=== PATIENT | female | born 1990 | race Two or more races ===

== ENCOUNTER 2016-09-21 10:28 | Inpatient (IN) | payer OTHER ==
[2016-09-21 13:08] VITALS: BMI 23.8
--- NOTE | 2016-09-21 13:22 | HP ---
CIWA Score - CIWA Score Nausea/Vomitin-Mild Nausea/No Vomiting Muscle Tremors: 4-Moderate,w/Arms Extend Anxiety: 4-Mod. Anxious/Guarded Agitation: 4-Moderately Restless Paroxysmal Sweats: 3 Orientation: 0-Oriented Tacttile Disturbances: 0-None Auditory Disturbances: 0-None Visual Disturbances: 0-None Headache: 0-None Present CIWA-Ar Total Score: 16 Admission ROS S - HPI Chief Complaint: I am here to detox and get better. Allergies/Adverse Reactions: Allergies Allergy/AdvReac Type Severity Reaction Status Date / Time peach Allergy Severe Verified 09/21/16 13:13 vancomycin Allergy Severe Verified 09/21/16 13:13 History of Present Illness: pt is a 25yr old female with a history of alcohol, cocaine and cannabis dependence seeking detox for treatment. pt also has a h/o of left foot big and second toe amputee and right foot big toe amputee. also right index finger amputee 2013 and 2011 pt also has been a diabetic since age 12 and states has been uncontrolled. Exam Limitations: No Limitations - Ebola screening Have you traveled outside of the country in the last 21 days: No Have you had contact with anyone from an Ebola affected area: No Have you been sick,other than usual withdrawal symptoms: No Do you have a fever: No - Review of Systems Constitutional: Chills, Diaphoresis, Night Sweats, Changes in sleep, Unexplained wgt Loss EENT: reports: Nose Congestion Respiratory: reports: No Symptoms reported GI: reports: Diarrhea (chronic diarrhea), Nausea, Poor Fluid Intake, Vomiting, Indigestion : reports: No Symptoms Reported Musculoskeletal: reports: Muscle Pain Integumentary: reports: Flushing, Rash (to elbow possible psoriasis) Neuro: reports: Tingling, Tremors Endocrine: reports: Excessive Sweating, Flushing, Intolerance to Cold, Intolerance to Heat Hematology: reports: No Symptoms Reported Psychiatric: reports: Judgement Intact, Mood/Affect Appropiate, Orientated x3, Agitated, Anxious Other Systems: Reviewed and Negative Patient History - Patient Medical History Hx Anemia: No Hx Asthma: No Hx Chronic Obstructive Pulmonary Disease (COPD): No Hx Cancer: No Hx Cardiac Disorders: No Hx Congestive Heart Failure: No Hx Hypertension: No Hx Hypercholesterolemia: No Hx Pacemaker: No HX Cerebrovascular Accident: No Hx Seizures: No Hx Dementia: No Hx Diabetes: Yes (insulin dependent) Hx Gastrointestinal Disorders: No Hx Liver Disease: No Hx Genitourinary Disorders: No Hx Sexually Transmitted Disorders: No Hx Renal Disease (ESRD): No Hx Thyroid Disease: No Hx Human Immunodeficiency Virus (HIV): No (negative) Hx Hepatitis C: No (negatiave) Hx Depression: Yes Hx Suicide Attempt: No (at a younger age; denies any S/H ideation today) Hx Bipolar Disorder: Yes Hx Schizophrenia: No - Patient Surgical History Hx Orthopedic Surgery: Yes (osteomylatis; four amputee(finger and toes)) - PPD History Previous Implant?: Yes Documented Results: Negative w/o proof PPD to be Administered?: Yes - Reproductive History Patient is a Female of Child Bearing Age (11 -55 yrs old): Yes Last Menstrual Period: 08/28/16 Patient : No - Smoking Cessation Smoking history: Current every day smoker Have you smoked in the past 12 months: Yes Aproximately how many cigarettes per day: 10 Hx Chewing Tobacco Use: No Initiated information on smoking cessation: Yes 'Breaking Loose' booklet given: 09/21/16 - Substance & Tx. History Hx Alcohol Use: Yes Hx Substance Use: Yes Substance Use Type: Alcohol, Cocaine, Marijuana Hx Substance Use Treatment: Yes ([facility] - Substances Abused Alcohol Route: Oral Frequency: Daily Amount used: 6PK BEER Age of first use: 14 Date of Last Use: 09/20/16 Cocaine Route: Inhalation Frequency: Daily Amount used: $300 AND UP Age of first use: 17 Date of Last Use: 09/21/16 Marijuana/Hashish Route: Smoking Frequency: Daily Amount used: $50 Age of first use: 13 Date of Last Use: 09/21/16 Family Disease History - Family Disease History Family Disease History: Diabetes: Mother () Admission Physical Exam [facility] - Vital Signs Vital Signs: Vital Signs - 24 hr 09/21/16 13:05 Temperature 97.1 F L Pulse Rate 64 Respiratory 20 Rate Blood Pressure 109/70 - Physical General Appearance: Yes: Appropriately Dressed, Moderate Distress, Tremorous, Irritable, Sweating, Anxious HEENTM: Yes: Hearing grossly Normal, Normal Voice, Nasal Congestion Respiratory: Yes: Lungs Clear, Normal Breath Sounds, No Respiratory Distress Neck: Yes: No masses,lesions,Nodules Breast: Yes: Within Normal Limits Cardiology: Yes: Regular Rhythm, Regular Rate, S1, S2 Abdominal: Yes: Normal Bowel Sounds, Non Tender, Soft Genitourinary: Yes: Within Normal Limits Back: Yes: Normal Inspection Musculoskeletal: Yes: full range of Motion Extremities: Yes: Normal Inspection, Non-Tender, Tremors, Swelling (lower ankles ) Neurological: Yes: Fully Oriented, Alert, Normal Response Integumentary: Yes: Normal Color, Diaphoresis Lymphatic: Yes: Within Normal Limits - Diagnostic (1) Alcohol dependence with uncomplicated withdrawal Current Visit: Yes Status: Chronic (2) Cocaine dependence Current Visit: Yes Status: Chronic Qualifiers: Substance use status: uncomplicated Qualified Code(s): F14.20 - Cocaine dependence, uncomplicated (3) Cannabis dependence Current Visit: Yes Status: Chronic (4) Diabetes type 2, uncontrolled Current Visit: Yes Status: Chronic Qualifiers: Diabetes mellitus complication status: without complication Diabetes mellitus termite technician insulin use: with termite technician use Qualified Code(s): E11.65 - Type 2 diabetes mellitus with hyperglycemia; Z79.4 - termite exterminator (current ) use of insulin (5) H/O amputation Current Visit: No Status: Chronic (6) H/O osteomyelitis Current Visit: No Status: Chronic (7) Nicotine dependence Current Visit: Yes Status: Chronic Qualifiers: Nicotine product type: cigarettes Substance use status: uncomplicated Qualified Code(s): F17.210 - Nicotine dependence, cigarettes, uncomplicated (8) Psoriasis Current Visit: Yes Status: Chronic (9) Swelling of lower extremity Current Visit: Yes Status: Chronic Cleared for Admission [facility] - Detox or Rehab [facility] Level of Care: Medically Managed Detox Regimen/Protocol: Librium [facility] Breath Alcohol Content Breath Alcohol Content: 0 Urine Pregancy Test - Result Urine Test Results: Negative- NO Line Present Urine Drug Screen - Results Drug Screen Negative: No Urine Drug Screen Results: THC-Marijuana, KEIRA-Cocaine
[2016-09-21] MEDS ORDERED: MAGNESIUM CITRATE 300 ML BOTTLE PO PRN (13:45)
[2016-09-21] MEDS ORDERED: guaiFENesin/D-METHORPHAN HB 10 ML UNIT-DOSE CUPS PO PRN (13:45)
[2016-09-21] MEDS ORDERED: IBUPROFEN 400 MG TABLET (FP) PO PRN (13:45)
[2016-09-21] MEDS ORDERED: chlordiazePOXIDE HCL 25 MG CAPSULE PO PRN (13:45)
[2016-09-21] MEDS ORDERED: MAGNESIUM HYDROX 2400MG/30ML ORAL SUSPENSION 30 ML CUP PO PRN (13:45)
[2016-09-21] MEDS ORDERED: MAG HYDROX/AL HYDROX/SIMETH 30 ML UNIT-DOSE CUP PO PRN (13:45)
[2016-09-21] MEDS ORDERED: ACETAMINOPHEN 325 MG TABLET (FP) PO PRN (13:45)
[2016-09-21] MEDS ORDERED: NICOTINE POLACRILEX 4 MG GUM BC PRN (13:45)
[2016-09-21] MEDS ORDERED: MENTHOL/PHENOL 1 EACH UD MM PRN (13:45)
[2016-09-21] MEDS ORDERED: hydrOXYzine PAMOATE 50 MG CAPSULE (FP) PO PRN (13:45)
[2016-09-21] MEDS ORDERED: P-EPHED 60MG/TRIPROLIDI 2.5MG TABLET PO PRN (13:45)
[2016-09-21] MEDS ORDERED: FUROSEMIDE 20 MG TABLET (FP) PO ONE (14:30)
[2016-09-21] MEDS ORDERED: chlordiazePOXIDE HCL 25 MG CAPSULE PO ONE (14:30)
[2016-09-21] MEDS: FLUOCINONIDE 0.05% TOP OINT (60 GM TUBE) TP SCH ×2 (14:59→22:08)
[2016-09-21] MEDS ORDERED: INSULIN (NOVOLOG) ASPART 100 UNITS/ML 10ML VIAL ONE ×2 (16:44→22:02)
[2016-09-21 17:30] LABS: URINE APPEARANCE CLEAR; URINE BILIRUBIN NEGATIVE (NEGATIVE); URINE COLOR STRAW; URINE GLUCOSE (UA) 3+ (NEGATIVE); URINE KETONE NEGATIVE (NEGATIVE); URINE LEUK ESTERASE NEGATIVE (NEGATIVE); URINE NITRITE NEGATIVE (NEGATIVE); URINE UROBILINOGEN NEGATIVE E.U./dl (0.2-1.0)
[2016-09-21 17:32] LABS: URINE BLOOD 1+ (NEGATIVE); URINE PROTEIN 2+ (NEGATIVE)
[2016-09-21 17:35] LABS: URINE BACTERIA RARE /hpf (NONE SEEN); URINE RBC 30 /hpf (0-3); URINE WBC 3 /hpf (3-5); YEAST MODERATE
[2016-09-21] MEDS: chlordiazePOXIDE HCL 25 MG CAPSULE PO SCH ×2 (17:37→22:04)
[2016-09-21] MEDS: INSULIN (NOVOLOG) ASPART 100 UNITS/ML 10ML VIAL SQ SCH (17:38)
[2016-09-21] MEDS: RANITIDINE HCL 150 MG TABLET (FP) PO SCH (22:04)
[2016-09-21] MEDS: LOPERAMIDE HCL 2 MG CAPSULE PO PRN (22:06)
[2016-09-21] MEDS: diphenhydrAMINE HCL 50 MG CAPSULE PO PRN (22:07)
[2016-09-21] MEDS: INSULIN DETEMIR 100 UNITS/ML MDV SQ SCH (22:07)
[2016-09-21] MEDS: THIAMINE HCL 100 MG TABLET (FP) PO SCH (22:08)
[2016-09-21] MEDS ORDERED: Insulin (LOG) Aspart 100 UNITS/ML VIAL SQ SCH (22:15)
[2016-09-22] MEDS: chlordiazePOXIDE HCL 25 MG CAPSULE PO SCH ×4 (05:54→22:27)
[2016-09-22] MEDS: FLUOCINONIDE 0.05% TOP OINT (60 GM TUBE) TP SCH ×3 (05:57→22:27)
[2016-09-22] MEDS ORDERED: INSULIN (NOVOLOG) ASPART 100 UNITS/ML 10ML VIAL ONE ×4 (06:36→22:10)
[2016-09-22] MEDS: INSULIN (NOVOLOG) ASPART 100 UNITS/ML 10ML VIAL SQ SCH ×3 (06:38→17:26)
[2016-09-22] MEDS ORDERED: Insulin (LOG) Aspart 100 UNITS/ML VIAL SQ SCH (07:00)
[2016-09-22 10:04] LABS: MCH 28.4 pg (25.7-33.7); MCHC 32.5 g/dl (32.0-36.0); MEAN CELL VOLUME 87.5 fl (80-96); MEAN PLT VOLUME 9.8 fl (7.5-11.1); PLATELET COUNT 369 K/MM3 (134-434); RDW 15.2 % (11.6-15.6)
[2016-09-22] MEDS: RANITIDINE HCL 150 MG TABLET (FP) PO SCH ×2 (10:18→22:26)
[2016-09-22] MEDS: PRENATAL VITAMINS W/ FOLIC ACID TABLET (FP) PO SCH (10:18)
[2016-09-22] MEDS: LOPERAMIDE HCL 2 MG CAPSULE PO PRN (10:19)
[2016-09-22] MEDS: NICOTINE 21 MG/24 HOURS TOPICAL PATCH TD SCH (10:19)
[2016-09-22 10:27] LABS: ALBUMIN 2.9 g/dl (3.4-5.0); BILIRUBIN,TOTAL 0.2 mg/dL (0.2-1.0); CALCIUM 8.7 mg/dL (8.5-10.1); COCKROFT - GAULT 50.031; CREATININE 1.6 mg/dL (0.55-1.02); TOT PROT 6.8 g/dl (6.4-8.2)
--- NOTE | 2016-09-22 13:34 | PN ---
S CIWA - CIWA Score Nausea/Vomitin Muscle Tremors: 3 Anxiety: 2 Agitation: 2 Paroxysmal Sweats: 1-Minimal Palms Moist Orientation: 0-Oriented Tacttile Disturbances: 1-Very Mild Itch/Numbness Auditory Disturbances: 1-Very Mild Visual Disturbances: 1-Very Mild Sensitivity Headache: 2-Mild CIWA-Ar Total Score: 16 S Progress Note (SOAP) Subjective: ALERT,IRRITABLE,ANXIOUS,INTERRUPTED SLEEP,TREMOR Objective: 09/22/16 13:32 Vital Signs Temperature 97.7 F 09/22/16 13:14 Pulse Rate 102 H 09/22/16 13:14 Respiratory Rate 16 09/22/16 13:14 Blood Pressure 135/84 09/22/16 13:14 O2 Sat by Pulse Oximetry (%) EKG SINUS TACHYCARDIA 103/MIN N CHEST PAIN,NO SOB,NO DIZZINESS 09/22/16 13:33 Laboratory Last Values WBC 8.0 K/mm3 (4.0-10.0) 09/22/16 06:00 RBC 3.47 M/mm3 (3.60-5.2) L 09/22/16 06:00 Hgb 9.9 GM/dL (10.7-15.3) L 09/22/16 06:00 Hct 30.4 % (32.4-45.2) L 09/22/16 06:00 MCV 87.5 fl (80-96) 09/22/16 06:00 MCHC 32.5 g/dl (32.0-36.0) 09/22/16 06:00 RDW 15.2 % (11.6-15.6) 09/22/16 06:00 Plt Count 369 K/MM3 (134-434) 09/22/16 06:00 MPV 9.8 fl (7.5-11.1) 09/22/16 06:00 Sodium 132 mmol/L (136-145) L 09/22/16 06:00 Potassium 4.9 mmol/L (3.5-5.1) 09/22/16 06:00 Chloride 101 mmol/L (98-107) 09/22/16 06:00 Carbon Dioxide 19 mmol/L (21-32) L 09/22/16 06:00 Anion Gap 12 (8-16) 09/22/16 06:00 BUN 32 mg/dL (7-18) H 09/22/16 06:00 Creatinine 1.6 mg/dL (0.55-1.02) H 09/22/16 06:00 Creat Clearance w eGFR 39.27 (>60) 09/22/16 06:00 POC Glucometer 357 UNITS (()) 09/22/16 11:15 Random Glucose 577 mg/dL (74-106) H* 09/22/16 06:00 Calcium 8.7 mg/dL (8.5-10.1) 09/22/16 06:00 Total Bilirubin 0.2 mg/dL (0.2-1.0) 09/22/16 06:00 AST 29 U/L (15-37) 09/22/16 06:00 ALT 75 U/L (12-78) 09/22/16 06:00 Alkaline Phosphatase 202 U/L (45-117) H 09/22/16 06:00 Total Protein 6.8 g/dl (6.4-8.2) 09/22/16 06:00 Albumin 2.9 g/dl (3.4-5.0) L 09/22/16 06:00 Urine Color Straw 09/21/16 15:00 Urine Appearance Clear 09/21/16 15:00 Urine pH 5.0 (5.0-8.0) 09/21/16 15:00 Ur Specific [place] 1.015 (1.005-1.025) 09/21/16 15:00 Urine Protein 2+ (NEGATIVE) H 09/21/16 15:00 Urine Glucose (UA) 3+ (NEGATIVE) H 09/21/16 15:00 Urine Ketones Negative (NEGATIVE) 09/21/16 15:00 Urine Blood 1+ (NEGATIVE) H 09/21/16 15:00 Urine Nitrite Negative (NEGATIVE) 09/21/16 15:00 Urine Bilirubin Negative (NEGATIVE) 09/21/16 15:00 Urine Urobilinogen Negative E.U./dl (0.2-1.0) 09/21/16 15:00 Ur Leukocyte Esterase Negative (NEGATIVE) 09/21/16 15:00 Urine RBC 30 /hpf (0-3) 09/21/16 15:00 Urine WBC 3 /hpf (3-5) 09/21/16 15:00 Ur Epithelial Cells Rare /hpf (FEW) 09/21/16 15:00 Urine Bacteria Rare /hpf (NONE SEEN) 09/21/16 15:00 Urine Yeast Moderate 09/21/16 15:00 Assessment: 09/22/16 13:34 ENCOURAGE ORAL FLUID Plan: CONTINUE DETOX,REPEAT UA,BGM MONITORING WITH INSULIN COVERAGE,REPEAT CMP IN AM
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
--- NOTE | 2016-09-22 15:47 | EKG ---
Test Reason : Blood Pressure : / mmHG Vent. Rate : 103 BPM Atrial Rate : 103 BPM P-R Int : 150 ms QRS Dur : 092 ms QT Int : 328 ms P-R-T Axes : 052 071 051 degrees QTc Int : 429 ms SINUS TACHYCARDIA OTHERWISE NORMAL ECG NO PREVIOUS ECGS AVAILABLE Confirmed by MARLENE HAYS, AUGUSTIN ([id number]) on 09/22/2016 3:47:41 PM Referred By: Confirmed By:AUGUSTIN ROSARIO MD
[2016-09-22] MEDS: SERTRALINE HCL 50 MG TABLET (FP) PO SCH (15:54)
[2016-09-22] MEDS ORDERED: ZOLPIDEM TARTRATE 5 MG TABLET PO PRN (18:24)
[2016-09-22] MEDS: THIAMINE HCL 100 MG TABLET (FP) PO SCH (22:26)
[2016-09-22] MEDS: INSULIN DETEMIR 100 UNITS/ML MDV SQ SCH (22:27)
[2016-09-23] MEDS ORDERED: Insulin (LOG) Aspart 100 UNITS/ML VIAL SQ ONE ×2 (00:30→23:49)
[2016-09-23] MEDS: chlordiazePOXIDE HCL 25 MG CAPSULE PO SCH ×2 (06:30→10:16)
[2016-09-23] MEDS: FLUOCINONIDE 0.05% TOP OINT (60 GM TUBE) TP SCH ×3 (06:30→22:42)
[2016-09-23] MEDS: INSULIN (NOVOLOG) ASPART 100 UNITS/ML 10ML VIAL SQ SCH ×3 (06:31→17:42)
[2016-09-23] MEDS: RANITIDINE HCL 150 MG TABLET (FP) PO SCH ×2 (10:16→22:13)
[2016-09-23] MEDS: SERTRALINE HCL 50 MG TABLET (FP) PO SCH (10:16)
[2016-09-23] MEDS: PRENATAL VITAMINS W/ FOLIC ACID TABLET (FP) PO SCH (10:16)
[2016-09-23] MEDS: NICOTINE 21 MG/24 HOURS TOPICAL PATCH TD SCH (10:16)
--- NOTE | 2016-09-23 11:30 | PN ---
S CIWA - CIWA Score Nausea/Vomitin Muscle Tremors: 3 Anxiety: 2 Agitation: 2 Paroxysmal Sweats: 1-Minimal Palms Moist Orientation: 0-Oriented Tacttile Disturbances: 1-Very Mild Itch/Numbness Auditory Disturbances: 1-Very Mild Visual Disturbances: 1-Very Mild Sensitivity Headache: 2-Mild CIWA-Ar Total Score: 16 S Progress Note (SOAP) Subjective: ALERT,IRRITABLE,ANXIOUS,INTERRUPTED SLEEP,TREMOR Objective: 09/23/16 11:28 Vital Signs Temperature 97.7 F 09/23/16 10:50 Pulse Rate 94 H 09/23/16 10:50 Respiratory Rate 16 09/23/16 10:50 Blood Pressure 123/82 09/23/16 10:50 O2 Sat by Pulse Oximetry (%) Laboratory Last Values WBC 8.0 K/mm3 (4.0-10.0) 09/22/16 06:00 RBC 3.47 M/mm3 (3.60-5.2) L 09/22/16 06:00 Hgb 9.9 GM/dL (10.7-15.3) L 09/22/16 06:00 Hct 30.4 % (32.4-45.2) L 09/22/16 06:00 MCV 87.5 fl (80-96) 09/22/16 06:00 MCHC 32.5 g/dl (32.0-36.0) 09/22/16 06:00 RDW 15.2 % (11.6-15.6) 09/22/16 06:00 Plt Count 369 K/MM3 (134-434) 09/22/16 06:00 MPV 9.8 fl (7.5-11.1) 09/22/16 06:00 Sodium 132 mmol/L (136-145) L 09/22/16 06:00 Potassium 4.9 mmol/L (3.5-5.1) 09/22/16 06:00 Chloride 101 mmol/L (98-107) 09/22/16 06:00 Carbon Dioxide 19 mmol/L (21-32) L 09/22/16 06:00 Anion Gap 12 (8-16) 09/22/16 06:00 BUN 32 mg/dL (7-18) H 09/22/16 06:00 Creatinine 1.6 mg/dL (0.55-1.02) H 09/22/16 06:00 Creat Clearance w eGFR 39.27 (>60) 09/22/16 06:00 POC Glucometer 80 UNITS (()) 09/23/16 06:58 Random Glucose 577 mg/dL (74-106) H* 09/22/16 06:00 Calcium 8.7 mg/dL (8.5-10.1) 09/22/16 06:00 Total Bilirubin 0.2 mg/dL (0.2-1.0) 09/22/16 06:00 AST 29 U/L (15-37) 09/22/16 06:00 ALT 75 U/L (12-78) 09/22/16 06:00 Alkaline Phosphatase 202 U/L (45-117) H 09/22/16 06:00 Total Protein 6.8 g/dl (6.4-8.2) 09/22/16 06:00 Albumin 2.9 g/dl (3.4-5.0) L 09/22/16 06:00 Urine Color Straw 09/21/16 15:00 Urine Appearance Clear 09/21/16 15:00 Urine pH 5.0 (5.0-8.0) 09/21/16 15:00 Ur Specific [place] 1.015 (1.005-1.025) 09/21/16 15:00 Urine Protein 2+ (NEGATIVE) H 09/21/16 15:00 Urine Glucose (UA) 3+ (NEGATIVE) H 09/21/16 15:00 Urine Ketones Negative (NEGATIVE) 09/21/16 15:00 Urine Blood 1+ (NEGATIVE) H 09/21/16 15:00 Urine Nitrite Negative (NEGATIVE) 09/21/16 15:00 Urine Bilirubin Negative (NEGATIVE) 09/21/16 15:00 Urine Urobilinogen Negative E.U./dl (0.2-1.0) 09/21/16 15:00 Ur Leukocyte Esterase Negative (NEGATIVE) 09/21/16 15:00 Urine RBC 30 /hpf (0-3) 09/21/16 15:00 Urine WBC 3 /hpf (3-5) 09/21/16 15:00 Ur Epithelial Cells Rare /hpf (FEW) 09/21/16 15:00 Urine Bacteria Rare /hpf (NONE SEEN) 09/21/16 15:00 Urine Yeast Moderate 09/21/16 15:00 RPR Titer Nonreactive (NONREACTIVE) 09/22/16 06:00 Assessment: 09/23/16 11:29 WITHDRAWAL SYMPTOM Plan: CONTINUE DETOX,REPEAT UA,BGM MONITORING
[2016-09-23] MEDS ORDERED: INSULIN (NOVOLOG) ASPART 100 UNITS/ML 10ML VIAL ONE ×2 (11:37→16:49)
[2016-09-23] MEDS: chlordiazePOXIDE 5 MG CAPSULE PO SCH ×2 (17:41→22:13)
[2016-09-23 17:49] LABS: URINE APPEARANCE SLCLOUDY; URINE BILIRUBIN NEGATIVE (NEGATIVE); URINE COLOR LTYELLOW; URINE GLUCOSE (UA) 3+ (NEGATIVE); URINE KETONE NEGATIVE (NEGATIVE); URINE LEUK ESTERASE NEGATIVE (NEGATIVE); URINE NITRITE NEGATIVE (NEGATIVE); URINE UROBILINOGEN NEGATIVE E.U./dl (0.2-1.0)
[2016-09-23 17:57] LABS: URINE BLOOD 1+ (NEGATIVE); URINE PROTEIN 2+ (NEGATIVE)
[2016-09-23 17:58] LABS: URINE HYALINE CAST 2 /lpf; URINE MUCUS RARE; URINE RBC 7 /hpf (0-3); URINE WBC 2 /hpf (3-5)
[2016-09-23] MEDS: LOPERAMIDE HCL 2 MG CAPSULE PO PRN (20:24)
[2016-09-23] MEDS: THIAMINE HCL 100 MG TABLET (FP) PO SCH (22:13)
[2016-09-23] MEDS: INSULIN DETEMIR 100 UNITS/ML MDV SQ SCH (22:14)
[2016-09-23] MEDS: diphenhydrAMINE HCL 50 MG CAPSULE PO PRN (22:14)
[2016-09-24] MEDS: diphenhydrAMINE HCL 50 MG CAPSULE PO PRN ×2 (00:35→22:23)
[2016-09-24] MEDS: LOPERAMIDE HCL 2 MG CAPSULE PO PRN ×2 (03:53→10:26)
[2016-09-24] MEDS ORDERED: DIPHENOXYLATE 2.5/ATROPINE.025 1 COMBO TABLET PO PRN (06:04)
[2016-09-24] MEDS: chlordiazePOXIDE 5 MG CAPSULE PO SCH ×2 (06:08→10:22)
[2016-09-24] MEDS: FLUOCINONIDE 0.05% TOP OINT (60 GM TUBE) TP SCH ×3 (06:13→22:22)
[2016-09-24] MEDS: INSULIN (NOVOLOG) ASPART 100 UNITS/ML 10ML VIAL SQ SCH ×3 (07:56→17:11)
[2016-09-24] MEDS: RANITIDINE HCL 150 MG TABLET (FP) PO SCH ×2 (10:24→22:23)
[2016-09-24] MEDS: PRENATAL VITAMINS W/ FOLIC ACID TABLET (FP) PO SCH (10:24)
[2016-09-24] MEDS: SERTRALINE HCL 50 MG TABLET (FP) PO SCH (10:24)
--- NOTE | 2016-09-24 10:24 | PN ---
[facility] Progress Note (SOAP) Subjective: diarrhea has lessen feeling much better Objective: 09/24/16 10:23 Last Vital Signs Temp Pulse Resp BP Pulse Ox 97.1 F L 101 H 20 141/89 09/24/16 10:00 09/24/16 10:00 09/24/16 10:00 09/24/16 10:00 awake/alert ambulating no acute distress Assessment: 09/24/16 10:24 withdrawal sx Plan: continue detox increase fluids d/c in am
[2016-09-24] MEDS: NICOTINE 21 MG/24 HOURS TOPICAL PATCH TD SCH (10:31)
[2016-09-24] MEDS ORDERED: INSULIN (NOVOLOG) ASPART 100 UNITS/ML 10ML VIAL ONE ×2 (10:56→16:34)
[2016-09-24] MEDS: chlordiazePOXIDE HCL 10 MG CAPSULE PO SCH ×2 (17:10→22:23)
[2016-09-24] MEDS: INSULIN DETEMIR 100 UNITS/ML MDV SQ SCH (22:23)
[2016-09-24] MEDS: THIAMINE HCL 100 MG TABLET (FP) PO SCH (22:23)
[2016-09-25] MEDS: diphenhydrAMINE HCL 50 MG CAPSULE PO PRN (00:33)
[2016-09-25] MEDS: chlordiazePOXIDE HCL 10 MG CAPSULE PO SCH ×2 (06:29→10:30)
[2016-09-25] MEDS: INSULIN (NOVOLOG) ASPART 100 UNITS/ML 10ML VIAL SQ SCH ×2 (07:23→11:44)
[2016-09-25] MEDS: FLUOCINONIDE 0.05% TOP OINT (60 GM TUBE) TP SCH ×2 (07:23→15:47)
--- NOTE | 2016-09-25 09:05 | DS ---
[facility] Detox Discharge Summary Admission Date: 09/21/16 Discharge Date: 09/25/16 - History Present History: Alcohol Dependence, Cannabis Dependence, Cocaine Dependence - Physical Exam Results Vital Signs: Vital Signs Temperature 97.7 F 09/25/16 06:00 Pulse Rate 94 H 09/25/16 06:00 Respiratory Rate 18 09/25/16 06:00 Blood Pressure 109/66 09/25/16 06:00 O2 Sat by Pulse Oximetry (%) - Treatment Hospital Course: Detox Protocol Followed, Detoxed Safely, Responded well, Discharged Condition Good, Rehab Referral Accepted - Medication Discharge Medications: Ambulatory Orders Diphenhydramine [Benadryl -] 50 mg PO HS 09/21/16 Insulin (Levemir) [Levemir Flexpen -] 0 units SQ TIDCM 09/21/16 Insulin Glargine,Hum.rec.anlog [Lantus Solostar PEN (NF)] 36 units SQ HS Sertraline HCl [Zoloft -] 25 mg PO DAILY 09/21/16 Sertraline HCl [Zoloft -] 50 mg PO DAILY #30 tablet 09/22/16 - Diagnosis (1) Alcohol dependence with uncomplicated withdrawal Current Visit: Yes Status: Chronic (2) Cocaine dependence Current Visit: Yes Status: Chronic Qualifiers: Substance use status: uncomplicated Qualified Code(s): F14.20 - Cocaine dependence, uncomplicated (3) Cannabis dependence Current Visit: Yes Status: Chronic (4) Diabetes type 2, uncontrolled Current Visit: Yes Status: Chronic Qualifiers: Diabetes mellitus complication status: without complication Diabetes mellitus intermediate frame tender insulin use: with intermediate frame tender use Qualified Code(s): E11.65 - Type 2 diabetes mellitus with hyperglycemia (5) H/O amputation Current Visit: No Status: Chronic (6) H/O osteomyelitis Current Visit: No Status: Chronic (7) Nicotine dependence Current Visit: Yes Status: Chronic Qualifiers: Nicotine product type: cigarettes Substance use status: uncomplicated Qualified Code(s): F17.210 - Nicotine dependence, cigarettes, uncomplicated (8) Psoriasis Current Visit: Yes Status: Chronic (9) Swelling of lower extremity Current Visit: Yes Status: Chronic - AMA Did Patient Leave Against Medical Advice: No
--- NOTE | 2016-09-25 09:21 | PN ---
[facility] Progress Note Note: pt c/o left ankle swelling and muscle cramp; lasix 40mg x one and flexiril 10mg x one ordered. encouraged to maintain legs elevated, pt in agreement.
[2016-09-25] MEDS ORDERED: CYCLOBENZAPRINE HCL 10 MG TABLET (FP) PO ONE (09:30)
[2016-09-25] MEDS ORDERED: FUROSEMIDE 40 MG TABLET (FP) PO ONE (09:31)
[2016-09-25] MEDS: PRENATAL VITAMINS W/ FOLIC ACID TABLET (FP) PO SCH (10:28)
[2016-09-25] MEDS: RANITIDINE HCL 150 MG TABLET (FP) PO SCH (10:28)
[2016-09-25] MEDS: SERTRALINE HCL 50 MG TABLET (FP) PO SCH (10:29)
[2016-09-25] MEDS: NICOTINE 21 MG/24 HOURS TOPICAL PATCH TD SCH (10:31)
[2016-09-25] MEDS ORDERED: INSULIN (NOVOLOG) ASPART 100 UNITS/ML 10ML VIAL ONE (11:42)
[2016-09-25 14:47] VITALS: BP 145/65; PULSE 108; TEMP 98.4
== END 2016-09-25 15:47 | disposition other institution (70) | DRG 774 ==
LOC: YASAS 10:28 → Y6N 13:58
PROVIDERS: ADMIT Internal Medicine; ATTEND Internal Medicine
PROC: HZ2ZZZZ Detoxification Services for Substance Abuse Treatment (ICD-10-PCS; principal; 2016-09-21)
DX: F10.230 Alcohol dependence with withdrawal, uncomplicated (principal); F14.20 Cocaine dependence, uncomplicated; F12.20 Cannabis dependence, uncomplicated; F17.210 Nicotine dependence, cigarettes, uncomplicated; F32.9 Major depressive disorder, single episode, unspecified; E11.65 Type 2 diabetes mellitus with hyperglycemia; G47.00 Insomnia, unspecified; M25.472 Effusion, left ankle; L40.9 Psoriasis, unspecified; R00.0 Tachycardia, unspecified; Z79.4 Long term (current) use of insulin; Z87.39 Personal history of other diseases of the musculoskeletal system and connective tissue; Z91.5 Personal history of self-harm; Z89.412 Acquired absence of left great toe; Z89.411 Acquired absence of right great toe; Z89.422 Acquired absence of other left toe(s); Z89.021 Acquired absence of right finger(s)
CPT/HCPCS: 36415; 80053; 81003; 81015; 85027; 86593; 93005; 93010

== ENCOUNTER 2016-09-25 15:51 | Inpatient (IN) | payer OTHER ==
[2016-09-25] MEDS ORDERED: MAGNESIUM HYDROX 2400MG/30ML ORAL SUSPENSION 30 ML CUP PO PRN (16:27)
[2016-09-25] MEDS ORDERED: MAG HYDROX/AL HYDROX/SIMETH 30 ML UNIT-DOSE CUP PO PRN (16:27)
[2016-09-25] MEDS ORDERED: MAGNESIUM CITRATE 300 ML BOTTLE PO PRN (16:27)
[2016-09-25] MEDS ORDERED: IBUPROFEN 400 MG TABLET (FP) PO PRN (16:27)
[2016-09-25] MEDS ORDERED: MENTHOL/PHENOL 1 EACH UD MM PRN (16:27)
[2016-09-25] MEDS ORDERED: P-EPHED 60MG/TRIPROLIDI 2.5MG TABLET PO PRN (16:27)
[2016-09-25] MEDS ORDERED: diphenhydrAMINE HCL 50 MG CAPSULE PO PRN (16:27)
[2016-09-25] MEDS ORDERED: NICOTINE POLACRILEX 2 MG GUM BUC PRN (16:27)
[2016-09-25] MEDS ORDERED: NICOTINE 14 MG/24 HOURS TOPICAL PATCH TD PRN (16:27)
[2016-09-25] MEDS ORDERED: guaiFENesin/D-METHORPHAN HB 10 ML UNIT-DOSE CUPS PO PRN (16:27)
--- NOTE | 2016-09-25 16:27 | HP ---
KATHIE HAYS Rehab Assess/Revision - Admission History Admitted to Rehab from: [facility] [address] [place] Date of Admission to Rehab: 09/25/16 - Findings Detox History & Physical reviewed: Yes Concur with findings: Yes Comments/Additional Findings: transferred from detox to rehab admission as per protocol
[2016-09-25] MEDS ORDERED: INSULIN (NOVOLOG) ASPART 100 UNITS/ML 10ML VIAL ONE ×2 (17:33→22:32)
[2016-09-25] MEDS: INSULIN SLIDING SCALE (NOVOLOG) 1 VIAL SQ SCH ×2 (17:58→22:34)
[2016-09-25] MEDS: FLUOCINONIDE 0.05% TOP OINT (60 GM TUBE) TP SCH (22:26)
[2016-09-25] MEDS: THIAMINE HCL 100 MG TABLET (FP) PO SCH (22:28)
[2016-09-25] MEDS: LOPERAMIDE HCL 2 MG CAPSULE PO PRN (22:29)
[2016-09-25] MEDS: ACETAMINOPHEN 325 MG TABLET (FP) PO PRN (22:30)
[2016-09-25] MEDS: INSULIN DETEMIR 100 UNITS/ML MDV SQ SCH (22:34)
[2016-09-26 00:57] VITALS: BMI 23.8
[2016-09-26] MEDS: FLUOCINONIDE 0.05% TOP OINT (60 GM TUBE) TP SCH ×3 (06:38→21:13)
[2016-09-26] MEDS: INSULIN SLIDING SCALE (NOVOLOG) 1 VIAL SQ SCH ×4 (06:38→21:13)
[2016-09-26] MEDS ORDERED: Insulin (LOG) Aspart 100 UNITS/ML VIAL SQ SCH (07:00)
[2016-09-26] MEDS: PRENATAL VITAMINS W/ FOLIC ACID TABLET (FP) PO SCH (10:47)
[2016-09-26] MEDS ORDERED: INSULIN (NOVOLOG) ASPART 100 UNITS/ML 10ML VIAL ONE ×3 (12:02→22:16)
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
[2016-09-26] MEDS: SERTRALINE HCL 50 MG TABLET (FP) PO SCH (15:24)
[2016-09-26] MEDS: QUEtiapine FUMARATE 25 MG TABLET (FP) PO SCH ×2 (15:24→21:11)
[2016-09-26] MEDS: THIAMINE HCL 100 MG TABLET (FP) PO SCH (21:11)
[2016-09-26] MEDS: INSULIN DETEMIR 100 UNITS/ML MDV SQ SCH (21:13)
[2016-09-26] MEDS: traZODone HCL 100 MG TABLET (FP) PO SCH (21:15)
[2016-09-26] MEDS: hydrOXYzine PAMOATE 50 MG CAPSULE (FP) PO PRN (21:15)
[2016-09-27] MEDS: LOPERAMIDE HCL 2 MG CAPSULE PO PRN ×2 (02:39→21:49)
[2016-09-27] MEDS ORDERED: PT OWN MED DRAWER 7, Y5N ONE ×3 (03:07→22:16)
[2016-09-27] MEDS: ACETAMINOPHEN 325 MG TABLET (FP) PO PRN (06:36)
[2016-09-27] MEDS: QUEtiapine FUMARATE 25 MG TABLET (FP) PO SCH ×3 (06:37→21:47)
[2016-09-27] MEDS: FLUOCINONIDE 0.05% TOP OINT (60 GM TUBE) TP SCH ×3 (06:37→21:48)
[2016-09-27] MEDS: hydrOXYzine PAMOATE 50 MG CAPSULE (FP) PO PRN ×2 (06:38→12:00)
[2016-09-27] MEDS: INSULIN SLIDING SCALE (NOVOLOG) 1 VIAL SQ SCH ×4 (06:44→21:48)
[2016-09-27] MEDS: SERTRALINE HCL 50 MG TABLET (FP) PO SCH (09:57)
[2016-09-27] MEDS: PRENATAL VITAMINS W/ FOLIC ACID TABLET (FP) PO SCH (09:57)
[2016-09-27] MEDS ORDERED: INSULIN (NOVOLOG) ASPART 100 UNITS/ML 10ML VIAL ONE ×3 (11:58→22:12)
--- NOTE | 2016-09-27 15:11 | PN ---
[facility] Progress Note Note: Pt. has swelling both legs & ankles P : lasix & aldactone
[2016-09-27] MEDS: SPIRONOLACTONE 25 MG TABLET (FP) PO SCH (17:15)
[2016-09-27] MEDS: FUROSEMIDE 20 MG TABLET (FP) PO SCH (17:15)
[2016-09-27] MEDS: THIAMINE HCL 100 MG TABLET (FP) PO SCH (21:47)
[2016-09-27] MEDS: traZODone HCL 100 MG TABLET (FP) PO SCH (21:47)
[2016-09-27] MEDS: INSULIN DETEMIR 100 UNITS/ML MDV SQ SCH (21:47)
[2016-09-28] MEDS ORDERED: PT OWN MED DRAWER 7, Y5N ONE ×2 (05:39→07:01)
[2016-09-28] MEDS ORDERED: INSULIN (NOVOLOG) ASPART 100 UNITS/ML 10ML VIAL ONE ×4 (06:50→22:13)
[2016-09-28] MEDS: FLUOCINONIDE 0.05% TOP OINT (60 GM TUBE) TP SCH ×3 (06:51→22:08)
[2016-09-28] MEDS: QUEtiapine FUMARATE 25 MG TABLET (FP) PO SCH ×3 (06:51→21:07)
[2016-09-28] MEDS: INSULIN SLIDING SCALE (NOVOLOG) 1 VIAL SQ SCH ×4 (06:51→22:12)
[2016-09-28] MEDS: hydrOXYzine PAMOATE 50 MG CAPSULE (FP) PO PRN ×3 (06:52→18:15)
[2016-09-28] MEDS: PRENATAL VITAMINS W/ FOLIC ACID TABLET (FP) PO SCH (10:07)
[2016-09-28] MEDS: SPIRONOLACTONE 25 MG TABLET (FP) PO SCH ×2 (10:07→18:11)
[2016-09-28] MEDS: SERTRALINE HCL 50 MG TABLET (FP) PO SCH (10:07)
[2016-09-28] MEDS: FUROSEMIDE 20 MG TABLET (FP) PO SCH (10:07)
[2016-09-28] MEDS: diphenhydrAMINE HCL 50 MG CAPSULE PO SCH (21:07)
[2016-09-28] MEDS: traZODone HCL 100 MG TABLET (FP) PO SCH (21:07)
[2016-09-28] MEDS: THIAMINE HCL 100 MG TABLET (FP) PO SCH (21:08)
[2016-09-28] MEDS: INSULIN DETEMIR 100 UNITS/ML MDV SQ SCH (22:11)
[2016-09-29] MEDS ORDERED: PT OWN MED DRAWER 7, Y5N ONE ×2 (06:34→12:20)
[2016-09-29] MEDS: FLUOCINONIDE 0.05% TOP OINT (60 GM TUBE) TP SCH ×3 (06:38→21:44)
[2016-09-29] MEDS: QUEtiapine FUMARATE 25 MG TABLET (FP) PO SCH ×3 (06:38→21:43)
[2016-09-29] MEDS: INSULIN SLIDING SCALE (NOVOLOG) 1 VIAL SQ SCH ×4 (06:39→21:44)
[2016-09-29] MEDS: FUROSEMIDE 20 MG TABLET (FP) PO SCH (10:02)
[2016-09-29] MEDS: SPIRONOLACTONE 25 MG TABLET (FP) PO SCH ×2 (10:02→17:18)
[2016-09-29] MEDS: PRENATAL VITAMINS W/ FOLIC ACID TABLET (FP) PO SCH (10:03)
[2016-09-29] MEDS: SERTRALINE HCL 50 MG TABLET (FP) PO SCH (10:03)
[2016-09-29] MEDS: hydrOXYzine PAMOATE 50 MG CAPSULE (FP) PO PRN (17:15)
[2016-09-29] MEDS: ACETAMINOPHEN 325 MG TABLET (FP) PO PRN (17:19)
[2016-09-29] MEDS: traZODone HCL 100 MG TABLET (FP) PO SCH (21:43)
[2016-09-29] MEDS: diphenhydrAMINE HCL 50 MG CAPSULE PO SCH (21:43)
[2016-09-29] MEDS: THIAMINE HCL 100 MG TABLET (FP) PO SCH (21:43)
[2016-09-29] MEDS ORDERED: INSULIN DETEMIR 100 UNITS/ML MDV SQ ONE (22:13)
[2016-09-29] MEDS: INSULIN DETEMIR 100 UNITS/ML MDV SQ SCH (22:17)
[2016-09-30] MEDS: ACETAMINOPHEN 325 MG TABLET (FP) PO PRN ×2 (07:09→19:52)
[2016-09-30] MEDS: QUEtiapine FUMARATE 25 MG TABLET (FP) PO SCH ×3 (07:10→21:01)
[2016-09-30] MEDS: INSULIN SLIDING SCALE (NOVOLOG) 1 VIAL SQ SCH ×4 (07:11→21:01)
[2016-09-30] MEDS: FLUOCINONIDE 0.05% TOP OINT (60 GM TUBE) TP SCH ×3 (07:11→21:01)
[2016-09-30] MEDS: PRENATAL VITAMINS W/ FOLIC ACID TABLET (FP) PO SCH (09:47)
[2016-09-30] MEDS: SPIRONOLACTONE 25 MG TABLET (FP) PO SCH ×2 (09:47→17:53)
[2016-09-30] MEDS: FUROSEMIDE 20 MG TABLET (FP) PO SCH (09:47)
[2016-09-30] MEDS: SERTRALINE HCL 50 MG TABLET (FP) PO SCH (09:47)
[2016-09-30] MEDS: LOPERAMIDE HCL 2 MG CAPSULE PO PRN (10:13)
[2016-09-30 10:29] LABS: BASOPHIL 0.7 % (0-2.0); EOSINOPHIL 0.5 % (0-4.5); MCH 28.4 pg (25.7-33.7); MCHC 32.6 g/dl (32.0-36.0); MEAN CELL VOLUME 87.3 fl (80-96); MEAN PLT VOLUME 8.6 fl (7.5-11.1); NEUTROPHILS 79.6 % (42.8-82.8); PLATELET COUNT 347 K/MM3 (134-434)
--- NOTE | 2016-09-30 11:31 | PN ---
[facility] Progress Note Note: Pt. has elevated WBC, low H/H and U/A from detox had high WBC & + leuk esterase. Vital Signs - 8 hr 09/30/16 09/30/16 07:30 08:45 Temperature 98.1 F 98.0 F Pulse Rate 103 H 81 Respiratory 16 18 Rate Blood Pressure 115/71 144/91 Laboratory Last Values WBC 12.0 K/mm3 (4.0-10.0) H D 09/30/16 09:00 RBC 3.24 M/mm3 (3.60-5.2) L 09/30/16 09:00 Hgb 9.2 GM/dL (10.7-15.3) L 09/30/16 09:00 Hct 28.3 % (32.4-45.2) L 09/30/16 09:00 MCV 87.3 fl (80-96) 09/30/16 09:00 MCHC 32.6 g/dl (32.0-36.0) 09/30/16 09:00 RDW 16.0 % (11.6-15.6) H 09/30/16 09:00 Plt Count 347 K/MM3 (134-434) 09/30/16 09:00 MPV 8.6 fl (7.5-11.1) D 09/30/16 09:00 Neutrophils % 79.6 % (42.8-82.8) 09/30/16 09:00 Lymphocytes % 11.9 % (8-40) 09/30/16 09:00 Monocytes % 7.3 % (3.8-10.2) 09/30/16 09:00 Eosinophils % 0.5 % (0-4.5) 09/30/16 09:00 Basophils % 0.7 % (0-2.0) 09/30/16 09:00 POC Glucometer 92 UNITS (()) 09/30/16 07:09 Dx. : R/O UTI P : Bactrim ds bid u/c&s & u/a
[2016-09-30] MEDS ORDERED: INSULIN (NOVOLOG) ASPART 100 UNITS/ML 10ML VIAL ONE (11:57)
[2016-09-30] MEDS: SULFAMETHOXAZOLE/TRIMETHOPRIM 800MG/160MG D.S. TABLET PO SCH ×2 (11:59→21:05)
[2016-09-30] MEDS ORDERED: FERROUS SO4 325 MG TABLET (FP) PO SCH (17:30)
[2016-09-30 20:11] LABS: URINE APPEARANCE CLEAR; URINE BILIRUBIN NEGATIVE (NEGATIVE); URINE COLOR LTYELLOW; URINE GLUCOSE (UA) 3+ (NEGATIVE); URINE KETONE NEGATIVE (NEGATIVE); URINE LEUK ESTERASE NEGATIVE (NEGATIVE); URINE NITRITE NEGATIVE (NEGATIVE); URINE UROBILINOGEN NEGATIVE E.U./dl (0.2-1.0)
[2016-09-30] MEDS ORDERED: TRIMETHOBENZAMIDE HCL 200MG/2ML INJ IM PRN (20:11)
[2016-09-30 20:13] LABS: URINE BLOOD 1+ (NEGATIVE); URINE PROTEIN 3+ (NEGATIVE)
[2016-09-30 20:16] LABS: URINE BACTERIA RARE /hpf (NONE SEEN); URINE HYALINE CAST 1 /lpf; URINE MUCUS RARE; URINE RBC 40 /hpf (0-3); URINE WBC 1 /hpf (3-5)
[2016-09-30 20:24] VITALS: BP 143/92; PULSE 125; TEMP 101.5
--- NOTE | 2016-09-30 20:36 | PN ---
[facility] Progress Note Note: ASKED TO SEE CLIENT FOR FEVER/N/V/CHILLS ELEVATED WBC 12 H/H 9.2/28.3.CLIENT REPORTS FEELING VERY ILL, VOMITING, CHILLS, COUGH SOB W/C.P. AND DECREASED APPETITE. CLIENT OBSERVED LYING SIDE WAYS IN BED VOMITING IN GARBAGE CAN, CRYING W/ WHAT APPEARS TO BE RIGORS. A/0/X3 MILD DISTRESS CV TACHY LUNGS: MILD WHEEZING O2 SAT 92% RA Vital Signs - 24 hr 09/29/16 09/30/16 09/30/16 22:25 03:30 07:30 Temperature 98.7 F 98.1 F Pulse Rate 111 H 103 H Respiratory 18 16 16 Rate Blood Pressure 137/87 115/71 09/30/16 09/30/16 09:00 20:23 Temperature 98.0 F 101.5 F H Pulse Rate 81 125 H Respiratory 18 20 Rate Blood Pressure 144/91 143/92 Laboratory Results - last 24 hr 09/29/16 09/30/16 09/30/16 21:40 07:09 09:00 WBC 12.0 H D RBC 3.24 L Hgb 9.2 L Hct 28.3 L MCV 87.3 MCHC 32.6 RDW 16.0 H Plt Count 347 MPV 8.6 D Neutrophils % 79.6 Lymphocytes % 11.9 Monocytes % 7.3 Eosinophils % 0.5 Basophils % 0.7 POC Glucometer 184 92 Urine Color Urine Appearance Urine pH Urine Protein Urine Glucose (UA) Urine Ketones Urine Blood Urine Nitrite Urine Bilirubin Urine Urobilinogen Ur Leukocyte Esterase Urine RBC Urine WBC Ur Epithelial Cells Urine Bacteria Hyaline Casts Urine Mucus 09/30/16 09/30/16 09/30/16 11:55 16:00 19:48 WBC RBC Hgb Hct MCV MCHC RDW Plt Count MPV Neutrophils % Lymphocytes % Monocytes % Eosinophils % Basophils % POC Glucometer 327 341 Urine Color Ltyellow Urine Appearance Clear Urine pH 5.0 Urine Protein 3+ H Urine Glucose (UA) 3+ H Urine Ketones Negative Urine Blood 1+ H Urine Nitrite Negative Urine Bilirubin Negative Urine Urobilinogen Negative Ur Leukocyte Esterase Negative Urine RBC 40 Urine WBC 1 Ur Epithelial Cells Rare Urine Bacteria Rare Hyaline Casts 1 Urine Mucus Rare A- FEVER R/O UTI/ SEPSIS P- BACTRIM DS STARTED EARLIER CLIENT RECIEVED DOSE #1 TYLENOL ORDERED O2 2L NC TIGAN ORDERED TRANSFER CLIENT TO [facility] FOR EVAL CLIENT ENDORSED TO DR. BRONSON
[2016-09-30] MEDS: diphenhydrAMINE HCL 50 MG CAPSULE PO SCH (21:00)
[2016-09-30] MEDS: traZODone HCL 100 MG TABLET (FP) PO SCH (21:01)
[2016-09-30] MEDS: INSULIN DETEMIR 100 UNITS/ML MDV SQ SCH (21:04)
[2016-09-30] MEDS: THIAMINE HCL 100 MG TABLET (FP) PO SCH (21:05)
[2016-10-01] MEDS ORDERED: VANCOMYCIN 1,000 MG in DEXTROSE 5%-WATER - 250 ML IVPB ONE (01:14)
[2016-10-01] MEDS ORDERED: ACETYLCYSTEINE 20% 200MG/ML 30 ML VIAL *FOR ORAL / INH USE ONLY NEB PRN ×2 (01:30→03:43)
[2016-10-01] MEDS ORDERED: ALBUTEROL SO4 0.083% IH SOL 2.5 MG/3 ML VIAL.NEB. NEB PRN (01:33)
[2016-10-01] MEDS ORDERED: ACETAMINOPHEN 325 MG TABLET (FP) PO PRN (01:36)
[2016-10-01] MEDS ORDERED: SODIUM CHLORIDE 1,000 ML IV SCH (02:00)
[2016-10-01 02:49] LABS: HIV 1 & 2 AB NEGATIVE; HIV 1 AGp24 NEGATIVE
[2016-10-01] MEDS ORDERED: PIPERACILLIN/TAZOB 3.375 GM/50 ML PRE-DOCKED IVPB ONE (06:00)
[2016-10-01] MEDS ORDERED: AZITHROMYCIN IVPB 500 MG in DEXTROSE 5%-WATER - 250 ML IVPB SCH (10:00)
== END 2016-09-30 20:58 | disposition short-term general hospital (02) | DRG 772 ==
LOC: YASAS 15:51 → Y3E 15:53
PROVIDERS: ADMIT Psychiatry & Neurology Psychiatry; ATTEND Psychiatry & Neurology Psychiatry
PROC: HZ42ZZZ Group Counseling for Substance Abuse Treatment, Cognitive-Behavioral (ICD-10-PCS; principal; 2016-09-25)
DX: F10.20 Alcohol dependence, uncomplicated (principal); F14.20 Cocaine dependence, uncomplicated; F12.20 Cannabis dependence, uncomplicated; F17.210 Nicotine dependence, cigarettes, uncomplicated; F31.9 Bipolar disorder, unspecified; E11.65 Type 2 diabetes mellitus with hyperglycemia; Z89.9 Acquired absence of limb, unspecified; R50.9 Fever, unspecified
CPT/HCPCS: 36415; 81003; 81015; 85025; 87086; 87389

== ENCOUNTER 2016-09-30 21:12 | Inpatient (IN) | payer OTHER ==
[2016-09-30] MEDS ORDERED: SODIUM CHLORIDE 0.9% 500 ML INFUS.BAG IV ONE (21:53)
[2016-09-30] MEDS ORDERED: PIPERACILLIN/TAZOB 4.5 GM 4.5 GM in DEXTROSE 5%-WATER - 100 ML IVPB ONE (21:53)
--- NOTE | 2016-09-30 21:54 | PDOC ---
History of Present Illness - History of Present Illness Initial Comments: 09/30/16 23:06 The patient is a 25 year old female, with a significant past medical history of psoriasis, DM type II, osteomyelitis s/p multiple toe amputations, who presents to the emergency department ARELY from [facility] with 2 days of generalized weakness, shortness of breath, nausea, vomiting, fever, and generalized body aches. She reports a tightness in her chest. She reports pain and tightness to her chest is exacerbated with inspiration and reproduces a dry cough. She states that when she coughs, she feels she is choking and reports vomiting from the sensation. She reports a subjective fever with chills. She also reports decreased appetite. The patient states she has not used cocaine or marijuana since her admission to [facility] rehab 2 weeks ago. She denies chest pain, headache and dizziness. She denies diarrhea and constipation. She denies dysuria, frequency, urgency and hematuria. Allergies: vancomycin Past surgical history: 1st & 2nd toe amputation on left, 1st toe amputation on right Social history: occasional alcohol consumption. Cocaine and marijuana use, in rehab. <Estefany White - Last Filed: 10/01/16 00:57> <Genie Gee - Last Filed: 10/01/16 05:48> - General Stated Complaint: VOMITING,WEAKNESS Time Seen by Provider: 09/30/16 21:51 Past History <Estefany White - Last Filed: 10/01/16 00:57> - Past Medical History Anemia: No Asthma: No Cancer: No Cardiac Disorders: No CVA: No COPD: No CHF: No Dementia: No Diabetes: Yes (insulin dependent) GI Disorders: No Disorders: No HTN: No Hypercholesterolemia: No Kidney Stones: No Liver Disease: No Suicide Attempt (Hx): Yes (4yrs ago- hang self) Seizures: No Thyroid Disease: No - Surgical History Abdominal Surgery: No Appendectomy: No Cardiac Surgery: No Cholecystectomy: No Lung Surgery: No Neurologic Surgery: No Orthopedic Surgery: Yes (osteomylatis) - Reproductive History PID: No - Psycho/Social/Smoking Cessation Hx Anxiety: No Suicidal Ideation: No Smoking History: Current every day smoker Have you smoked in the past 12 months: Yes Number of Cigarettes Smoked Daily: 10 'Breaking Loose' booklet given: 09/21/16 Hx Alcohol Use: Yes (reports drinking since 14 yo,dario,6 packs daily) Drug/Substance Use Hx: Yes (cocaine since 17,$300 daily,marijuana since 13 yo) Substance Use Type: Alcohol, Cocaine, Marijuana Hx Substance Use Treatment: Yes (completed 30 days inpatient rehab at [facility] 3 yo) <Genie Gee - Last Filed: 10/01/16 05:48> - Past Medical History Allergies/Adverse Reactions: Allergies Allergy/AdvReac Type Severity Reaction Status Date / Time peach Allergy Severe Verified 09/30/16 23:12 vancomycin Allergy Severe Verified 09/30/16 23:12 Home Medications: Ambulatory Orders Diphenhydramine [Benadryl -] 50 mg PO HS 09/21/16 Insulin (Levemir) [Levemir Flexpen -] 36 units SQ TIDCM 09/21/16 Sertraline HCl [Zoloft -] 25 mg PO DAILY 09/21/16 Fluocinonide 0.05% Oin [Lidex 0.05% Ointment -] 1 applic TP TID 09/25/16 Ranitidine [Zantac -] 150 mg PO DAILY 09/25/16 Insulin (Levemir) [Levemir Vial] 36 units SQ HS #1 ml 09/26/16 Insulin (Novolog) [Novolog -] 16 units SQ BID #1 ml 09/26/16 Review of Systems - Review of Systems Able to Perform ROS?: Yes Comments:: 09/30/16 23:06 GENERAL/CONSTITUTIONAL:(+)fever, chills, and weakness. HEAD, EYES, EARS, NOSE AND THROAT: No change in vision. No ear pain or discharge. No sore throat. CARDIOVASCULAR: No chest pain or shortness of breath. RESPIRATORY: (+) cough, wheezing, No hemoptysis. GASTROINTESTINAL: No nausea, vomiting, diarrhea or constipation. GENITOURINARY: No dysuria, frequency, or change in urination. MUSCULOSKELETAL: (+) generalized body aches. No joint or muscle swelling or pain. No neck pain. SKIN: No rash NEUROLOGIC: No headache, vertigo, loss of consciousness, or change in strength/ sensation. ENDOCRINE: No increased thirst. No abnormal weight change. HEMATOLOGIC/LYMPHATIC: No anemia, easy bleeding, or history of blood clots. ALLERGIC/IMMUNOLOGIC: No hives or skin allergy. <Estefany White - Last Filed: 10/01/16 00:57> *Physical Exam - Physical Exam Comments: 09/30/16 23:07 GENERAL: Awake, alert, and fully oriented, in no acute distress HEAD: No signs of trauma EYES: PERRLA, EOMI, sclera anicteric, conjunctiva clear ENT: Auricles normal inspection, hearing grossly normal, nares patent, oropharynx clear without exudates. Moist mucosa NECK: Normal ROM, supple, no lymphadenopathy, JVD, or masses LUNGS: (+) wheezing and crackles bilaterally. Breath sounds equal, HEART: (+) tachycardic with normal rhythm, normal S1 and S2, no murmurs, rubs or gallops ABDOMEN: Soft, nontender, normoactive bowel sounds. No guarding, no rebound. No masses EXTREMITIES: Normal range of motion, no edema. No clubbing or cyanosis. No cords, erythema, or tenderness NEUROLOGICAL: Cranial nerves II through XII grossly intact. Normal speech, normal gait SKIN: Warm, Dry, normal turgor, no rashes or lesions noted. <Estefany White - Last Filed: 10/01/16 00:57> ED Treatment Course - LABORATORY CBC & Chemistry Diagram: 09/30/16 22:40 09/30/16 22:40 - ADDITIONAL ORDERS Additional order review: 09/30/16 22:40 RBC 3.29 L MCV 85.8 MCHC 32.1 RDW 15.9 H MPV 8.5 Neutrophils % 83.3 H Lymphocytes % 9.4 D Monocytes % 6.1 Eosinophils % 0.7 Basophils % 0.5 - RADIOLOGY Radiograph Interpretation: 10/01/16 00:13 CXR was reviewed and read by Dr. Gee at 00:10 Impression: Bilateral pneumonia. - Medications Given in the ED: ED Medications Discontinued Medications Generic Name Dose Route Start Last Admin Trade Name Freq PRN Reason Stop Dose Admin Piperacillin Sod/Tazobactam 100 mls @ 200 mls/hr 09/30/16 21:53 09/30/16 22:48 Sod 4.5 gm/ Dextrose IVPB 09/30/16 22:22 200 mls/hr ONCE ONE Administration Protocol Sodium Chloride 1,000 ml 09/30/16 21:53 09/30/16 22:48 Normal Saline - IV 09/30/16 21:54 1,000 ml ONCE ONE Administration <Estefany White - Last Filed: 10/01/16 00:57> - LABORATORY CBC & Chemistry Diagram: 09/30/16 22:40 09/30/16 22:40 <Genie Gee - Last Filed: 10/01/16 05:48> Medical Decision Making - Medical Decision Making 10/01/16 00:14 Admitting [facility] Hospitalist was paged via [employer] requesting admission of this patient. <Estefany White - Last Filed: 10/01/16 00:57> - Medical Decision Making 10/01/16 05:46 Pt comes with SOB and awful sounding breath sounds bilaterally. Pt has a bilaterall pneumonia. SHe comes from the drug detox/rehab program. She will require admission to the hospital for abx, as she has hypoxia and can barely breathe if she moves about in her bed. No peripheral edema. Pt is a diabetic and she has multiple comorbidities. SHe was admitted to the hospitalist. <Genie Gee - Last Filed: 10/01/16 05:48> *DC/Admit/Observation/Transfer - Attestations Scribe Attestion: 09/30/16 23:07 Documentation prepared by Estefany White, acting as medical librarian for Genie Gee MD <Estefany White - Last Filed: 10/01/16 00:57> - Discharge Dispostion Admit: Yes <Genie Gee - Last Filed: 10/01/16 05:48> Diagnosis at time of Disposition: Diabetes type 2, uncontrolled, Cocaine dependence, Cannabis dependence, Bilateral pneumonia, Hypoxemia - Discharge Dispostion Condition at time of disposition: Guarded
[2016-09-30] MEDS ORDERED: PIPERACILLIN/TAZOB 4.5 GM 100 ML IVPB ONE (22:47)
[2016-09-30 22:49] LABS: BASOPHIL 0.5 % (0-2.0); EOSINOPHIL 0.7 % (0-4.5); MCH 27.5 pg (25.7-33.7); MCHC 32.1 g/dl (32.0-36.0); MEAN CELL VOLUME 85.8 fl (80-96); MEAN PLT VOLUME 8.5 fl (7.5-11.1); NEUTROPHILS 83.3 % (42.8-82.8); PLATELET COUNT 323 K/MM3 (134-434); RDW 15.9 % (11.6-15.6); WHITE BLOOD COUNT 12.9 K/mm3 (4.0-10.0)
[2016-09-30] MEDS ORDERED: ACETAMINOPHEN 1000 MG/100 ML VIAL (NON FORMULARY) IVPB ONE (23:05)
[2016-09-30 23:11] LABS: INR 1.15 (0.82-1.09); PROTHROMBIN TIME (PATIENT) 12.7 SEC (9.98-11.88)
[2016-09-30] MEDS ORDERED: ACETAMINOPHEN INJECTION 100 ML IVPB ONE (23:19)
[2016-09-30 23:24] LABS: ALBUMIN 2.5 g/dl (3.4-5.0); ANION GAP 11 (8-16); BILIRUBIN,TOTAL 0.2 mg/dL (0.2-1.0); CALCIUM 8.4 mg/dL (8.5-10.1); CO2 23 mmol/L (21-32); CREATININE 1.5 mg/dL (0.55-1.02); SGOT/AST 58 U/L (15-37); SGPT/ALT 75 U/L (12-78); TOT PROT 6.9 g/dl (6.4-8.2)
[2016-09-30 23:25] LABS: ALK PHOS 193 U/L (45-117)
[2016-09-30 23:26] LABS: GLUCOSE,RANDOM 326 mg/dL (74-106)
[2016-10-01] MEDS ORDERED: INSULIN REGULAR HUMAN 100 UNITS/ML *VIAL SQ ONE (00:10)
--- NOTE | 2016-10-01 00:22 | PN ---
<Chioma Forrester - Last Filed: 10/01/16 00:22> Teaching Attending Note Name of Resident: Fernando Valdivia ATTENDING PHYSICIAN STATEMENT I saw and evaluated the patient. I reviewed the resident's note and discussed the case with the resident. I agree with the resident's findings and plan as documented. SUBJECTIVE: OBJECTIVE: ASSESSMENT AND PLAN: <RebeccaSon - Last Filed: 10/01/16 00:42> Teaching Attending Note ATTENDING PHYSICIAN STATEMENT I saw and evaluated the patient. I reviewed the resident's note and discussed the case with the resident. I agree with the resident's findings and plan as documented. SUBJECTIVE: The patient is a 25 year old female, with a significant past medical history of type I diabetes, EtOH, cocaine, and marijuana abuse, digit amputee, who presented with weakness, SOB, fever, body aches, dry cough, and chest tightness on inspiration PAST MEDICAL HISTORY: DM type I, osteomyelitis, polysubstance abuse PAST SURGICAL HISTORY: 1st & 2nd toe amputation on left, 1st toe amputation on right FAMILY HISTORY: No pertinent history reported SOCIAL HISTORY: Occasional alcohol consumption. Cocaine and marijuana use, in rehab. ALLERGIES: Evangeline, vancomycin MEDICATIONS: As per ED note. OBJECTIVE: Last Vital Signs 3 Temp Pulse Resp BP Pulse Ox 99.3 F 112 H 16 138/100 92 L 09/30/16 23:13 09/30/16 23:13 09/30/16 23:13 09/30/16 23:13 09/30/16 23:13 Physical Exam: GEN: NAD HEENT: NCAT, PERRL CARD: RRR, S1 S2 RESP: CTAB ABD: NT, BWS x4 EXT: - CCE Labs: CBCD 3 WBC 12.9 K/mm3 (4.0-10.0) H 09/30/16 22:40 RBC 3.29 M/mm3 (3.60-5.2) L 09/30/16 22:40 Hgb 9.1 GM/dL (10.7-15.3) L 09/30/16 22:40 Hct 28.2 % (32.4-45.2) L 09/30/16 22:40 MCV 85.8 fl (80-96) 09/30/16 22:40 MCHC 32.1 g/dl (32.0-36.0) 09/30/16 22:40 RDW 15.9 % (11.6-15.6) H 09/30/16 22:40 Plt Count 323 K/MM3 (134-434) 09/30/16 22:40 MPV 8.5 fl (7.5-11.1) 09/30/16 22:40 CMP 3 Sodium 135 mmol/L (136-145) L 09/30/16 22:40 Potassium 4.8 mmol/L (3.5-5.1) 09/30/16 22:40 Chloride 101 mmol/L (98-107) 09/30/16 22:40 Carbon Dioxide 23 mmol/L (21-32) D 09/30/16 22:40 Anion Gap 11 (8-16) 09/30/16 22:40 BUN 31 mg/dL (7-18) H 09/30/16 22:40 Creatinine 1.5 mg/dL (0.55-1.02) H 09/30/16 22:40 Creat Clearance w eGFR 42.31 (>60) 09/30/16 22:40 Calcium 8.4 mg/dL (8.5-10.1) L 09/30/16 22:40 Total Bilirubin 0.2 mg/dL (0.2-1.0) 09/30/16 22:40 AST 58 U/L (15-37) H D 09/30/16 22:40 ALT 75 U/L (12-78) 09/30/16 22:40 Alkaline Phosphatase 193 U/L (45-117) H 09/30/16 22:40 Total Protein 6.9 g/dl (6.4-8.2) 09/30/16 22:40 Albumin 2.5 g/dl (3.4-5.0) L 09/30/16 22:40 Imaging: EXAM: CHEST X-RAY. IMPRESSION: Bilateral pneumonia. Awaiting official reading. ASSESSMENT AND PLAN: The patient is a 25 year old female, with a significant past medical history of type I diabetes, alcohol, cocaine, and marijuana abuse, digit amputee, who presented with SOB and fever. Found to have bilateral pneumonia. 1. Sepsis - due to pneumonia - Lactic acid - REED culture - Urine antigens - Azithro - Linezolid - Zosyn - ID consult - HIV testing due to history of polysubstance abuse 2. Diabetes - type I uncontrolled - Continue with insulin - Sliding scale with levemir at night - Diabetic diet 3. Normocytic anemia - most lik immuno chronic disease - Trend H&H 4. GASPER - ? most likely prerenal Trend creati U lytes in AM 5. Transaminitis - history of alcohol use. AST increase. - Monitor 6. History of polysubstance abuse - Detox consult 7. DVT PPX - low risk - Ambulate Place in med surg. Documentation prepared by Son Fernandez, acting as medical review specialist for Dr. Chioma Forrester MD.
[2016-10-01] MEDS ORDERED: VANCOMYCIN 1,250 MG in DEXTROSE 5%-WATER - 250 ML IVPB ONE ×2 (02:34→03:45)
--- NOTE | 2016-10-01 02:38 | HP ---
CHIEF COMPLAINT: fever, generalized weakness HISTORY OF PRESENT ILLNESS: 25 y/o F w/PMH of IDDM, osteomyelitis (s/p multiple digit amputations), hx of alcohol, cocaine, and marijuana abuse presents to the ER via ambulance from [facility] (for rehab) with fevers and generalized weakness. Pt states she has had worsening generalized weakness, body aches, dry cough, nausea, vomiting (6 episodes, nonbloody), fevers, chills, chest tightness, decreased appetite over the last two days. She had a fever of 102 at [facility] today and was sent to [facility]. She denies using alcohol or cocaine for the last 2 weeks. She may have had sick contact at [facility] but is unsure. She denies recent travel history, CP, CHAVEZ, visual changes, ringing in ears, abd pain, constipation, blood in stool , blood in urine, dysuria, frequency. She has had diarrhea for the last 2 weeks since stopping alcohol and cocaine which has been alleviated with imodium. She states this is the first time she has felt these symptoms. In the past she has had MRSA when she had to have digit amputation. She states she gets red when she is given vanco but has no issues with vanco if given benadryl before vanco. ##Microblogged regarding pt's respiratory status from ER at approximately 5 am. Pt required bipap, steroids, and nebs. Pt states she feels better s/p nebs, steroids and is feeling better on bipap. ER course was notable for: (1) CXR, BCx, Zosyn (2) (3) Recent Travel: denies PAST MEDICAL HISTORY:IDDM, osteomyelitis (s/p multiple digit amputations), hx of alcohol, cocaine, and marijuana abuse PAST SURGICAL HISTORY: L foot 1st and 2nd digit amputation. R 1st digit amputation. R hand 2nd digit amputation. Social History: Smokin/2 ppd Alcohol: hx of abuse, has not used in 2 weeks Drugs: marijuana, cocaine (snorts) - has not used in 2 weeks. Family History: Allergies peach Allergy (Severe, Verified 09/30/16 23:12) vancomycin Allergy (Severe, Verified 09/30/16 23:12) HOME MEDICATIONS: Home Medications Medication Instructions Recorded Diphenhydramine [Benadryl -] 50 mg PO HS 09/21/16 Insulin (Levemir) [Levemir Flexpen 36 units SQ TIDCM 09/21/16 -] Sertraline HCl [Zoloft -] 25 mg PO DAILY 09/21/16 Fluocinonide 0.05% Oin [Lidex 1 applic TP TID 09/25/16 0.05% Ointment -] Ranitidine [Zantac -] 150 mg PO DAILY 09/25/16 Insulin (Levemir) [Levemir Vial] 36 units SQ HS #1 ml 09/26/16 Insulin (Novolog) [Novolog -] 16 units SQ BID #1 ml 09/26/16 REVIEW OF SYSTEMS CONSTITUTIONAL: +fever, chills, diaphroesis, generalized weakness, malaise, loss of appetite. HEENT: Absent: throat pain, throat swelling, difficulty swallowing, mouth swelling, hearing changes, eye pain, visual changes CARDIOVASCULAR: +chest tightness Absent: chest pain, syncope, palpitations, irregular heart rate RESPIRATORY: +cough Absent: orthopnea, wheezing, stridor GASTROINTESTINAL: +nausea, vomiting, diarrhea Absent: abdominal pain, constipation, melena, hematochezia GENITOURINARY: Absent: dysuria, frequency, hematuria NEUROLOGIC: Absent: headache, focal weakness or paresthesias,unsteady gait, seizure PHYSICAL EXAMINATION Vital Signs - 24 hr 09/30/16 09/30/16 09/30/16 23:00 23:02 23:13 Temperature 99.3 F Pulse Rate 112 H Pulse Rate [ 114 H Right] Respiratory 16 16 Rate Blood Pressure 138/100 Blood Pressure 140/98 [Right] O2 Sat by Pulse 97 97 92 L Oximetry (%) GENERAL: Awake, alert, and fully oriented, in no acute distress. HEAD: Normal with no signs of trauma. EYES:extraocular movements intact, sclera anicteric, conjunctiva clear. No lid lag. EARS, NOSE, THROAT: Ears normal, nares patent. Dry mucous membranes. NECK: Normal range of motion, supple LUNGS: +b/l coarse breath sounds at bases HEART: Tachycardic, normal S1 and S2 without murmur, rub or gallop. ABDOMEN: Soft, nontender, not distended, normoactive bowel sounds, no guarding, no rebound, no masses. No hepatomegaly or splenomegaly. MUSCULOSKELETAL: No CVA tenderness. LOWER EXTREMITIES: 2+ pulses, warm, well-perfused. No calf tenderness. 2+ pitting edema. NEUROLOGICAL: Normal speech. Gait not observed. PSYCHIATRIC: Cooperative. Good eye contact. Appropriate mood and affect. SKIN: Warm, clammy. Laboratory Results - last 24 hr 09/30/16 09/30/16 09/30/16 22:40 22:40 22:40 WBC 12.9 H RBC 3.29 L Hgb 9.1 L Hct 28.2 L MCV 85.8 MCHC 32.1 RDW 15.9 H Plt Count 323 MPV 8.5 Neutrophils % 83.3 H Lymphocytes % 9.4 D Monocytes % 6.1 Eosinophils % 0.7 Basophils % 0.5 INR 1.15 H Sodium 135 L Potassium 4.8 Chloride 101 Carbon Dioxide 23 D Anion Gap 11 BUN 31 H Creatinine 1.5 H Creat Clearance w eGFR 42.31 Random Glucose 326 H* D Lactic Acid Calcium 8.4 L Total Bilirubin 0.2 AST 58 H D ALT 75 Alkaline Phosphatase 193 H Total Protein 6.9 Albumin 2.5 L Serum , Qual 09/30/16 10/01/16 22:40 01:04 WBC RBC Hgb Hct MCV MCHC RDW Plt Count MPV Neutrophils % Lymphocytes % Monocytes % Eosinophils % Basophils % INR Sodium Potassium Chloride Carbon Dioxide Anion Gap BUN Creatinine Creat Clearance w eGFR Random Glucose Lactic Acid 1.4 Calcium Total Bilirubin AST ALT Alkaline Phosphatase Total Protein Albumin Serum , Qual Negative Imaging: CXR: as per my read: b/l infiltrates representing likely pna. Pending official read. Active Medications Diphenhydramine HCl (Benadryl Injection -) 50 mg IVPUSH ONCE ONE Stop: 10/01/16 02:35 Fluocinonide (Lidex 0.05% Ointment -) 1 applic TP TID JULIANNA Vancomycin HCl 1,250 mg/ (Dextrose) 250 mls @ 250 mls/hr IVPB ONCE ONE PRN Reason: Protocol Stop: 10/01/16 03:33 Azithromycin 500 mg/ Dextrose 250 mls @ 250 mls/hr IVPB DAILY JULIANNA Sodium Chloride (Normal Saline -) 1,000 mls @ 100 mls/hr IV ASDIR JULIANNA Insulin Aspart (Novolog Vial Sliding Scale -) 1 vial SQ ACHS JULIANNA PRN Reason: Protocol Insulin Detemir (Levemir Vial) 36 units SQ HS JULIANNA Nicotine (Nicoderm Patch -) 14 mg TD DAILY JULIANNA Piperacillin Sod/Tazobactam Sod (Zosyn 3.375gm Ivpb (Pre-Docked)) 3.375 gm IVPB ONCE ONE PRN Reason: Protocol Stop: 10/01/16 06:01 Sertraline HCl (Zoloft -) 25 mg PO DAILY JULIANNA ASSESSMENT/PLAN: 25 y/o F w/PMH of IDDM, osteomyelitis (s/p multiple digit amputations), hx of alcohol, cocaine, and marijuana abuse presents to the ER via ambulance from [facility] (for rehab) with fevers and generalized weakness. Admitted for sepsis secondary to pna. -Sepsis secondary to PNA -f/u official CXR read, lactic acid, BCx, UAg for PNA, SpCx -pt has urine culture from [facility] (select other visit from [facility] to follow) -Vanco 1g Once (preceded by benadryl as pt gets chino syndrome and slow run of vanco), Azithro 500 mg iv qd, Zosyn Once -ID consulted, pt has hx of MRSA -GIVE BENADRYL BEFORE EACH VANCO DOSE & RUN VANCO SLOWLY. Pt has received vanco on multiple occasions in the past including through PICC line as per pt. -f/u HIV testing, pt agreed to testing -NS @ 100 ml/hr -Acute respiratory failure -on bipap -Microblogged regarding pt's respiratory status from ER at approximately 5 am. Pt required bipap, steroids, and nebs. Pt states she feels better s/p nebs, steroids and is feeling better on bipap. -ABG ordered, f/u ABG -GASPER -secondary to sepsis -Cr 1.5, monitor -NS @ 100ml/hr -f/u urine lytes -IDDM -Levemir 36 units qhs -BGMs, ISS ACHS -Anemia -at baseline, monitor -Transaminitis -likely secondary to alcohol abuse, monitor -History of cocaine and alcohol abuse -will need placement back into rehab after discharge -History of nicotine use -Nictone patch 14 mg TD qd -Depression -c/w zoloft 25 mg po qd -DVT ppx -SCDs, ambulate -FEN -NS @ 100ml/hr -hyponatremia, on NS, monitor -Diabetic diet -Dispo -Admit to M/S Visit type - Emergency Visit Emergency Visit: Yes ED Registration Date: 10/01/16 Care time: The patient presented to the Emergency Department on the above date and was hospitalized for further evaluation of their emergent condition. - New Patient This patient is new to me today: Yes Date on this admission: 10/01/16 - Critical Care Critical Care patient: No
[2016-10-01] MEDS ORDERED: AZITHROMYCIN IVPB 500 MG in DEXTROSE 5%-WATER - 250 ML IVPB SCH (02:45)
[2016-10-01] MEDS ORDERED: AZITHROMYCIN IVPB 250 ML IVPB ONE (03:29)
[2016-10-01] MEDS ORDERED: AZITHROMYCIN IVPB 500 MG/250 ML D5W PRE-DOCKED IVPB ONE (03:45)
[2016-10-01] MEDS: SODIUM CHLORIDE 1,000 ML IV SCH ×2 (03:46→20:51)
[2016-10-01] MEDS ORDERED: ALBUTEROL SO4 2.5/IPRATROPIUM 0.5 INH SOL 3 ML VIAL.NEB. NEB ONE ×2 (04:52→05:32)
[2016-10-01] MEDS ORDERED: methylPREDNISolone NA SUCC 125 MG/2 ML VIAL IVPB ONE (04:55)
[2016-10-01] MEDS ORDERED: methylPREDNISolone NA SUCC 125 MG/2 ML VIAL ONE (04:57)
[2016-10-01] MEDS ORDERED: PIPERACILLIN/TAZOB 3.375 GM/50 ML PRE-DOCKED IVPB ONE ×2 (06:00)
[2016-10-01 07:21] LABS: BASOPHIL 0.3 % (0-2.0); EOSINOPHIL 0.8 % (0-4.5); MCH 28.6 pg (25.7-33.7); MCHC 33.4 g/dl (32.0-36.0); MEAN CELL VOLUME 85.8 fl (80-96); MEAN PLT VOLUME 8.1 fl (7.5-11.1); NEUTROPHILS 83.9 % (42.8-82.8); PLATELET COUNT 306 K/MM3 (134-434); RDW 15.6 % (11.6-15.6); WHITE BLOOD COUNT 10.9 K/mm3 (4.0-10.0)
[2016-10-01 07:26] LABS: INR 1.25 (0.82-1.09); PROTHROMBIN TIME (PATIENT) 13.8 SEC (9.98-11.88)
[2016-10-01 07:37] LABS: ALBUMIN 2.1 g/dl (3.4-5.0); ANION GAP 10 (8-16); CALCIUM 7.8 mg/dL (8.5-10.1); CO2 23 mmol/L (21-32); CREATININE 1.4 mg/dL (0.55-1.02); SGOT/AST 48 U/L (15-37); SGPT/ALT 67 U/L (12-78)
[2016-10-01 07:39] LABS: ALK PHOS 193 U/L (45-117); BILIRUBIN,TOTAL 0.4 mg/dL (0.2-1.0); GLUCOSE,RANDOM 293 mg/dL (74-106); TOT PROT 6.2 g/dl (6.4-8.2)
[2016-10-01] MEDS ORDERED: PIPERACILLIN/TAZOB 3.375 GM 50 ML IVPB ONE (08:00)
[2016-10-01] MEDS: INSULIN SLIDING SCALE (NOVOLOG) 1 VIAL SQ SCH ×4 (08:21→22:12)
[2016-10-01] MEDS: AZITHROMYCIN IVPB 500 MG/250 ML D5W PRE-DOCKED IVPB SCH (09:11)
[2016-10-01] MEDS: FLUOCINONIDE 0.05% TOP OINT (60 GM TUBE) TP SCH ×2 (09:11→22:50)
[2016-10-01] MEDS: NICOTINE 14 MG/24 HOURS TOPICAL PATCH TD SCH (09:11)
[2016-10-01] MEDS: SERTRALINE HCL 25 MG TABLET (FP) PO SCH (09:11)
--- NOTE | 2016-10-01 14:03 | PN ---
Progress Note (short form) - Note Progress Note: ID Consult dictated Bilateral pneumonia in 25 y/o female admitted from detox (cocaine, marijuana, ETOH; denies IDU) Possible opportunistic process ( PCP, fungal, AFB disease ) Possible community acquired v. atypical pneumonia Advise: Rapid HIV test Rapid flu swab CT chest Sputum c/s, legionella/ pneumococal ag LDH Quantiferon ABG Pulmonary evaluation Empiric zithromax/ ceftriaxone. Pt given stat dose vancomycin
--- NOTE | 2016-10-01 14:19 | EKG ---
Test Reason : Blood Pressure : / mmHG Vent. Rate : 113 BPM Atrial Rate : 113 BPM P-R Int : 154 ms QRS Dur : 078 ms QT Int : 314 ms P-R-T Axes : 045 064 049 degrees QTc Int : 430 ms SINUS TACHYCARDIA POSSIBLE LEFT ATRIAL ENLARGEMENT BORDERLINE ECG WHEN COMPARED WITH ECG OF 21-SEP-2016 14:07, NO SIGNIFICANT CHANGE WAS FOUND Confirmed by JOHSUA LAY MD ([id number]) on 10/01/2016 2:18:53 PM Referred By: Confirmed By:JOSHUA LAY MD
--- NOTE | 2016-10-01 14:26 | PN ---
Teaching Attending Note Name of Resident: Tam Funes ATTENDING PHYSICIAN STATEMENT I saw and evaluated the patient. I reviewed the resident's note and discussed the case with the resident. I agree with the resident's findings and plan as documented. SUBJECTIVE: reports significant improvement and denies SOB. Ambulating and does not require oxygen. Bipap is discontinued . Cough is dry. OBJECTIVE: Vital Signs Temperature 98.1 F 10/01/16 08:37 Pulse Rate 99 H 10/01/16 09:13 Respiratory Rate 18 10/01/16 08:37 Blood Pressure 160/90 10/01/16 08:37 O2 Sat by Pulse Oximetry (%) 98 10/01/16 09:13 CVS S1 S2 wnl Lungs CTA b/l EXT no edema Abnormal Lab Results 09/30/16 09/30/16 09/30/16 22:40 22:40 22:40 WBC 12.9 H RBC 3.29 L Hgb 9.1 L Hct 28.2 L RDW 15.9 H Neutrophils % 83.3 H INR 1.15 H Sodium 135 L BUN 31 H Creatinine 1.5 H Random Glucose 326 H* D Lactic Acid Calcium 8.4 L AST 58 H D Alkaline Phosphatase 193 H Total Protein Albumin 2.5 L 10/01/16 10/01/16 10/01/16 06:29 06:29 06:29 WBC 10.9 H RBC 2.99 L Hgb 8.6 L Hct 25.7 L RDW Neutrophils % 83.9 H INR 1.25 H Sodium BUN 25 H Creatinine 1.4 H Random Glucose 293 H Lactic Acid Calcium 7.8 L AST 48 H Alkaline Phosphatase 193 H Total Protein 6.2 L Albumin 2.1 L 10/01/16 11:30 WBC RBC Hgb Hct RDW Neutrophils % INR Sodium BUN Creatinine Random Glucose Lactic Acid 2.1 H* Calcium AST Alkaline Phosphatase Total Protein Albumin ASSESSMENT AND PLAN: 1. Community aquired pneumonia - hypoxic upon presentation requiring BIPAP, now improved . Atypical PNA suspected. Considering history of substance abuse will have to rule out immunocompromised state/ HIV * IV antibiotics for CAP * follow blood cultures/sputum cultures * HIV ab rapid * nebulizers * O2 to keep O2 sat above 96% * CT chest to evaluate infiltrates * 2. Sepsis secondary to PNA- elevated lactate level , hemodynamically stable now . * IVF * treat underlying cause 3. Normocytic anemia with drop from 9.1 to 8.6 - no active bleeding noted , possibly AOCD * monitor HB 4 DM - uncontrolled - needs optimisation in the setting of active infection * c/w basal insulin and SS * diabetic diet * monitor BG and adjust regimen accordingly
[2016-10-01] MEDS ORDERED: CEFTRIAXONE 100 ML IVPB ONE (14:44)
[2016-10-01] MEDS: CEFTRIAXONE 2G/100 ML IVPB SCH (14:55)
--- NOTE | 2016-10-01 15:15 | PN ---
Physical Exam: SUBJECTIVE: Patient stated she was short of breath last night in ED and required BiPAP. Her breathing improved dramatically on BiPAP and n/v has resolved after came in to the ED. Denies chest pain, abd pain, fever, chills, n/v. OBJECTIVE: Vital Signs Period Temp Pulse Resp BP Sys/Garcia Pulse Ox Last 24 Hr 98.1 F 98-105 18-20 133-160/90-98 98-100 GENERAL: AAO x 3, speak in full sentences, ambulating and in no acute distress. EYES: PERRL, extraocular movements intact, sclera anicteric, conjunctiva clear ENT: oropharynx clear without exudates, moist mucous membranes. LUNGS: CTAB HEART: tachycardic, S1, S2 without murmur, rub or gallop. ABDOMEN: Soft, nontender, nondistended, normoactive bowel sounds, no guarding, no rebound, no hepatosplenomegaly, no masses. EXTREMITIES: L foot 1st and 2nd digit amputation. R 1st digit amputation. R hand 2nd digit amputation. PSYCH: Depressed CBCD WBC 10.9 K/mm3 (4.0-10.0) H 10/01/16 06:29 RBC 2.99 M/mm3 (3.60-5.2) L 10/01/16 06:29 Hgb 8.6 GM/dL (10.7-15.3) L 10/01/16 06:29 Hct 25.7 % (32.4-45.2) L 10/01/16 06:29 MCV 85.8 fl (80-96) 10/01/16 06:29 MCHC 33.4 g/dl (32.0-36.0) 10/01/16 06:29 RDW 15.6 % (11.6-15.6) 10/01/16 06:29 Plt Count 306 K/MM3 (134-434) 10/01/16 06:29 MPV 8.1 fl (7.5-11.1) 10/01/16 06:29 CMP Sodium 136 mmol/L (136-145) 10/01/16 06:29 Potassium 4.5 mmol/L (3.5-5.1) 10/01/16 06:29 Chloride 103 mmol/L (98-107) 10/01/16 06:29 Carbon Dioxide 23 mmol/L (21-32) 10/01/16 06:29 Anion Gap 10 (8-16) 10/01/16 06:29 BUN 25 mg/dL (7-18) H 10/01/16 06:29 Creatinine 1.4 mg/dL (0.55-1.02) H 10/01/16 06:29 Creat Clearance w eGFR 45.82 (>60) 10/01/16 06:29 Calcium 7.8 mg/dL (8.5-10.1) L 10/01/16 06:29 Total Bilirubin 0.4 mg/dL (0.2-1.0) D 10/01/16 06:29 AST 48 U/L (15-37) H 10/01/16 06:29 ALT 67 U/L (12-78) 10/01/16 06:29 Alkaline Phosphatase 193 U/L (45-117) H 10/01/16 06:29 Total Protein 6.2 g/dl (6.4-8.2) L 10/01/16 06:29 Albumin 2.1 g/dl (3.4-5.0) L 10/01/16 06:29 Active Medications Generic Name Dose Route Start Last Admin Trade Name Freq PRN Reason Stop Dose Admin Azithromycin 500 mg 10/01/16 03:45 10/01/16 09:11 Zithromax 500mg Ivpb (Pre-Docked) IVPB 500 mg DAILY JULIANNA Administration Fluocinonide 1 applic 10/01/16 06:00 10/01/16 09:11 Lidex 0.05% Ointment - TP 1 applic TID JULIANNA Administration Sodium Chloride 1,000 mls @ 100 mls/hr 10/01/16 02:45 10/01/16 03:46 Normal Saline - IV 100 mls/hr ASDIR JULIANNA Administration Ceftriaxone Sodium 100 mls @ 200 mls/hr 10/01/16 14:00 10/01/16 14:55 Rocephin 2gm Ivpb (Pre-Docked) IVPB 200 mls/hr DAILY JULIANNA Administration Insulin Aspart 1 vial 10/01/16 07:00 10/01/16 11:36 Novolog Vial Sliding Scale - SQ 6 units ACHS JULIANNA Administration Protocol Insulin Detemir 36 units 10/01/16 22:00 Levemir Vial SQ HS JULIANNA Nicotine 14 mg 10/01/16 10:00 10/01/16 09:11 Nicoderm Patch - TD Not Given DAILY JULIANNA Sertraline HCl 25 mg 10/01/16 10:00 10/01/16 09:11 Zoloft - PO 25 mg DAILY JULIANNA Administration IMAGING CXR on 09/30: bilateral infiltrates ASSESSMENT/PLAN: 25 yo F h/o IDDM, MRSA and osteomyelitis, polysubstance abuse sent from [facility] with fevers, n/v and shortness of breath. Sepsis - Improving - Likely 2/2 community acquired pneumonia * f/u CT chest to confirm * f/u cultures - Assess immuno status * Previously institutionalized * f/u results on TB, HIV, rapid flu swab - Received vanco and zosyn x 1 dose in ED - On zithromax day 2 and ceftriaxone day 1 - Cont. IVF Acute kidney injury - Likely pre-renal - Cont. to monitor and hydrate Transaminitis - Likely 2/2 underlying alcoholic hepatitis * non-specific elevation of alko phos and AST * low albumin and high INR Normocytic anemia - Possible baseline HGB of 9~10 - Cont. to monitor Elevated lactic acid - Patient appears non-toxic clinically - Cont. to trend lactate IDDM - Cont. levemir 36 units HS + novolog sliding scale - BGM Depression - Cont. zolof FEN - IVF 100ml/hr - Normal lytes - DM diet Prophylaxis - DVT: SCDs - GI: not indicated Dispo - Monitor for another 24 hours Visit type - Emergency Visit Emergency Visit: Yes ED Registration Date: 10/01/16 Care time: The patient presented to the Emergency Department on the above date and was hospitalized for further evaluation of their emergent condition. - New Patient This patient is new to me today: Yes Date on this admission: 10/01/16 - Critical Care Critical Care patient: No
[2016-10-01] MEDS ORDERED: diphenhydrAMINE HCL 25 MG CAPSULE (FP) PO PRN (16:47)
[2016-10-01 20:09] LABS: HIV 1 & 2 AB NEGATIVE; HIV 1 AGp24 NEGATIVE
[2016-10-01 21:29] VITALS: BMI 26.3
[2016-10-01] MEDS ORDERED: INSULIN DETEMIR 100 UNITS/ML MDV SQ SCH (22:00)
[2016-10-01] MEDS: methylPREDNISolone NA SUCC 40 MG/1 ML VIAL IVPB SCH (22:10)
[2016-10-02] MEDS ORDERED: diphenhydrAMINE HCL 25 MG CAPSULE (FP) PO ONE (00:12)
--- NOTE | 2016-10-02 01:41 | CONS ---
DATE OF CONSULTATION: DATE OF DICTATION: 10/01/2016 INFECTIOUS DISEASE CONSULTATION HISTORY OF PRESENT ILLNESS: The patient is a 25-year-old female who is evaluated for bilateral pneumonia. The patient has a history of polysubstance abuse. She was admitted to [facility] for rehabilitation from cocaine, marijuana, and alcohol use. At [facility] she developed worsening generalized weakness, chest tightness, shortness of breath, nausea, vomiting, body ache. She developed fever to 102. Patient began coughing persistently to the point that she had vomiting. She was transferred to the emergency room where she required BiPAP mask, inhaled bronchodilators, and steroids. A chest x-ray shows bilateral infiltrates. She reports cough with whitish sputum. She denies any hemoptysis. The patient reports testing negative to HIV in the recent past. She is sexually active; however, she reports using condoms. She denies history of injection drug use or blood transfusions. She has a history of diabetes mellitus and has had diabetic foot infections complicated by osteomyelitis. She has required toe amputations in the past. Blood cultures were obtained, and she was empirically treated in the emergency room with vancomycin, Zithromax, and Zosyn. PAST MEDICAL HISTORY: Positive for diabetes mellitus, history of chronic osteomyelitis of the toes, psoriasis. She has had a history of MRSA infection in the past. ALLERGIES: VANCOMYCIN. This apparently is a red man syndrome. She has tolerated vancomycin in the past with Benadryl. MEDICATION: Include Benadryl, Levemir, Zoloft, Zantac, Novolog. SOCIAL HISTORY: Positive for cocaine, marijuana, alcohol, and tobacco use. She denies injection drug use. The patient lives at home in the community. She denies any significant travel history, no known TB exposure. SYSTEMS REVIEW: Neurologic: No loss of consciousness, seizure activity, or focal weakness. Cardiac: Negative chest pain or palpitations. Respiratory: As per HPI. Gastrointestinal: Negative diarrhea. Genitourinary: Negative for urinary tract infection. LABORATORY DATA: White count on admission 12.9, presently 10.9, 83 neutrophils, 10 lymphocytes, 4 monocytes. Hematocrit 25.7, platelet count 306. BUN 25, creatinine 1.4, lactic acid 2.1, total bilirubin 0.4, alkaline phosphatase 193, AST 48, blood cultures pending. PHYSICAL EXAMINATION: General: She is not acutely toxic appearing, in no acute respiratory distress. She is breathing comfortably on room air. Vital signs: Temperature 98.1, blood pressure 160/90, pulse 99 regular, respirations 18 per minute. HEENT: Sclerae anicteric. Oropharynx shows no injection or exudate on the tonsils. The tongue has a white coating. Neck: Supple. No palpable nodes. Cardiovascular: Heart sounds S1, S2. Respiratory: Lungs diminished breath sounds bilaterally. Occasional rhonchi. No appreciable wheezing or rales. Abdomen: Soft. No tenderness elicited. No mass, rebound, or rigidity. Extremities: Status post amputation of the right index finger, status post left first and second toes and right first toe. IMPRESSION: Bilateral pneumonia in this 25-year-old female admitted from detox. Differential diagnosis includes opportunistic pneumonia including PCP, fungal disease, and AFB disease, possible community acquired versus atypical pneumonia. Advise rapid HIV test, rapid influenza swab, CAT scan of the chest to further assess pulmonary infiltrates. Obtain sputum culture, urine legionella and pneumococcal antigens, LDH, Quantiferon, ABG. Would obtain pulmonary evaluation as patient may require bronchoscopy. Empiric antibiotic coverage with Zithromax and ceftriaxone. Patient has been given a stat dose of vancomycin. Further recommendations pending . Workup will follow. Thank you for the kind referral. WILSON BLACK M.D. ADINA/[id number]
[2016-10-02] MEDS: methylPREDNISolone NA SUCC 40 MG/1 ML VIAL IVPB SCH ×3 (02:41→15:19)
[2016-10-02] MEDS: SODIUM CHLORIDE 1,000 ML IV SCH (06:50)
[2016-10-02] MEDS: INSULIN SLIDING SCALE (NOVOLOG) 1 VIAL SQ SCH ×2 (06:51→12:20)
[2016-10-02] MEDS: FLUOCINONIDE 0.05% TOP OINT (60 GM TUBE) TP SCH ×2 (06:51→14:28)
[2016-10-02] MEDS ORDERED: INSULIN (NOVOLOG) ASPART 100 UNITS/ML 10ML VIAL ONE (07:01)
[2016-10-02] MEDS: NICOTINE 14 MG/24 HOURS TOPICAL PATCH TD SCH (10:48)
[2016-10-02] MEDS: SERTRALINE HCL 25 MG TABLET (FP) PO SCH (10:50)
[2016-10-02 11:09] LABS: MCH 28.3 pg (25.7-33.7); MCHC 33.2 g/dl (32.0-36.0); MEAN CELL VOLUME 85.3 fl (80-96); MEAN PLT VOLUME 8.1 fl (7.5-11.1); PLATELET COUNT 365 K/MM3 (134-434); RDW 15.2 % (11.6-15.6); WHITE BLOOD COUNT 9.9 K/mm3 (4.0-10.0)
--- NOTE | 2016-10-02 11:16 | CON.PULM ---
Consult Consult Specialty:: PULMONARY Referred by:: Hospitalist Reason for Consultation:: pneumonia - History of Present Illness Chief Complaint: shortness of breath History of Present Illness: 25yo female with h/o DM, osteomyelitis s/p toe amputations, polysubstance abuse who was sent from [facility] rehab for worsening shortness of breath. States subjective fevers, chills and sweats. +cough mostly nonproductive but no wheezing. Reported dyspnea with minimal exertion. Denies sick contacts or recent travel. Last inhalation of cocaine 2 weeks prior. +cigarettes. Denies any prior pneumonia. - History Source History Provided By: Patient, Medical Record Limitations to Obtaining History: No Limitations - Past Medical History ...LMP: 08/28/16 ...: No Endocrine: Yes: Diabetes Mellitus - Alcohol/Substance Use Hx Alcohol Use: No - Smoking History Smoking history: Former smoker Have you smoked in the past 12 months: Yes Aproximately how many cigarettes per day: 10 If you are a former smoker, when did you quit?: 14 DAYS AGO Home Medications - Allergies Allergies/Adverse Reactions: Allergies Allergy/AdvReac Type Severity Reaction Status Date / Time peach Allergy Severe Verified 09/30/16 23:12 vancomycin Allergy Severe Verified 09/30/16 23:12 - Home Medications Home Medications: Ambulatory Orders Diphenhydramine [Benadryl Capsule -] 50 mg PO HS 09/21/16 Sertraline HCl [Zoloft -] 25 mg PO DAILY 09/21/16 Fluocinonide 0.05% Oin [Lidex 0.05% Ointment -] 1 applic TP TID 09/25/16 Ranitidine [Zantac -] 150 mg PO DAILY 09/25/16 Insulin (Levemir) [Levemir Vial] 36 units SQ HS #1 ml 09/26/16 Insulin (Novolog) [Novolog -] 16 units SQ BID #1 ml 09/26/16 Azithromycin 500 mg PO BID #10 tablet 10/02/16 Levofloxacin [Levaquin] 750 mg PO DAILY #5 tab 10/02/16 Family Disease History - Family Disease History Family Disease History: Diabetes: Mother () Review of Systems - Review of Systems Constitutional: reports: Chills, Fever, Malaise, Weakness Eyes: denies: Recent Change in Vision HENT: denies: Throat Pain Neck: denies: Stiffness, Tenderness Cardiovascular: reports: Shortness of Breath. denies: Chest Pain, Edema Respiratory: reports: Cough Gastrointestinal: reports: Nausea, Vomiting. denies: Abdominal Pain Genitourinary: denies: Dysuria, Hematuria Neurological: denies: Dizziness, Headache Physical Exam Vital Sings: Vital Signs Temperature 98.6 F 10/02/16 10:51 Pulse Rate 94 H 10/02/16 10:51 Respiratory Rate 20 10/02/16 10:51 Blood Pressure 144/99 10/02/16 10:51 O2 Sat by Pulse Oximetry (%) 96 10/01/16 16:00 Constitutional: Yes: Calm Eyes: Yes: Conjunctiva Clear, EOM Intact HENT: Yes: Atraumatic, Normocephalic Neck: Yes: Supple, Trachea Midline Cardiovascular: Yes: Regular Rate and Rhythm Respiratory: Yes: Regular, CTA Bilaterally ...Clubbing: No Gastrointestinal: Yes: Normal Bowel Sounds, Soft. No: Tenderness Extremities: Yes: Amputation Edema: No Imaging - Results Chest X-ray: Report Reviewed, Image Reviewed Cat Scan: Report Reviewed, Image Reviewed (extensive infiltrates bilaterally) Problem List - Problems (1) Bilateral pneumonia Code(s): J18.9 - PNEUMONIA, UNSPECIFIED ORGANISM (2) Cocaine dependence Code(s): F14.20 - COCAINE DEPENDENCE, UNCOMPLICATED (3) Diabetes type 2, uncontrolled Code(s): E11.65 - TYPE 2 DIABETES MELLITUS WITH HYPERGLYCEMIA (4) Nicotine dependence Code(s): F17.200 - NICOTINE DEPENDENCE, UNSPECIFIED, UNCOMPLICATED Qualifiers : Nicotine product type: cigarettes Substance use status: uncomplicated Qualified Code(s): F17.210 - Nicotine dependence, cigarettes, uncomplicated Assessment/Plan Pneumonia - ?Atypical Likely element of Acute Pneumonitis - ?Aspiration DM h/o Cocaine use - continue antibiotics per ID - pt reports significant improvement since admission so would continue current treatment with antibiotics, empiric steroids - inhaled bronchodilators - will need outpt follow up of her CXR to ensure resolution in 6-8 weeks - smoking cessation - glucose control while on systemic steroids - DVT prophylaxis Thank you for this consult Kaiser Hays MD
[2016-10-02 11:30] LABS: ALBUMIN 2.1 g/dl (3.4-5.0); ANION GAP 9 (8-16); BILIRUBIN,TOTAL 0.4 mg/dL (0.2-1.0); CALCIUM 8.4 mg/dL (8.5-10.1); CO2 23 mmol/L (21-32); CREATININE 1.2 mg/dL (0.55-1.02); GLUCOSE,RANDOM 228 mg/dL (74-106); SGOT/AST 26 U/L (15-37); SGPT/ALT 52 U/L (12-78); TOT PROT 6.3 g/dl (6.4-8.2)
[2016-10-02 11:32] LABS: ALK PHOS 200 U/L (45-117)
[2016-10-02] MEDS: AZITHROMYCIN IVPB 500 MG/250 ML D5W PRE-DOCKED IVPB SCH (12:23)
[2016-10-02] MEDS: CEFTRIAXONE 2G/100 ML IVPB SCH (12:23)
--- NOTE | 2016-10-02 12:58 | PN ---
Teaching Attending Note Name of Resident: Tam Funes ATTENDING PHYSICIAN STATEMENT I saw and evaluated the patient. I reviewed the resident's note and discussed the case with the resident. I agree with the resident's findings and plan as documented. SUBJECTIVE: Patient has no complaints. She wants to go back to [facility] to complete rehab. OBJECTIVE: Vital Signs Period Temp Pulse Resp BP Sys/Garcia Pulse Ox Last 24 Hr 98 F-98.7 F 94-104 18-20 144-155/96-100 96-100 HEART: S1S2, RRR LUNGS: Clear ABDOMEN: Soft, non-tender, non-distended, normal BS EXTREMITIES: No edema ASSESSMENT AND PLAN: This is a 25 year old woman with a history of type 1 DM, osteomyelitis, polysubstance abuse who was sent from [facility] with fever, nausea, vomiting and shortness of breath. 1. Sepsis secondary to bilateral pneumonia - Afebrile, WBC improved - Continue Rocephin, Zithromax 2. Anemia, normocytic, possibly secondary to chronic illness 3. Type 1 diabetes mellitus, uncontrolled - Continue Levemir, Novolog sliding scale 4. Nicotine dependence - Continue nicotine patch 5. Alcohol and cocaine abuse - Return to [facility] for rehab when stable
[2016-10-02 13:10] LABS: URINE CREATININE 87.5 mg/dL (20-320)
--- NOTE | 2016-10-02 13:10 | PN ---
Progress Note, Physician History of Present Illness: Clinically improved on antibiotics, steroids Ambulatory; not dyspneic on RA Occasional cough- white sputum No c/o chest pain/ dyspnea Afebrile on steroids - Current Medication List Current Medications: Active Medications Azithromycin (Zithromax 500mg Ivpb (Pre-Docked)) 500 mg IVPB DAILY [facility] Last Admin: 10/02/16 12:23 Dose: Not Given Diphenhydramine HCl (Benadryl -) 50 mg PO DAILY PRN PRN Reason: FOR ITCHING Last Admin: 10/01/16 20:50 Dose: 50 mg Fluocinonide (Lidex 0.05% Ointment -) 1 applic TP TID [facility] Last Admin: 10/02/16 06:51 Dose: 1 applic Sodium Chloride (Normal Saline -) 1,000 mls @ 100 mls/hr IV ASDIR [facility] Last Admin: 10/02/16 06:50 Dose: Not Given Ceftriaxone Sodium (Rocephin 2gm Ivpb (Pre-Docked)) 100 mls @ 200 mls/hr IVPB DAILY [facility] Last Admin: 10/02/16 12:23 Dose: Not Given Insulin Aspart (Novolog Vial Sliding Scale -) 1 vial SQ ACHS JULIANNA PRN Reason: Protocol Last Admin: 10/02/16 12:20 Dose: 4 units Insulin Detemir (Levemir Vial) 36 units SQ HS [facility] Last Admin: 10/01/16 22:10 Dose: 36 units Methylprednisolone Sodium Succinate (Solu-Medrol -) 40 mg IVPB Q6H-IV JULIANNA Last Admin: 10/02/16 09:00 Dose: Not Given Nicotine (Nicoderm Patch -) 14 mg TD DAILY [facility] Last Admin: 10/02/16 10:48 Dose: Not Given Sertraline HCl (Zoloft -) 25 mg PO DAILY [facility] Last Admin: 10/02/16 10:50 Dose: 25 mg - Objective Vital Signs: Vital Signs Temperature 98.6 F 10/02/16 10:51 Pulse Rate 94 H 10/02/16 10:51 Respiratory Rate 20 10/02/16 10:51 Blood Pressure 144/99 10/02/16 10:51 O2 Sat by Pulse Oximetry (%) 100 10/02/16 12:08 Constitutional: Yes: No Distress Eyes: Yes: Conjunctiva Clear Cardiovascular: Yes: Regular Rate and Rhythm, S1, S2 Respiratory: Yes: Diminished, Rhonchi Gastrointestinal: Yes: Normal Bowel Sounds, Soft. No: Tenderness Edema: No Labs: CBC, BMP 10/02/16 10:35 10/02/16 10:35 INR, PTT INR 1.25 (0.82-1.09) H 10/01/16 06:29 Assessment/Plan Bilateral pneumonitis , etiology unclear Possible atypical pneumonia Possible chemical lung injury ( crack cocaine use) Polysubstance abuse HIV (-) Influenza (-) BC (-) Legionella/ pneumococcal ag pending Check cold agglutinins, mycoplasma titer If stable, substitute levaquin 750mg po qd x 10d Needs outpatient follow up, CXR 2 weeks
--- NOTE | 2016-10-02 14:59 | DS ---
Physical Exam: SUBJECTIVE: Patient seen and examined at bedside. Stated she's feeling much better. Denies fever, chills, n/v, trouble breathing, cough, nasal congestion, chest pain or palpitation OBJECTIVE: Vital Signs Period Temp Pulse Resp BP Sys/Garcia Pulse Ox Last 24 Hr 98 F-98.7 F 94-104 18-20 144-155/96-100 95-100 PHYSICAL EXAM GENERAL: AAO x 3, speak in full sentences, ambulating and in no acute distress. EYES: PERRL, extraocular movements intact, sclera anicteric, conjunctiva clear ENT: oropharynx clear without exudates, moist mucous membranes. LUNGS: CTAB HEART: tachycardic, S1, S2 without murmur, rub or gallop. ABDOMEN: Soft, nontender, nondistended, normoactive bowel sounds, no guarding, no rebound, no hepatosplenomegaly, no masses. EXTREMITIES: L foot 1st and 2nd digit amputation. R 1st digit amputation. R hand 2nd digit amputation. PSYCH: Depressed LABS CBCD WBC 9.9 K/mm3 (4.0-10.0) 10/02/16 10:35 RBC 2.96 M/mm3 (3.60-5.2) L 10/02/16 10:35 Hgb 8.4 GM/dL (10.7-15.3) L 10/02/16 10:35 Hct 25.3 % (32.4-45.2) L 10/02/16 10:35 MCV 85.3 fl (80-96) 10/02/16 10:35 MCHC 33.2 g/dl (32.0-36.0) 10/02/16 10:35 RDW 15.2 % (11.6-15.6) 10/02/16 10:35 Plt Count 365 K/MM3 (134-434) 10/02/16 10:35 MPV 8.1 fl (7.5-11.1) 10/02/16 10:35 CMP Sodium 135 mmol/L (136-145) L 10/02/16 10:35 Potassium 5.1 mmol/L (3.5-5.1) 10/02/16 10:35 Chloride 103 mmol/L (98-107) 10/02/16 10:35 Carbon Dioxide 23 mmol/L (21-32) 10/02/16 10:35 Anion Gap 9 (8-16) 10/02/16 10:35 BUN 37 mg/dL (7-18) H D 10/02/16 10:35 Creatinine 1.2 mg/dL (0.55-1.02) H 10/02/16 10:35 Creat Clearance w eGFR 54.74 (>60) 10/02/16 10:35 Calcium 8.4 mg/dL (8.5-10.1) L 10/02/16 10:35 Total Bilirubin 0.4 mg/dL (0.2-1.0) 10/02/16 10:35 AST 26 U/L (15-37) D 10/02/16 10:35 ALT 52 U/L (12-78) D 10/02/16 10:35 Alkaline Phosphatase 200 U/L (45-117) H 10/02/16 10:35 Total Protein 6.3 g/dl (6.4-8.2) L 10/02/16 10:35 Albumin 2.1 g/dl (3.4-5.0) L 10/02/16 10:35 HOSPITAL COURSE: Date of Admission:10/01/16 25 yo F h/o IDDM, MRSA and osteomyelitis, polysubstance abuse sent from [facility] with fevers, n/v and shortness of breath. She's found to have sepsis secondary to community acquired pneumonia which is consistent with CXR and CT chest findings. She's treated with supplemental O2 via bipap and later NC, received vanco and zosyn x 1 dose in ED and switched to zithromax and ceftriaxone. She also received solumedrol 40mg every 6 hours and her symptoms improved significantly. She's also found to have acute kidney injury probably pre-renal and her Cr has been improving with hydration. She also has non- specific elevation of alko phos and AST with low albumin and high INR probably secondary to her chronic liver damage from alcohol dependence. She's now in stable condition to be discharged back to [facility]. She will continue oral levaquin 750mg for 10 days and predisone taper dose for [address] chest showed abnormal findings, she's instructed to have an outpatient chest X-ray done within 2 weeks and follow up the result with her primary doctor. Date of Discharge: 10/02/16 Minutes to complete discharge: 35 Discharge Summary Reason For Visit: COCAINE DEPENDEC/CANNABIS DEPENDENCE Current Active Problems Bilateral pneumonia (Acute) Cannabis dependence (Chronic) Cocaine dependence (Chronic) Diabetes type 2, uncontrolled (Chronic) Condition: Stable - Instructions Diet, Activity, Other Instructions: Instruction for continuing care: You were admitted to the hospital for pneumonia. You were treated with antibiotics and fluids while in the hospital and now you are in stable condition to be discharged back to [facility] to continue your rehab program. Please continue to take levaquin for another 10 days and predisone 40mg x 1 day , 30mg x 1 day, 20mg x 1 day and 10mg x [address] shows abnormal findings. You will need to have a repeat chest x- ray as outpatient in 4 weeks. Make an appointment [phone] to have it done. Referrals: Lenard Hightower MD [Staff Physician] - Carli Rueda MD [Staff Physician] - Disposition: [facility] - Home Medications Comprehensive Discharge Medication List: Ambulatory Orders Diphenhydramine [Benadryl Capsule -] 50 mg PO HS 09/21/16 Sertraline HCl [Zoloft -] 25 mg PO DAILY 09/21/16 Fluocinonide 0.05% Oin [Lidex 0.05% Ointment -] 1 applic TP TID 09/25/16 Ranitidine [Zantac -] 150 mg PO DAILY 09/25/16 Insulin (Levemir) [Levemir Vial] 36 units SQ HS #1 ml 09/26/16 Insulin (Novolog) [Novolog -] 16 units SQ BID #1 ml 09/26/16 Levofloxacin [Levaquin] 750 mg PO DAILY #10 tab 10/02/16 Prednisone See Taper PO DAILY #10 tablet 10/02/16 This patient is new to me today: No Emergency Visit: No Critical Care patient: No - Discharge Referral Referred to [facility] No
[2016-10-02 15:02] VITALS: BP 136/100; PULSE 98; TEMP 98
== END 2016-10-02 15:24 | disposition other institution (70) | DRG 720 ==
LOC: JER 21:12 → JERBED 10-01 00:58 → UNDOADMIN 10-01 01:10 → J5S 10-01 16:16
PROVIDERS: ADMIT Internal Medicine; ATTEND Internal Medicine
PROC: 5A0935Z Assistance with Respiratory Ventilation, Less than 24 Consecutive Hours (ICD-10-PCS; principal; 2016-09-30)
DX: A41.9 Sepsis, unspecified organism (principal); J18.9 Pneumonia, unspecified organism; E10.65 Type 1 diabetes mellitus with hyperglycemia; F17.210 Nicotine dependence, cigarettes, uncomplicated; Z79.4 Long term (current) use of insulin; N17.9 Acute kidney failure, unspecified; Z89.021 Acquired absence of right finger(s); Z89.422 Acquired absence of other left toe(s); Z89.421 Acquired absence of other right toe(s); J96.01 Acute respiratory failure with hypoxia; D64.9 Anemia, unspecified; K70.10 Alcoholic hepatitis without ascites; F32.9 Major depressive disorder, single episode, unspecified; F14.20 Cocaine dependence, uncomplicated; F12.10 Cannabis abuse, uncomplicated; F10.10 Alcohol abuse, uncomplicated
CPT/HCPCS: 36415; 71010-TC; 71250-TC; 80053; 82436; 82570; 83605; 83615; 83735; 84133; 84300; 84703; 85025; 85027; 85610; 87040; 87070; 87205; 87389; 87804; 87899; 93005; 93010; 94660; 99285-25

== ENCOUNTER 2016-10-02 16:11 | Inpatient (IN) | payer OTHER ==
[2016-10-02 16:47] VITALS: BMI 27.1
--- NOTE | 2016-10-02 17:06 | HP ---
KATHIE HAYS Rehab Assess/Revision - Admission History Admitted to Rehab from: Medical/Surgical Date of Admission to Rehab: 02/01/17 - Vital signs Vital Signs: Vital Signs Period Temp Pulse Resp BP Sys/Garcia Pulse Ox Last 24 Hr 97.9 F 96 20 168/111 - Findings Detox History & Physical reviewed: Yes Concur with findings: Yes Comments/Additional Findings: for rehab as protocol
[2016-10-02] MEDS ORDERED: ACETAMINOPHEN 325 MG TABLET (FP) PO PRN (17:07)
[2016-10-02] MEDS ORDERED: guaiFENesin/D-METHORPHAN HB 10 ML UNIT-DOSE CUPS PO PRN (17:07)
[2016-10-02] MEDS ORDERED: P-EPHED 60MG/TRIPROLIDI 2.5MG TABLET PO PRN (17:07)
[2016-10-02] MEDS ORDERED: MAGNESIUM CITRATE 300 ML BOTTLE PO PRN (17:07)
[2016-10-02] MEDS ORDERED: MENTHOL/PHENOL 1 EACH UD MM PRN (17:07)
[2016-10-02] MEDS ORDERED: MAG HYDROX/AL HYDROX/SIMETH 30 ML UNIT-DOSE CUP PO PRN (17:07)
[2016-10-02] MEDS ORDERED: MAGNESIUM HYDROX 2400MG/30ML ORAL SUSPENSION 30 ML CUP PO PRN (17:07)
[2016-10-02] MEDS ORDERED: predniSONE 20 MG TABLET (UD) PO ONE (18:15)
[2016-10-02] MEDS ORDERED: LEVOFLOXACIN 250 MG TABLET (FP) PO ONE (18:15)
[2016-10-02] MEDS: THIAMINE HCL 100 MG TABLET (FP) PO SCH (21:56)
[2016-10-02] MEDS: INSULIN DETEMIR 100 UNITS/ML MDV SQ SCH (21:57)
[2016-10-02] MEDS: diphenhydrAMINE HCL 50 MG CAPSULE PO PRN (21:57)
[2016-10-02] MEDS ORDERED: INSULIN (NOVOLOG) ASPART 100 UNITS/ML 10ML VIAL ONE ×2 (22:01→22:13)
[2016-10-02] MEDS: INSULIN (NOVOLOG) ASPART 100 UNITS/ML 10ML VIAL SQ SCH (22:04)
[2016-10-02] MEDS ORDERED: PT OWN MED DRAWER 7, Y5N ONE (23:32)
[2016-10-03] MEDS: LEVOFLOXACIN 250 MG TABLET (FP) PO SCH (06:28)
[2016-10-03] MEDS: INSULIN (NOVOLOG) ASPART 100 UNITS/ML 10ML VIAL SQ SCH ×4 (07:28→21:10)
[2016-10-03] MEDS ORDERED: cloNIDine HCL 0.1 MG TABLET PO ONE (07:29)
[2016-10-03] MEDS ORDERED: ALBUTEROL SO4 2.5/IPRATROPIUM 0.5 INH SOL 3 ML VIAL.NEB. NEB PRN (09:35)
[2016-10-03] MEDS ORDERED: ALBUTEROL SO4 6.7 GM HFA INHALER IH PRN (09:35)
[2016-10-03] MEDS: RANITIDINE HCL 150 MG TABLET (FP) PO SCH (09:56)
[2016-10-03] MEDS: PRENATAL VITAMINS W/ FOLIC ACID TABLET (FP) PO SCH (09:56)
[2016-10-03] MEDS ORDERED: predniSONE 10 MG TABLET (UD) PO ONE (10:00)
--- NOTE | 2016-10-03 10:02 | HP ---
Psychiatrist Admission - Data Date of interview: 10/03/16 Admission source: [facility],med/surg unit Identifying data: This is the readmission to [facility] for this 25 yo single H female.Patient has been transferred to ED of [facility] on 09/30/16 due to Pneumonia and reffered back to rehab after stabilization. Medical History: S/P Pneumonia. Psychiatric History: Long and extensive psychiatric history with multiple psychiatric hospitallizations..See my Attending admission notes from 09/24/16. Physical/Sexual Abuse/Trauma History: Patient is not wiling to discuss this topic at present Vital Signs: Vital Signs - 24 hr 10/02/16 10/02/16 10/03/16 16:37 21:56 00:30 Temperature 97.9 F 97.7 F Pulse Rate 96 H 101 H Respiratory 20 18 18 Rate Blood Pressure 168/111 157/97 10/03/16 10/03/16 07:07 07:45 Temperature 97.8 F 97.8 F Pulse Rate 92 H 92 H Respiratory 18 18 Rate Blood Pressure 153/103 169/103 Allergies/Adverse Reactions: Allergies Allergy/AdvReac Type Severity Reaction Status Date / Time peach Allergy Severe Verified 10/02/16 16:20 vancomycin Allergy Severe Verified 10/02/16 16:20 Date of last physical exam: 10/02/16 Concur with the findings of this exam: Yes - Substance Abuse/Tx History Hx Alcohol Use: Yes (reortsdrinking since 14 yo,beer 6 pks daily) Hx Substance Use: Yes (marijuana since 13 yo,$50 daily,cocaine since 17 yo,$300 and up) Substance Use Type: Alcohol, Cocaine, Marijuana Hx Substance Use Treatment: Yes (multiple modalities of treatments) - Admission Criteria Previous failed treatment: Yes Poor recovery environment: Yes Comorbidities: Yes Lacks judgement: Yes Mental Status Exam - Mental Status Exam Alert and Oriented to: Time, Place, Person Cognitive Function: Grossly Intact Patient Appearance: Unkempt Mood: Sad Affect: Mood Congruent, Labile Patient Behavior: Cooperative Speech Pattern: Clear Voice Loudness: Normal Thought Process: Goal Oriented Psychiatric Findings - Problem List ([place] 1, 2,3) (1) Bilateral pneumonia Current Visit: Yes Status: Chronic (2) Alcohol dependence with uncomplicated withdrawal Current Visit: Yes Status: Chronic (3) Cannabis dependence Current Visit: Yes Status: Chronic (4) Cocaine dependence Current Visit: Yes Status: Chronic (5) Bipolar disorder Current Visit: Yes Status: Chronic (6) HTN (hypertension) Current Visit: Yes Status: Chronic Qualifiers: Hypertension type: essential hypertension Qualified Code(s): I10 - Essential (primary) hypertension - Initial Treatment Plan Initial Treatment Plan: Restart Seroquel 25 mg po tid,Trazodone 100 mg po hs and Zoloft 50 mg o daily. Will monitor progress.
[2016-10-03] MEDS: SERTRALINE HCL 50 MG TABLET (FP) PO SCH (11:45)
[2016-10-03] MEDS ORDERED: INSULIN (NOVOLOG) ASPART 100 UNITS/ML 10ML VIAL ONE ×3 (11:51→23:20)
[2016-10-03] MEDS: QUEtiapine FUMARATE 25 MG TABLET (FP) PO SCH ×2 (13:20→21:07)
--- NOTE | 2016-10-03 13:26 | PN ---
S Progress Note Note: addendum correction date of admission to rehab is 10/02/16 not 02/01/17
--- NOTE | 2016-10-03 14:16 | PN ---
[facility] Progress Note Note: Pt. has been having elevated BP Vital Signs - 24 hr 10/02/16 10/02/16 10/03/16 16:37 21:56 00:30 Temperature 97.9 F 97.7 F Pulse Rate 96 H 101 H Respiratory 20 18 18 Rate Blood Pressure 168/111 157/97 10/03/16 10/03/16 10/03/16 07:07 07:45 10:00 Temperature 97.8 F 97.8 F 98.2 F Pulse Rate 92 H 92 H 88 Respiratory 18 18 18 Rate Blood Pressure 153/103 169/103 147/99 10/03/16 13:30 Temperature Pulse Rate 96 H Respiratory Rate Blood Pressure 156/106 we'll start her on lisinopril
[2016-10-03] MEDS ORDERED: LISINOPRIL 10 MG TABLET (FP) PO ONE (14:31)
[2016-10-03] MEDS: THIAMINE HCL 100 MG TABLET (FP) PO SCH (21:07)
[2016-10-03] MEDS: traZODone HCL 100 MG TABLET (FP) PO SCH (21:07)
[2016-10-03] MEDS: INSULIN DETEMIR 100 UNITS/ML MDV SQ SCH (21:09)
[2016-10-03] MEDS: LISINOPRIL 10 MG TABLET (FP) PO SCH (21:11)
[2016-10-03] MEDS ORDERED: PT OWN MED DRAWER 7, Y5N ONE (23:05)
[2016-10-03] MEDS ORDERED: INSULIN DETEMIR 100 UNITS/ML MDV SQ ONE (23:20)
[2016-10-04] MEDS: LOPERAMIDE HCL 2 MG CAPSULE PO PRN ×4 (03:33→22:03)
[2016-10-04] MEDS: LEVOFLOXACIN 250 MG TABLET (FP) PO SCH (06:36)
[2016-10-04] MEDS: QUEtiapine FUMARATE 25 MG TABLET (FP) PO SCH ×3 (06:36→21:07)
[2016-10-04] MEDS: INSULIN (NOVOLOG) ASPART 100 UNITS/ML 10ML VIAL SQ SCH ×4 (06:38→21:09)
[2016-10-04] MEDS ORDERED: INSULIN (NOVOLOG) ASPART 100 UNITS/ML 10ML VIAL ONE ×3 (06:39→22:41)
[2016-10-04] MEDS: PRENATAL VITAMINS W/ FOLIC ACID TABLET (FP) PO SCH (09:10)
[2016-10-04] MEDS: SERTRALINE HCL 50 MG TABLET (FP) PO SCH (09:10)
[2016-10-04] MEDS: RANITIDINE HCL 150 MG TABLET (FP) PO SCH (09:10)
[2016-10-04] MEDS: LISINOPRIL 10 MG TABLET (FP) PO SCH ×2 (09:10→21:07)
[2016-10-04] MEDS: hydrOXYzine PAMOATE 50 MG CAPSULE (FP) PO PRN ×2 (09:15→15:51)
[2016-10-04] MEDS ORDERED: predniSONE 20 MG TABLET (UD) PO ONE (10:00)
[2016-10-04] MEDS ORDERED: PT OWN MED DRAWER 7, Y5N ONE ×2 (12:05→20:58)
[2016-10-04] MEDS: THIAMINE HCL 100 MG TABLET (FP) PO SCH (21:07)
[2016-10-04] MEDS: traZODone HCL 100 MG TABLET (FP) PO SCH (21:07)
[2016-10-04] MEDS: diphenhydrAMINE HCL 50 MG CAPSULE PO PRN (21:07)
[2016-10-04] MEDS: INSULIN DETEMIR 100 UNITS/ML MDV SQ SCH (21:09)
[2016-10-04] MEDS ORDERED: INSULIN DETEMIR 100 UNITS/ML MDV SQ ONE (22:42)
[2016-10-05] MEDS ORDERED: INSULIN (NOVOLOG) ASPART 100 UNITS/ML 10ML VIAL ONE ×3 (06:40→17:10)
[2016-10-05] MEDS: INSULIN (NOVOLOG) ASPART 100 UNITS/ML 10ML VIAL SQ SCH ×4 (06:40→21:24)
[2016-10-05] MEDS: QUEtiapine FUMARATE 25 MG TABLET (FP) PO SCH ×3 (06:40→21:20)
[2016-10-05] MEDS: LEVOFLOXACIN 250 MG TABLET (FP) PO SCH (06:40)
[2016-10-05] MEDS ORDERED: PT OWN MED DRAWER 7, Y5N ONE (09:19)
[2016-10-05] MEDS: RANITIDINE HCL 150 MG TABLET (FP) PO SCH (09:49)
[2016-10-05] MEDS: PRENATAL VITAMINS W/ FOLIC ACID TABLET (FP) PO SCH (09:49)
[2016-10-05] MEDS: SERTRALINE HCL 50 MG TABLET (FP) PO SCH (09:49)
[2016-10-05] MEDS: LISINOPRIL 10 MG TABLET (FP) PO SCH ×2 (09:49→21:21)
[2016-10-05] MEDS: LOPERAMIDE HCL 2 MG CAPSULE PO PRN ×2 (09:50→23:12)
[2016-10-05] MEDS: hydrOXYzine PAMOATE 50 MG CAPSULE (FP) PO PRN (09:51)
[2016-10-05] MEDS ORDERED: predniSONE 10 MG TABLET (UD) PO ONE (10:00)
[2016-10-05] MEDS: traZODone HCL 100 MG TABLET (FP) PO SCH (21:20)
[2016-10-05] MEDS: THIAMINE HCL 100 MG TABLET (FP) PO SCH (21:21)
[2016-10-05] MEDS: diphenhydrAMINE HCL 50 MG CAPSULE PO PRN ×2 (21:22→23:09)
[2016-10-05] MEDS: INSULIN DETEMIR 100 UNITS/ML MDV SQ SCH (21:23)
[2016-10-06] MEDS: LEVOFLOXACIN 250 MG TABLET (FP) PO SCH (06:44)
[2016-10-06] MEDS: QUEtiapine FUMARATE 25 MG TABLET (FP) PO SCH ×4 (06:44→22:10)
[2016-10-06] MEDS: INSULIN (NOVOLOG) ASPART 100 UNITS/ML 10ML VIAL SQ SCH ×5 (08:19→22:09)
[2016-10-06] MEDS ORDERED: INSULIN (NOVOLOG) ASPART 100 UNITS/ML 10ML VIAL ONE ×3 (08:24→16:59)
[2016-10-06] MEDS: hydrOXYzine PAMOATE 50 MG CAPSULE (FP) PO PRN (09:11)
[2016-10-06] MEDS: LISINOPRIL 10 MG TABLET (FP) PO SCH ×3 (09:33→21:30)
[2016-10-06] MEDS: PRENATAL VITAMINS W/ FOLIC ACID TABLET (FP) PO SCH (09:33)
[2016-10-06] MEDS: RANITIDINE HCL 150 MG TABLET (FP) PO SCH (09:33)
[2016-10-06] MEDS: SERTRALINE HCL 50 MG TABLET (FP) PO SCH (09:33)
[2016-10-06] MEDS: LOPERAMIDE HCL 2 MG CAPSULE PO PRN ×2 (10:48→23:24)
[2016-10-06] MEDS ORDERED: INSULIN DETEMIR 100 UNITS/ML MDV SQ ONE (16:59)
--- NOTE | 2016-10-06 19:52 | PN ---
[facility] Progress Note Note: PATIENT DID NOT WANT TO COMPLETE TREATMENT,SIGNED RELEASE AMA,DID NOT WANT TO WAIT,PSYCHIATRIST SIZER MACHINE NOTIFIED BY NURSE, ADVISE FOLLOW UP WITH PMD AND FELT TIPPING MACHINE TENDER FOR MEDICAL FOLLOW UP FOR DIABETIC AND PNEUMONIA
[2016-10-06] MEDS ORDERED: PT OWN MED DRAWER 7, Y5N ONE (21:10)
[2016-10-06] MEDS: THIAMINE HCL 100 MG TABLET (FP) PO SCH ×2 (21:14→22:10)
[2016-10-06] MEDS: traZODone HCL 100 MG TABLET (FP) PO SCH ×2 (21:15→22:10)
[2016-10-06] MEDS: INSULIN DETEMIR 100 UNITS/ML MDV SQ SCH ×2 (21:15→22:13)
[2016-10-06] MEDS: diphenhydrAMINE HCL 50 MG CAPSULE PO PRN (22:13)
[2016-10-07] MEDS: LEVOFLOXACIN 250 MG TABLET (FP) PO SCH (07:28)
[2016-10-07] MEDS: QUEtiapine FUMARATE 25 MG TABLET (FP) PO SCH ×3 (07:28→21:11)
[2016-10-07] MEDS: hydrOXYzine PAMOATE 50 MG CAPSULE (FP) PO PRN ×2 (07:32→11:20)
[2016-10-07] MEDS: INSULIN (NOVOLOG) ASPART 100 UNITS/ML 10ML VIAL SQ SCH ×4 (07:33→21:12)
[2016-10-07] MEDS ORDERED: PT OWN MED DRAWER 7, Y5N ONE (09:01)
[2016-10-07] MEDS: RANITIDINE HCL 150 MG TABLET (FP) PO SCH (09:36)
[2016-10-07] MEDS: SERTRALINE HCL 50 MG TABLET (FP) PO SCH (09:36)
[2016-10-07] MEDS: LISINOPRIL 10 MG TABLET (FP) PO SCH ×2 (09:36→21:12)
[2016-10-07] MEDS: PRENATAL VITAMINS W/ FOLIC ACID TABLET (FP) PO SCH (09:36)
[2016-10-07] MEDS: LOPERAMIDE HCL 2 MG CAPSULE PO PRN ×2 (11:20→18:47)
[2016-10-07] MEDS ORDERED: INSULIN (NOVOLOG) ASPART 100 UNITS/ML 10ML VIAL ONE ×3 (12:01→23:19)
[2016-10-07] MEDS: diphenhydrAMINE HCL 50 MG CAPSULE PO PRN (21:11)
[2016-10-07] MEDS: THIAMINE HCL 100 MG TABLET (FP) PO SCH (21:11)
[2016-10-07] MEDS: traZODone HCL 100 MG TABLET (FP) PO SCH (21:11)
[2016-10-07] MEDS: INSULIN DETEMIR 100 UNITS/ML MDV SQ SCH (21:13)
[2016-10-07] MEDS ORDERED: INSULIN DETEMIR 100 UNITS/ML MDV SQ ONE (23:19)
[2016-10-08] MEDS ORDERED: GLUCAGON 1 MG KIT SQ ONE (01:56)
[2016-10-08] MEDS: LOPERAMIDE HCL 2 MG CAPSULE PO PRN ×3 (06:01→21:12)
[2016-10-08] MEDS: QUEtiapine FUMARATE 25 MG TABLET (FP) PO SCH ×3 (06:01→21:10)
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
[2016-10-08] MEDS ORDERED: ALBUTEROL SO4 2.5/IPRATROPIUM 0.5 INH SOL 3 ML VIAL.NEB. NEB PRN (07:17)
[2016-10-08] MEDS: INSULIN (NOVOLOG) ASPART 100 UNITS/ML 10ML VIAL SQ SCH ×4 (07:27→21:14)
[2016-10-08] MEDS: LEVOFLOXACIN 250 MG TABLET (FP) PO SCH (07:27)
[2016-10-08] MEDS ORDERED: PT OWN MED DRAWER 7, Y5N ONE ×2 (08:48→19:57)
[2016-10-08] MEDS: RANITIDINE HCL 150 MG TABLET (FP) PO SCH (09:41)
[2016-10-08] MEDS: LISINOPRIL 10 MG TABLET (FP) PO SCH ×2 (09:41→21:10)
[2016-10-08] MEDS: PRENATAL VITAMINS W/ FOLIC ACID TABLET (FP) PO SCH (09:41)
[2016-10-08] MEDS: SERTRALINE HCL 50 MG TABLET (FP) PO SCH (09:41)
[2016-10-08] MEDS: hydrOXYzine PAMOATE 50 MG CAPSULE (FP) PO PRN (09:43)
[2016-10-08] MEDS ORDERED: BACITRACIN 15 GM TUBE TOPICAL OINTMENT TP SCH (10:00)
[2016-10-08] MEDS ORDERED: INSULIN (NOVOLOG) ASPART 100 UNITS/ML 10ML VIAL ONE ×2 (17:03→23:48)
[2016-10-08] MEDS: THIAMINE HCL 100 MG TABLET (FP) PO SCH (21:10)
[2016-10-08] MEDS: traZODone HCL 100 MG TABLET (FP) PO SCH (21:10)
[2016-10-08] MEDS: diphenhydrAMINE HCL 50 MG CAPSULE PO PRN (21:11)
[2016-10-08] MEDS: INSULIN DETEMIR 100 UNITS/ML MDV SQ SCH (21:14)
[2016-10-09] MEDS: QUEtiapine FUMARATE 25 MG TABLET (FP) PO SCH ×3 (06:20→21:04)
[2016-10-09] MEDS: LEVOFLOXACIN 250 MG TABLET (FP) PO SCH (06:20)
[2016-10-09] MEDS: INSULIN (NOVOLOG) ASPART 100 UNITS/ML 10ML VIAL SQ SCH ×4 (06:23→21:06)
[2016-10-09] MEDS ORDERED: PT OWN MED DRAWER 7, Y5N ONE (08:14)
[2016-10-09] MEDS: BACITRACIN 0.9 GM PACKET TP SCH (10:07)
[2016-10-09] MEDS: LISINOPRIL 10 MG TABLET (FP) PO SCH ×2 (10:08→21:04)
[2016-10-09] MEDS: PRENATAL VITAMINS W/ FOLIC ACID TABLET (FP) PO SCH (10:08)
[2016-10-09] MEDS: RANITIDINE HCL 150 MG TABLET (FP) PO SCH (10:08)
[2016-10-09] MEDS: SERTRALINE HCL 50 MG TABLET (FP) PO SCH (10:08)
[2016-10-09] MEDS ORDERED: INSULIN (NOVOLOG) ASPART 100 UNITS/ML 10ML VIAL ONE ×2 (11:43→17:36)
[2016-10-09] MEDS: hydrOXYzine PAMOATE 50 MG CAPSULE (FP) PO PRN ×2 (12:48→17:55)
[2016-10-09] MEDS: LOPERAMIDE HCL 2 MG CAPSULE PO PRN (17:55)
[2016-10-09] MEDS ORDERED: traZODone HCL 50 MG TABLET (FP) ONE (19:37)
[2016-10-09] MEDS: THIAMINE HCL 100 MG TABLET (FP) PO SCH (21:04)
[2016-10-09] MEDS: diphenhydrAMINE HCL 50 MG CAPSULE PO PRN ×2 (21:05→22:30)
[2016-10-09] MEDS: INSULIN DETEMIR 100 UNITS/ML MDV SQ SCH (21:06)
[2016-10-09] MEDS: traZODone HCL 100 MG TABLET (FP) PO SCH (21:06)
--- NOTE | 2016-10-10 05:46 | PN ---
S Progress Note Note: ASKED TO SEE PT FOR C/O OF BGM 31 MG/DL AFTER PT C/O S/SX OF LOW BLOOD SUGAR. UPON ARRIVAL REPEAT BGM 94MG/DL ON OTHER HAND S/P PO SUPPLEMENT PT IS AWAKE/ ALERT/X 3 NAD/VSS HYPOGLYCEMIA HOLD ALL ANTIDIABETIC MEDS THIS MORNING CMP NOW CONT TO MONITOR CLOSELY ENCOURAGE MEALS DECREASE LEVEMIR TO 30 UNITS SQ QHS FOR LOW BLD SUGARS IN .AM'S Laboratory Results - last 24 hr 10/09/16 10/09/16 10/09/16 06:20 11:41 20:52 POC Glucometer 49 830 121
[2016-10-10] MEDS: QUEtiapine FUMARATE 25 MG TABLET (FP) PO SCH ×3 (08:11→21:08)
[2016-10-10] MEDS: INSULIN (NOVOLOG) ASPART 100 UNITS/ML 10ML VIAL SQ SCH ×4 (08:11→21:11)
[2016-10-10] MEDS: LEVOFLOXACIN 250 MG TABLET (FP) PO SCH (08:11)
[2016-10-10 09:59] LABS: ALBUMIN 2.3 g/dl (3.4-5.0); ANION GAP 6 (8-16); CALCIUM 8.3 mg/dL (8.5-10.1); CO2 27 mmol/L (21-32); CREATININE 1.3 mg/dL (0.55-1.02); GLUCOSE,RANDOM 90 mg/dL (74-106); SGOT/AST 18 U/L (15-37); SGPT/ALT 31 U/L (12-78)
[2016-10-10 10:01] LABS: ALK PHOS 119 U/L (45-117); BILIRUBIN,TOTAL 0.2 mg/dL (0.2-1.0); TOT PROT 5.8 g/dl (6.4-8.2)
[2016-10-10] MEDS: PRENATAL VITAMINS W/ FOLIC ACID TABLET (FP) PO SCH (10:03)
[2016-10-10] MEDS: LISINOPRIL 10 MG TABLET (FP) PO SCH ×2 (10:03→21:07)
[2016-10-10] MEDS: hydrOXYzine PAMOATE 50 MG CAPSULE (FP) PO PRN ×2 (10:03→15:42)
[2016-10-10] MEDS: BACITRACIN 0.9 GM PACKET TP SCH (10:03)
[2016-10-10] MEDS: RANITIDINE HCL 150 MG TABLET (FP) PO SCH (10:03)
[2016-10-10] MEDS: SERTRALINE HCL 50 MG TABLET (FP) PO SCH (10:04)
[2016-10-10] MEDS ORDERED: INSULIN (NOVOLOG) ASPART 100 UNITS/ML 10ML VIAL ONE ×2 (11:45→18:00)
--- NOTE | 2016-10-10 14:50 | PN ---
S Progress Note Note: We'll decrease levemir to 25 units HS to avoid hypoglycemia
--- NOTE | 2016-10-10 14:55 | PN ---
Psychiatric Progress Note Vital Signs: Vital Signs Period Temp Pulse Resp BP Sys/Garcia Pulse Ox Last 24 Hr 97.0 F 85-102 18-18 116-158/68-82 Date of Session: 10/10/16 Chief Complaint:: Ck still having sleeping program. HPI: Alcohol,Cannabis,Cocaine dependence comorbid with Bipolar disorder. ROS: Significant for HTN,S/P Pneumonia. Current Medications: Active Medications Generic Name Dose Route Start Last Admin Trade Name Freq PRN Reason Stop Dose Admin Acetaminophen 650 mg 10/02/16 17:07 Tylenol - PO Q4H PRN FEVER OR PAIN Al Hydroxide/Mg Hydroxide 30 ml 10/02/16 17:07 Mylanta Oral Suspension - PO Q6H PRN DYSPEPSIA Albuterol Sulfate 2 puff 10/03/16 09:35 Ventolin Hfa Inhaler - IH Q4H PRN SHORT OF BREATH/WHEEZING Albuterol/Ipratropium 1 amp 10/08/16 07:17 Duoneb - NEB Q6H PRN SHORTNESS OF BREATH Bacitracin 0.9 gm 10/09/16 10:00 10/10/16 10:03 Bacitracin - TP 0.9 gm DAILY JULIANNA Administration Diphenhydramine HCl 50 mg 10/02/16 17:07 10/09/16 22:30 Benadryl - PO 50 mg HSMR1 PRN Administration FOR ITCHING Eucalyptus/Menthol/Phenol/Sorbitol 1 each 10/02/16 17:07 Cepastat Lozenge - MM Q4H PRN SORE THROAT Guaifenesin 10 ml 10/02/16 17:07 Robitussin Dm - PO Q6H PRN COUGH Hydroxyzine Pamoate 50 mg 10/02/16 17:07 10/10/16 10:03 Vistaril - PO 50 mg Q4H PRN Administration AGITATION Ibuprofen 400 mg 10/02/16 17:07 Motrin - PO Q6H PRN PAIN Insulin Aspart 0 units 10/02/16 22:00 10/10/16 11:45 Novolog Vial SQ 4 units ACHS JULIANNA Administration Protocol Insulin Detemir 25 units 10/10/16 22:00 Levemir Vial SQ HS JULIANNA Lisinopril 10 mg 10/03/16 22:00 10/10/16 10:03 Prinivil PO 10 mg BID JULIANNA Administration Loperamide HCl 4 mg 10/02/16 17:07 10/09/16 17:55 Imodium - PO 4 mg Q6H PRN Administration DIARRHEA Magnesium Hydroxide 30 ml 10/02/16 17:07 Milk Of Magnesia - PO DAILY PRN CONSTIPATION Multivit/Folic Acid/Iron 1 tab 10/03/16 10:00 10/10/16 10:03 Vitamins (Sjr) - PO 1 tab DAILY JULIANNA Administration Pseudoephedrine/Triprolidine 1 combo 10/02/16 17:07 Actifed - PO TID PRN NASAL CONGESTION Quetiapine Fumarate 25 mg 10/03/16 14:00 10/10/16 13:03 Seroquel - PO 25 mg TID JULIANNA Administration Ranitidine HCl 150 mg 10/03/16 10:00 10/10/16 10:03 Zantac - PO 150 mg DAILY JULIANNA Administration Sertraline HCl 50 mg 10/03/16 10:15 10/10/16 10:04 Zoloft - PO 50 mg DAILY JULIANNA Administration Thiamine HCl 100 mg 10/02/16 22:00 10/09/16 21:04 Vitamin B1 - PO 100 mg HS JULIANNA Administration Current Side Effect: No Lab tests ordered: No Lab tests reviewed: Yes Provider note:: Chart was reviewed,patient was evaluated due to ongoing sleeping difficulties-inability to fall asleep and interrupted sleep pattern.properties of Trazodone has been discussed with the patient including side effects,benefits and dose adjustment.Trazodone 100 mg po hs will be adjusted to 150 mg po hs.Patient will contnue Seroquel 25 mg po tid,Zoloft 50 mg po daily. Supportive therapy provided. Total face to face time:: 30 Mental Status Exam - Mental Status Exam Alert and Oriented to: Time, Place, Person Cognitive Function: Grossly Intact Patient Appearance: Well Groomed Mood: Irritable Affect: Labile Patient Behavior: Cooperative Speech Pattern: Clear Voice Loudness: Normal Thought Disorder: Not Present Psychiatric Treatment Plan - Problem List (1) Bilateral pneumonia Current Visit: Yes (2) Alcohol dependence with uncomplicated withdrawal Current Visit: Yes (3) Cannabis dependence Current Visit: Yes (4) Cocaine dependence Current Visit: Yes (5) Bipolar disorder Current Visit: Yes (6) HTN (hypertension) Current Visit: Yes Qualifiers: Qualified Code(s): I10 - Essential (primary) hypertension
[2016-10-10] MEDS: LOPERAMIDE HCL 2 MG CAPSULE PO PRN ×2 (15:42→22:32)
[2016-10-10] MEDS: traZODone HCL 50 MG TABLET (FP) PO SCH (21:07)
[2016-10-10] MEDS: diphenhydrAMINE HCL 50 MG CAPSULE PO PRN (21:08)
[2016-10-10] MEDS: THIAMINE HCL 100 MG TABLET (FP) PO SCH (21:08)
[2016-10-10] MEDS ORDERED: INSULIN DETEMIR 100 UNITS/ML MDV SQ ONE ×2 (21:10→22:47)
[2016-10-10] MEDS ORDERED: INSULIN DETEMIR 100 UNITS/ML MDV SQ SCH ×2 (22:00)
[2016-10-11] MEDS: QUEtiapine FUMARATE 25 MG TABLET (FP) PO SCH ×3 (06:29→21:08)
[2016-10-11] MEDS: INSULIN (NOVOLOG) ASPART 100 UNITS/ML 10ML VIAL SQ SCH ×4 (06:33→21:09)
[2016-10-11] MEDS: PRENATAL VITAMINS W/ FOLIC ACID TABLET (FP) PO SCH (09:52)
[2016-10-11] MEDS: BACITRACIN 0.9 GM PACKET TP SCH (09:52)
[2016-10-11] MEDS: LISINOPRIL 10 MG TABLET (FP) PO SCH ×2 (09:52→21:08)
[2016-10-11] MEDS: SERTRALINE HCL 50 MG TABLET (FP) PO SCH (09:53)
[2016-10-11] MEDS: RANITIDINE HCL 150 MG TABLET (FP) PO SCH (09:53)
[2016-10-11] MEDS: hydrOXYzine PAMOATE 50 MG CAPSULE (FP) PO PRN (09:54)
[2016-10-11] MEDS ORDERED: INSULIN (NOVOLOG) ASPART 100 UNITS/ML 10ML VIAL ONE ×3 (11:41→21:45)
[2016-10-11] MEDS: traZODone HCL 50 MG TABLET (FP) PO SCH (21:08)
[2016-10-11] MEDS: THIAMINE HCL 100 MG TABLET (FP) PO SCH (21:08)
[2016-10-11] MEDS: INSULIN DETEMIR 100 UNITS/ML MDV SQ SCH (21:11)
[2016-10-11] MEDS: diphenhydrAMINE HCL 50 MG CAPSULE PO PRN (21:13)
[2016-10-11] MEDS ORDERED: INSULIN DETEMIR 100 UNITS/ML MDV SQ ONE (21:46)
[2016-10-12] MEDS: INSULIN (NOVOLOG) ASPART 100 UNITS/ML 10ML VIAL SQ SCH ×4 (06:01→21:21)
[2016-10-12] MEDS: QUEtiapine FUMARATE 25 MG TABLET (FP) PO SCH ×3 (06:31→21:19)
[2016-10-12] MEDS: BACITRACIN 0.9 GM PACKET TP SCH (10:33)
[2016-10-12] MEDS: SERTRALINE HCL 50 MG TABLET (FP) PO SCH (10:33)
[2016-10-12] MEDS: LISINOPRIL 10 MG TABLET (FP) PO SCH ×2 (10:33→21:19)
[2016-10-12] MEDS: PRENATAL VITAMINS W/ FOLIC ACID TABLET (FP) PO SCH (10:33)
[2016-10-12] MEDS: RANITIDINE HCL 150 MG TABLET (FP) PO SCH (10:33)
--- NOTE | 2016-10-12 16:16 | PN ---
Psychiatric Progress Note Vital Signs: Vital Signs Period Temp Pulse Resp BP Sys/Garcia Pulse Ox Last 24 Hr 99.7 F 74-106 18-20 134-155/76-97 Date of Session: 10/12/16 Chief Complaint:: Progress update HPI: Patient addressed Cocaine,Cannabis and Alcohol dependence comorbid with Bipolar disorder. ROS: Significant for HTN,H/O Pneumonia. Current Medications: Active Medications Generic Name Dose Route Start Last Admin Trade Name Freq PRN Reason Stop Dose Admin Acetaminophen 650 mg 10/02/16 17:07 10/12/16 06:39 Tylenol - PO 650 mg Q4H PRN Administration FEVER OR PAIN Al Hydroxide/Mg Hydroxide 30 ml 10/02/16 17:07 Mylanta Oral Suspension - PO Q6H PRN DYSPEPSIA Albuterol Sulfate 2 puff 10/03/16 09:35 Ventolin Hfa Inhaler - IH Q4H PRN SHORT OF BREATH/WHEEZING Albuterol/Ipratropium 1 amp 10/08/16 07:17 Duoneb - NEB Q6H PRN SHORTNESS OF BREATH Bacitracin 0.9 gm 10/09/16 10:00 10/12/16 10:33 Bacitracin - TP Not Given DAILY JULIANNA Diphenhydramine HCl 50 mg 10/02/16 17:07 10/11/16 21:13 Benadryl - PO 50 mg HSMR1 PRN Administration FOR ITCHING Eucalyptus/Menthol/Phenol/Sorbitol 1 each 10/02/16 17:07 Cepastat Lozenge - MM Q4H PRN SORE THROAT Guaifenesin 10 ml 10/02/16 17:07 Robitussin Dm - PO Q6H PRN COUGH Hydroxyzine Pamoate 50 mg 10/02/16 17:07 10/11/16 09:54 Vistaril - PO 50 mg Q4H PRN Administration AGITATION Ibuprofen 400 mg 10/02/16 17:07 Motrin - PO Q6H PRN PAIN Insulin Aspart 0 units 10/11/16 16:30 10/12/16 12:00 Novolog Vial SQ Not Given ACHS JULIANNA Protocol Insulin Detemir 20 units 10/11/16 22:00 10/11/16 21:11 Levemir Vial SQ 20 units HS JULIANNA Administration Lisinopril 10 mg 10/03/16 22:00 10/12/16 10:33 Prinivil PO 10 mg BID JULIANNA Administration Loperamide HCl 4 mg 10/02/16 17:07 10/10/16 22:32 Imodium - PO 4 mg Q6H PRN Administration DIARRHEA Magnesium Hydroxide 30 ml 10/02/16 17:07 Milk Of Magnesia - PO DAILY PRN CONSTIPATION Multivit/Folic Acid/Iron 1 tab 10/03/16 10:00 10/12/16 10:33 Vitamins (Sjr) - PO 1 tab DAILY JULIANNA Administration Pseudoephedrine/Triprolidine 1 combo 10/02/16 17:07 Actifed - PO TID PRN NASAL CONGESTION Quetiapine Fumarate 25 mg 10/03/16 14:00 10/12/16 13:05 Seroquel - PO 25 mg TID JULIANNA Administration Ranitidine HCl 150 mg 10/03/16 10:00 10/12/16 10:33 Zantac - PO 150 mg DAILY JULIANNA Administration Sertraline HCl 50 mg 10/03/16 10:15 10/12/16 10:33 Zoloft - PO 50 mg DAILY JULIANNA Administration Thiamine HCl 100 mg 10/02/16 22:00 10/11/16 21:08 Vitamin B1 - PO 100 mg HS JULIANNA Administration Trazodone HCl 150 mg 10/10/16 22:00 10/11/16 21:08 Desyrel - PO 150 mg HS JULIANNA Administration Current Side Effect: No Lab tests ordered: No Lab tests reviewed: Yes Provider note:: Chart was revuewed,patient was seen to address her sleeping issues,reports some response to Trazodone.She states that it takes less time to fall asleep and she feels less anxious since Trazodone has been increased to 150 mg po hs. Supportive therapy as well as psychoeducation has been provided. Total face to face time:: 30 Mental Status Exam - Mental Status Exam Alert and Oriented to: Time, Place, Person Cognitive Function: Grossly Intact Patient Appearance: Well Groomed Mood: Euthymic Affect: Mood Congruent Patient Behavior: Cooperative Speech Pattern: Clear Voice Loudness: Normal Thought Process: Goal Oriented Thought Disorder: Not Present Hallucinations: Denies Suicidal Ideation: Denies Homicidal Ideation: Denies Insight/Judgement: Fair Sleep: Fair Appetite: Good Muscle strength/Tone: Normal Gait/Station: Normal Psychiatric Treatment Plan - Problem List (1) Bilateral pneumonia Current Visit: Yes (2) Alcohol dependence with uncomplicated withdrawal Current Visit: Yes (3) Cannabis dependence Current Visit: Yes (4) Cocaine dependence Current Visit: Yes (5) Bipolar disorder Current Visit: Yes (6) HTN (hypertension) Current Visit: Yes Qualifiers: Qualified Code(s): I10 - Essential (primary) hypertension
[2016-10-12] MEDS ORDERED: INSULIN (NOVOLOG) ASPART 100 UNITS/ML 10ML VIAL ONE ×2 (16:41→22:17)
[2016-10-12] MEDS: IBUPROFEN 400 MG TABLET (FP) PO PRN (18:43)
[2016-10-12] MEDS ORDERED: PT OWN MED DRAWER 7, Y5N ONE ×2 (21:06→22:21)
[2016-10-12] MEDS: THIAMINE HCL 100 MG TABLET (FP) PO SCH (21:19)
[2016-10-12] MEDS: traZODone HCL 50 MG TABLET (FP) PO SCH (21:19)
[2016-10-12] MEDS: INSULIN DETEMIR 100 UNITS/ML MDV SQ SCH (21:20)
[2016-10-12] MEDS: diphenhydrAMINE HCL 50 MG CAPSULE PO PRN (21:20)
[2016-10-13] MEDS: INSULIN (NOVOLOG) ASPART 100 UNITS/ML 10ML VIAL SQ SCH ×4 (06:28→21:05)
[2016-10-13] MEDS: QUEtiapine FUMARATE 25 MG TABLET (FP) PO SCH ×3 (07:02→21:06)
[2016-10-13] MEDS: PRENATAL VITAMINS W/ FOLIC ACID TABLET (FP) PO SCH (09:46)
[2016-10-13] MEDS: LISINOPRIL 10 MG TABLET (FP) PO SCH ×2 (09:46→21:06)
[2016-10-13] MEDS: BACITRACIN 0.9 GM PACKET TP SCH (09:46)
[2016-10-13] MEDS: SERTRALINE HCL 50 MG TABLET (FP) PO SCH (09:46)
[2016-10-13] MEDS: RANITIDINE HCL 150 MG TABLET (FP) PO SCH (09:47)
[2016-10-13] MEDS ORDERED: INSULIN (NOVOLOG) ASPART 100 UNITS/ML 10ML VIAL ONE ×2 (17:11→20:56)
[2016-10-13] MEDS ORDERED: FUROSEMIDE 40 MG TABLET (FP) PO ONE (17:47)
--- NOTE | 2016-10-13 17:53 | PN ---
[facility] Progress Note Note: Bilateral lower leg edema Last Vital Signs Temp Pulse Resp BP Pulse Ox 98.9 F 102 H 16 138/93 10/13/16 09:00 10/13/16 09:00 10/13/16 09:00 10/13/16 09:00 Laboratory Last Values Sodium 143 mmol/L (136-145) 10/10/16 07:00 Potassium 5.0 mmol/L (3.5-5.1) 10/10/16 07:00 Chloride 110 mmol/L (98-107) H 10/10/16 07:00 Carbon Dioxide 27 mmol/L (21-32) 10/10/16 07:00 Anion Gap 6 (8-16) L 10/10/16 07:00 BUN 33 mg/dL (7-18) H 10/10/16 07:00 Creatinine 1.3 mg/dL (0.55-1.02) H 10/10/16 07:00 Creat Clearance w eGFR 49.91 (>60) 10/10/16 07:00 POC Glucometer 91 UNITS (()) 10/13/16 11:39 Random Glucose 90 mg/dL (74-106) D 10/10/16 07:00 Calcium 8.3 mg/dL (8.5-10.1) L 10/10/16 07:00 Total Bilirubin 0.2 mg/dL (0.2-1.0) D 10/10/16 07:00 AST 18 U/L (15-37) D 10/10/16 07:00 ALT 31 U/L (12-78) D 10/10/16 07:00 Alkaline Phosphatase 119 U/L (45-117) H D 10/10/16 07:00 Total Protein 5.8 g/dl (6.4-8.2) L 10/10/16 07:00 Albumin 2.3 g/dl (3.4-5.0) L 10/10/16 07:00 bun 33 creat 1.3 P : lasix 40mg stat then 20mg bid
[2016-10-13] MEDS: IBUPROFEN 400 MG TABLET (FP) PO PRN (18:01)
[2016-10-13] MEDS: INSULIN DETEMIR 100 UNITS/ML MDV SQ SCH (21:06)
[2016-10-13] MEDS: THIAMINE HCL 100 MG TABLET (FP) PO SCH (21:06)
[2016-10-13] MEDS: traZODone HCL 50 MG TABLET (FP) PO SCH (21:06)
[2016-10-13] MEDS: diphenhydrAMINE HCL 50 MG CAPSULE PO PRN ×2 (21:07→23:19)
[2016-10-13] MEDS ORDERED: PT OWN MED DRAWER 7, Y5N ONE (21:38)
[2016-10-14] MEDS: FUROSEMIDE 20 MG TABLET (FP) PO SCH ×2 (07:04→15:20)
[2016-10-14] MEDS: INSULIN (NOVOLOG) ASPART 100 UNITS/ML 10ML VIAL SQ SCH ×4 (07:04→21:33)
[2016-10-14] MEDS: QUEtiapine FUMARATE 25 MG TABLET (FP) PO SCH ×3 (07:04→21:31)
[2016-10-14] MEDS: LOPERAMIDE HCL 2 MG CAPSULE PO PRN (07:34)
[2016-10-14] MEDS: PRENATAL VITAMINS W/ FOLIC ACID TABLET (FP) PO SCH (09:59)
[2016-10-14] MEDS: RANITIDINE HCL 150 MG TABLET (FP) PO SCH (09:59)
[2016-10-14] MEDS: BACITRACIN 0.9 GM PACKET TP SCH (09:59)
[2016-10-14] MEDS: SERTRALINE HCL 50 MG TABLET (FP) PO SCH (09:59)
[2016-10-14] MEDS: LISINOPRIL 10 MG TABLET (FP) PO SCH ×2 (10:00→21:31)
[2016-10-14] MEDS: hydrOXYzine PAMOATE 50 MG CAPSULE (FP) PO PRN (15:54)
[2016-10-14] MEDS ORDERED: INSULIN (NOVOLOG) ASPART 100 UNITS/ML 10ML VIAL ONE (16:58)
[2016-10-14] MEDS: IBUPROFEN 400 MG TABLET (FP) PO PRN (17:27)
[2016-10-14] MEDS: traZODone HCL 50 MG TABLET (FP) PO SCH (21:30)
[2016-10-14] MEDS: THIAMINE HCL 100 MG TABLET (FP) PO SCH (21:31)
[2016-10-14] MEDS: diphenhydrAMINE HCL 50 MG CAPSULE PO PRN (21:32)
[2016-10-14] MEDS: INSULIN DETEMIR 100 UNITS/ML MDV SQ SCH (21:33)
[2016-10-15] MEDS: QUEtiapine FUMARATE 25 MG TABLET (FP) PO SCH (06:31)
[2016-10-15] MEDS: FUROSEMIDE 20 MG TABLET (FP) PO SCH (06:31)
[2016-10-15] MEDS ORDERED: INSULIN (NOVOLOG) ASPART 100 UNITS/ML 10ML VIAL ONE (06:33)
[2016-10-15] MEDS: IBUPROFEN 400 MG TABLET (FP) PO PRN (06:36)
[2016-10-15 06:42] VITALS: BP 157/82; PULSE 98
[2016-10-15] MEDS: INSULIN (NOVOLOG) ASPART 100 UNITS/ML 10ML VIAL SQ SCH ×3 (07:09→17:30)
[2016-10-15 07:38] VITALS: TEMP 98.5
[2016-10-15 09:56] LABS: MCH 27.6 pg (25.7-33.7); MCHC 32.8 g/dl (32.0-36.0); MEAN CELL VOLUME 84.1 fl (80-96); MEAN PLT VOLUME 7.6 fl (7.5-11.1); PLATELET COUNT 329 K/MM3 (134-434); RDW 15.1 % (11.6-15.6); WHITE BLOOD COUNT 9.1 K/mm3 (4.0-10.0)
[2016-10-15] MEDS: PRENATAL VITAMINS W/ FOLIC ACID TABLET (FP) PO SCH (10:03)
[2016-10-15] MEDS: LISINOPRIL 10 MG TABLET (FP) PO SCH (10:03)
[2016-10-15] MEDS: RANITIDINE HCL 150 MG TABLET (FP) PO SCH (10:03)
[2016-10-15] MEDS: hydrOXYzine PAMOATE 50 MG CAPSULE (FP) PO PRN (10:03)
[2016-10-15] MEDS: SERTRALINE HCL 50 MG TABLET (FP) PO SCH (10:03)
[2016-10-15 10:07] LABS: ALBUMIN 2.1 g/dl (3.4-5.0); ANION GAP 8 (8-16); CALCIUM 8.3 mg/dL (8.5-10.1); CO2 26 mmol/L (21-32); CREATININE 1.4 mg/dL (0.55-1.02); GLUCOSE,RANDOM 287 mg/dL (74-106); SGOT/AST 17 U/L (15-37); SGPT/ALT 27 U/L (12-78); TOT PROT 5.8 g/dl (6.4-8.2)
[2016-10-15 10:08] LABS: ALK PHOS 134 U/L (45-117); BILIRUBIN,TOTAL < 0.1 mg/dL (0.2-1.0)
[2016-10-15] MEDS: BACITRACIN 0.9 GM PACKET TP SCH (10:13)
--- NOTE | 2016-10-15 22:11 | PN ---
[facility] Progress Note Note: Neon Tube Bender was called to the floor because the patient requested an early discharge. When VEHICLE BODY SANDER met with the patient, she was tearful and visibly upset. She would not explain why she wanted to leave but she was very adamant that she needed to go immediately. The counselor on the floor (Shai Patel) encouraged the client to stay so that she could coordinate her discharge to [facility] in the morning. VEHICLE BODY SANDER also expressed concern regarding her leaving given her recent abnormal labs, uncontrolled blood sugar and lower extremity edema but patient refused to stay an additional day. Ms. Loredo provided her with the contact information to [facility] and the patient agreed she would call them in the morning to coordinate her admission. Neon Tube Bender encouraged the patient to follow -up with her PCP regarding her abnormal labs including low hct/hgb and uncontrolled blood sugar. When asked if she had a PCP, patient stated she did not. When typewriter assembly and parts inspector asked the address of where she would be staying in order to give her a list of local medical providers in her area, patient refused to answer where she would be staying and stated that she has sought medical care at clinics in [facility] and [facility] would return to either clinic for continued medical care. Pt. was instructed to seek immediate medical assistance if she not feel well or experiencing dizziness; patient verbalized understanding. Reviewed s/sxs of hyper/hypoglycemia; patient verbalized understanding. Pt. stated she would be going to a friends home and she was familiar with how to get to the [place] using [employer] transportation system. Refills were sent to her pharmacy. Pt. escorted off the unit.
== END 2016-10-15 20:53 | disposition home or self-care (01) | DRG 772 ==
LOC: YASAS 16:11 → Y3E 17:40
PROVIDERS: ADMIT Psychiatry & Neurology Psychiatry; ATTEND Psychiatry & Neurology Psychiatry
PROC: HZ42ZZZ Group Counseling for Substance Abuse Treatment, Cognitive-Behavioral (ICD-10-PCS; principal; 2016-10-02)
DX: F10.20 Alcohol dependence, uncomplicated (principal); F14.20 Cocaine dependence, uncomplicated; F12.20 Cannabis dependence, uncomplicated; F17.210 Nicotine dependence, cigarettes, uncomplicated; F31.9 Bipolar disorder, unspecified; I10 Essential (primary) hypertension; E11.65 Type 2 diabetes mellitus with hyperglycemia; Z79.4 Long term (current) use of insulin; J18.9 Pneumonia, unspecified organism; L40.9 Psoriasis, unspecified; R60.0 Localized edema; E16.2 Hypoglycemia, unspecified; S10.91XA Abrasion of unspecified part of neck, initial encounter; Y04.8XXA Assault by other bodily force, initial encounter; Y93.9 Activity, unspecified; Y92.239 Unspecified place in hospital as the place of occurrence of the external cause
CPT/HCPCS: 36415; 80053; 84702; 85027; 94640

== ENCOUNTER 2017-07-22 09:07 | Inpatient (IN) | payer OTHER ==
[2017-07-22 09:59] VITALS: BMI 28.0
--- NOTE | 2017-07-22 11:25 | HP ---
Admission [facility] Chief Complaint: Patient presents for Rehab services for Cocaine and Marajuana dependence. Patient previously attempted Rehab at [facility] 10/2016. Reports drinking ETOH socially but denies daily use. Started using concaine and marajuana Allergies/Adverse Reactions: Allergies Allergy/AdvReac Type Severity Reaction Status Date / Time peach Allergy Severe Hives Verified 07/22/17 10:12 vancomycin Allergy Severe Hives Verified 07/22/17 10:12 History of Present Illness: Patient presents with cocaine and marajuana dependence. Denies drinking ETOH daily, states she drinks cognac socially. Pt started using cocaine and Marajuana at age 17. Uses 100 dollars worth of cocaine daily. Smokes 6-7 blunts of marajuana daily. Last dose of marajuana cocaine 9am this morning. Denies any seizures from substance use. No overdoses reported. Denies suicidal attempts and /or ideation. Has hx of DM, HTN, Anemia and amputation. Exam Limitations: Physical Impairment (Bilateral toes (total 3 toes, one on left ft and 2 on right) and right hand index amputation.) - Ebola screening Have you traveled outside of the country in the last 21 days: No Have you had contact with anyone from an Ebola affected area: No Have you been sick,other than usual withdrawal symptoms: Yes (cough and chest congestion, went to [place] [facility] this morning. D/C w/ [facility]) - Review of Systems Constitutional: Night Sweats, Changes in sleep, Unexplained wgt Loss EENT: reports: Blurred Vision, Nose Congestion, Throat Pain Respiratory: reports: Cough Cardiac: reports: No Symptoms Reported GI: reports: Diarrhea, Abdominal cramping Musculoskeletal: reports: Joint Stiffness Integumentary: reports: Rash Neuro: reports: Unsteady Gait Endocrine: reports: Increased Thirst, Unexplained Weight Loss Hematology: reports: No Symptoms Reported Psychiatric: reports: Anxious, Depressed Patient History - Patient Medical History Hx Anemia: Yes Hx Asthma: No Hx Chronic Obstructive Pulmonary Disease (COPD): No Hx Cancer: No Hx Cardiac Disorders: No Hx Congestive Heart Failure: No Hx Hypertension: Yes Hx Hypercholesterolemia: No Hx Pacemaker: No HX Cerebrovascular Accident: No Hx Seizures: No Hx Dementia: No Hx Diabetes: Yes (IDDM) Hx Gastrointestinal Disorders: Yes (acid reflux) Hx Liver Disease: No Hx Genitourinary Disorders: No Hx Sexually Transmitted Disorders: No Hx Renal Disease (ESRD): No Hx Thyroid Disease: No Hx Human Immunodeficiency Virus (HIV): No (negative) Hx Hepatitis C: No (negatiave) Hx Depression: Yes Hx Suicide Attempt: No Hx Bipolar Disorder: Yes Hx Schizophrenia: No - Patient Surgical History Past Surgical History: Yes Hx Neurologic Surgery: No Hx Cataract Extraction: No Hx Cardiac Surgery: No Hx Lung Surgery: No Hx Breast Surgery: No Hx Breast Biopsy: No Hx Abdominal Surgery: No Hx Appendectomy: No Hx Cholecystectomy: No Hx Genitourinary Surgery: No Hx Section: No Hx Orthopedic Surgery: Yes (amputation, right index finger in 2014) Other Surgical History: 2014- 1st and 2nd toes on left foot/ 2nd toe of rt ft. 2015- lft ankle oste Anesthesia Reaction: No - PPD History Previous Implant?: Yes Implanted On Prior [facility] Admission?: Yes Date: 09/23/16 Results: 0 mm - Reproductive History Last Menstrual Period: 06/25/17 Patient : No - Smoking Cessation Smoking history: Current every day smoker Have you smoked in the past 12 months: Yes Aproximately how many cigarettes per day: 7 If you are a former smoker, when did you quit?: 14 DAYS AGO Hx Chewing Tobacco Use: No Initiated information on smoking cessation: Yes 'Breaking Loose' booklet given: 07/22/17 - Substance & Tx. History Hx Alcohol Use: No Hx Substance Use: Yes Substance Use Type: Cocaine, Marijuana Hx Substance Use Treatment: Yes ([facility] 10/2016) - Substances Abused Cocaine Route: Inhalation Frequency: Daily Amount used: $150 Age of first use: 17 Date of Last Use: 07/21/17 Alcohol-cognac Route: Oral Frequency: 3-6 times per week Amount used: 2 shots Age of first use: 13 Date of Last Use: 07/21/17 Marijuana Route: Smoking Frequency: Daily Amount used: $30 Age of first use: 12 Date of Last Use: 07/22/17 Family Disease History - Family Disease History Family Disease History: Diabetes: Mother (), Heart Disease: Father ( ) Admission Physical Exam [facility] - Vital Signs Vital Signs: Vital Signs - 24 hr 07/22/17 09:54 Temperature 98.5 F Pulse Rate 108 H Respiratory 16 Rate Blood Pressure 158/102 - Physical General Appearance: Yes: Disheveled HEENTM: Yes: EOMI, Hearing grossly Normal, Normocephalic, Normal Voice, VINNY, Nasal Congestion Respiratory: Yes: Within Normal Limits, Chest Non-Tender, Lungs Clear, Normal Breath Sounds, No Accessory Muscle Use Neck: Yes: Within Normal Limits, No masses,lesions,Nodules, Supple Breast: Yes: Breast Exam Deferred Cardiology: Yes: Within Normal Limits, Regular Rhythm, Regular Rate, S1, S2 Abdominal: Yes: Within Normal Limits, Normal Bowel Sounds, Non Tender, Soft Genitourinary: Yes: Within Normal Limits Back: Yes: Muscle Spasm Musculoskeletal: Yes: Joint Stiffness Extremities: Yes: Swelling, Amputation Neurological: Yes: clinical analyst II-XII NML intact, Fully Oriented, Alert, Depressed Affect Integumentary: Yes: Normal Color, Dry, Pitting Edema Lymphatic: Yes: Within Normal Limits - Diagnostic (1) Diarrhea Current Visit: Yes Status: Acute Qualifiers: Diarrhea type: unspecified type Qualified Code(s): R19.7 - Diarrhea, unspecified (2) URI (upper respiratory infection) Current Visit: Yes Status: Acute Qualifiers: URI type: unspecified URI Qualified Code(s): J06.9 - Acute upper respiratory infection, unspecified (3) Nicotine dependence Current Visit: Yes Status: Chronic Qualifiers: Nicotine product type: cigarettes Substance use status: uncomplicated Qualified Code(s): F17.210 - Nicotine dependence, cigarettes, uncomplicated (4) Cocaine dependence Current Visit: Yes Status: Chronic Qualifiers: Substance use status: uncomplicated Qualified Code(s): F14.20 - Cocaine dependence, uncomplicated (5) Cannabis dependence Current Visit: Yes Status: Chronic (6) Swelling of lower extremity Current Visit: Yes Status: Chronic (7) Diabetes type 2, uncontrolled Current Visit: No Status: Chronic Qualifiers: Diabetes mellitus intermodal truck driver insulin use: with intermodal truck driver use Diabetes mellitus complication status: with circulatory complication Diabetes mellitus complication detail: with other circulatory complications Qualified Code(s): E11.59 - Type 2 diabetes mellitus with other circulatory complications; E11.65 - Type 2 diabetes mellitus with hyperglycemia; E11.65 - Type 2 diabetes mellitus with hyperglycemia; E11.65 - Type 2 diabetes mellitus with hyperglycemia; E11.65 - Type 2 diabetes mellitus with hyperglycemia; Z79.4 - penitentiary (current) use of insulin; Z79.4 - penitentiary (current) use of insulin; Z79.4 - oysterman (current) use of insulin; Z79.4 - penitentiary (current) use of insulin (8) H/O amputation Current Visit: Yes Status: Chronic (9) Bipolar disorder Current Visit: Yes Status: Chronic Qualifiers: Active/Remission status: remission status unspecified Qualified Code(s): F31.9 - Bipolar disorder, unspecified (10) HTN (hypertension) Current Visit: Yes Status: Chronic Qualifiers: Hypertension type: unspecified Qualified Code(s): I10 - Essential (primary ) hypertension Cleared for Admission [facility] - Detox or Rehab Claeared for Rehab Admission: Yes (cocaine and THC dependence) [facility] Breath Alcohol Content Breath Alcohol Content: 0 Urine Pregancy Test - Result Urine Test Results: Negative- NO Line Present Urine Drug Screen - Results Drug Screen Negative: No Urine Drug Screen Results: THC-Marijuana, KEIRA-Cocaine, TCA-Tricyclic Antidepress Inpatient Rehab Admission - Initial Determination Are CD services needed?: Yes Free of communicable disease: Yes Not in need of hospitalization: Yes - Rehab Admission Criteria Previous failed treatment: Yes Poor recovery environment: Yes Comorbidities: Yes Lacks judgement: Yes Patient is meeting Inpatient Rehab admission criteria:: Yes (cocaine and marajuana dependence)
[2017-07-22] MEDS ORDERED: MENTHOL/PHENOL 1 EACH UD MM PRN (11:43)
[2017-07-22] MEDS ORDERED: MAGNESIUM HYDROX 2400MG/30ML ORAL SUSPENSION 30 ML CUP PO PRN (11:43)
[2017-07-22] MEDS ORDERED: guaiFENesin/D-METHORPHAN HB 10 ML UNIT-DOSE CUPS PO PRN (11:43)
[2017-07-22] MEDS ORDERED: IBUPROFEN 400 MG TABLET (FP) PO PRN (11:43)
[2017-07-22] MEDS ORDERED: P-EPHED 60MG/TRIPROLIDI 2.5MG TABLET PO PRN (11:43)
[2017-07-22] MEDS ORDERED: MAGNESIUM CITRATE 300 ML BOTTLE PO PRN (11:43)
[2017-07-22] MEDS ORDERED: ACETAMINOPHEN 325 MG TABLET (FP) PO PRN (11:43)
[2017-07-22] MEDS ORDERED: MAG HYDROX/AL HYDROX/SIMETH 30 ML UNIT-DOSE CUP PO PRN (11:43)
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
[2017-07-22] MEDS ORDERED: cloNIDine HCL 0.1 MG TABLET PO ONE ×2 (14:00→17:00)
[2017-07-22] MEDS: SERTRALINE HCL 50 MG TABLET (FP) PO SCH (14:21)
[2017-07-22 16:15] LABS: HEMATOCRIT 22.9 % (32.4-45.2); HEMOGLOBIN 7.6 GM/dL (10.7-15.3); MCH 28.4 pg (25.7-33.7); MCHC 33.4 g/dl (32.0-36.0); MEAN CELL VOLUME 85.2 fl (80-96); MEAN PLT VOLUME 7.8 fl (7.5-11.1); PLATELET COUNT 503 K/MM3 (134-434); RBC 2.69 M/mm3 (3.60-5.2); RDW 14.6 % (11.6-15.6); WHITE BLOOD COUNT 7.7 K/mm3 (4.0-10.0)
[2017-07-22 16:28] LABS: ALBUMIN 1.6 g/dl (3.4-5.0); ANION GAP 7 (8-16); BLOOD UREA NITROGEN 25 mg/dL (7-18); CALCIUM 7.5 mg/dL (8.5-10.1); CHLORIDE 108 mmol/L (98-107); CO2 24 mmol/L (21-32); POTASSIUM 4.8 mmol/L (3.5-5.1); SGOT/AST 19 U/L (15-37); SGPT/ALT 36 U/L (12-78); SODIUM 139 mmol/L (136-145); TOT PROT 6.4 g/dl (6.4-8.2)
[2017-07-22 16:29] LABS: ALK PHOS 207 U/L (45-117)
[2017-07-22] MEDS ORDERED: INSULIN SLIDING SCALE (NOVOLOG) 1 VIAL SQ SCH (16:30)
[2017-07-22 16:31] LABS: BILIRUBIN,TOTAL < 0.1 mg/dL (0.2-1.0)
[2017-07-22 16:33] LABS: GLUCOSE,RANDOM 366 mg/dL (74-106)
--- NOTE | 2017-07-22 16:43 | PN ---
[facility] Progress Note Note: Notified by staff that BP 181/110. Clonidine 0.1mg stat ordered. Repeat BP 200/ 110. Pt denies CP, SOB and Dizziness. Vital Signs Temperature 99.2 F 07/22/17 13:15 Pulse Rate 111 H 07/22/17 13:15 Respiratory Rate 18 07/22/17 13:15 Blood Pressure 181/110 07/22/17 13:15 O2 Sat by Pulse Oximetry (%) Laboratory Last Values Sodium 139 mmol/L (136-145) 07/22/17 12:00 Potassium 4.8 mmol/L (3.5-5.1) 07/22/17 12:00 Chloride 108 mmol/L (98-107) H 07/22/17 12:00 Carbon Dioxide 24 mmol/L (21-32) 07/22/17 12:00 Anion Gap 7 (8-16) L 07/22/17 12:00 BUN 25 mg/dL (7-18) H 07/22/17 12:00 Creatinine 2.0 mg/dL (0.55-1.02) H 07/22/17 12:00 Creat Clearance w eGFR 30.12 (>60) 07/22/17 12:00 POC Glucometer 366 UNITS (80-120) 07/22/17 10:45 Random Glucose 366 mg/dL (74-106) H* 07/22/17 12:00 Calcium 7.5 mg/dL (8.5-10.1) L 07/22/17 12:00 Total Bilirubin < 0.1 mg/dL (0.2-1.0) L 07/22/17 12:00 AST 19 U/L (15-37) 07/22/17 12:00 ALT 36 U/L (12-78) 07/22/17 12:00 Alkaline Phosphatase 207 U/L (45-117) H 07/22/17 12:00 Total Protein 6.4 g/dl (6.4-8.2) 07/22/17 12:00 Albumin 1.6 g/dl (3.4-5.0) L 07/22/17 12:00 Obj: Skin: Warm and dry and intact Car: S1S2. RRR. Resp: CTA BL Ext: BLE edematous A/P Uncontrolled HTN Uncontrolled DM Second stat dose of clonidine 0.1mg po ordered Stat insulin to be given as previously ordered Pt to be transferred to ER for evalutaion. Report given to Dr. Castillo at [facility].
[2017-07-22] MEDS: INSULIN SLIDING SCALE (NOVOLOG) 1 VIAL SQ SCH ×2 (16:45→23:14)
[2017-07-22] MEDS ORDERED: INSULIN (NOVOLOG) ASPART 100 UNITS/ML 10ML VIAL SQ ONE (17:00)
[2017-07-22] MEDS ORDERED: MELATONIN 5 MG TABLETS PO PRN (22:00)
[2017-07-22 23:12] LABS: URINE APPEARANCE CLEAR; URINE BILIRUBIN NEGATIVE (<2.0 mg/dL); URINE BLOOD 1+ (NEGATIVE); URINE COLOR STRAW; URINE GLUCOSE (UA) 3+ (NEGATIVE); URINE KETONE NEGATIVE (NEGATIVE); URINE LEUK ESTERASE TRACE (NEGATIVE); URINE NITRITE NEGATIVE (NEGATIVE); URINE UROBILINOGEN NEGATIVE mg/dL (0.2-1.0)
[2017-07-22] MEDS: QUEtiapine FUMARATE 50 MG TABLET PO SCH (23:12)
[2017-07-22] MEDS: LISINOPRIL 10 MG TABLET (FP) PO SCH (23:12)
[2017-07-22] MEDS: THIAMINE HCL 100 MG TABLET (FP) PO SCH (23:12)
[2017-07-22 23:15] LABS: URINE PROTEIN 3+ (NEGATIVE)
[2017-07-22 23:17] LABS: EPI CELLS RARE /HPF (FEW); URINE MUCUS RARE
[2017-07-23] MEDS ORDERED: cloNIDine HCL 0.1 MG TABLET PO ONE ×3 (00:32→22:30)
[2017-07-23] MEDS: QUEtiapine FUMARATE 50 MG TABLET PO SCH ×2 (00:47→21:16)
[2017-07-23] MEDS: LOPERAMIDE HCL 2 MG CAPSULE PO PRN (00:48)
[2017-07-23] MEDS ORDERED: INSULIN (NOVOLOG) ASPART 100 UNITS/ML 10ML VIAL ONE ×2 (07:23→16:41)
[2017-07-23] MEDS: INSULIN SLIDING SCALE (NOVOLOG) 1 VIAL SQ SCH ×4 (07:24→21:20)
--- NOTE | 2017-07-23 10:40 | EKG ---
Test Reason : Blood Pressure : / mmHG Vent. Rate : 090 BPM Atrial Rate : 090 BPM P-R Int : 162 ms QRS Dur : 082 ms QT Int : 344 ms P-R-T Axes : 046 079 041 degrees QTc Int : 420 ms NORMAL SINUS RHYTHM NORMAL ECG WHEN COMPARED WITH ECG OF 30-SEP-2016 22:43, NO SIGNIFICANT CHANGE WAS FOUND Confirmed by MD Rodriguez Daniel ([id number]) on 07/23/2017 10:40:19 AM Referred By: Confirmed By:Jose Manuel Rodriguez MD
[2017-07-23] MEDS: LISINOPRIL 10 MG TABLET (FP) PO SCH ×2 (11:21→21:16)
[2017-07-23] MEDS: NICOTINE POLACRILEX 2 MG GUM BUC PRN (11:21)
[2017-07-23] MEDS: PRENATAL VITAMINS W/ FOLIC ACID TABLET (FP) PO SCH (11:21)
[2017-07-23] MEDS: NICOTINE 14 MG/24 HOURS TOPICAL PATCH TD SCH (11:21)
[2017-07-23] MEDS: SERTRALINE HCL 50 MG TABLET (FP) PO SCH (11:21)
[2017-07-23] MEDS: THIAMINE HCL 100 MG TABLET (FP) PO SCH (21:16)
[2017-07-23] MEDS: diphenhydrAMINE HCL 50 MG CAPSULE PO PRN (21:17)
[2017-07-23] MEDS: INSULIN DETEMIR 100 UNITS/ML MDV SQ SCH (21:20)
--- NOTE | 2017-07-23 22:20 | PN ---
S Progress Note Note: Vital Signs Temperature 98.6 F 07/23/17 07:27 Pulse Rate 102 H 07/23/17 21:20 Respiratory Rate 18 07/23/17 07:27 Blood Pressure 181/115 07/23/17 21:20 O2 Sat by Pulse Oximetry (%) Patient with asymptomatic elevated BP STAT dose clonidine 0.2mg Increase fluids Continue to monitor
[2017-07-24] MEDS: INSULIN SLIDING SCALE (NOVOLOG) 1 VIAL SQ SCH ×4 (06:20→21:20)
[2017-07-24] MEDS ORDERED: cloNIDine HCL 0.1 MG TABLET PO ONE ×4 (07:15→18:30)
--- NOTE | 2017-07-24 07:24 | PN ---
[facility] Progress Note Note: bgm 52,receiving orange juice,no complaint bp 192/110 no headache,no sob,no complaint on lisinopril 10 mgs po bid will continue bgm monitoring,bp monitoring,clonidine 0.1 mg po now close monitoring bp and bgm
[2017-07-24] MEDS: PRENATAL VITAMINS W/ FOLIC ACID TABLET (FP) PO SCH (10:05)
[2017-07-24] MEDS: SERTRALINE HCL 50 MG TABLET (FP) PO SCH (10:05)
[2017-07-24] MEDS: NICOTINE 14 MG/24 HOURS TOPICAL PATCH TD SCH (10:05)
[2017-07-24] MEDS: LISINOPRIL 10 MG TABLET (FP) PO SCH (10:05)
[2017-07-24] MEDS: hydrOXYzine PAMOATE 50 MG CAPSULE (FP) PO PRN ×2 (10:06→23:29)
[2017-07-24] MEDS: NICOTINE POLACRILEX 2 MG GUM BUC PRN (10:07)
--- NOTE | 2017-07-24 10:41 | PN ---
[facility] Progress Note Note: Notified by nursing staff pt BP elevated at 160/100. Pt was given clonidine 0.1mg earlier this morning for BP 198/138. Treated with Lisinopril 10mg BID for HTN. Has Hx of DM, HTN and Kidney disease. Repeat BP 148/98. Vital Signs Temperature 95.0 F L 07/24/17 07:02 Pulse Rate 97 H 07/24/17 10:05 Respiratory Rate 18 07/24/17 07:02 Blood Pressure 160/100 07/24/17 10:05 O2 Sat by Pulse Oximetry (%) Laboratory Tests 07/22/17 07/22/17 07/22/17 10:45 12:00 12:00 WBC 7.7 RBC 2.69 L Hgb 7.6 L Hct 22.9 L MCV 85.2 MCH 28.4 MCHC 33.4 RDW 14.6 Plt Count 503 H D MPV 7.8 Sodium 139 Potassium 4.8 Chloride 108 H Carbon Dioxide 24 Anion Gap 7 L BUN 25 H Creatinine 2.0 H Creat Clearance w eGFR 30.12 POC Glucometer 366 Random Glucose 366 H* Calcium 7.5 L Total Bilirubin < 0.1 L AST 19 ALT 36 Alkaline Phosphatase 207 H Total Protein 6.4 Albumin 1.6 L Urine Color Urine Appearance Urine pH Ur Specific [place] Urine Protein Urine Glucose (UA) Urine Ketones Urine Blood Urine Nitrite Urine Bilirubin Urine Urobilinogen Ur Leukocyte Esterase Urine WBC (Auto) Urine RBC (Auto) Ur Epithelial Cells Urine Mucus RPR Titer Hep C Ab Diagnostic Liver Fibrosis Inter 07/22/17 07/22/17 07/22/17 12:00 15:00 16:41 WBC RBC Hgb Hct MCV MCH MCHC RDW Plt Count MPV Sodium Potassium Chloride Carbon Dioxide Anion Gap BUN Creatinine Creat Clearance w eGFR POC Glucometer 545 Random Glucose Calcium Total Bilirubin AST ALT Alkaline Phosphatase Total Protein Albumin Urine Color Straw Urine Appearance Clear Urine pH 7.0 D Ur Specific [place] 1.015 Urine Protein 3+ H Urine Glucose (UA) 3+ H Urine Ketones Negative Urine Blood 1+ H Urine Nitrite Negative Urine Bilirubin Negative Urine Urobilinogen Negative Ur Leukocyte Esterase Trace Urine WBC (Auto) 8 Urine RBC (Auto) 5 Ur Epithelial Cells Rare Urine Mucus Rare RPR Titer Nonreactive Hep C Ab Diagnostic Liver Fibrosis Inter 07/23/17 07/23/17 07/23/17 06:00 07:20 11:24 WBC RBC Hgb Hct MCV MCH MCHC RDW Plt Count MPV Sodium Potassium Chloride Carbon Dioxide Anion Gap BUN Creatinine Creat Clearance w eGFR POC Glucometer 290 127 Random Glucose Calcium Total Bilirubin AST ALT Alkaline Phosphatase Total Protein Albumin Urine Color Urine Appearance Urine pH Ur Specific [place] Urine Protein Urine Glucose (UA) Urine Ketones Urine Blood Urine Nitrite Urine Bilirubin Urine Urobilinogen Ur Leukocyte Esterase Urine WBC (Auto) Urine RBC (Auto) Ur Epithelial Cells Urine Mucus RPR Titer Hep C Ab Diagnostic <0.1 Liver Fibrosis Interp 07/23/17 07/23/17 07/24/17 16:51 21:19 06:07 WBC RBC Hgb Hct MCV MCH MCHC RDW Plt Count MPV Sodium Potassium Chloride Carbon Dioxide Anion Gap BUN Creatinine Creat Clearance w eGFR POC Glucometer 258 245 40 Random Glucose Calcium Total Bilirubin AST ALT Alkaline Phosphatase Total Protein Albumin Urine Color Urine Appearance Urine pH Ur Specific [place] Urine Protein Urine Glucose (UA) Urine Ketones Urine Blood Urine Nitrite Urine Bilirubin Urine Urobilinogen Ur Leukocyte Esterase Urine WBC (Auto) Urine RBC (Auto) Ur Epithelial Cells Urine Mucus RPR Titer Hep C Ab Diagnostic Liver Fibrosis Interp 07/24/17 07/24/17 06:58 08:17 WBC RBC Hgb Hct MCV MCH MCHC RDW Plt Count MPV Sodium Potassium Chloride Carbon Dioxide Anion Gap BUN Creatinine Creat Clearance w eGFR POC Glucometer 52 110 Random Glucose Calcium Total Bilirubin AST ALT Alkaline Phosphatase Total Protein Albumin Urine Color Urine Appearance Urine pH Ur Specific [place] Urine Protein Urine Glucose (UA) Urine Ketones Urine Blood Urine Nitrite Urine Bilirubin Urine Urobilinogen Ur Leukocyte Esterase Urine WBC (Auto) Urine RBC (Auto) Ur Epithelial Cells Urine Mucus RPR Titer Hep C Ab Diagnostic Liver Fibrosis Interp Subj: Pt denies CP, SOB, dizziness and headache. Obj: General: alert and oriented x 3. In NAD. Skin warm and dry. Car: S1S2. RRR. No murmurs Resp: CTA BL Ext: BLE edema A/P: HTN: uncontrolled DM Hypoalbuminemia will increase Lisinopril 40mg daily clonidine 0.1mg prn Pt spoke with plater [employer] regarding adding protein to diet. Will repeat UA as previous UA showed trace blood.
[2017-07-24] MEDS ORDERED: INSULIN (NOVOLOG) ASPART 100 UNITS/ML 10ML VIAL ONE ×3 (11:40→22:35)
[2017-07-24] MEDS: FERROUS SO4 325 MG TABLET (FP) PO SCH ×2 (11:41→17:19)
--- NOTE | 2017-07-24 13:37 | PN ---
[facility] Progress Note (SOAP) Subjective: Notified by nurse Pt. BP elevated. Vital Signs Temperature 95.0 F L 07/24/17 07:02 Pulse Rate 93 H 07/24/17 12:06 Respiratory Rate 18 07/24/17 07:02 Blood Pressure 159/105 07/24/17 12:06 O2 Sat by Pulse Oximetry (%) Will order Clonidine 0.2 mg po stat. Continue to monitor clinically.
[2017-07-24 14:28] LABS: URINE APPEARANCE CLEAR; URINE BILIRUBIN NEGATIVE (<2.0 mg/dL); URINE BLOOD NEGATIVE (NEGATIVE); URINE COLOR STRAW; URINE GLUCOSE (UA) 3+ (NEGATIVE); URINE KETONE NEGATIVE (NEGATIVE); URINE LEUK ESTERASE NEGATIVE (NEGATIVE); URINE NITRITE NEGATIVE (NEGATIVE); URINE UROBILINOGEN NEGATIVE mg/dL (0.2-1.0)
[2017-07-24 14:36] LABS: URINE PROTEIN 3+ (NEGATIVE)
[2017-07-24 14:39] LABS: EPI CELLS RARE /HPF (FEW); URINE HYALINE CAST 13 /lpf; URINE MUCUS RARE
--- NOTE | 2017-07-24 18:08 | PN ---
[facility] Progress Note Note: Vital Signs - 24 hr 07/23/17 07/24/17 07/24/17 21:20 00:30 03:30 Temperature Pulse Rate 102 H Respiratory 16 16 Rate Blood Pressure 181/115 07/24/17 07/24/17 07/24/17 07:01 07:02 10:05 Temperature 95.0 F L 95.0 F L Pulse Rate 99 H 99 H 97 H Respiratory 18 18 Rate Blood Pressure 188/104 192/121 160/100 07/24/17 07/24/17 07/24/17 10:36 12:06 14:32 Temperature Pulse Rate 99 H 93 H 90 Respiratory Rate Blood Pressure 148/94 159/105 171/107 07/24/17 15:40 Temperature Pulse Rate 85 Respiratory Rate Blood Pressure 165/100 Patient with asymptomatic elevate BP One time dose of clonidine 0.2mg STAT Repeat BP in 1 hour Increase fluids If BP not control patient will be evaluate at [facility]
[2017-07-24] MEDS: THIAMINE HCL 100 MG TABLET (FP) PO SCH (21:17)
[2017-07-24] MEDS: HYDROCHLOROTHIAZIDE 25 MG TABLET (FP) PO SCH (21:17)
[2017-07-24] MEDS: QUEtiapine FUMARATE 50 MG TABLET PO SCH (21:18)
[2017-07-24] MEDS: diphenhydrAMINE HCL 50 MG CAPSULE PO PRN (21:18)
[2017-07-24] MEDS: INSULIN DETEMIR 100 UNITS/ML MDV SQ SCH (21:20)
[2017-07-24] MEDS ORDERED: INSULIN DETEMIR 100 UNITS/ML MDV SQ ONE (22:35)
--- NOTE | 2017-07-24 23:33 | PN ---
S Progress Note Note: Vital Signs Temperature 95.0 F L 07/24/17 07:02 Pulse Rate 90 07/24/17 22:44 Respiratory Rate 18 07/24/17 07:02 Blood Pressure 172/106 07/24/17 22:44 O2 Sat by Pulse Oximetry (%) Patient with asthmatic elevated BP after treatment with clonidine. Manual Right arm BP 160/84 11:29pm. Patient reports she currently has a lot on her mind reports feeling worry about her daughter and her health. Denies SOB, CP. Patient was evaluate in the ED on 07/22/17 for elevated BP was given Ativan and lisinopril and BP stabilize. patient in no apparent distress, with some anxiety. Plan: Increase fluids Vistaril 50mg STAT dose given Patient to be evaluate by [facility] Continue to monitor
[2017-07-25] MEDS ORDERED: PT OWN MED DRAWER 7, Y5N ONE (06:52)
[2017-07-25] MEDS: hydrOXYzine PAMOATE 50 MG CAPSULE (FP) PO PRN ×2 (07:05→19:23)
[2017-07-25] MEDS: HYDROCHLOROTHIAZIDE 25 MG TABLET (FP) PO SCH (07:05)
[2017-07-25] MEDS: INSULIN SLIDING SCALE (NOVOLOG) 1 VIAL SQ SCH ×3 (07:07→16:48)
[2017-07-25] MEDS: FERROUS SO4 325 MG TABLET (FP) PO SCH ×3 (07:24→16:47)
[2017-07-25] MEDS ORDERED: FUROSEMIDE 20 MG TABLET (FP) PO ONE (07:43)
--- NOTE | 2017-07-25 07:49 | PN ---
[facility] Progress Note Note: SEEN FOR ASYMPTOMATIC ELEVATED BP. CLIENT DENIES C.P., SOB, VISUAL DISTURBANCE. SHE ALSO REPORTS NO PREVIOUS HX/O HTN. A/O X3 NAD BLE NOTED WITH 2+ PITTING EDEMA Vital Signs Temperature 98.1 F 07/25/17 07:12 Pulse Rate 111 H 07/25/17 07:12 Respiratory Rate 18 07/25/17 07:12 Blood Pressure 179/114 07/25/17 07:12 O2 Sat by Pulse Oximetry (%) MANUAL REPEAT 161/110 ASYMPTOMATIC HTN GIVE LASIX 20 MG NOW CLONIDINE 0.1MG BID CONT TO MONITOR VS ORDERED PSYCH RE-CONSULTATION FOR C/O ANXIETY SLIDING SCALE ADJUSTED TO TID AC DUE TO HYPOGLYCEMIA IN THE A.M.
[2017-07-25] MEDS: cloNIDine HCL 0.1 MG TABLET PO SCH ×2 (08:32→17:52)
[2017-07-25] MEDS: LISINOPRIL 20 MG TABLET (FP) PO SCH (09:52)
[2017-07-25] MEDS: PRENATAL VITAMINS W/ FOLIC ACID TABLET (FP) PO SCH (09:52)
[2017-07-25] MEDS: SERTRALINE HCL 50 MG TABLET (FP) PO SCH (09:54)
[2017-07-25] MEDS: LOPERAMIDE HCL 2 MG CAPSULE PO PRN (09:55)
[2017-07-25] MEDS: NICOTINE 14 MG/24 HOURS TOPICAL PATCH TD SCH (09:56)
[2017-07-25] MEDS ORDERED: INSULIN (NOVOLOG) ASPART 100 UNITS/ML 10ML VIAL ONE ×2 (11:56→16:44)
[2017-07-25] MEDS: THIAMINE HCL 100 MG TABLET (FP) PO SCH (21:12)
[2017-07-25] MEDS: QUEtiapine FUMARATE 50 MG TABLET PO SCH (21:12)
[2017-07-25] MEDS: diphenhydrAMINE HCL 50 MG CAPSULE PO PRN (21:13)
[2017-07-25] MEDS: INSULIN DETEMIR 100 UNITS/ML MDV SQ SCH (21:15)
[2017-07-26] MEDS ORDERED: INSULIN (NOVOLOG) ASPART 100 UNITS/ML 10ML VIAL ONE ×2 (00:30→17:13)
--- NOTE | 2017-07-26 01:22 | PN ---
[facility] Progress Note Note: seen for elevated b/p Vital Signs Temperature 98.1 F 07/25/17 07:12 Pulse Rate 101 H 07/25/17 21:54 Respiratory Rate 17 07/26/17 00:30 Blood Pressure 173/104 07/25/17 21:54 O2 Sat by Pulse Oximetry (%) client remains asymptomatic resting in bed comfortably repeat b/p 128/75 p 93 cont to monitor
[2017-07-26] MEDS: cloNIDine HCL 0.1 MG TABLET PO SCH ×2 (06:34→21:14)
[2017-07-26] MEDS: INSULIN SLIDING SCALE (NOVOLOG) 1 VIAL SQ SCH ×3 (07:05→17:03)
--- NOTE | 2017-07-26 07:11 | PN ---
[facility] Progress Note Note: seen this morning for worsening edema to ble. b/p much better Vital Signs 07/26/17 07/26/17 07/26/17 00:30 01:23 06:38 Temperature 98.3 F 98.3 F Pulse Rate 93 H 93 H Respiratory 17 18 18 Rate Blood Pressure 128/75 128/75 07/26/17 06:39 Temperature 98.4 F Pulse Rate 102 H Respiratory 18 Rate Blood Pressure 147/88 remains asymptomatic dc hctz add lasix 20 mg daily cmp cont to monitor closely
[2017-07-26] MEDS: FERROUS SO4 325 MG TABLET (FP) PO SCH ×3 (08:29→17:01)
[2017-07-26] MEDS ORDERED: FUROSEMIDE 20 MG TABLET (FP) PO SCH (10:00)
[2017-07-26] MEDS ORDERED: HYDROCHLOROTHIAZIDE 25 MG TABLET (FP) PO SCH (10:00)
[2017-07-26] MEDS ORDERED: SODIUM CHLORIDE NASAL SPRAY 44 ML BOTTLE NS PRN (10:08)
[2017-07-26] MEDS ORDERED: PATIENT'S OWN MEDICATION (NON-FORMULARY) (Dextran 70/Hypromellose [Artificial Tears Eye Dr OP PRN (10:08)
[2017-07-26] MEDS: NICOTINE POLACRILEX 2 MG GUM BUC PRN ×2 (10:15→15:32)
[2017-07-26] MEDS: LISINOPRIL 20 MG TABLET (FP) PO SCH (10:15)
[2017-07-26] MEDS: SERTRALINE HCL 50 MG TABLET (FP) PO SCH (10:15)
[2017-07-26] MEDS: NICOTINE 14 MG/24 HOURS TOPICAL PATCH TD SCH (10:15)
[2017-07-26] MEDS: PRENATAL VITAMINS W/ FOLIC ACID TABLET (FP) PO SCH (10:15)
[2017-07-26] MEDS: hydrOXYzine PAMOATE 50 MG CAPSULE (FP) PO PRN (11:42)
[2017-07-26] MEDS: CHLORTHALIDONE 25 MG TABLET PO SCH (12:28)
--- NOTE | 2017-07-26 12:31 | PN ---
[facility] Progress Note (SOAP) Subjective: Pt presents with c/o dry eyes and increase swelling to legs. Denies CP, SOB and dizziness. Laboratory Tests 07/22/17 07/22/17 07/22/17 10:45 12:00 12:00 WBC 7.7 RBC 2.69 L Hgb 7.6 L Hct 22.9 L MCV 85.2 MCH 28.4 MCHC 33.4 RDW 14.6 Plt Count 503 H D MPV 7.8 Sodium 139 Potassium 4.8 Chloride 108 H Carbon Dioxide 24 Anion Gap 7 L BUN 25 H Creatinine 2.0 H Creat Clearance w eGFR 30.12 POC Glucometer 366 Random Glucose 366 H* Calcium 7.5 L Total Bilirubin < 0.1 L AST 19 ALT 36 Alkaline Phosphatase 207 H Total Protein 6.4 Albumin 1.6 L Urine Color Urine Appearance Urine pH Ur Specific [place] Urine Protein Urine Glucose (UA) Urine Ketones Urine Blood Urine Nitrite Urine Bilirubin Urine Urobilinogen Ur Leukocyte Esterase Urine WBC (Auto) Urine RBC (Auto) Ur Epithelial Cells Hyaline Casts Urine Mucus RPR Titer Hep C Ab Diagnostic Liver Fibrosis Interp 07/22/17 07/22/17 07/22/17 12:00 15:00 16:41 WBC RBC Hgb Hct MCV MCH MCHC RDW Plt Count MPV Sodium Potassium Chloride Carbon Dioxide Anion Gap BUN Creatinine Creat Clearance w eGFR POC Glucometer 545 Random Glucose Calcium Total Bilirubin AST ALT Alkaline Phosphatase Total Protein Albumin Urine Color Straw Urine Appearance Clear Urine pH 7.0 D Ur Specific [place] 1.015 Urine Protein 3+ H Urine Glucose (UA) 3+ H Urine Ketones Negative Urine Blood 1+ H Urine Nitrite Negative Urine Bilirubin Negative Urine Urobilinogen Negative Ur Leukocyte Esterase Trace Urine WBC (Auto) 8 Urine RBC (Auto) 5 Ur Epithelial Cells Rare Hyaline Casts Urine Mucus Rare RPR Titer Nonreactive Hep C Ab Diagnostic Liver Fibrosis Interp 07/23/17 07/23/17 07/23/17 06:00 07:20 11:24 WBC RBC Hgb Hct MCV MCH MCHC RDW Plt Count MPV Sodium Potassium Chloride Carbon Dioxide Anion Gap BUN Creatinine Creat Clearance w eGFR POC Glucometer 290 127 Random Glucose Calcium Total Bilirubin AST ALT Alkaline Phosphatase Total Protein Albumin Urine Color Urine Appearance Urine pH Ur Specific [place] Urine Protein Urine Glucose (UA) Urine Ketones Urine Blood Urine Nitrite Urine Bilirubin Urine Urobilinogen Ur Leukocyte Esterase Urine WBC (Auto) Urine RBC (Auto) Ur Epithelial Cells Hyaline Casts Urine Mucus RPR Titer Hep C Ab Diagnostic <0.1 Liver Fibrosis Interp 07/23/17 07/23/17 07/24/17 16:51 21:19 06:07 WBC RBC Hgb Hct MCV MCH MCHC RDW Plt Count MPV Sodium Potassium Chloride Carbon Dioxide Anion Gap BUN Creatinine Creat Clearance w eGFR POC Glucometer 258 245 40 Random Glucose Calcium Total Bilirubin AST ALT Alkaline Phosphatase Total Protein Albumin Urine Color Urine Appearance Urine pH Ur Specific [place] Urine Protein Urine Glucose (UA) Urine Ketones Urine Blood Urine Nitrite Urine Bilirubin Urine Urobilinogen Ur Leukocyte Esterase Urine WBC (Auto) Urine RBC (Auto) Ur Epithelial Cells Hyaline Casts Urine Mucus RPR Titer Hep C Ab Diagnostic Liver Fibrosis Interp 07/24/17 07/24/17 07/24/17 06:58 08:17 11:38 WBC RBC Hgb Hct MCV MCH MCHC RDW Plt Count MPV Sodium Potassium Chloride Carbon Dioxide Anion Gap BUN Creatinine Creat Clearance w eGFR POC Glucometer 52 110 224 Random Glucose Calcium Total Bilirubin AST ALT Alkaline Phosphatase Total Protein Albumin Urine Color Urine Appearance Urine pH Ur Specific [place] Urine Protein Urine Glucose (UA) Urine Ketones Urine Blood Urine Nitrite Urine Bilirubin Urine Urobilinogen Ur Leukocyte Esterase Urine WBC (Auto) Urine RBC (Auto) Ur Epithelial Cells Hyaline Casts Urine Mucus RPR Titer Hep C Ab Diagnostic Liver Fibrosis Interp 07/24/17 07/24/17 07/24/17 13:20 17:18 21:20 WBC RBC Hgb Hct MCV MCH MCHC RDW Plt Count MPV Sodium Potassium Chloride Carbon Dioxide Anion Gap BUN Creatinine Creat Clearance w eGFR POC Glucometer 237 222 Random Glucose Calcium Total Bilirubin AST ALT Alkaline Phosphatase Total Protein Albumin Urine Color Straw Urine Appearance Clear Urine pH 6.0 Ur Specific [place] 1.014 Urine Protein 3+ H Urine Glucose (UA) 3+ H Urine Ketones Negative Urine Blood Negative Urine Nitrite Negative Urine Bilirubin Negative Urine Urobilinogen Negative Ur Leukocyte Esterase Negative Urine WBC (Auto) 3 Urine RBC (Auto) 3 Ur Epithelial Cells Rare Hyaline Casts 13 Urine Mucus Rare RPR Titer Hep C Ab Diagnostic Liver Fibrosis Interp 07/25/17 07/25/17 07/25/17 06:49 07:39 11:53 WBC RBC Hgb Hct MCV MCH MCHC RDW Plt Count MPV Sodium Potassium Chloride Carbon Dioxide Anion Gap BUN Creatinine Creat Clearance w eGFR POC Glucometer 50 123 329 Random Glucose Calcium Total Bilirubin AST ALT Alkaline Phosphatase Total Protein Albumin Urine Color Urine Appearance Urine pH Ur Specific [place] Urine Protein Urine Glucose (UA) Urine Ketones Urine Blood Urine Nitrite Urine Bilirubin Urine Urobilinogen Ur Leukocyte Esterase Urine WBC (Auto) Urine RBC (Auto) Ur Epithelial Cells Hyaline Casts Urine Mucus RPR Titer Hep C Ab Diagnostic Liver Fibrosis Interp 07/25/17 07/25/17 07/26/17 16:46 21:16 06:33 WBC RBC Hgb Hct MCV MCH MCHC RDW Plt Count MPV Sodium Potassium Chloride Carbon Dioxide Anion Gap BUN Creatinine Creat Clearance w eGFR POC Glucometer 221 190 75 Random Glucose Calcium Total Bilirubin AST ALT Alkaline Phosphatase Total Protein Albumin Urine Color Urine Appearance Urine pH Ur Specific [place] Urine Protein Urine Glucose (UA) Urine Ketones Urine Blood Urine Nitrite Urine Bilirubin Urine Urobilinogen Ur Leukocyte Esterase Urine WBC (Auto) Urine RBC (Auto) Ur Epithelial Cells Hyaline Casts Urine Mucus RPR Titer Hep C Ab Diagnostic Liver Fibrosis Interp 07/26/17 11:44 WBC RBC Hgb Hct MCV MCH MCHC RDW Plt Count MPV Sodium Potassium Chloride Carbon Dioxide Anion Gap BUN Creatinine Creat Clearance w eGFR POC Glucometer 165 Random Glucose Calcium Total Bilirubin AST ALT Alkaline Phosphatase Total Protein Albumin Urine Color Urine Appearance Urine pH Ur Specific [place] Urine Protein Urine Glucose (UA) Urine Ketones Urine Blood Urine Nitrite Urine Bilirubin Urine Urobilinogen Ur Leukocyte Esterase Urine WBC (Auto) Urine RBC (Auto) Ur Epithelial Cells Hyaline Casts Urine Mucus RPR Titer Hep C Ab Diagnostic Liver Fibrosis Inter Laboratory Tests 07/22/17 07/22/17 07/22/17 10:45 12:00 12:00 WBC 7.7 RBC 2.69 L Hgb 7.6 L Hct 22.9 L MCV 85.2 MCH 28.4 MCHC 33.4 RDW 14.6 Plt Count 503 H D MPV 7.8 Sodium 139 Potassium 4.8 Chloride 108 H Carbon Dioxide 24 Anion Gap 7 L BUN 25 H Creatinine 2.0 H Creat Clearance w eGFR 30.12 POC Glucometer 366 Random Glucose 366 H* Calcium 7.5 L Total Bilirubin < 0.1 L AST 19 ALT 36 Alkaline Phosphatase 207 H Total Protein 6.4 Albumin 1.6 L Urine Color Urine Appearance Urine pH Ur Specific [place] Urine Protein Urine Glucose (UA) Urine Ketones Urine Blood Urine Nitrite Urine Bilirubin Urine Urobilinogen Ur Leukocyte Esterase Urine WBC (Auto) Urine RBC (Auto) Ur Epithelial Cells Hyaline Casts Urine Mucus RPR Titer Hep C Ab Diagnostic Liver Fibrosis Interp 07/22/17 07/22/17 07/22/17 12:00 15:00 16:41 WBC RBC Hgb Hct MCV MCH MCHC RDW Plt Count MPV Sodium Potassium Chloride Carbon Dioxide Anion Gap BUN Creatinine Creat Clearance w eGFR POC Glucometer 545 Random Glucose Calcium Total Bilirubin AST ALT Alkaline Phosphatase Total Protein Albumin Urine Color Straw Urine Appearance Clear Urine pH 7.0 D Ur Specific [place] 1.015 Urine Protein 3+ H Urine Glucose (UA) 3+ H Urine Ketones Negative Urine Blood 1+ H Urine Nitrite Negative Urine Bilirubin Negative Urine Urobilinogen Negative Ur Leukocyte Esterase Trace Urine WBC (Auto) 8 Urine RBC (Auto) 5 Ur Epithelial Cells Rare Hyaline Casts Urine Mucus Rare RPR Titer Nonreactive Hep C Ab Diagnostic Liver Fibrosis Interp 07/23/17 07/23/17 07/23/17 06:00 07:20 11:24 WBC RBC Hgb Hct MCV MCH MCHC RDW Plt Count MPV Sodium Potassium Chloride Carbon Dioxide Anion Gap BUN Creatinine Creat Clearance w eGFR POC Glucometer 290 127 Random Glucose Calcium Total Bilirubin AST ALT Alkaline Phosphatase Total Protein Albumin Urine Color Urine Appearance Urine pH Ur Specific [place] Urine Protein Urine Glucose (UA) Urine Ketones Urine Blood Urine Nitrite Urine Bilirubin Urine Urobilinogen Ur Leukocyte Esterase Urine WBC (Auto) Urine RBC (Auto) Ur Epithelial Cells Hyaline Casts Urine Mucus RPR Titer Hep C Ab Diagnostic <0.1 Liver Fibrosis Interp 07/23/17 07/23/17 07/24/17 16:51 21:19 06:07 WBC RBC Hgb Hct MCV MCH MCHC RDW Plt Count MPV Sodium Potassium Chloride Carbon Dioxide Anion Gap BUN Creatinine Creat Clearance w eGFR POC Glucometer 258 245 40 Random Glucose Calcium Total Bilirubin AST ALT Alkaline Phosphatase Total Protein Albumin Urine Color Urine Appearance Urine pH Ur Specific [place] Urine Protein Urine Glucose (UA) Urine Ketones Urine Blood Urine Nitrite Urine Bilirubin Urine Urobilinogen Ur Leukocyte Esterase Urine WBC (Auto) Urine RBC (Auto) Ur Epithelial Cells Hyaline Casts Urine Mucus RPR Titer Hep C Ab Diagnostic Liver Fibrosis Interp 07/24/17 07/24/17 07/24/17 06:58 08:17 11:38 WBC RBC Hgb Hct MCV MCH MCHC RDW Plt Count MPV Sodium Potassium Chloride Carbon Dioxide Anion Gap BUN Creatinine Creat Clearance w eGFR POC Glucometer 52 110 224 Random Glucose Calcium Total Bilirubin AST ALT Alkaline Phosphatase Total Protein Albumin Urine Color Urine Appearance Urine pH Ur Specific [place] Urine Protein Urine Glucose (UA) Urine Ketones Urine Blood Urine Nitrite Urine Bilirubin Urine Urobilinogen Ur Leukocyte Esterase Urine WBC (Auto) Urine RBC (Auto) Ur Epithelial Cells Hyaline Casts Urine Mucus RPR Titer Hep C Ab Diagnostic Liver Fibrosis Interp 07/24/17 07/24/17 07/24/17 13:20 17:18 21:20 WBC RBC Hgb Hct MCV MCH MCHC RDW Plt Count MPV Sodium Potassium Chloride Carbon Dioxide Anion Gap BUN Creatinine Creat Clearance w eGFR POC Glucometer 237 222 Random Glucose Calcium Total Bilirubin AST ALT Alkaline Phosphatase Total Protein Albumin Urine Color Straw Urine Appearance Clear Urine pH 6.0 Ur Specific [place] 1.014 Urine Protein 3+ H Urine Glucose (UA) 3+ H Urine Ketones Negative Urine Blood Negative Urine Nitrite Negative Urine Bilirubin Negative Urine Urobilinogen Negative Ur Leukocyte Esterase Negative Urine WBC (Auto) 3 Urine RBC (Auto) 3 Ur Epithelial Cells Rare Hyaline Casts 13 Urine Mucus Rare RPR Titer Hep C Ab Diagnostic Liver Fibrosis Interp 07/25/17 07/25/17 07/25/17 06:49 07:39 11:53 WBC RBC Hgb Hct MCV MCH MCHC RDW Plt Count MPV Sodium Potassium Chloride Carbon Dioxide Anion Gap BUN Creatinine Creat Clearance w eGFR POC Glucometer 50 123 329 Random Glucose Calcium Total Bilirubin AST ALT Alkaline Phosphatase Total Protein Albumin Urine Color Urine Appearance Urine pH Ur Specific [place] Urine Protein Urine Glucose (UA) Urine Ketones Urine Blood Urine Nitrite Urine Bilirubin Urine Urobilinogen Ur Leukocyte Esterase Urine WBC (Auto) Urine RBC (Auto) Ur Epithelial Cells Hyaline Casts Urine Mucus RPR Titer Hep C Ab Diagnostic Liver Fibrosis Interp 07/25/17 07/25/17 07/26/17 16:46 21:16 06:33 WBC RBC Hgb Hct MCV MCH MCHC RDW Plt Count MPV Sodium Potassium Chloride Carbon Dioxide Anion Gap BUN Creatinine Creat Clearance w eGFR POC Glucometer 221 190 75 Random Glucose Calcium Total Bilirubin AST ALT Alkaline Phosphatase Total Protein Albumin Urine Color Urine Appearance Urine pH Ur Specific [place] Urine Protein Urine Glucose (UA) Urine Ketones Urine Blood Urine Nitrite Urine Bilirubin Urine Urobilinogen Ur Leukocyte Esterase Urine WBC (Auto) Urine RBC (Auto) Ur Epithelial Cells Hyaline Casts Urine Mucus RPR Titer Hep C Ab Diagnostic Liver Fibrosis Interp 07/26/17 11:44 WBC RBC Hgb Hct MCV MCH MCHC RDW Plt Count MPV Sodium Potassium Chloride Carbon Dioxide Anion Gap BUN Creatinine Creat Clearance w eGFR POC Glucometer 165 Random Glucose Calcium Total Bilirubin AST ALT Alkaline Phosphatase Total Protein Albumin Urine Color Urine Appearance Urine pH Ur Specific [place] Urine Protein Urine Glucose (UA) Urine Ketones Urine Blood Urine Nitrite Urine Bilirubin Urine Urobilinogen Ur Leukocyte Esterase Urine WBC (Auto) Urine RBC (Auto) Ur Epithelial Cells Hyaline Casts Urine Mucus RPR Titer Hep C Ab Diagnostic Liver Fibrosis Interp Vital Signs Temperature 98.4 F 07/26/17 06:39 Pulse Rate 102 H 07/26/17 06:39 Respiratory Rate 18 07/26/17 06:39 Blood Pressure 147/88 07/26/17 06:39 O2 Sat by Pulse Oximetry (%) BP taken at time of visit: 192/122. Obj: General: alert and oriented x 3. Ambulating freely in [place]. Car: S1S2. RRR. Resp: CTA BL Ext: +3 edema, +full ROM of all 4 extremities. A/P: Uncontrolled HTN/Edema: Lasix 20mg po stat ordered. Continue to monitor clinically. Dry Eyes: artificial tears ordered. monitor clinically
[2017-07-26] MEDS ORDERED: FUROSEMIDE 20 MG TABLET (FP) PO ONE (14:00)
[2017-07-26] MEDS ORDERED: PT OWN MED DRAWER 7, Y5N ONE (14:54)
[2017-07-26] MEDS ORDERED: cloNIDine HCL 0.1 MG TABLET PO SCH (15:10)
[2017-07-26] MEDS: amLODIPine BESYLATE 10 MG TABLET (FP) PO SCH (15:30)
[2017-07-26] MEDS: NICOTINE 7 MG/24 HOURS TOPICAL PATCH TD SCH (15:30)
--- NOTE | 2017-07-26 17:46 | PN ---
S Progress Note Note: Nurse notified song writer that patients BP 185/113. Pt does not have any physical complaints. Discussed BP with Dr. Urban. Recommended to give Clonidine 0.2mg stat and then start Clonidine 0.2mg every 8 hours. Same ordered. Continue to monitor clinically.
[2017-07-26] MEDS ORDERED: cloNIDine HCL 0.1 MG TABLET PO ONE (18:00)
[2017-07-26] MEDS: THIAMINE HCL 100 MG TABLET (FP) PO SCH (21:12)
[2017-07-26] MEDS: QUEtiapine FUMARATE 50 MG TABLET PO SCH (21:12)
[2017-07-26] MEDS: diphenhydrAMINE HCL 50 MG CAPSULE PO PRN (21:15)
[2017-07-26] MEDS ORDERED: INSULIN DETEMIR 100 UNITS/ML MDV SQ ONE (22:08)
[2017-07-26] MEDS: DOCUSATE SODIUM 100 MG CAPSULE (FP) PO SCH (22:08)
[2017-07-26] MEDS: INSULIN DETEMIR 100 UNITS/ML MDV SQ SCH (22:09)
[2017-07-27] MEDS: LOPERAMIDE HCL 2 MG CAPSULE PO PRN (00:35)
[2017-07-27] MEDS: cloNIDine HCL 0.1 MG TABLET PO SCH ×3 (06:53→21:23)
[2017-07-27] MEDS: FERROUS SO4 325 MG TABLET (FP) PO SCH ×3 (07:09→16:53)
[2017-07-27] MEDS: INSULIN SLIDING SCALE (NOVOLOG) 1 VIAL SQ SCH ×3 (07:12→16:52)
[2017-07-27] MEDS: PRENATAL VITAMINS W/ FOLIC ACID TABLET (FP) PO SCH (09:53)
[2017-07-27] MEDS: NICOTINE 7 MG/24 HOURS TOPICAL PATCH TD SCH (09:53)
[2017-07-27] MEDS: CHLORTHALIDONE 25 MG TABLET PO SCH (09:54)
[2017-07-27] MEDS: LISINOPRIL 20 MG TABLET (FP) PO SCH (09:54)
[2017-07-27] MEDS: amLODIPine BESYLATE 10 MG TABLET (FP) PO SCH (09:54)
[2017-07-27] MEDS: hydrOXYzine PAMOATE 50 MG CAPSULE (FP) PO PRN (09:54)
[2017-07-27] MEDS: SERTRALINE HCL 50 MG TABLET (FP) PO SCH (09:54)
[2017-07-27] MEDS: ARTIFICIAL TEARS (POLYVINYL ALCOHOL 1.4%) OPTH DROPS OU PRN (09:56)
[2017-07-27] MEDS ORDERED: cloNIDine HCL 0.1 MG TABLET PO SCH (10:00)
[2017-07-27 10:42] LABS: INR 1.02 (0.82-1.09); PROTHROMBIN TIME (PATIENT) 11.5 SEC (9.98-11.88)
[2017-07-27 10:50] LABS: ANION GAP 8 (8-16); BLOOD UREA NITROGEN 48 mg/dL (7-18); CALCIUM 8.5 mg/dL (8.5-10.1); CHLORIDE 114 mmol/L (98-107); CO2 21 mmol/L (21-32); GLUCOSE,RANDOM 98 mg/dL (74-106); POTASSIUM 5.2 mmol/L (3.5-5.1); SGOT/AST 25 U/L (15-37); SGPT/ALT 44 U/L (12-78); SODIUM 143 mmol/L (136-145)
[2017-07-27 10:53] LABS: ALK PHOS 149 U/L (45-117); BILIRUBIN,TOTAL 0.1 mg/dL (0.2-1.0); TOT PROT 6.8 g/dl (6.4-8.2)
[2017-07-27] MEDS ORDERED: SODIUM POLYSTYRENE SULFONATE 15 GM/60 ML BOTTLE PO ONE (12:28)
--- NOTE | 2017-07-27 12:36 | PN ---
S Progress Note Note: Vital Signs Temperature 98.2 F 07/27/17 07:10 Pulse Rate 97 H 07/27/17 09:21 Respiratory Rate 18 07/27/17 07:10 Blood Pressure 141/93 07/27/17 09:21 O2 Sat by Pulse Oximetry (%) Laboratory Results - last 24 hr 07/26/17 07/26/17 07/27/17 17:00 21:11 06:52 PT with INR INR Sodium Potassium Chloride Carbon Dioxide Anion Gap BUN Creatinine Creat Clearance w eGFR POC Glucometer 345 228 96 Random Glucose Calcium Total Bilirubin AST ALT Alkaline Phosphatase Total Protein Albumin 07/27/17 07/27/17 07/27/17 09:30 09:30 11:45 PT with INR 11.50 INR 1.02 Sodium 143 Potassium 5.2 H Chloride 114 H Carbon Dioxide 21 Anion Gap 8 BUN 48 H Creatinine 2.0 H Creat Clearance w eGFR 30.12 POC Glucometer 159 Random Glucose 98 Calcium 8.5 Total Bilirubin 0.1 L AST 25 ALT 44 Alkaline Phosphatase 149 H Total Protein 6.8 Albumin 2.0 L PATIENT WITH MULTIPLE MEDICAL PROBLEM IDDM,HYPERTENSION,ANEMIA,RENAL INSUFFICIENCY,HYPERKALEMIA TREATMENT ENCOURAGE ORAL FLUID,HYDRATION KEYEXYLATE 15 GRAM ONE DOSE BGM MONITORING WITH INSULIN COVERAGE REPEAT CBC,CMP IN AM CLOSE MONITORING
[2017-07-27] MEDS ORDERED: INSULIN (NOVOLOG) ASPART 100 UNITS/ML 10ML VIAL ONE (16:46)
[2017-07-27] MEDS: diphenhydrAMINE HCL 50 MG CAPSULE PO PRN (21:22)
[2017-07-27] MEDS: THIAMINE HCL 100 MG TABLET (FP) PO SCH (21:22)
[2017-07-27] MEDS: DOCUSATE SODIUM 100 MG CAPSULE (FP) PO SCH (21:22)
[2017-07-27] MEDS: INSULIN DETEMIR 100 UNITS/ML MDV SQ SCH (21:23)
[2017-07-27] MEDS: QUEtiapine FUMARATE 50 MG TABLET PO SCH (21:23)
[2017-07-28] MEDS: cloNIDine HCL 0.1 MG TABLET PO SCH ×3 (06:56→21:37)
[2017-07-28] MEDS: INSULIN SLIDING SCALE (NOVOLOG) 1 VIAL SQ SCH ×3 (06:58→16:35)
[2017-07-28] MEDS: FERROUS SO4 325 MG TABLET (FP) PO SCH ×3 (07:04→17:52)
[2017-07-28 10:39] LABS: HEMATOCRIT 22.1 % (32.4-45.2); HEMOGLOBIN 7.5 GM/dL (10.7-15.3); MCHC 33.8 g/dl (32.0-36.0); MEAN CELL VOLUME 85.9 fl (80-96); MEAN PLT VOLUME 7.9 fl (7.5-11.1); PLATELET COUNT 567 K/MM3 (134-434); RBC 2.58 M/mm3 (3.60-5.2); RDW 15.7 % (11.6-15.6); WHITE BLOOD COUNT 8.6 K/mm3 (4.0-10.0)
[2017-07-28] MEDS: LISINOPRIL 20 MG TABLET (FP) PO SCH (10:40)
[2017-07-28] MEDS: SERTRALINE HCL 50 MG TABLET (FP) PO SCH (10:40)
[2017-07-28] MEDS: CHLORTHALIDONE 25 MG TABLET PO SCH (10:40)
[2017-07-28] MEDS: PRENATAL VITAMINS W/ FOLIC ACID TABLET (FP) PO SCH (10:40)
[2017-07-28] MEDS: amLODIPine BESYLATE 10 MG TABLET (FP) PO SCH (10:40)
[2017-07-28] MEDS: NICOTINE 7 MG/24 HOURS TOPICAL PATCH TD SCH (10:40)
[2017-07-28] MEDS: NICOTINE POLACRILEX 2 MG GUM BUC PRN (10:41)
[2017-07-28 10:42] LABS: ALBUMIN 1.7 g/dl (3.4-5.0); ALK PHOS 143 U/L (45-117); ANION GAP 6 (8-16); BLOOD UREA NITROGEN 53 mg/dL (7-18); CALCIUM 7.6 mg/dL (8.5-10.1); CHLORIDE 117 mmol/L (98-107); CO2 21 mmol/L (21-32); CREATININE 2.1 mg/dL (0.55-1.02); GLUCOSE,RANDOM 196 mg/dL (74-106); POTASSIUM 5.1 mmol/L (3.5-5.1); SGOT/AST 23 U/L (15-37); SGPT/ALT 35 U/L (12-78); SODIUM 144 mmol/L (136-145); TOT PROT 5.7 g/dl (6.4-8.2)
[2017-07-28] MEDS ORDERED: PT OWN MED DRAWER 7, Y5N ONE (10:48)
[2017-07-28 11:01] LABS: BILIRUBIN,TOTAL < 0.1 mg/dL (0.2-1.0)
[2017-07-28] MEDS: QUEtiapine FUMARATE 50 MG TABLET PO SCH (21:37)
[2017-07-28] MEDS: diphenhydrAMINE HCL 50 MG CAPSULE PO PRN (21:37)
[2017-07-28] MEDS: THIAMINE HCL 100 MG TABLET (FP) PO SCH (21:37)
[2017-07-28] MEDS: DOCUSATE SODIUM 100 MG CAPSULE (FP) PO SCH (21:38)
[2017-07-28] MEDS: INSULIN DETEMIR 100 UNITS/ML MDV SQ SCH (21:38)
[2017-07-29] MEDS: FERROUS SO4 325 MG TABLET (FP) PO SCH ×3 (07:27→17:15)
[2017-07-29] MEDS: cloNIDine HCL 0.1 MG TABLET PO SCH ×4 (07:27→21:08)
[2017-07-29] MEDS: INSULIN SLIDING SCALE (NOVOLOG) 1 VIAL SQ SCH ×3 (07:49→17:16)
[2017-07-29] MEDS ORDERED: PT OWN MED DRAWER 7, Y5N ONE (08:32)
[2017-07-29] MEDS: LISINOPRIL 20 MG TABLET (FP) PO SCH (10:11)
[2017-07-29] MEDS: amLODIPine BESYLATE 10 MG TABLET (FP) PO SCH (10:11)
[2017-07-29] MEDS: PRENATAL VITAMINS W/ FOLIC ACID TABLET (FP) PO SCH (10:11)
[2017-07-29] MEDS: CHLORTHALIDONE 25 MG TABLET PO SCH (10:12)
[2017-07-29] MEDS: SERTRALINE HCL 50 MG TABLET (FP) PO SCH (10:12)
[2017-07-29] MEDS: NICOTINE 7 MG/24 HOURS TOPICAL PATCH TD SCH (10:12)
[2017-07-29] MEDS: NICOTINE POLACRILEX 2 MG GUM BUC PRN (10:15)
[2017-07-29] MEDS: hydrOXYzine PAMOATE 50 MG CAPSULE (FP) PO PRN (13:24)
--- NOTE | 2017-07-29 15:31 | PN ---
[facility] Progress Note Note: Patient evaluated for follow up BP. Patient denies CP, SOB and Dizziness. BLE continues to be edematous but pt reports swelling has improved. Vital Signs Temperature 98.8 F 07/29/17 06:53 Pulse Rate 106 H 07/29/17 09:23 Respiratory Rate 18 07/29/17 06:53 Blood Pressure 131/82 07/29/17 09:23 O2 Sat by Pulse Oximetry (%) Laboratory Tests 07/22/17 07/22/17 07/22/17 10:45 12:00 12:00 WBC 7.7 RBC 2.69 L Hgb 7.6 L Hct 22.9 L MCV 85.2 MCH 28.4 MCHC 33.4 RDW 14.6 Plt Count 503 H D MPV 7.8 PT with INR INR Sodium 139 Potassium 4.8 Chloride 108 H Carbon Dioxide 24 Anion Gap 7 L BUN 25 H Creatinine 2.0 H Creat Clearance w eGFR 30.12 POC Glucometer 366 Random Glucose 366 H* Calcium 7.5 L Total Bilirubin < 0.1 L AST 19 ALT 36 Alkaline Phosphatase 207 H Total Protein 6.4 Albumin 1.6 L Urine Color Urine Appearance Urine pH Ur Specific [place] Urine Protein Urine Glucose (UA) Urine Ketones Urine Blood Urine Nitrite Urine Bilirubin Urine Urobilinogen Ur Leukocyte Esterase Urine WBC (Auto) Urine RBC (Auto) Ur Epithelial Cells Hyaline Casts Urine Mucus RPR Titer Hep C Ab Diagnostic Liver Fibrosis Interp 07/22/17 07/22/17 07/22/17 12:00 15:00 16:41 WBC RBC Hgb Hct MCV MCH MCHC RDW Plt Count MPV PT with INR INR Sodium Potassium Chloride Carbon Dioxide Anion Gap BUN Creatinine Creat Clearance w eGFR POC Glucometer 545 Random Glucose Calcium Total Bilirubin AST ALT Alkaline Phosphatase Total Protein Albumin Urine Color Straw Urine Appearance Clear Urine pH 7.0 D Ur Specific [place] 1.015 Urine Protein 3+ H Urine Glucose (UA) 3+ H Urine Ketones Negative Urine Blood 1+ H Urine Nitrite Negative Urine Bilirubin Negative Urine Urobilinogen Negative Ur Leukocyte Esterase Trace Urine WBC (Auto) 8 Urine RBC (Auto) 5 Ur Epithelial Cells Rare Hyaline Casts Urine Mucus Rare RPR Titer Nonreactive Hep C Ab Diagnostic Liver Fibrosis Interp 07/23/17 07/23/17 07/23/17 06:00 07:20 11:24 WBC RBC Hgb Hct MCV MCH MCHC RDW Plt Count MPV PT with INR INR Sodium Potassium Chloride Carbon Dioxide Anion Gap BUN Creatinine Creat Clearance w eGFR POC Glucometer 290 127 Random Glucose Calcium Total Bilirubin AST ALT Alkaline Phosphatase Total Protein Albumin Urine Color Urine Appearance Urine pH Ur Specific [place] Urine Protein Urine Glucose (UA) Urine Ketones Urine Blood Urine Nitrite Urine Bilirubin Urine Urobilinogen Ur Leukocyte Esterase Urine WBC (Auto) Urine RBC (Auto) Ur Epithelial Cells Hyaline Casts Urine Mucus RPR Titer Hep C Ab Diagnostic <0.1 Liver Fibrosis Interp 07/23/17 07/23/17 07/24/17 16:51 21:19 06:07 WBC RBC Hgb Hct MCV MCH MCHC RDW Plt Count MPV PT with INR INR Sodium Potassium Chloride Carbon Dioxide Anion Gap BUN Creatinine Creat Clearance w eGFR POC Glucometer 258 245 40 Random Glucose Calcium Total Bilirubin AST ALT Alkaline Phosphatase Total Protein Albumin Urine Color Urine Appearance Urine pH Ur Specific [place] Urine Protein Urine Glucose (UA) Urine Ketones Urine Blood Urine Nitrite Urine Bilirubin Urine Urobilinogen Ur Leukocyte Esterase Urine WBC (Auto) Urine RBC (Auto) Ur Epithelial Cells Hyaline Casts Urine Mucus RPR Titer Hep C Ab Diagnostic Liver Fibrosis Interp 07/24/17 07/24/17 07/24/17 06:58 08:17 11:38 WBC RBC Hgb Hct MCV MCH MCHC RDW Plt Count MPV PT with INR INR Sodium Potassium Chloride Carbon Dioxide Anion Gap BUN Creatinine Creat Clearance w eGFR POC Glucometer 52 110 224 Random Glucose Calcium Total Bilirubin AST ALT Alkaline Phosphatase Total Protein Albumin Urine Color Urine Appearance Urine pH Ur Specific [place] Urine Protein Urine Glucose (UA) Urine Ketones Urine Blood Urine Nitrite Urine Bilirubin Urine Urobilinogen Ur Leukocyte Esterase Urine WBC (Auto) Urine RBC (Auto) Ur Epithelial Cells Hyaline Casts Urine Mucus RPR Titer Hep C Ab Diagnostic Liver Fibrosis Interp 07/24/17 07/24/17 07/24/17 13:20 17:18 21:20 WBC RBC Hgb Hct MCV MCH MCHC RDW Plt Count MPV PT with INR INR Sodium Potassium Chloride Carbon Dioxide Anion Gap BUN Creatinine Creat Clearance w eGFR POC Glucometer 237 222 Random Glucose Calcium Total Bilirubin AST ALT Alkaline Phosphatase Total Protein Albumin Urine Color Straw Urine Appearance Clear Urine pH 6.0 Ur Specific [place] 1.014 Urine Protein 3+ H Urine Glucose (UA) 3+ H Urine Ketones Negative Urine Blood Negative Urine Nitrite Negative Urine Bilirubin Negative Urine Urobilinogen Negative Ur Leukocyte Esterase Negative Urine WBC (Auto) 3 Urine RBC (Auto) 3 Ur Epithelial Cells Rare Hyaline Casts 13 Urine Mucus Rare RPR Titer Hep C Ab Diagnostic Liver Fibrosis Interp 07/25/17 07/25/17 07/25/17 06:49 07:39 11:53 WBC RBC Hgb Hct MCV MCH MCHC RDW Plt Count MPV PT with INR INR Sodium Potassium Chloride Carbon Dioxide Anion Gap BUN Creatinine Creat Clearance w eGFR POC Glucometer 50 123 329 Random Glucose Calcium Total Bilirubin AST ALT Alkaline Phosphatase Total Protein Albumin Urine Color Urine Appearance Urine pH Ur Specific [place] Urine Protein Urine Glucose (UA) Urine Ketones Urine Blood Urine Nitrite Urine Bilirubin Urine Urobilinogen Ur Leukocyte Esterase Urine WBC (Auto) Urine RBC (Auto) Ur Epithelial Cells Hyaline Casts Urine Mucus RPR Titer Hep C Ab Diagnostic Liver Fibrosis Interp 07/25/17 07/25/17 07/26/17 16:46 21:16 06:33 WBC RBC Hgb Hct MCV MCH MCHC RDW Plt Count MPV PT with INR INR Sodium Potassium Chloride Carbon Dioxide Anion Gap BUN Creatinine Creat Clearance w eGFR POC Glucometer 221 190 75 Random Glucose Calcium Total Bilirubin AST ALT Alkaline Phosphatase Total Protein Albumin Urine Color Urine Appearance Urine pH Ur Specific [place] Urine Protein Urine Glucose (UA) Urine Ketones Urine Blood Urine Nitrite Urine Bilirubin Urine Urobilinogen Ur Leukocyte Esterase Urine WBC (Auto) Urine RBC (Auto) Ur Epithelial Cells Hyaline Casts Urine Mucus RPR Titer Hep C Ab Diagnostic Liver Fibrosis Interp 07/26/17 07/26/17 07/26/17 11:44 17:00 21:11 WBC RBC Hgb Hct MCV MCH MCHC RDW Plt Count MPV PT with INR INR Sodium Potassium Chloride Carbon Dioxide Anion Gap BUN Creatinine Creat Clearance w eGFR POC Glucometer 165 345 228 Random Glucose Calcium Total Bilirubin AST ALT Alkaline Phosphatase Total Protein Albumin Urine Color Urine Appearance Urine pH Ur Specific [place] Urine Protein Urine Glucose (UA) Urine Ketones Urine Blood Urine Nitrite Urine Bilirubin Urine Urobilinogen Ur Leukocyte Esterase Urine WBC (Auto) Urine RBC (Auto) Ur Epithelial Cells Hyaline Casts Urine Mucus RPR Titer Hep C Ab Diagnostic Liver Fibrosis Interp 07/27/17 07/27/17 07/27/17 06:52 09:30 09:30 WBC RBC Hgb Hct MCV MCH MCHC RDW Plt Count MPV PT with INR 11.50 INR 1.02 Sodium 143 Potassium 5.2 H Chloride 114 H Carbon Dioxide 21 Anion Gap 8 BUN 48 H Creatinine 2.0 H Creat Clearance w eGFR 30.12 POC Glucometer 96 Random Glucose 98 Calcium 8.5 Total Bilirubin 0.1 L AST 25 ALT 44 Alkaline Phosphatase 149 H Total Protein 6.8 Albumin 2.0 L Urine Color Urine Appearance Urine pH Ur Specific [place] Urine Protein Urine Glucose (UA) Urine Ketones Urine Blood Urine Nitrite Urine Bilirubin Urine Urobilinogen Ur Leukocyte Esterase Urine WBC (Auto) Urine RBC (Auto) Ur Epithelial Cells Hyaline Casts Urine Mucus RPR Titer Hep C Ab Diagnostic Liver Fibrosis Interp 07/27/17 07/27/17 07/27/17 11:45 16:51 21:27 WBC RBC Hgb Hct MCV MCH MCHC RDW Plt Count MPV PT with INR INR Sodium Potassium Chloride Carbon Dioxide Anion Gap BUN Creatinine Creat Clearance w eGFR POC Glucometer 159 413 178 Random Glucose Calcium Total Bilirubin AST ALT Alkaline Phosphatase Total Protein Albumin Urine Color Urine Appearance Urine pH Ur Specific [place] Urine Protein Urine Glucose (UA) Urine Ketones Urine Blood Urine Nitrite Urine Bilirubin Urine Urobilinogen Ur Leukocyte Esterase Urine WBC (Auto) Urine RBC (Auto) Ur Epithelial Cells Hyaline Casts Urine Mucus RPR Titer Hep C Ab Diagnostic Liver Fibrosis Interp 07/28/17 07/28/17 07/28/17 05:26 06:55 07:30 WBC 8.6 RBC 2.58 L Hgb 7.5 L Hct 22.1 L MCV 85.9 MCH 29.0 MCHC 33.8 RDW 15.7 H Plt Count 567 H MPV 7.9 PT with INR INR Sodium Potassium Chloride Carbon Dioxide Anion Gap BUN Creatinine Creat Clearance w eGFR POC Glucometer 64 198 Random Glucose Calcium Total Bilirubin AST ALT Alkaline Phosphatase Total Protein Albumin Urine Color Urine Appearance Urine pH Ur Specific [place] Urine Protein Urine Glucose (UA) Urine Ketones Urine Blood Urine Nitrite Urine Bilirubin Urine Urobilinogen Ur Leukocyte Esterase Urine WBC (Auto) Urine RBC (Auto) Ur Epithelial Cells Hyaline Casts Urine Mucus RPR Titer Hep C Ab Diagnostic Liver Fibrosis Interp 07/28/17 07/28/17 07/28/17 07:30 11:45 21:39 WBC RBC Hgb Hct MCV MCH MCHC RDW Plt Count MPV PT with INR INR Sodium 144 Potassium 5.1 Chloride 117 H Carbon Dioxide 21 Anion Gap 6 L BUN 53 H Creatinine 2.1 H Creat Clearance w eGFR 28.47 POC Glucometer 146 307 Random Glucose 196 H Calcium 7.6 L Total Bilirubin < 0.1 L AST 23 ALT 35 Alkaline Phosphatase 143 H Total Protein 5.7 L Albumin 1.7 L Urine Color Urine Appearance Urine pH Ur Specific [place] Urine Protein Urine Glucose (UA) Urine Ketones Urine Blood Urine Nitrite Urine Bilirubin Urine Urobilinogen Ur Leukocyte Esterase Urine WBC (Auto) Urine RBC (Auto) Ur Epithelial Cells Hyaline Casts Urine Mucus RPR Titer Hep C Ab Diagnostic Liver Fibrosis Interp 07/29/17 05:42 WBC RBC Hgb Hct MCV MCH MCHC RDW Plt Count MPV PT with INR INR Sodium Potassium Chloride Carbon Dioxide Anion Gap BUN Creatinine Creat Clearance w eGFR POC Glucometer 112 Random Glucose Calcium Total Bilirubin AST ALT Alkaline Phosphatase Total Protein Albumin Urine Color Urine Appearance Urine pH Ur Specific [place] Urine Protein Urine Glucose (UA) Urine Ketones Urine Blood Urine Nitrite Urine Bilirubin Urine Urobilinogen Ur Leukocyte Esterase Urine WBC (Auto) Urine RBC (Auto) Ur Epithelial Cells Hyaline Casts Urine Mucus RPR Titer Hep C Ab Diagnostic Liver Fibrosis Interp Obj: General: Pt alert and oriented x 3. In no acute distress. Skin: warm and dry. Car: S1S2. RRR. Resp: CTA BL Ext: +2-3 pitting edema BLE A/P: HTN BLE edema BP improved with current treatment. Chlorthalidone 25mg ongoing for edema and BP management Pt instructed to elevate legs while in bed continue to monitor clinically
[2017-07-29] MEDS ORDERED: INSULIN (NOVOLOG) ASPART 100 UNITS/ML 10ML VIAL ONE (16:56)
[2017-07-29] MEDS: QUEtiapine FUMARATE 50 MG TABLET PO SCH (21:08)
[2017-07-29] MEDS: THIAMINE HCL 100 MG TABLET (FP) PO SCH (21:08)
[2017-07-29] MEDS: DOCUSATE SODIUM 100 MG CAPSULE (FP) PO SCH (21:08)
[2017-07-29] MEDS: diphenhydrAMINE HCL 50 MG CAPSULE PO PRN (21:09)
[2017-07-29] MEDS: INSULIN DETEMIR 100 UNITS/ML MDV SQ SCH (21:09)
[2017-07-30] MEDS: cloNIDine HCL 0.1 MG TABLET PO SCH ×3 (07:11→21:12)
[2017-07-30] MEDS: INSULIN SLIDING SCALE (NOVOLOG) 1 VIAL SQ SCH ×3 (07:11→17:12)
[2017-07-30] MEDS: FERROUS SO4 325 MG TABLET (FP) PO SCH ×3 (07:11→17:12)
[2017-07-30] MEDS ORDERED: PT OWN MED DRAWER 7, Y5N ONE ×2 (07:47→12:06)
[2017-07-30] MEDS: NICOTINE 7 MG/24 HOURS TOPICAL PATCH TD SCH (12:07)
[2017-07-30] MEDS: CHLORTHALIDONE 25 MG TABLET PO SCH (12:07)
[2017-07-30] MEDS: PRENATAL VITAMINS W/ FOLIC ACID TABLET (FP) PO SCH (12:08)
[2017-07-30] MEDS: SERTRALINE HCL 50 MG TABLET (FP) PO SCH (12:08)
[2017-07-30] MEDS: LISINOPRIL 20 MG TABLET (FP) PO SCH (12:08)
[2017-07-30] MEDS: amLODIPine BESYLATE 10 MG TABLET (FP) PO SCH (12:08)
--- NOTE | 2017-07-30 13:05 | PN ---
[facility] Progress Note Note: Vital Signs Temperature 98.8 F 07/29/17 06:53 Pulse Rate 99 H 07/30/17 10:00 Respiratory Rate 18 07/30/17 10:00 Blood Pressure 118/74 07/30/17 10:00 O2 Sat by Pulse Oximetry (%) Laboratory Last Values WBC 8.6 K/mm3 (4.0-10.0) 07/28/17 07:30 RBC 2.58 M/mm3 (3.60-5.2) L 07/28/17 07:30 Hgb 7.5 GM/dL (10.7-15.3) L 07/28/17 07:30 Hct 22.1 % (32.4-45.2) L 07/28/17 07:30 MCV 85.9 fl (80-96) 07/28/17 07:30 MCH 29.0 pg (25.7-33.7) 07/28/17 07:30 MCHC 33.8 g/dl (32.0-36.0) 07/28/17 07:30 RDW 15.7 % (11.6-15.6) H 07/28/17 07:30 Plt Count 567 K/MM3 (134-434) H 07/28/17 07:30 MPV 7.9 fl (7.5-11.1) 07/28/17 07:30 PT with INR 11.50 SEC (9.98-11.88) 07/27/17 09:30 INR 1.02 (0.82-1.09) 07/27/17 09:30 Sodium 144 mmol/L (136-145) 07/28/17 07:30 Potassium 5.1 mmol/L (3.5-5.1) 07/28/17 07:30 Chloride 117 mmol/L (98-107) H 07/28/17 07:30 Carbon Dioxide 21 mmol/L (21-32) 07/28/17 07:30 Anion Gap 6 (8-16) L 07/28/17 07:30 BUN 53 mg/dL (7-18) H 07/28/17 07:30 Creatinine 2.1 mg/dL (0.55-1.02) H 07/28/17 07:30 Creat Clearance w eGFR 28.47 (>60) 07/28/17 07:30 POC Glucometer 94 UNITS (80-120) 07/30/17 11:50 Random Glucose 196 mg/dL (74-106) H 07/28/17 07:30 Calcium 7.6 mg/dL (8.5-10.1) L 07/28/17 07:30 Total Bilirubin < 0.1 mg/dL (0.2-1.0) L 07/28/17 07:30 AST 23 U/L (15-37) 07/28/17 07:30 ALT 35 U/L (12-78) 07/28/17 07:30 Alkaline Phosphatase 143 U/L (45-117) H 07/28/17 07:30 Total Protein 5.7 g/dl (6.4-8.2) L 07/28/17 07:30 Albumin 1.7 g/dl (3.4-5.0) L 07/28/17 07:30 Urine Color Straw 07/24/17 13:20 Urine Appearance Clear 07/24/17 13:20 Urine pH 6.0 (5.0-8.0) 07/24/17 13:20 Ur Specific [place] 1.014 (1.001-1.035) 07/24/17 13:20 Urine Protein 3+ (NEGATIVE) H 07/24/17 13:20 Urine Glucose (UA) 3+ (NEGATIVE) H 07/24/17 13:20 Urine Ketones Negative (NEGATIVE) 07/24/17 13:20 Urine Blood Negative (NEGATIVE) 07/24/17 13:20 Urine Nitrite Negative (NEGATIVE) 07/24/17 13:20 Urine Bilirubin Negative (<2.0 mg/dL) 07/24/17 13:20 Urine Urobilinogen Negative mg/dL (0.2-1.0) 07/24/17 13:20 Ur Leukocyte Esterase Negative (NEGATIVE) 07/24/17 13:20 Urine WBC (Auto) 3 /hpf (3-5) 07/24/17 13:20 Urine RBC (Auto) 3 /hpf (0-3) 07/24/17 13:20 Ur Epithelial Cells Rare /HPF (FEW) 07/24/17 13:20 Hyaline Casts 13 /lpf 07/24/17 13:20 Urine Mucus Rare 07/24/17 13:20 RPR Titer Nonreactive (NONREACTIVE) 07/22/17 12:00 Hep C Ab Diagnostic <0.1 s/co ratio (0.0-0.9) 07/23/17 06:00 Liver Fibrosis Interp (.) 07/23/17 06:00 patient c/o of feeling weak, denies SOB, CP, dyspnea or any pains A/P Patient AOx3, in no apparent distress Lungs clear throughout, no adventitious breath sounds [place]z HR and Rythm Skin intact, no erythema, + lower extremity edema Increase fluids hold mid day dose clonidine Continue to monitor
[2017-07-30 14:21] LABS: BASO % 1.3 % (0-2.0); HEMATOCRIT 21.3 % (32.4-45.2); LYMPH % 18.7 % (8-40); MCH 28.1 pg (25.7-33.7); MCHC 32.8 g/dl (32.0-36.0); MEAN CELL VOLUME 85.8 fl (80-96); MEAN PLT VOLUME 7.6 fl (7.5-11.1); MONO % 5.7 % (3.8-10.2); NEUT % 69.3 % (42.8-82.8); PLATELET COUNT 492 K/MM3 (134-434); RBC 2.49 M/mm3 (3.60-5.2); RDW 15.8 % (11.6-15.6); WHITE BLOOD COUNT 8.9 K/mm3 (4.0-10.0)
[2017-07-30 14:29] LABS: ALBUMIN 1.7 g/dl (3.4-5.0); ALK PHOS 128 U/L (45-117); ANION GAP 8 (8-16); BILIRUBIN,TOTAL 0.1 mg/dL (0.2-1.0); BLOOD UREA NITROGEN 52 mg/dL (7-18); CALCIUM 7.9 mg/dL (8.5-10.1); CHLORIDE 115 mmol/L (98-107); CO2 19 mmol/L (21-32); GLUCOSE,RANDOM 89 mg/dL (74-106); POTASSIUM 5.5 mmol/L (3.5-5.1); SGOT/AST 25 U/L (15-37); SGPT/ALT 35 U/L (12-78); SODIUM 142 mmol/L (136-145); TOT PROT 5.8 g/dl (6.4-8.2)
--- NOTE | 2017-07-30 17:35 | PN ---
[facility] Progress Note Note: Vital Signs Temperature 98.8 F 07/29/17 06:53 Pulse Rate 111 H 07/30/17 17:24 Respiratory Rate 18 07/30/17 17:24 Blood Pressure 170/107 07/30/17 17:24 O2 Sat by Pulse Oximetry (%) Patient refuse BP medications(Norvasc , hygroton, lisinopril) this morning. Patient with asymptomatic elevated BP Scheduled 10 AM medications reoder : Norvasc 10, and lisinopril 40mg. Patient is schedule for clonidine 0.2mg this evening. Continue to monitor
[2017-07-30] MEDS ORDERED: amLODIPine BESYLATE 10 MG TABLET (FP) PO ONE (17:45)
[2017-07-30] MEDS ORDERED: SODIUM POLYSTYRENE SULFONATE 15 GM/60 ML BOTTLE PO ONE (17:45)
[2017-07-30] MEDS ORDERED: LISINOPRIL 20 MG TABLET (FP) PO ONE (17:45)
--- NOTE | 2017-07-30 17:45 | PN ---
[facility] Progress Note Note: Laboratory Last Values WBC 8.9 K/mm3 (4.0-10.0) 07/30/17 08:30 RBC 2.49 M/mm3 (3.60-5.2) L 07/30/17 08:30 Hgb 7.0 GM/dL (10.7-15.3) L 07/30/17 08:30 Hct 21.3 % (32.4-45.2) L 07/30/17 08:30 MCV 85.8 fl (80-96) 07/30/17 08:30 MCH 28.1 pg (25.7-33.7) 07/30/17 08:30 MCHC 32.8 g/dl (32.0-36.0) 07/30/17 08:30 RDW 15.8 % (11.6-15.6) H 07/30/17 08:30 Plt Count 492 K/MM3 (134-434) H 07/30/17 08:30 MPV 7.6 fl (7.5-11.1) 07/30/17 08:30 Neutrophils % 69.3 % (42.8-82.8) 07/30/17 08:30 Lymphocytes % 18.7 % (8-40) D 07/30/17 08:30 Monocytes % 5.7 % (3.8-10.2) 07/30/17 08:30 Eosinophils % 5.0 % (0-4.5) H D 07/30/17 08:30 Basophils % 1.3 % (0-2.0) D 07/30/17 08:30 PT with INR 11.50 SEC (9.98-11.88) 07/27/17 09:30 INR 1.02 (0.82-1.09) 07/27/17 09:30 Sodium 142 mmol/L (136-145) 07/30/17 08:35 Potassium 5.5 mmol/L (3.5-5.1) H 07/30/17 08:35 Chloride 115 mmol/L (98-107) H 07/30/17 08:35 Carbon Dioxide 19 mmol/L (21-32) L 07/30/17 08:35 Anion Gap 8 (8-16) 07/30/17 08:35 BUN 52 mg/dL (7-18) H 07/30/17 08:35 Creatinine 2.0 mg/dL (0.55-1.02) H 07/30/17 08:35 Creat Clearance w eGFR 30.12 (>60) 07/30/17 08:35 POC Glucometer 85 UNITS (80-120) 07/30/17 16:48 Random Glucose 89 mg/dL (74-106) 07/30/17 08:35 Calcium 7.9 mg/dL (8.5-10.1) L 07/30/17 08:35 Total Bilirubin 0.1 mg/dL (0.2-1.0) L 07/30/17 08:35 AST 25 U/L (15-37) 07/30/17 08:35 ALT 35 U/L (12-78) 07/30/17 08:35 Alkaline Phosphatase 128 U/L (45-117) H 07/30/17 08:35 Total Protein 5.8 g/dl (6.4-8.2) L 07/30/17 08:35 Albumin 1.7 g/dl (3.4-5.0) L 07/30/17 08:35 Urine Color Straw 07/24/17 13:20 Urine Appearance Clear 07/24/17 13:20 Urine pH 6.0 (5.0-8.0) 07/24/17 13:20 Ur Specific [place] 1.014 (1.001-1.035) 07/24/17 13:20 Urine Protein 3+ (NEGATIVE) H 07/24/17 13:20 Urine Glucose (UA) 3+ (NEGATIVE) H 07/24/17 13:20 Urine Ketones Negative (NEGATIVE) 07/24/17 13:20 Urine Blood Negative (NEGATIVE) 07/24/17 13:20 Urine Nitrite Negative (NEGATIVE) 07/24/17 13:20 Urine Bilirubin Negative (<2.0 mg/dL) 07/24/17 13:20 Urine Urobilinogen Negative mg/dL (0.2-1.0) 07/24/17 13:20 Ur Leukocyte Esterase Negative (NEGATIVE) 07/24/17 13:20 Urine WBC (Auto) 3 /hpf (3-5) 07/24/17 13:20 Urine RBC (Auto) 3 /hpf (0-3) 07/24/17 13:20 Ur Epithelial Cells Rare /HPF (FEW) 07/24/17 13:20 Hyaline Casts 13 /lpf 07/24/17 13:20 Urine Mucus Rare 07/24/17 13:20 RPR Titer Nonreactive (NONREACTIVE) 07/22/17 12:00 Hep C Ab Diagnostic <0.1 s/co ratio (0.0-0.9) 07/23/17 06:00 Liver Fibrosis Interp (.) 07/23/17 06:00 hyperkalemia K-exelate low potassium diet increase fluids repeat K labs continue to monitor
[2017-07-30] MEDS: QUEtiapine FUMARATE 50 MG TABLET PO SCH (21:12)
[2017-07-30] MEDS: THIAMINE HCL 100 MG TABLET (FP) PO SCH (21:12)
[2017-07-30] MEDS: diphenhydrAMINE HCL 50 MG CAPSULE PO PRN (21:13)
[2017-07-30] MEDS: DOCUSATE SODIUM 100 MG CAPSULE (FP) PO SCH (21:14)
[2017-07-30] MEDS: INSULIN DETEMIR 100 UNITS/ML MDV SQ SCH (21:14)
[2017-07-30] MEDS ORDERED: INSULIN DETEMIR 100 UNITS/ML MDV SQ ONE (22:00)
[2017-07-31] MEDS ORDERED: ALBUTEROL SO4 2.5/IPRATROPIUM 0.5 INH SOL 3 ML VIAL.NEB. NEB PRN (02:39)
[2017-07-31] MEDS: cloNIDine HCL 0.1 MG TABLET PO SCH ×2 (07:12→15:26)
[2017-07-31] MEDS: FERROUS SO4 325 MG TABLET (FP) PO SCH ×2 (07:12→11:58)
[2017-07-31] MEDS: INSULIN SLIDING SCALE (NOVOLOG) 1 VIAL SQ SCH ×2 (07:14→11:58)
[2017-07-31] MEDS ORDERED: INSULIN (NOVOLOG) ASPART 100 UNITS/ML 10ML VIAL ONE (07:14)
--- NOTE | 2017-07-31 08:08 | PN ---
[facility] Progress Note Note: LATE ENTRY CALLED OVERNIGHT PT C/O SOB WHILE LYING DOWN VSS O2 SAT WNL, A/O X 3 NAD LUNGS - SCATTERED COURSE BREATH SOUNDS CLEARED AFTER COUGH B/P 160/91 P 112 O2 SAT 95% RA @ 2:50 AM Laboratory Results - last 24 hr 07/30/17 07/30/17 07/30/17 07:51 08:30 08:35 WBC 8.9 RBC 2.49 L Hgb 7.0 L Hct 21.3 L MCV 85.8 MCH 28.1 MCHC 32.8 RDW 15.8 H Plt Count 492 H MPV 7.6 Neutrophils % 69.3 Lymphocytes % 18.7 D Monocytes % 5.7 Eosinophils % 5.0 H D Basophils % 1.3 D Sodium 142 Potassium 5.5 H Chloride 115 H Carbon Dioxide 19 L Anion Gap 8 BUN 52 H Creatinine 2.0 H Creat Clearance w eGFR 30.12 POC Glucometer 71 Random Glucose 89 Calcium 7.9 L Total Bilirubin 0.1 L AST 25 ALT 35 Alkaline Phosphatase 128 H Total Protein 5.8 L Albumin 1.7 L 07/30/17 07/30/17 07/30/17 11:50 16:48 21:11 WBC RBC Hgb Hct MCV MCH MCHC RDW Plt Count MPV Neutrophils % Lymphocytes % Monocytes % Eosinophils % Basophils % Sodium Potassium Chloride Carbon Dioxide Anion Gap BUN Creatinine Creat Clearance w eGFR POC Glucometer 94 85 195 Random Glucose Calcium Total Bilirubin AST ALT Alkaline Phosphatase Total Protein Albumin 07/31/17 07:11 WBC RBC Hgb Hct MCV MCH MCHC RDW Plt Count MPV Neutrophils % Lymphocytes % Monocytes % Eosinophils % Basophils % Sodium Potassium Chloride Carbon Dioxide Anion Gap BUN Creatinine Creat Clearance w eGFR POC Glucometer 321 Random Glucose Calcium Total Bilirubin AST ALT Alkaline Phosphatase Total Protein Albumin Vital Signs - 24 hr 07/30/17 07/30/17 07/30/17 10:00 17:24 21:43 Temperature Pulse Rate 99 H 111 H 111 H Respiratory 18 18 Rate Blood Pressure 118/74 170/107 154/93 07/31/17 07/31/17 03:30 07:43 Temperature 98.8 F Pulse Rate 98 H Respiratory 20 18 Rate Blood Pressure 156/90 DUONEB WAS GIVEN X 1 WITH RELIEF NOTED NOW C/O HEARTBURN THIS MORNING LABS NOTED CASE D/W DR. HANSON WILL ENDORSE TO DR. WEATHERS TO [facility]
[2017-07-31] MEDS: NICOTINE POLACRILEX 2 MG GUM BUC PRN (08:57)
[2017-07-31] MEDS ORDERED: PT OWN MED DRAWER 7, Y5N ONE ×2 (09:05→10:56)
[2017-07-31] MEDS: SERTRALINE HCL 50 MG TABLET (FP) PO SCH (10:00)
[2017-07-31] MEDS: amLODIPine BESYLATE 10 MG TABLET (FP) PO SCH (10:00)
[2017-07-31] MEDS: PRENATAL VITAMINS W/ FOLIC ACID TABLET (FP) PO SCH (10:00)
[2017-07-31] MEDS: CHLORTHALIDONE 25 MG TABLET PO SCH (10:00)
[2017-07-31] MEDS: LISINOPRIL 20 MG TABLET (FP) PO SCH (10:01)
[2017-07-31] MEDS: NICOTINE 7 MG/24 HOURS TOPICAL PATCH TD SCH (10:01)
[2017-07-31] MEDS: ARTIFICIAL TEARS (POLYVINYL ALCOHOL 1.4%) OPTH DROPS OU PRN (10:02)
[2017-07-31 12:03] VITALS: BP 158/104; PULSE 106; TEMP 97.7
--- NOTE | 2017-07-31 12:03 | PN ---
[facility] Progress Note Note: Notified by GABBIE Lindsay of critical K+ 6.3. Pt treated for Hyperkalemia (5.5) yesterday evening with Kayexalate. Labs repeated today and K+ increased to 6.3. Had episode of SOB this morning and treated with duoneb. Laboratory Tests 07/22/17 07/22/17 07/22/17 10:45 12:00 12:00 WBC 7.7 RBC 2.69 L Hgb 7.6 L Hct 22.9 L MCV 85.2 MCH 28.4 MCHC 33.4 RDW 14.6 Plt Count 503 H D MPV 7.8 Neutrophils % Lymphocytes % Monocytes % Eosinophils % Basophils % PT with INR INR Sodium 139 Potassium 4.8 Chloride 108 H Carbon Dioxide 24 Anion Gap 7 L BUN 25 H Creatinine 2.0 H Creat Clearance w eGFR 30.12 POC Glucometer 366 Random Glucose 366 H* Calcium 7.5 L Total Bilirubin < 0.1 L AST 19 ALT 36 Alkaline Phosphatase 207 H Total Protein 6.4 Albumin 1.6 L Urine Color Urine Appearance Urine pH Ur Specific [place] Urine Protein Urine Glucose (UA) Urine Ketones Urine Blood Urine Nitrite Urine Bilirubin Urine Urobilinogen Ur Leukocyte Esterase Urine WBC (Auto) Urine RBC (Auto) Ur Epithelial Cells Hyaline Casts Urine Mucus RPR Titer Hep C Ab Diagnostic Liver Fibrosis Interp 07/22/17 07/22/17 07/22/17 12:00 15:00 16:41 WBC RBC Hgb Hct MCV MCH MCHC RDW Plt Count MPV Neutrophils % Lymphocytes % Monocytes % Eosinophils % Basophils % PT with INR INR Sodium Potassium Chloride Carbon Dioxide Anion Gap BUN Creatinine Creat Clearance w eGFR POC Glucometer 545 Random Glucose Calcium Total Bilirubin AST ALT Alkaline Phosphatase Total Protein Albumin Urine Color Straw Urine Appearance Clear Urine pH 7.0 D Ur Specific [place] 1.015 Urine Protein 3+ H Urine Glucose (UA) 3+ H Urine Ketones Negative Urine Blood 1+ H Urine Nitrite Negative Urine Bilirubin Negative Urine Urobilinogen Negative Ur Leukocyte Esterase Trace Urine WBC (Auto) 8 Urine RBC (Auto) 5 Ur Epithelial Cells Rare Hyaline Casts Urine Mucus Rare RPR Titer Nonreactive Hep C Ab Diagnostic Liver Fibrosis Interp 07/23/17 07/23/17 07/23/17 06:00 07:20 11:24 WBC RBC Hgb Hct MCV MCH MCHC RDW Plt Count MPV Neutrophils % Lymphocytes % Monocytes % Eosinophils % Basophils % PT with INR INR Sodium Potassium Chloride Carbon Dioxide Anion Gap BUN Creatinine Creat Clearance w eGFR POC Glucometer 290 127 Random Glucose Calcium Total Bilirubin AST ALT Alkaline Phosphatase Total Protein Albumin Urine Color Urine Appearance Urine pH Ur Specific [place] Urine Protein Urine Glucose (UA) Urine Ketones Urine Blood Urine Nitrite Urine Bilirubin Urine Urobilinogen Ur Leukocyte Esterase Urine WBC (Auto) Urine RBC (Auto) Ur Epithelial Cells Hyaline Casts Urine Mucus RPR Titer Hep C Ab Diagnostic <0.1 Liver Fibrosis Interp 07/23/17 07/23/17 07/24/17 16:51 21:19 06:07 WBC RBC Hgb Hct MCV MCH MCHC RDW Plt Count MPV Neutrophils % Lymphocytes % Monocytes % Eosinophils % Basophils % PT with INR INR Sodium Potassium Chloride Carbon Dioxide Anion Gap BUN Creatinine Creat Clearance w eGFR POC Glucometer 258 245 40 Random Glucose Calcium Total Bilirubin AST ALT Alkaline Phosphatase Total Protein Albumin Urine Color Urine Appearance Urine pH Ur Specific [place] Urine Protein Urine Glucose (UA) Urine Ketones Urine Blood Urine Nitrite Urine Bilirubin Urine Urobilinogen Ur Leukocyte Esterase Urine WBC (Auto) Urine RBC (Auto) Ur Epithelial Cells Hyaline Casts Urine Mucus RPR Titer Hep C Ab Diagnostic Liver Fibrosis Interp 07/24/17 07/24/17 07/24/17 06:58 08:17 11:38 WBC RBC Hgb Hct MCV MCH MCHC RDW Plt Count MPV Neutrophils % Lymphocytes % Monocytes % Eosinophils % Basophils % PT with INR INR Sodium Potassium Chloride Carbon Dioxide Anion Gap BUN Creatinine Creat Clearance w eGFR POC Glucometer 52 110 224 Random Glucose Calcium Total Bilirubin AST ALT Alkaline Phosphatase Total Protein Albumin Urine Color Urine Appearance Urine pH Ur Specific [place] Urine Protein Urine Glucose (UA) Urine Ketones Urine Blood Urine Nitrite Urine Bilirubin Urine Urobilinogen Ur Leukocyte Esterase Urine WBC (Auto) Urine RBC (Auto) Ur Epithelial Cells Hyaline Casts Urine Mucus RPR Titer Hep C Ab Diagnostic Liver Fibrosis Interp 07/24/17 07/24/17 07/24/17 13:20 17:18 21:20 WBC RBC Hgb Hct MCV MCH MCHC RDW Plt Count MPV Neutrophils % Lymphocytes % Monocytes % Eosinophils % Basophils % PT with INR INR Sodium Potassium Chloride Carbon Dioxide Anion Gap BUN Creatinine Creat Clearance w eGFR POC Glucometer 237 222 Random Glucose Calcium Total Bilirubin AST ALT Alkaline Phosphatase Total Protein Albumin Urine Color Straw Urine Appearance Clear Urine pH 6.0 Ur Specific [place] 1.014 Urine Protein 3+ H Urine Glucose (UA) 3+ H Urine Ketones Negative Urine Blood Negative Urine Nitrite Negative Urine Bilirubin Negative Urine Urobilinogen Negative Ur Leukocyte Esterase Negative Urine WBC (Auto) 3 Urine RBC (Auto) 3 Ur Epithelial Cells Rare Hyaline Casts 13 Urine Mucus Rare RPR Titer Hep C Ab Diagnostic Liver Fibrosis Interp 07/25/17 07/25/17 07/25/17 06:49 07:39 11:53 WBC RBC Hgb Hct MCV MCH MCHC RDW Plt Count MPV Neutrophils % Lymphocytes % Monocytes % Eosinophils % Basophils % PT with INR INR Sodium Potassium Chloride Carbon Dioxide Anion Gap BUN Creatinine Creat Clearance w eGFR POC Glucometer 50 123 329 Random Glucose Calcium Total Bilirubin AST ALT Alkaline Phosphatase Total Protein Albumin Urine Color Urine Appearance Urine pH Ur Specific [place] Urine Protein Urine Glucose (UA) Urine Ketones Urine Blood Urine Nitrite Urine Bilirubin Urine Urobilinogen Ur Leukocyte Esterase Urine WBC (Auto) Urine RBC (Auto) Ur Epithelial Cells Hyaline Casts Urine Mucus RPR Titer Hep C Ab Diagnostic Liver Fibrosis Interp 07/25/17 07/25/17 07/26/17 16:46 21:16 06:33 WBC RBC Hgb Hct MCV MCH MCHC RDW Plt Count MPV Neutrophils % Lymphocytes % Monocytes % Eosinophils % Basophils % PT with INR INR Sodium Potassium Chloride Carbon Dioxide Anion Gap BUN Creatinine Creat Clearance w eGFR POC Glucometer 221 190 75 Random Glucose Calcium Total Bilirubin AST ALT Alkaline Phosphatase Total Protein Albumin Urine Color Urine Appearance Urine pH Ur Specific [place] Urine Protein Urine Glucose (UA) Urine Ketones Urine Blood Urine Nitrite Urine Bilirubin Urine Urobilinogen Ur Leukocyte Esterase Urine WBC (Auto) Urine RBC (Auto) Ur Epithelial Cells Hyaline Casts Urine Mucus RPR Titer Hep C Ab Diagnostic Liver Fibrosis Interp 07/26/17 07/26/17 07/26/17 11:44 17:00 21:11 WBC RBC Hgb Hct MCV MCH MCHC RDW Plt Count MPV Neutrophils % Lymphocytes % Monocytes % Eosinophils % Basophils % PT with INR INR Sodium Potassium Chloride Carbon Dioxide Anion Gap BUN Creatinine Creat Clearance w eGFR POC Glucometer 165 345 228 Random Glucose Calcium Total Bilirubin AST ALT Alkaline Phosphatase Total Protein Albumin Urine Color Urine Appearance Urine pH Ur Specific [place] Urine Protein Urine Glucose (UA) Urine Ketones Urine Blood Urine Nitrite Urine Bilirubin Urine Urobilinogen Ur Leukocyte Esterase Urine WBC (Auto) Urine RBC (Auto) Ur Epithelial Cells Hyaline Casts Urine Mucus RPR Titer Hep C Ab Diagnostic Liver Fibrosis Interp 07/27/17 07/27/17 07/27/17 06:52 09:30 09:30 WBC RBC Hgb Hct MCV MCH MCHC RDW Plt Count MPV Neutrophils % Lymphocytes % Monocytes % Eosinophils % Basophils % PT with INR 11.50 INR 1.02 Sodium 143 Potassium 5.2 H Chloride 114 H Carbon Dioxide 21 Anion Gap 8 BUN 48 H Creatinine 2.0 H Creat Clearance w eGFR 30.12 POC Glucometer 96 Random Glucose 98 Calcium 8.5 Total Bilirubin 0.1 L AST 25 ALT 44 Alkaline Phosphatase 149 H Total Protein 6.8 Albumin 2.0 L Urine Color Urine Appearance Urine pH Ur Specific [place] Urine Protein Urine Glucose (UA) Urine Ketones Urine Blood Urine Nitrite Urine Bilirubin Urine Urobilinogen Ur Leukocyte Esterase Urine WBC (Auto) Urine RBC (Auto) Ur Epithelial Cells Hyaline Casts Urine Mucus RPR Titer Hep C Ab Diagnostic Liver Fibrosis Interp 07/27/17 07/27/17 07/27/17 11:45 16:51 21:27 WBC RBC Hgb Hct MCV MCH MCHC RDW Plt Count MPV Neutrophils % Lymphocytes % Monocytes % Eosinophils % Basophils % PT with INR INR Sodium Potassium Chloride Carbon Dioxide Anion Gap BUN Creatinine Creat Clearance w eGFR POC Glucometer 159 413 178 Random Glucose Calcium Total Bilirubin AST ALT Alkaline Phosphatase Total Protein Albumin Urine Color Urine Appearance Urine pH Ur Specific [place] Urine Protein Urine Glucose (UA) Urine Ketones Urine Blood Urine Nitrite Urine Bilirubin Urine Urobilinogen Ur Leukocyte Esterase Urine WBC (Auto) Urine RBC (Auto) Ur Epithelial Cells Hyaline Casts Urine Mucus RPR Titer Hep C Ab Diagnostic Liver Fibrosis Interp 07/28/17 07/28/17 07/28/17 05:26 06:55 07:30 WBC 8.6 RBC 2.58 L Hgb 7.5 L Hct 22.1 L MCV 85.9 MCH 29.0 MCHC 33.8 RDW 15.7 H Plt Count 567 H MPV 7.9 Neutrophils % Lymphocytes % Monocytes % Eosinophils % Basophils % PT with INR INR Sodium Potassium Chloride Carbon Dioxide Anion Gap BUN Creatinine Creat Clearance w eGFR POC Glucometer 64 198 Random Glucose Calcium Total Bilirubin AST ALT Alkaline Phosphatase Total Protein Albumin Urine Color Urine Appearance Urine pH Ur Specific [place] Urine Protein Urine Glucose (UA) Urine Ketones Urine Blood Urine Nitrite Urine Bilirubin Urine Urobilinogen Ur Leukocyte Esterase Urine WBC (Auto) Urine RBC (Auto) Ur Epithelial Cells Hyaline Casts Urine Mucus RPR Titer Hep C Ab Diagnostic Liver Fibrosis Interp 07/28/17 07/28/17 07/28/17 07:30 11:45 21:39 WBC RBC Hgb Hct MCV MCH MCHC RDW Plt Count MPV Neutrophils % Lymphocytes % Monocytes % Eosinophils % Basophils % PT with INR INR Sodium 144 Potassium 5.1 Chloride 117 H Carbon Dioxide 21 Anion Gap 6 L BUN 53 H Creatinine 2.1 H Creat Clearance w eGFR 28.47 POC Glucometer 146 307 Random Glucose 196 H Calcium 7.6 L Total Bilirubin < 0.1 L AST 23 ALT 35 Alkaline Phosphatase 143 H Total Protein 5.7 L Albumin 1.7 L Urine Color Urine Appearance Urine pH Ur Specific [place] Urine Protein Urine Glucose (UA) Urine Ketones Urine Blood Urine Nitrite Urine Bilirubin Urine Urobilinogen Ur Leukocyte Esterase Urine WBC (Auto) Urine RBC (Auto) Ur Epithelial Cells Hyaline Casts Urine Mucus RPR Titer Hep C Ab Diagnostic Liver Fibrosis Interp 07/29/17 07/29/17 07/29/17 05:42 17:15 21:11 WBC RBC Hgb Hct MCV MCH MCHC RDW Plt Count MPV Neutrophils % Lymphocytes % Monocytes % Eosinophils % Basophils % PT with INR INR Sodium Potassium Chloride Carbon Dioxide Anion Gap BUN Creatinine Creat Clearance w eGFR POC Glucometer 112 398 200 Random Glucose Calcium Total Bilirubin AST ALT Alkaline Phosphatase Total Protein Albumin Urine Color Urine Appearance Urine pH Ur Specific [place] Urine Protein Urine Glucose (UA) Urine Ketones Urine Blood Urine Nitrite Urine Bilirubin Urine Urobilinogen Ur Leukocyte Esterase Urine WBC (Auto) Urine RBC (Auto) Ur Epithelial Cells Hyaline Casts Urine Mucus RPR Titer Hep C Ab Diagnostic Liver Fibrosis Interp 07/30/17 07/30/17 07/30/17 07:07 07:51 08:30 WBC 8.9 RBC 2.49 L Hgb 7.0 L Hct 21.3 L MCV 85.8 MCH 28.1 MCHC 32.8 RDW 15.8 H Plt Count 492 H MPV 7.6 Neutrophils % 69.3 Lymphocytes % 18.7 D Monocytes % 5.7 Eosinophils % 5.0 H D Basophils % 1.3 D PT with INR INR Sodium Potassium Chloride Carbon Dioxide Anion Gap BUN Creatinine Creat Clearance w eGFR POC Glucometer 56 71 Random Glucose Calcium Total Bilirubin AST ALT Alkaline Phosphatase Total Protein Albumin Urine Color Urine Appearance Urine pH Ur Specific [place] Urine Protein Urine Glucose (UA) Urine Ketones Urine Blood Urine Nitrite Urine Bilirubin Urine Urobilinogen Ur Leukocyte Esterase Urine WBC (Auto) Urine RBC (Auto) Ur Epithelial Cells Hyaline Casts Urine Mucus RPR Titer Hep C Ab Diagnostic Liver Fibrosis Interp 07/30/17 07/30/17 07/30/17 08:35 11:50 16:48 WBC RBC Hgb Hct MCV MCH MCHC RDW Plt Count MPV Neutrophils % Lymphocytes % Monocytes % Eosinophils % Basophils % PT with INR INR Sodium 142 Potassium 5.5 H Chloride 115 H Carbon Dioxide 19 L Anion Gap 8 BUN 52 H Creatinine 2.0 H Creat Clearance w eGFR 30.12 POC Glucometer 94 85 Random Glucose 89 Calcium 7.9 L Total Bilirubin 0.1 L AST 25 ALT 35 Alkaline Phosphatase 128 H Total Protein 5.8 L Albumin 1.7 L Urine Color Urine Appearance Urine pH Ur Specific [place] Urine Protein Urine Glucose (UA) Urine Ketones Urine Blood Urine Nitrite Urine Bilirubin Urine Urobilinogen Ur Leukocyte Esterase Urine WBC (Auto) Urine RBC (Auto) Ur Epithelial Cells Hyaline Casts Urine Mucus RPR Titer Hep C Ab Diagnostic Liver Fibrosis Interp 07/30/17 07/31/17 07/31/17 21:11 07:00 07:11 WBC RBC Hgb Hct MCV MCH MCHC RDW Plt Count MPV Neutrophils % Lymphocytes % Monocytes % Eosinophils % Basophils % PT with INR INR Sodium Potassium 6.3 H* Chloride Carbon Dioxide Anion Gap BUN Creatinine Creat Clearance w eGFR POC Glucometer 195 321 Random Glucose Calcium Total Bilirubin AST ALT Alkaline Phosphatase Total Protein Albumin Urine Color Urine Appearance Urine pH Ur Specific [place] Urine Protein Urine Glucose (UA) Urine Ketones Urine Blood Urine Nitrite Urine Bilirubin Urine Urobilinogen Ur Leukocyte Esterase Urine WBC (Auto) Urine RBC (Auto) Ur Epithelial Cells Hyaline Casts Urine Mucus RPR Titer Hep C Ab Diagnostic Liver Fibrosis Interp Vital Signs Temperature 98.8 F 07/31/17 07:43 Pulse Rate 112 H 07/31/17 09:48 Respiratory Rate 18 07/31/17 07:43 Blood Pressure 137/84 07/31/17 09:48 O2 Sat by Pulse Oximetry (%) Subj: Patient denies CP, SOB and Dizziness. Anxious. Obj: General: Alert and oriented x 3. Ambulating in unit without device. Car: [id number] Resp: CTA BL Ext: +2 BLE edema A/P Hyperkalemia Anemia Discussed case with Dr. Urban and agree to transfer patient to ER for further evaluation of anemia and hyperkalemia. [facility] called and report given to FERMENTATION SCIENTIST Ms. Kate.
[2017-07-31 14:20] LABS: URINE APPEARANCE SLCLOUDY; URINE BILIRUBIN NEGATIVE (<2.0 mg/dL); URINE BLOOD 1+ (NEGATIVE); URINE COLOR LTYELLOW; URINE GLUCOSE (UA) 3+ (NEGATIVE); URINE KETONE NEGATIVE (NEGATIVE); URINE LEUK ESTERASE NEGATIVE (NEGATIVE); URINE NITRITE NEGATIVE (NEGATIVE); URINE UROBILINOGEN NEGATIVE mg/dL (0.2-1.0)
[2017-07-31 14:41] LABS: URINE PROTEIN 3+ (NEGATIVE)
[2017-07-31 14:49] LABS: EPI CELLS RARE /HPF (FEW); GRANULAR CASTS 9 /lpf; URINE HYALINE CAST 59 /lpf; URINE MUCUS RARE
--- NOTE | 2017-07-31 15:18 | EKG ---
Test Reason : Blood Pressure : / mmHG Vent. Rate : 103 BPM Atrial Rate : 103 BPM P-R Int : 162 ms QRS Dur : 084 ms QT Int : 340 ms P-R-T Axes : 032 043 050 degrees QTc Int : 445 ms SINUS TACHYCARDIA OTHERWISE NORMAL ECG WHEN COMPARED WITH ECG OF 23-JUL-2017 08:35, NO SIGNIFICANT CHANGE WAS FOUND Confirmed by MAICOL AGGARWAL MD ([id number]) on 07/31/2017 3:17:45 PM Referred By: Confirmed By:MAICOL AGGARWAL MD
[2017-07-31] MEDS ORDERED: CALCIUM GLUCONATE 10% - 1,000 MG/10 ML VIAL IVPUSH ONE (20:48)
== END 2017-07-31 12:44 | disposition short-term general hospital (02) | DRG 772 ==
LOC: YASAS 09:07 → Y3E 11:59
PROVIDERS: ADMIT Psychiatry & Neurology Psychiatry; ATTEND Psychiatry & Neurology Psychiatry
PROC: HZ42ZZZ Group Counseling for Substance Abuse Treatment, Cognitive-Behavioral (ICD-10-PCS; principal; 2017-07-22)
DX: F14.20 Cocaine dependence, uncomplicated (principal); F12.20 Cannabis dependence, uncomplicated; F17.210 Nicotine dependence, cigarettes, uncomplicated; F31.9 Bipolar disorder, unspecified; I13.10 Hypertensive heart and chronic kidney disease without heart failure, with stage 1 through stage 4 chronic kidney disease, or unspecified chronic kidney disease; E11.22 Type 2 diabetes mellitus with diabetic chronic kidney disease; N18.9 Chronic kidney disease, unspecified; E87.5 Hyperkalemia; Z89.021 Acquired absence of right finger(s); J06.9 Acute upper respiratory infection, unspecified; Z59.0 Homelessness; K21.9 Gastro-esophageal reflux disease without esophagitis
CPT/HCPCS: 36415; 80053; 81003; 81015; 82962; 84132; 85025; 85027; 85610; 86593; 93005; 93010; 94640; J0735

== ENCOUNTER 2017-07-22 17:41 | Emergency (ER) | payer SELFPAY ==
[2017-07-22 17:56] VITALS: BMI 28.0
--- NOTE | 2017-07-22 19:44 | PDOC ---
Attending Attestation - Resident Resident Name: Abiodun Noguera - ED Attending Attestation I have performed the following: I have examined & evaluated the patient, The case was reviewed & discussed with the resident, I agree w/resident's findings & plan, Exceptions are as noted <Juanjo Vergara - Last Filed: 07/22/17 19:44> - HPI HPI: 07/22/17 20:35 The patient is a 26 year old female with a significant PMH of diabetes (regular insulin, novolog and lisinopril) seen today by detox for cocaine and marijuana presents to the emergency department sent in by detox for elevated blood pressure. The patient had a blood pressure of 181/110 at the detox center, was administered Clonidine 0.1mg, and repeat bp was 200/110. Patient was sent to our facility for further evaluation. The patient denies chest pain, shortness of breath, dizziness, headache, fever, or chills. The patient states she took her insulin and lisinopril earlier today but reports she has been poorly compliant with her meds. Of note, the patient has a fingerstick of 414 here in the ER. Allergies: NKA Past surgical history: None reported. Social history: Cocaine and marijuana use. No reported alcohol or cigarette use. - Physicial Exam PE: 07/22/17 20:37 "GENERAL: Awake, alert, and fully oriented, in no acute distress HEAD: No signs of trauma EYES: PERRLA, EOMI, sclera anicteric, conjunctiva clear ENT: Auricles normal inspection, hearing grossly normal, nares patent, oropharynx clear without exudates. Moist mucosa NECK: Normal ROM, supple, no lymphadenopathy, JVD, or masses LUNGS: Breath sounds equal, clear to auscultation bilaterally. No wheezes, and no crackles HEART: Regular rate and rhythm, normal S1 and S2, no murmurs, rubs or gallops ABDOMEN: Soft, nontender, normoactive bowel sounds. No guarding, no rebound. No masses EXTREMITIES: Normal range of motion, no edema. No clubbing or cyanosis. No cords, erythema, or tenderness BACK: No midline spinal tenderness in cervical/thoracic/lumbar region NEUROLOGICAL: Normal speech, cranial nerves intact, negative pronator drift, 5/ 5 strength in all 4 extremities, normal sensation to light touch in all 4 extremities, normal cerebellar exam, normal gait, normal reflexes and tone SKIN: Warm, Dry, normal turgor, no rashes or lesions noted. " <Helen Cisneros - Last Filed: 07/22/17 20:37>
--- NOTE | 2017-07-22 20:03 | PDOC ---
History of Present Illness - General Chief Complaint: Blood Pressure Problem Stated Complaint: Blood Pressure Problem Time Seen by Provider: 07/22/17 19:12 History Source: Patient (F-) - History of Present Illness Initial Comments: 07/22/17 19:53 26F with pmh of dm2 sent from [facility] (on cocaine and cannabis detox) for elevated blood pressure of 181/110. Received 0.1mg of clonidine. Repeat BP was then 200/110. Patient is totally asymptomatic and feels her normal self. She is also noted to have a FS of 414 in triage. She states that she took her medication earlier today (regular insulin, novolog and lisinopril) but is due for tonight's medication. Denies headache, chest pain, shortness of breath, dizziness. Past History - Past Medical History Allergies/Adverse Reactions: Allergies Allergy/AdvReac Type Severity Reaction Status Date / Time peach Allergy Severe Hives Verified 07/22/17 17:52 vancomycin Allergy Severe Hives Verified 07/22/17 17:52 Home Medications: Ambulatory Orders Sertraline HCl [Zoloft -] 25 mg PO DAILY 09/21/16 Lisinopril [Prinivil] 10 mg PO BID #60 tablet 10/15/16 Ranitidine [Zantac -] 150 mg PO DAILY #60 tab 10/15/16 Dextran 70/Hypromellose [Artificial Tears Eye Drops] 1 drop OP PRN PRN 07/22/17 Insulin (Levemir) [Levemir Vial] 25 units SQ HS 07/22/17 Insulin (Novolog) [Novolog -] 0 units SQ TID 07/22/17 Moxifloxacin HCl [Avelox] 400 mg PO DAILY 07/22/17 Sodium Chloride [Nasal [place]] 2 spray NS PRN PRN 07/22/17 Anemia: Yes Asthma: No Cancer: No Cardiac Disorders: No CVA: No COPD: No CHF: No Dementia: No Diabetes: Yes (IDDM) GI Disorders: Yes (acid reflux) Disorders: No HTN: Yes Hypercholesterolemia: No Kidney Stones: No Liver Disease: No Seizures: No Thyroid Disease: No - Surgical History Abdominal Surgery: No Appendectomy: No Cardiac Surgery: No Cholecystectomy: No Lung Surgery: No Neurologic Surgery: No Orthopedic Surgery: Yes (amputation, right index finger in 2014) - Reproductive History PID: No - Suicide/Smoking/Psychosocial Hx Smoking History: Unknown if ever smoked Have you smoked in the past 12 months: Yes Number of Cigarettes Smoked Daily: 7 If you are a former smoker, when did you quit?: 14 DAYS AGO Information on smoking cessation initiated: No 'Breaking Loose' booklet given: 07/22/17 Hx Alcohol Use: No Drug/Substance Use Hx: No Substance Use Type: Alcohol, Cocaine, Marijuana Hx Substance Use Treatment: Yes (left AMA this program in September 2016) Review of Systems - Review of Systems Able to Perform ROS?: Yes Is the patient limited Chilean proficient: No Constitutional: No: Symptoms Reported HEENTM: No: Blurred Vision, Recent change in vision, Difficulty Swallowing Respiratory: No: Cough, Orthopnea, Shortness of Breath, SOB with Exertion, SOB at Rest Cardiac (ROS): No: Chest Pain, Irregular Heart Rate ABD/GI: No: Symptoms Reported : No: Symptoms Reported Musculoskeletal: No: Symptoms Reported Integumentary: No: Symptoms Reported Neurological: No: Symptoms reported All Other Systems: Reviewed and Negative *Physical Exam - Vital Signs Last Vital Signs Temp Pulse Resp BP Pulse Ox 98.3 F 80 18 164/100 98 07/22/17 17:52 07/22/17 19:40 07/22/17 19:40 07/22/17 19:40 07/22/17 19:40 - Physical Exam General Appearance: Yes: Nourished, Appropriately Dressed. No: Apparent Distress HEENT: positive: EOMI, VINNY, Normal ENT Inspection Respiratory/Chest: positive: Lungs Clear, Normal Breath Sounds. negative: Chest Tender, Respiratory Distress Cardiovascular: positive: Regular Rhythm, Regular Rate, S1, S2 Gastrointestinal/Abdominal: positive: Normal Bowel Sounds, Flat, Soft. negative : Tender Musculoskeletal: positive: Normal Inspection. negative: CVA Tenderness Extremity: positive: Normal Capillary Refill. negative: Normal Inspection ( right index finger amputated from elevator accident. ) Neurologic: positive: Fully Oriented, Alert, Normal Mood/Affect ED Treatment Course - ADDITIONAL ORDERS Additional order review: Laboratory Results 07/22/17 19:05 POC Glucometer > 400 07/22/17 19:05 POC Glucometer > 400 Medical Decision Making - Medical Decision Making 07/22/17 20:35 26F sent from [facility] for elevated BP and FS. Will give patient 10U of insulin to bring her glucose down. The clonidine seems to work since her Bp went down to the 150's from 200's. 07/22/17 22:51 Patient given her usual 10mg of Lisinopril. BP now 166/90, FS: 290 ok to send back to [facility] 07/22/17 22:52 *DC/Admit/Observation/Transfer Diagnosis at time of Disposition: Single episode of hypertension - Discharge Dispostion Disposition: HOME Condition at time of disposition: Improved Admit: No - Referrals - Patient Instructions Printed Discharge Instructions: DI for High Blood Pressure Additional Instructions: Continue your detox as planned at [facility]. Come back to the Er for any new, worsening or concerning symptoms. - Post Discharge Activity
[2017-07-22] MEDS ORDERED: INSULIN (NOVOLOG) ASPART 100 UNITS/ML 10ML VIAL SQ ONE (20:16)
[2017-07-22] MEDS ORDERED: INSULIN (NOVOLOG) ASPART 100 UNITS/ML 10ML VIAL ONE (20:28)
[2017-07-22] MEDS ORDERED: LISINOPRIL 10 MG TABLET (FP) PO ONE (20:49)
[2017-07-22] MEDS ORDERED: LISINOPRIL 5 MG TABLET (FP) ONE (20:51)
[2017-07-22] MEDS ORDERED: LORazepam 1 MG TABLET PO ONE (21:28)
[2017-07-22] MEDS ORDERED: LORazepam 2 MG/ML SDV VIAL ONE (21:34)
[2017-07-22] MEDS ORDERED: LORazepam 0.5 MG TABLET ONE (21:36)
--- NOTE | 2017-07-22 23:01 | PDOC ---
*Physical Exam - Vital Signs Last Vital Signs Temp Pulse Resp BP Pulse Ox 98.3 F 109 H 18 178/110 99 07/22/17 17:52 07/22/17 21:27 07/22/17 21:27 07/22/17 21:27 07/22/17 21:27 - Physical Exam Comments: 07/22/17 22:55 "GENERAL: Awake, alert, and fully oriented, in no acute distress. Generally weak appearing. HEAD: No signs of trauma EYES: PERRLA, EOMI, sclera anicteric, conjunctiva clear ENT: Auricles normal inspection, hearing grossly normal, nares patent, oropharynx clear without exudates. Moist mucosa NECK: Nontender, no stepoffs, Normal ROM, supple, no lymphadenopathy, JVD, or masses LUNGS: Breath sounds equal, clear to auscultation bilaterally. No wheezes, and no crackles HEART: Regular rate and rhythm, normal S1 and S2, no murmurs, rubs or gallops ABDOMEN: Soft, normoactive bowel sounds. No guarding, no rebound. No masses EXTREMITIES: Normal range of motion, no edema. No clubbing or cyanosis. No cords, erythema, or tenderness NEUROLOGICAL: Cranial nerves II through XII intact. 5/5 strength and sensation in all extremities, Normal speech, normal gait, normal cerebellar function SKIN: Warm, Dry, normal turgor, no rashes or lesions noted. " ED Treatment Course - ADDITIONAL ORDERS Additional order review: Laboratory Results 07/22/17 07/22/17 07/22/17 21:42 20:53 19:05 POC Glucometer 299.59108 371.10492 > 400 07/22/17 07/22/17 07/22/17 21:42 20:53 19:05 POC Glucometer 299.63956 371.50126 > 400 - Medications Given in the ED: ED Medications Discontinued Medications Generic Name Dose Route Start Last Admin Trade Name Freq PRN Reason Stop Dose Admin Insulin Aspart 10 units 07/22/17 20:16 07/22/17 20:29 Novolog Vial SQ 07/22/17 20:17 10 units ONCE ONE Administration Protocol Lisinopril 10 mg 07/22/17 20:49 07/22/17 21:26 Prinivil PO 07/22/17 20:50 10 mg ONCE ONE Administration Lorazepam 2 mg 07/22/17 21:28 07/22/17 21:43 Ativan - PO 07/22/17 21:29 2 mg ONCE ONE Administration Medical Decision Making - Medical Decision Making 07/22/17 23:03 26 yo F with asymptomatic HTN. Received clonidine at [facility] as well as home dose of lisinopril in ED. Pt also given subQ insulin for hyperglycemia. - Repeat vitals initially improving, but shortly after pt became more tachycardic and hypertensive - Upon re-evaluation, pt tearful and anxious appearing - Pt given ativan PO given h/o cocaine use (though denies any recent use), with normalization of vitals Pt reassessed and now appears much calmer. She continues to deny any complaints. Vitals now wnl. Fingerstick 299, improved from >400. Pt is well appearing, with normal vitals. Clinically stable for DC at this time. I discussed the physical exam findings, ancillary test results and final diagnoses with the patient. I answered all of the patient's questions. The patient was satisfied with the care received and felt comfortable with the discharge plan and treatment plan. The patient agrees to follow up with the primary care physician within 24-72 hours. *DC/Admit/Observation/Transfer Diagnosis at time of Disposition: Single episode of hypertension - Discharge Dispostion Disposition: HOME Condition at time of disposition: Improved - Referrals - Patient Instructions Printed Discharge Instructions: DI for High Blood Pressure Additional Instructions: Continue your detox as planned at [facility]. Come back to the Er for any new, worsening or concerning symptoms. - Post Discharge Activity
[2017-07-22 23:03] VITALS: BP 166/90; PULSE 80; TEMP 98
== END 2017-07-22 23:08 | disposition home or self-care (01) ==
LOC: JER 17:41
PROC: 3E013VG Introduction of Insulin into Subcutaneous Tissue, Percutaneous Approach (ICD-10-PCS; principal; 2017-07-22)
DX: I10 Essential (primary) hypertension (principal); E10.9 Type 1 diabetes mellitus without complications; Z79.4 Long term (current) use of insulin; K21.9 Gastro-esophageal reflux disease without esophagitis; F14.10 Cocaine abuse, uncomplicated; F12.10 Cannabis abuse, uncomplicated; Z86.2 Personal history of diseases of the blood and blood-forming organs and certain disorders involving the immune mechanism; Z59.0 Homelessness; Z89.021 Acquired absence of right finger(s)
CPT/HCPCS: 82962; 99282-25

== ENCOUNTER 2017-07-31 13:01 | Inpatient (IN) | payer OTHER ==
--- NOTE | 2017-07-31 13:14 | PDOC ---
History of Present Illness - General Stated Complaint: ABNORMAL LABS Time Seen by Provider: 07/31/17 13:07 History Source: Patient - History of Present Illness Initial Comments: 07/31/17 13:15 Patient is a 26 year old female with a PMH of IDDM, HTN, osteomyelitis and substance (cocaine and marijuana) abuse who presents to our ED from [facility] after routine lab draws showed an elevated K+ (6.3) and low Hb (7). Endorses some dyspnea @ rest this morning resolved with a breathing treatment. Denies any muscle weakness/cramps. ROS positive for three day h/o NB diarrhea. Last cocaine/marijuana use 07/21. Patient on Lisinopril -- cannot recall whether she took her medication this morning. Patient also notes her DM diagnosis 2-3 years previous, however she only started taking Insulin last week upon admission to [facility]. VS show tachycardia otherwise unremarkable, BS Fingerstick 244 Allergy: Vancomycin Surgical: RLE 1st phalnx amputation, L ankle biopsy Social: 7 cigarettes daily, daily marijuana/cocaine use Past History - Past Medical History Allergies/Adverse Reactions: Allergies Allergy/AdvReac Type Severity Reaction Status Date / Time peach Allergy Severe Hives Verified 07/22/17 17:52 vancomycin Allergy Severe Hives Verified 07/22/17 17:52 Home Medications: Ambulatory Orders Sertraline HCl [Zoloft -] 25 mg PO DAILY 09/21/16 Lisinopril [Prinivil] 10 mg PO BID #60 tablet 10/15/16 Ranitidine [Zantac -] 150 mg PO DAILY #60 tab 10/15/16 Dextran 70/Hypromellose [Artificial Tears Eye Drops] 1 drop OP PRN PRN 07/22/17 Insulin (Levemir) [Levemir Vial] 25 units SQ HS 07/22/17 Insulin (Novolog) [Novolog -] 0 units SQ TID 07/22/17 Moxifloxacin HCl [Avelox] 400 mg PO DAILY 07/22/17 Sodium Chloride [Nasal [place]] 2 spray NS PRN PRN 07/22/17 Anemia: Yes Asthma: No Cancer: No Cardiac Disorders: No CVA: No COPD: No CHF: No Dementia: No Diabetes: Yes (IDDM) GI Disorders: Yes (acid reflux) Disorders: No HTN: Yes Hypercholesterolemia: No Kidney Stones: No Liver Disease: No Seizures: No Thyroid Disease: No - Surgical History Abdominal Surgery: No Appendectomy: No Cardiac Surgery: No Cholecystectomy: No Lung Surgery: No Neurologic Surgery: No Orthopedic Surgery: Yes (amputation, right index finger in 2014) - Reproductive History PID: No - Suicide/Smoking/Psychosocial Hx Smoking History: Unknown if ever smoked Have you smoked in the past 12 months: Yes Number of Cigarettes Smoked Daily: 7 If you are a former smoker, when did you quit?: 14 DAYS AGO 'Breaking Loose' booklet given: 07/22/17 Hx Alcohol Use: No Drug/Substance Use Hx: No Substance Use Type: Alcohol, Cocaine, Marijuana Hx Substance Use Treatment: Yes (left AMA this program in September 2016) *Physical Exam - Physical Exam Comments: 07/31/17 14:19 GENERAL: Awake, alert, and fully oriented, in no acute distress HEAD: No signs of trauma EYES: PERRLA, EOMI, sclera anicteric, conjunctiva clear ENT: Auricles normal inspection, hearing grossly normal, nares patent, oropharynx clear without exudates. Moist mucosa NECK: Nontender, no stepoffs, Normal ROM, supple, no lymphadenopathy, JVD, or masses LUNGS: Breath sounds equal, clear to auscultation bilaterally. No wheezes, and no crackles HEART: Regular rate and rhythm, normal S1 and S2, no murmurs, rubs or gallops; LE --> B/L sacral edema ABDOMEN: Soft, nontender, normoactive bowel sounds. No guarding, no rebound. No masses EXTREMITIES: B/L LE edema, 2+ LE pulses, R 2nd phalange amputation, R 1st phalanx amputation NEUROLOGICAL: Cranial nerves II through XII intact. 5/5 strength and sensation in all extremities, ED Treatment Course - LABORATORY CBC & Chemistry Diagram: 07/31/17 14:09 07/31/17 14:10 Medical Decision Making - Medical Decision Making 07/31/17 13:39 26 year old non-toxic appearing female from [facility] presents with outside lab reports of hyperkalemia and Hb < 7. PE significant for B/L LE pitting edema extending to lower sacral area. Tachycardic (105) non-hypertensive @ presentation. Will obtain repeat CBC, CMP + gentle IV hydration. Suspect hyperkalemia 2/2 to medication non-adherence (patient unsure of adherence to K+ sparking diuretic) vs. acute renal failure (possibly 2/2 to uncontrolled DM, or cocaine abuse) 07/31/17 14:01 ECG shows HR 103, no peaked T waves, normal QT. -- no hyperkalemic changes on ECG. 07/31/17 15:03 K+ 5.3, CBC 7.1; previous Hb 7-9 07/31/17 15:06 BUN 59 (previous 28 in 10/2016 ) Cr 2.1 (2.0 one week preivous, 1.6 in 10/2016) - clinical suspicion for acute renal insufficiency, possibly, less likely, auto- immune disease. Will obtain Renal U/S 07/31/17 15:52 Albumin 3.1 -- suspect nephrotic syndrome possibly 2/2 to cocaine -- c/w PE showing pitting B/L LE --> lower back 07/31/17 16:[address] Urban ([facility]) states facility unable to care for patient -- notes patient has h/o SW issues, SW contacted. 07/31/17 16:11 Case d/w Dr. Campoverde (Nephrology) - notes could be interstitial nephritis in addition to nephrotic syndrome, requests lipid panel, and agrees w/renal U/S 07/31/17 17:58 Renal U/S pending. Anemia likely 2/2 to RF. Will microblog [facility] for admission. 07/31/17 18:35 Patient admitted to inpatient medicine service under Dr. Perla. Patient counseled extensively on POC. Will continue to monitor while in ED. 07/31/17 18:44 *DC/Admit/Observation/Transfer Diagnosis at time of Disposition: Acute renal failure - Discharge Dispostion Condition at time of disposition: Fair Admit: Yes - Referrals - Patient Instructions - Post Discharge Activity
--- NOTE | 2017-07-31 13:47 | PDOC ---
Attending Attestation - HPI HPI: 07/31/17 15:06 The patient is a 26 year old female with a PMH of IDDM, HTN, osteomyelitis and substance (cocaine and marijuana) abuse who presents to our ED from [facility] for evaluation of elevated K+ (6.3) and low Hb (7). The patient also reports some shortness of breath while at rest. She states the SOB was alleviated with a nebulizer treatment this morning. She reports her last cocaine/marijuana use 07/21. Allergy: Vancomycin Surgical: RLE 1st phalnx amputation, L ankle biopsy Social: 7 cigarettes daily, daily marijuana/cocaine use - Medical Decision Making 07/31/17 15:07 Documentation prepared by Estefany White, acting as medical typist for Chris Nash MD <Estefany White - Last Filed: 07/31/17 15:06> - Resident Resident Name: Teresa Bloom - ED Attending Attestation I have performed the following: I have examined & evaluated the patient, The case was reviewed & discussed with the resident, I agree w/resident's findings & plan, Exceptions are as noted - Physicial Exam PE: 07/31/17 15:59 Patient is awake and alert, nontoxic-appearing, afebrile Normocephalic, atraumatic No JVD Conjunctivae were pale CTA RRR sft, nt, nd, + mild sacral edema + 3 pitting edema of the lower extremities bilaterally - Medical Decision Making 07/31/17 15:59 Patient is a 26-year-old female with history of cocaine and marijuana abuse who presents to the ER with signs and symptoms of anasarca likely related to nephrotic syndrome. Patient is noted to be hyperalbuminemic and chronically anemic with worsening BUN and creatinine. Will obtain bilateral kidney and lower extremity ultrasound. Will obtain UA, will admit for evaluation of what appears to be acute on chronic renal insufficiency. <Chris Nash - Last Filed: 07/31/17 16:00>
[2017-07-31] MEDS ORDERED: SODIUM CHLORIDE 0.9% 500 ML INFUS.BAG IV ONE (14:04)
[2017-07-31 14:41] LABS: BASO % 1.4 % (0-2.0); EOS % 7.9 % (0-4.5); HEMATOCRIT 21.5 % (32.4-45.2); HEMOGLOBIN 7.1 GM/dL (10.7-15.3); LYMPH % 21.2 % (8-40); MCH 28.2 pg (25.7-33.7); MEAN CELL VOLUME 85.6 fl (80-96); MEAN PLT VOLUME 7.5 fl (7.5-11.1); MONO % 6.7 % (3.8-10.2); NEUT % 62.8 % (42.8-82.8); PLATELET COUNT 527 K/MM3 (134-434); RBC 2.52 M/mm3 (3.60-5.2); RDW 16.3 % (11.6-15.6); WHITE BLOOD COUNT 7.6 K/mm3 (4.0-10.0)
[2017-07-31 14:51] LABS: ALBUMIN 1.8 g/dl (3.4-5.0); ANION GAP 7 (8-16); BLOOD UREA NITROGEN 56 mg/dL (7-18); CALCIUM 7.6 mg/dL (8.5-10.1); CHLORIDE 115 mmol/L (98-107); CO2 20 mmol/L (21-32); CREATININE 2.1 mg/dL (0.55-1.02); GLUCOSE,RANDOM 177 mg/dL (74-106); POTASSIUM 5.3 mmol/L (3.5-5.1); SGOT/AST 25 U/L (15-37); SGPT/ALT 36 U/L (12-78); SODIUM 142 mmol/L (136-145); TOT PROT 6.2 g/dl (6.4-8.2)
[2017-07-31 14:52] LABS: ALK PHOS 144 U/L (45-117); BILIRUBIN,TOTAL < 0.1 mg/dL (0.2-1.0)
--- NOTE | 2017-07-31 15:18 | EKG ---
Test Reason : Blood Pressure : / mmHG Vent. Rate : 103 BPM Atrial Rate : 103 BPM P-R Int : 158 ms QRS Dur : 090 ms QT Int : 340 ms P-R-T Axes : 037 052 062 degrees QTc Int : 445 ms SINUS TACHYCARDIA OTHERWISE NORMAL ECG WHEN COMPARED WITH ECG OF 31-JUL-2017 12:38, NO SIGNIFICANT CHANGE WAS FOUND Confirmed by MAICOL AGGARWAL MD ([id number]) on 07/31/2017 3:17:32 PM Referred By: Confirmed By:MAICOL AGGARWAL MD
[2017-07-31 17:20] LABS: CHOLESTEROL 228 mg/dL (50-200); HDL CHOLESTEROL 123 mg/dL (40-60); LDL CHOLESTEROL (ONLY SJRH) 93 mg/dL (5-100); TRIGLYCERIDES 91 mg/dL (35-160)
[2017-07-31] MEDS ORDERED: SODIUM POLYSTYRENE SULFONATE 15 GM/60 ML BOTTLE PO ONE (20:45)
--- NOTE | 2017-07-31 21:08 | HP ---
CHIEF COMPLAINT: Lab abnormality PCP: None HISTORY OF PRESENT ILLNESS: 26yo F with IDDM, difficult to control HTN, and Cocaine abuse presented from [facility] w/ hyperkalemia to 6.3. Also found to have gradually progressive renal failure and proteinuria at [facility] labs. She never was told she had kidney problems, no family hx. No change in urine quantity or color. Has had gradually progressive bilateral LE edema and abdominal distension for about 1 month, not improving w/ diuretics. Has had difficult to control HTN, now on 4 blood pressure meds. Is also noncompliant diabetic, s/p osteo and multiple amputations. Denies CP, orthopnea. Had mild SOB before arrival, relieved w/ duoneb In the ER, vitals were stable. Repeat K+ was 5.3, likely from the duoneb. EKG revealed sinus tach some peaked T waves. Cr noted to be 2.1, elevated from baseline 1.5. U/S shows normal kidneys, mod L pleural effusion, and no ascites. Duplex was negative. CXR shows residual changes from recently treated interstitial pneumonia. Recent Travel: Denies PAST MEDICAL HISTORY: IDDM, HTN, Cocine use, Bipolar disorder (w/ past suicide use) PAST SURGICAL HISTORY: Bone biopsy of ankle Social History: Smoking: Yes, couple cigs a day Alcohol: Yes Drugs: +Cocaine, +marijuana Allergies peach Allergy (Severe, Verified 07/22/17 17:52) Hives vancomycin Allergy (Severe, Verified 07/22/17 17:52) Hives HOME MEDICATIONS: Home Medications Medication Instructions Recorded Sertraline HCl [Zoloft -] 25 mg PO DAILY 09/21/16 Lisinopril [Prinivil] 10 mg PO BID #60 tablet 10/15/16 Ranitidine [Zantac -] 150 mg PO DAILY #60 tab 10/15/16 Dextran 70/Hypromellose 1 drop OP PRN PRN 07/22/17 [Artificial Tears Eye Drops] Insulin (Levemir) [Levemir Vial] 25 units SQ HS 07/22/17 Insulin (Novolog) [Novolog -] 0 units SQ TID 07/22/17 Moxifloxacin HCl [Avelox] 400 mg PO DAILY 07/22/17 Sodium Chloride [Nasal [place]] 2 spray NS PRN PRN 07/22/17 REVIEW OF SYSTEMS CONSTITUTIONAL: +generalized weakness Absent: fever, chills, diaphoresis, malaise, loss of appetite, weight change HEENT: Absent: rhinorrhea, nasal congestion, throat pain, throat swelling, difficulty swallowing, mouth swelling, ear pain, eye pain, visual changes CARDIOVASCULAR: Absent: chest pain, syncope, palpitations, irregular heart rate , lightheadedness, peripheral edema RESPIRATORY: Absent: cough, shortness of breath, dyspnea with exertion, orthopnea, wheezing, stridor, hemoptysis GASTROINTESTINAL:Absent: abdominal pain, abdominal distension, nausea, vomiting , diarrhea, constipation, melena, hematochezia GENITOURINARY: Absent: dysuria, frequency, urgency, hesitancy, hematuria, flank pain, genital pain MUSCULOSKELETAL: +leg sweling Absent: myalgia, arthralgia, joint swelling, back pain, neck pain SKIN: Absent: rash, itching, pallor HEMATOLOGIC/IMMUNOLOGIC: Absent: easy bleeding, easy bruising, lymphadenopathy, frequent infections ENDOCRINE:Absent: unexplained weight gain, unexplained weight loss, heat intolerance, cold intolerance NEUROLOGIC: Absent: headache, focal weakness or paresthesias, dizziness, unsteady gait, seizure, mental status changes, bladder or bowel incontinence PSYCHIATRIC: Absent: anxiety, depression, suicidal or homicidal ideation, hallucinations. PHYSICAL EXAMINATION Vital Signs Period Temp Pulse Resp BP Sys/Garcia Pulse Ox Last 24 Hr 98.3 F 105 17 113/86 99 GEN: AAOx3, NAD, Lying comfortably but anxious appearing HEENT: PERRLA, EOMi, no puffiness in face, no JVD CV: S1, S2, +2/6 systolic murmur, RRR LUNG: CTABL ABD: Distended but soft, NT MSK: +3 pitting edema from toes to midthigh, +multiple amputations NEURO: CN 2-12 grossly intact, no msk or sensation defiicts ASSESSMENT/PLAN: 26yo F with IDDM, difficult to control HTN, and Cocaine abuse presented from [facility] w/ hyperkalemia to 6.3, found to be in acute renal failure # Acute Renal Failure -- 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 UPC Ratio >9. FeNa at 1.8% consistent w. intrinsic renal disease -- Etiology could be from DM or HTN nephropathy in light of noncompliance and difficult to control BPs. Renal u/s neg. -- Start on IV Lasix 20qd. Na restricted diet. EDU, dsDNA, SPEP/UPEP ordered to r/o other causes. 24 hr urine protein. Hold ACEi. Renal consulted in the ER. May need biopsy. # Hyperkalemia -- Likely from ARF. Resolved w/ duoneb received at [facility]. Will give Ca2+ gluc for the peaked T waves seen on first EKG. Will give one dose of kayexalate. Monitor in AM # BLLE edema -- Likely from nephrotic syndrome. Duplex negative. Liver unremarkable on U/s. Echo to r/o cardiomyopathy. Hold CCB # Normocytic Anemia -- No blood loss, could be 2/2 renal failure. FOBT. To r/o other causes will get iron studies, TSH, B12, folate. # HTN -- Difficult to control. Was taking four antiHTN meds. For now, continue Clonidine 0.2Q8. Hold ACEi and CCB as stated above. # IDDM -- Continue Levemir 25 HS w/ ISS and BGMs ACHS # Bipolar Disorder/MDD -- Continue Seroquel, Zoloft # FEN/PPx -- No IVF, renal/diabetic/sodium restricted diet, HSQ TID # Dispo -- Admit to med/surg Case d/w Dr Velazquez & Dr Shasha Henderson MD - [id number] Night Java Application Developer Visit type - Emergency Visit Emergency Visit: Yes ED Registration Date: 07/31/17 Care time: The patient presented to the Emergency Department on the above date and was hospitalized for further evaluation of their emergent condition. - New Patient This patient is new to me today: Yes Date on this admission: 08/01/17 - Critical Care Critical Care patient: No Hospitalist Screening - Colonoscopy Questionnaire Colonoscopy Questionnaire: Colonoscopy Questionnaire - Patient: 50 - 75 years old and never had a screening colonoscopy: Unknown History of colon or rectal polyps, or CA: Unknown History of IBD, Crohn's disease or UC: Unknown History of abdominal radiation therapy as a child: Unknown - Relative: 1 with colon or rectal CA, or polyps at age 60 or younger: Unknown Colon or rectal CA diagnosed at age 45 or younger: Unknown Multiple relatives with colon or rectal CA: Unknown - Outcome: Screening Result: Negative Screen
[2017-07-31] MEDS ORDERED: CALCIUM GLUCONATE 10% - 1,000 MG/10 ML VIAL IVPUSH ONE (21:15)
--- NOTE | 2017-07-31 21:18 | PN ---
Teaching Attending Note Name of Resident: Afshin Henderson ATTENDING PHYSICIAN STATEMENT I saw and evaluated the patient. I reviewed the resident's note and discussed the case with the resident. I agree with the resident's findings and plan as documented. SUBJECTIVE: This is a 26 year old woman with a history of type 1 DM, HTN, anemia , CKD, GERD, bipolar disorder, depression, osteomyelitis of her left ankle, and alcohol, cocaine and marijuana abuse who was sent to the ED from [facility] for hyperkalemia. She was admitted to [facility] on 07/22 for rehab. She had been at [facility] ED that same day and was diagnosed with possible pneumonia. She was discharged with a prescription for Avelox. At [facility], she was treated with Levaquin 500 mg daily x 7 days. On admission, her creatinine was 2.0, she was tachycardic and hypertensive, and she was noted to have edema of her legs. She was treated with Lasix, HCTZ, Lisinopril, Clonidine, Chlorthalidone, Norvasc. On 07/27, potassium was 5.2 and she was given Kayexalate. On 07/28, potassium was 5.1. On 07/30 it was 5.5 and she was given Kayexalate. Today, it was 6.3 so she received another dose of Kayexalate and was sent to the ED for evaluation. She reports that her legs have been swollen for about 3 weeks. She has also noted swelling of her abdomen and back. She denies urinary frequency. OBJECTIVE: Vital Signs Period Temp Pulse Resp BP Sys/Garcia Pulse Ox Last 24 Hr 98.3 F 105 17 113/86 99 HEART: S1S2, tachycardic LUNGS: Clear ABDOMEN: Soft, non-tender, mild distention, normal BS EXTREMITIES: 3+ edema of both legs Laboratory Tests 07/31/17 07/31/17 07/31/17 14:09 14:09 14:10 WBC 7.6 RBC 2.52 L Hgb 7.1 L Hct 21.5 L MCV 85.6 MCH 28.2 MCHC 33.0 RDW 16.3 H Plt Count 527 H MPV 7.5 Neutrophils % 62.8 Lymphocytes % 21.2 Monocytes % 6.7 Eosinophils % 7.9 H Basophils % 1.4 Sodium 142 Potassium 5.3 H Chloride 115 H Carbon Dioxide 20 L Anion Gap 7 L BUN 56 H Creatinine 2.1 H Creat Clearance w eGFR 28.47 Random Glucose 177 H Calcium 7.6 L Total Bilirubin < 0.1 L AST 25 ALT 36 Alkaline Phosphatase 144 H Total Protein 6.2 L Albumin 1.8 L Triglycerides Cholesterol Total LDL Cholesterol HDL Cholesterol Urine HCG, Qual Negative Blood Type Antibody Screen 07/31/17 07/31/17 14:15 16:15 WBC RBC Hgb Hct MCV MCH MCHC RDW Plt Count MPV Neutrophils % Lymphocytes % Monocytes % Eosinophils % Basophils % Sodium Potassium Chloride Carbon Dioxide Anion Gap BUN Creatinine Creat Clearance w eGFR Random Glucose Calcium Total Bilirubin AST ALT Alkaline Phosphatase Total Protein Albumin Triglycerides 91 Cholesterol 228 H Total LDL Cholesterol 93 HDL Cholesterol 123 H Urine HCG, Qual Blood Type O POSITIVE Antibody Screen Negative Home Medications Medication Instructions Recorded Sertraline HCl [Zoloft -] 25 mg PO DAILY 09/21/16 Lisinopril [Prinivil] 10 mg PO BID #60 tablet 10/15/16 Ranitidine [Zantac -] 150 mg PO DAILY #60 tab 10/15/16 Dextran 70/Hypromellose 1 drop OP PRN PRN 07/22/17 [Artificial Tears Eye Drops] Insulin (Levemir) [Levemir Vial] 25 units SQ HS 07/22/17 Insulin (Novolog) [Novolog -] 0 units SQ TID 07/22/17 Moxifloxacin HCl [Avelox] 400 mg PO DAILY 07/22/17 Sodium Chloride [Nasal [place]] 2 spray NS PRN PRN 07/22/17 ASSESSMENT AND PLAN: This is a 26 year old woman with a history of type 1 DM, HTN, anemia, CKD, GERD , bipolar disorder, depression, osteomyelitis of her left ankle, and alcohol, cocaine and marijuana abuse who presented to the ED from [facility] because of hyperkalemia. 1. Leg edema with proteinuria and hypoalbuminemia, possible nephrotic syndrome - Lasix IV - Sodium restriction - Hold ACEI/ARB secondary to hyperkalemia - Check urine protein, EDU, complement, SPEP/UPEP, hepatitis B, lipid profile - RPR negative 07/22 - Hepatitis C negative 07/23 - Venous dopplers negative for DVT 2. Acute kidney injury with hyperkalemia - Kayexalate - Renal US shows normal kidneys - Monitor electrolytes, creatinine 3. Stage 3 CKD 4. HTN - Lasix IV - Continue Clonidine - Hold Lisinopril secondary to hyperkalemia - Hold Norvasc secondary to leg edema 5. Type 1 DM - Continue Levemir - Fingersticks with Novolog sliding scale 6. Anemia, normocytic, likely secondary to chronic illness - Hemoglobin is stable - Check iron studies, B12, folate, TSH 7. Depression, anxiety, bipolar disorder - Continue Zoloft, Seroquel 8. Nicotine dependence - Nicotine patch 9. Cocaine abuse 10. Marijuana abuse 11. Alcohol abuse
[2017-07-31] MEDS ORDERED: FUROSEMIDE 40 MG/4 ML INJECTABLE VIAL IVPUSH ONE (21:29)
[2017-07-31] MEDS ORDERED: SODIUM POLYSTYRENE SULFONATE 15 GM/60 ML BOTTLE ONE (21:40)
[2017-07-31] MEDS ORDERED: CALCIUM GLUCONATE 10% - 1,000 MG/10 ML VIAL ONE (21:40)
[2017-07-31] MEDS ORDERED: INSULIN DETEMIR 100 UNITS/ML MDV SQ SCH (22:00)
[2017-07-31] MEDS ORDERED: ALBUTEROL SO4 2.5/IPRATROPIUM 0.5 INH SOL 3 ML VIAL.NEB. NEB ONE (23:45)
[2017-07-31] MEDS ORDERED: INSULIN DETEMIR 100 UNITS/ML MDV SQ ONE (23:52)
[2017-07-31] MEDS ORDERED: FUROSEMIDE 40 MG/4 ML INJECTABLE VIAL ONE (23:52)
[2017-07-31] MEDS ORDERED: cloNIDine HCL 0.1 MG TABLET ONE (23:52)
[2017-08-01] MEDS: cloNIDine HCL 0.1 MG TABLET PO SCH ×2 (00:04→06:42)
[2017-08-01] MEDS: INSULIN SLIDING SCALE (NOVOLOG) 1 VIAL SQ SCH ×5 (00:05→21:16)
[2017-08-01] MEDS ORDERED: INSULIN (NOVOLOG) ASPART 100 UNITS/ML 10ML VIAL ONE (00:06)
[2017-08-01] MEDS ORDERED: QUEtiapine FUMARATE 25 MG TABLET (FP) ONE ×2 (00:14→20:14)
[2017-08-01] MEDS: QUEtiapine FUMARATE 50 MG TABLET PO SCH ×2 (00:14→21:15)
[2017-08-01 00:53] VITALS: BMI 29.6
[2017-08-01] MEDS: ACETAMINOPHEN 325 MG TABLET (FP) PO PRN (02:08)
[2017-08-01] MEDS ORDERED: DEXTROSE 50%-WATER - 25 GM/50 ML VIAL IVPUSH ONE (05:47)
[2017-08-01] MEDS ORDERED: DEXTROSE 50%-WATER - 25 GM/50 ML VIAL ONE (05:50)
[2017-08-01] MEDS: HEPARIN NA (PORCINE) 5,000 UNITS/ML 1ML VIAL SQ SCH ×3 (06:42→21:15)
--- NOTE | 2017-08-01 07:10 | PN ---
Physical Exam: SUBJECTIVE: Patient seen and examined by me this AM - Somnolent on exam, poorly interactive; States swelling in legs improved overnight, however does not endorse increase in urination; Denies f/c/n/v/d, CHAVEZ , vision changes, CP, cough, sob, ab pain, back pain, focal neuro symptoms; Denies any pain on urination or changes in urinary frequency or flow; OBJECTIVE: Vital Signs Intake & Output 07/29/17 07/30/17 07/31/17 08/01/17 23:59 23:59 23:59 23:59 Weight 69.4 kg 73.482 kg Period Temp Pulse Resp BP Sys/Garcia Pulse Ox Last 24 Hr 97.3 F-98.3 F 90-105 17-22 113-145/78-89 98-99 GENERAL: Young woman, NAD, somnolent HEAD: Normal with no signs of trauma. ENT: Ears normal, nares patent, oropharynx clear without exudates, moist mucous membranes. NECK: Trachea midline, supple. LUNGS: Breath sounds equal, clear to auscultation bilaterally, no wheezes, no crackles, no accessory muscle use. HEART: Regular rate and rhythm, S1, S2 without murmur, rub or gallop. ABDOMEN: Slightly distended. Soft, nontender, normoactive bowel sounds, no guarding, no rebound, no hepatosplenomegaly, no masses. No CVA tenderness noted. EXTREMITIES: Diminished pulses BL, 3+ edema to knees. Chronic venous changes with BL toe amputations. NEUROLOGICAL: Cranial nerves II through XII grossly intact. Normal speech, gait not observed. PSYCH: Normal mood, normal affect. Laboratory Results - last 24 hr CBC, BMP 08/01/17 09:30 08/01/17 09:30 07/31/17 14:09 07/31/17 14:10 07/31/17 07/31/17 07/31/17 14:09 14: 14:10 WBC 7.6 RBC 2.52 L Hgb 7.1 L Hct 21.5 L MCV 85.6 MCH 28.2 MCHC 33.0 RDW 16.3 H Plt Count 527 H MPV 7.5 Neutrophils % 62.8 Lymphocytes % 21.2 Monocytes % 6.7 Eosinophils % 7.9 H Basophils % 1.4 Sodium 142 Potassium 5.3 H Chloride 115 H Carbon Dioxide 20 L Anion Gap 7 L BUN 56 H Creatinine 2.1 H Creat Clearance w eGFR 28.47 POC Glucometer Random Glucose 177 H Calcium 7.6 L Total Bilirubin < 0.1 L AST 25 ALT 36 Alkaline Phosphatase 144 H Total Protein 6.2 L Albumin 1.8 L Triglycerides Cholesterol Total LDL Cholesterol HDL Cholesterol Urine Protein Ur Random Sodium Ur Random Potassium Ur Random Chloride Ur Random Urea Nitrogn Urine Creatinine Urine HCG, Qual Negative Blood Type Antibody Screen 07/31/17 07/31/17 07/31/17 14:15 16:15 16:15 WBC RBC Hgb Hct MCV MCH MCHC RDW Plt Count MPV Neutrophils % Lymphocytes % Monocytes % Eosinophils % Basophils % Sodium Potassium Chloride Carbon Dioxide Anion Gap BUN Creatinine Creat Clearance w eGFR POC Glucometer Random Glucose Calcium Total Bilirubin AST ALT Alkaline Phosphatase Total Protein Albumin Triglycerides 91 Cholesterol 228 H Total LDL Cholesterol 93 HDL Cholesterol 123 H Urine Protein 745 Ur Random Sodium Ur Random Potassium Ur Random Chloride Ur Random Urea Nitrogn Urine Creatinine 76.0 Urine HCG, Qual Blood Type O POSITIVE Antibody Screen Negative 07/31/17 07/31/17 08/01/17 21:29 21:29 06:22 WBC RBC Hgb Hct MCV MCH MCHC RDW Plt Count MPV Neutrophils % Lymphocytes % Monocytes % Eosinophils % Basophils % Sodium Potassium Chloride Carbon Dioxide Anion Gap BUN Creatinine Creat Clearance w eGFR POC Glucometer 109 Random Glucose Calcium Total Bilirubin AST ALT Alkaline Phosphatase Total Protein Albumin Triglycerides Cholesterol Total LDL Cholesterol HDL Cholesterol Urine Protein Ur Random Sodium 94 Ur Random Potassium 23.1 Ur Random Chloride 82 Ur Random Urea Nitrogn 497 Urine Creatinine Urine HCG, Qual Blood Type Antibody Screen Active Medications Generic Name Dose Route Start Last Admin Trade Name Kevin PRN Reason Stop Dose Admin Acetaminophen 650 mg 08/01/17 01:13 08/01/17 02:08 Tylenol - PO 650 mg Q6H PRN Administration PAIN LEVEL 6-10 Amlodipine Besylate 10 mg 08/01/17 10:00 Norvasc - PO DAILY [facility] Chlorthalidone 25 mg 08/01/17 10:00 [place] - PO DAILY JULIANNA Clonidine 0.2 mg 07/31/17 22:00 08/01/17 06:42 Catapres - PO 0.2 mg TID JULIANNA Administration Heparin Sodium (Porcine) 5,000 unit 08/01/17 06:00 08/01/17 06:42 Heparin - SQ 5,000 unit TID JULIANNA Administration Insulin Aspart 1 vial 07/31/17 22:00 08/01/17 06:42 Novolog Vial Sliding Scale - SQ Not Given ACHS [facility] Protocol Insulin Detemir 25 units 07/31/17 22:00 08/01/17 00:04 Levemir Vial SQ 25 units HS JULIANNA Administration Melatonin 5 mg 07/31/17 20:30 Melatonin PO HS PRN INSOMNIA Nicotine 7 mg 07/31/17 20:45 Nicoderm Patch - TD DAILY JULIANNA Nicotine Polacrilex 2 mg 07/31/17 20:30 Nicorette Gum - BUC Q2H PRN NICOTINE REPLACEMENT RX Quetiapine Fumarate 50 mg 07/31/17 22:00 08/01/17 00:14 Seroquel - PO 50 mg HS JULIANNA Administration Sertraline HCl 100 mg 08/01/17 10:00 Zoloft - PO DAILY JULIANNA No micro LE duplex 07/31: IMPRESSION: No evidence of deep venous thrombosis. CXR 07/31 - Interstitial changes suspicious for early interstitial edema. Renal U/S 07/31 - IMPRESSION: 1. Morphologically normal kidneys with no evidence of renal atrophy, hydronephrosis or acute pathology. 2. Left pleural effusion. Please see above discussion. Abdominal U/S 07/31 - 1. Right pleural effusion with no evidence of ascites. 2. No sonographic evidence of hepatic pathology or acute abnormalities. Please see above discussion. Echo 08/01 - EF 72%, moderate LVH, normal LV function, normal RV size and function, mild TR, mild MR ASSESSMENT/PLAN: 26yo F with IDDM, difficult to control HTN, and Cocaine abuse presented from [facility] w/ hyperkalemia to 6.3, found to be in acute renal failure. Pt with improvement in hyperK to 4.9, still with 3+ BL edema in LEs. Renal consulted, recs appreciated. #Acute Renal Failure - likely intrinsic renal dz (FeNa 1.8%); Cr 2.1; baseline 1.4-1.5 on prior admission; likely secondary to DM or HTN, however will rule/ out other causes - EDU, dsDNA, SPEP/UPEP - Restart ACEi tomorrow per renal recs - HIV test pending - Hepatitis panel - complement levels pending - Will likely require renal bx (inpt vs. outpt?) - Renal consulted, recs appreciated - Utox pending - Na restricted diet - Renal U/S normal - Strict Is and Os # Hyperkalemia - resolved today. 4.9 today - trend; repeat in AM - If elevated again, repeat EKG and novolog/d50/Cagluc/BA #3+ LE edema - duplex negative; Echo normal; hold norvasc and CCB; Liver U/S unremarkable - Likely secondary to nephrotic syndrome - Lasix 40mg IV # Normocytic Anemia - 6.4 this AM; likely secondary to renal dz - Receiving 1 unit this AM; transfuse at <7 - Trend CBC - Consider EPO - No evidence of active blood loss; - FOBT ordered - TSH, b12, folate all normla #HTN - Currently on four meds (amlodipine, lisinopril, clonidine, chlorthalidone ) - Holding ACEi, norvasc secondary to increase in Cr and LE edema - Hold clonidine - Vitals 14h - Will restart ACEi tomorrow; consider restarting norvasc if BP poorly controlled #DM - hypoglycemic this AM; resolved with juice - f/u A1C - ISS, BGM q4h - Levemir decreased from 25u to 10u qHS - Monitor for further episodes of hypoglycemia in AM #PSA - monitor for withdrawal symptoms - detox consult - will return to [facility] for continuation of detox and eventual discharge to [facility] # Bipolar Disorder/MDD -Continue Seroquel, Zoloft #Insomnia - melatonin #nicotine abuse - Nicoderm patch - addiction treatment counselor on cessation #FEN PO hydration Daily lytes, monitor for hyperK Na controlled/diabetic diet PPX HSQ (increased risk of clot with nephrotic syndrome) EAM # Dispo MS Plan discussed with attending, Dr. Minda Allred, PGY1 Visit type - Emergency Visit Emergency Visit: Yes ED Registration Date: 07/31/17 Care time: The patient presented to the Emergency Department on the above date and was hospitalized for further evaluation of their emergent condition. - New Patient This patient is new to me today: Yes Date on this admission: 08/01/17 - Critical Care Critical Care patient: No - Discharge Referral Referred to [facility] Med P.C.: No
[2017-08-01] MEDS: NICOTINE 7 MG/24 HOURS TOPICAL PATCH TD SCH ×2 (09:14→09:21)
[2017-08-01] MEDS: SERTRALINE HCL 50 MG TABLET (FP) PO SCH (09:14)
[2017-08-01] MEDS ORDERED: CHLORTHALIDONE 25 MG TABLET PO SCH (10:00)
[2017-08-01] MEDS ORDERED: amLODIPine BESYLATE 10 MG TABLET (FP) PO SCH (10:00)
[2017-08-01 10:15] LABS: HEMATOCRIT 19.1 % (32.4-45.2); MCH 28.2 pg (25.7-33.7); MCHC 33.3 g/dl (32.0-36.0); MEAN CELL VOLUME 84.6 fl (80-96); MEAN PLT VOLUME 7.7 fl (7.5-11.1); PLATELET COUNT 461 K/MM3 (134-434); RBC 2.25 M/mm3 (3.60-5.2); RDW 16.2 % (11.6-15.6); WHITE BLOOD COUNT 6.5 K/mm3 (4.0-10.0)
[2017-08-01 10:26] LABS: HEMOGLOBIN 6.4 GM/dL (10.7-15.3)
[2017-08-01 10:39] LABS: ALBUMIN 1.5 g/dl (3.4-5.0); ANION GAP 6 (8-16); BLOOD UREA NITROGEN 54 mg/dL (7-18); CALCIUM 7.6 mg/dL (8.5-10.1); CHLORIDE 115 mmol/L (98-107); CO2 20 mmol/L (21-32); CREATININE 1.9 mg/dL (0.55-1.02); GLUCOSE,RANDOM 109 mg/dL (74-106); INR 1.06 (0.82-1.09); POTASSIUM 4.9 mmol/L (3.5-5.1); SGOT/AST 16 U/L (15-37); SGPT/ALT 26 U/L (12-78); SODIUM 141 mmol/L (136-145); TOT PROT 5.4 g/dl (6.4-8.2)
[2017-08-01 10:40] LABS: ALK PHOS 125 U/L (45-117); BILIRUBIN,TOTAL < 0.1 mg/dL (0.2-1.0)
--- NOTE | 2017-08-01 13:13 | PN ---
Teaching Attending Note Name of Resident: Huseyin Allred ATTENDING PHYSICIAN STATEMENT I saw and evaluated the patient. I reviewed the resident's note and discussed the case with the resident. I agree with the resident's findings and plan as documented. SUBJECTIVE:c/o lethargy. pain and swelling in the legs significantly improved. noted leg swelling for the past few weeks. no other symptoms. while she been at [facility] her sugars have been low every morning and she get symptoms of fatigue and chills when her sugars are low. has not been compliant with medications as she been homeless. denies CP, SoB, fever, chills, N/V/C/D OBJECTIVE: Last Vital Signs Temp Pulse Resp BP Pulse Ox 97.6 F 89 18 120/73 98 08/01/17 09:23 08/01/17 09:23 08/01/17 09:23 08/01/17 09:23 08/01/17 01:29 General NAD CV S1 S2 RRR no murmur/rub/gallop Lungs decreased at bases Abdomen soft NT/ND Extremities 2+ pitting edema. chronic venous changes. multiple toe amputations. ASSESSMENT AND PLAN: 26yo F with PMH DM, HTN, anemia, bipolar, CKD, OM and continuous polysubstance abuse was sent to the ER from [facility] due to persistent hyperkalemia 1. Hyperkalemia- s/p insulin/d50/kayeyxlate in the ER. likely due to ARF. now resolved 2. GASPER with nephrotic range proteinuria- FeNa 1.8. possible due to DM however can not r/o other causes. some response to lasix. will increase lasix to 40mg IVP, hold acei at this time. full workup sent. nephrology consulted. will likely require renal bx. strict I&O, daily weights. low salt diet 3. Normocytic anemia- will transfuse 1 unit PRBC. iron studies pending. no GI workup in the past. 4. Hypoglycemia- resolved with juice. reports frequently in the AM. and poor intake at this time. will reduce to 10 units of levemir tonight. check A1c. bgm , iss 5. HTN- controlled. reported to be on 4 antihypertensive medications at home. on clonidine here with good control. will need to verify if clonidine was being given as antihypertensive or for withdrawal symptoms. will hold it at this time and monitor BP. start norvasc if needed to optimize control. as there are many side effects of abrupt withdrawal with clonidine and concern will not be able to take as outpatient 6. stage II sacral ulcer- not visualized by me. frequent turning 7. bipolar- cont home medications 8. continuous polysubstance use- currently at inpatient rehab program at [facility]. no signs of withdrawal. plan to go to [facility] once completed 9. DVT ppx- hep sq (increase risk of thrombosis in nephrotic syndrome therefore should be on anticoagulation despite anemia)
--- NOTE | 2017-08-01 13:30 | MSN ---
Progress Note (short form) - Note Progress Note: SUBJECTIVE: Patient seen and examined this morning. Early this morning patient was feeling generally weak and was found to be hypoglycemic with a BG of 35. She was given IV dextrose and BG increased to 109. On exam, patient was somnolent, frequently returning to sleep but was arousable. She stated her breathing had improved with the 2 L of oxygen and she was only feeling minimally short of breath. She noted that her b/l legs remain swollen but had also improved and currently had no pain in the legs. She noted that she had a bowel movement this morning. She denies urinary frequency, dysuria, fevers/chills, nausea/vomiting, or abdominal pain. OBJECTIVE: Vital Signs Period Temp Pulse Resp BP Sys/Garcia Pulse Ox Last 24 Hr 97.3 F-98.3 F 89-105 17-22 113-145/73-89 98-99 GENERAL: Somnolent, marline, pale appearing young woman in no acute distress covered tightly in a blanket HEAD: Normal without evidence of trauma EYES: Conjunctival pallor NECK: No thyromegaly; supple; No JVD CARDIOVASCULAR: Regular at 80 bpms, S1/S2, soft systolic murmur, no rubs or gallops LUNGS: Scattered rhonchi in upper lobes b/l; no dullness to percussion ABDOMEN: Normoactive bowel sounds; soft, non-tender EXTREMITIES: Right-hand 2nd digit amputation, left foot 1st phalanx amputation, right foot 1st and 2nd phalanx amputation; right leg 2+ pitting edema, left leg 3+ edema; b/l DP pulse non-palpable NEURO: CN II-XII grossly intact, normal speech, gait not observed Laboratory Results - last 24 hr 07/31/17 07/31/17 07/31/17 14:09 14:09 14:10 WBC 7.6 RBC 2.52 L Hgb 7.1 L Hct 21.5 L MCV 85.6 MCH 28.2 MCHC 33.0 RDW 16.3 H Plt Count 527 H MPV 7.5 Neutrophils % 62.8 Lymphocytes % 21.2 Monocytes % 6.7 Eosinophils % 7.9 H Basophils % 1.4 PT with INR INR Sodium 142 Potassium 5.3 H Chloride 115 H Carbon Dioxide 20 L Anion Gap 7 L BUN 56 H Creatinine 2.1 H Creat Clearance w eGFR 28.47 POC Glucometer Random Glucose 177 H Calcium 7.6 L Phosphorus Magnesium Ferritin Total Bilirubin < 0.1 L AST 25 ALT 36 Alkaline Phosphatase 144 H Total Protein 6.2 L Albumin 1.8 L Triglycerides Cholesterol Total LDL Cholesterol HDL Cholesterol Vitamin B12 Serum Folate TSH Urine Protein Ur Random Sodium Ur Random Potassium Ur Random Chloride Ur Random Urea Nitrogn Urine Creatinine Urine HCG, Qual Negative Blood Type Antibody Screen Crossmatch 07/31/17 07/31/17 07/31/17 14:15 16:15 16:15 WBC RBC Hgb Hct MCV MCH MCHC RDW Plt Count MPV Neutrophils % Lymphocytes % Monocytes % Eosinophils % Basophils % PT with INR INR Sodium Potassium Chloride Carbon Dioxide Anion Gap BUN Creatinine Creat Clearance w eGFR POC Glucometer Random Glucose Calcium Phosphorus Magnesium Ferritin Total Bilirubin AST ALT Alkaline Phosphatase Total Protein Albumin Triglycerides 91 Cholesterol 228 H Total LDL Cholesterol 93 HDL Cholesterol 123 H Vitamin B12 Serum Folate TSH Urine Protein 745 Ur Random Sodium Ur Random Potassium Ur Random Chloride Ur Random Urea Nitrogn Urine Creatinine 76.0 Urine HCG, Qual Blood Type O POSITIVE Antibody Screen Negative Crossmatch See Detail 07/31/17 07/31/17 08/01/17 21:29 21:29 00:00 WBC RBC Hgb Hct MCV MCH MCHC RDW Plt Count MPV Neutrophils % Lymphocytes % Monocytes % Eosinophils % Basophils % PT with INR INR Sodium Potassium Chloride Carbon Dioxide Anion Gap BUN Creatinine Creat Clearance w eGFR POC Glucometer [phone] Random Glucose Calcium Phosphorus Magnesium Ferritin Total Bilirubin AST ALT Alkaline Phosphatase Total Protein Albumin Triglycerides Cholesterol Total LDL Cholesterol HDL Cholesterol Vitamin B12 Serum Folate TSH Urine Protein Ur Random Sodium 94 Ur Random Potassium 23.1 Ur Random Chloride 82 Ur Random Urea Nitrogn 497 Urine Creatinine Urine HCG, Qual Blood Type Antibody Screen Crossmatch 08/01/17 08/01/17 08/01/17 05:39 06:22 09:30 WBC 6.5 RBC 2.25 L Hgb 6.4 L* Hct 19.1 L MCV 84.6 MCH 28.2 MCHC 33.3 RDW 16.2 H Plt Count 461 H MPV 7.7 Neutrophils % Lymphocytes % Monocytes % Eosinophils % Basophils % PT with INR INR Sodium Potassium Chloride Carbon Dioxide Anion Gap BUN Creatinine Creat Clearance w eGFR POC Glucometer 35 109 Random Glucose Calcium Phosphorus Magnesium Ferritin Total Bilirubin AST ALT Alkaline Phosphatase Total Protein Albumin Triglycerides Cholesterol Total LDL Cholesterol HDL Cholesterol Vitamin B12 Serum Folate TSH Urine Protein Ur Random Sodium Ur Random Potassium Ur Random Chloride Ur Random Urea Nitrogn Urine Creatinine Urine HCG, Qual Blood Type Antibody Screen Crossmatch 08/01/17 08/01/17 08/01/17 09:30 09:30 09:30 WBC RBC Hgb Hct MCV MCH MCHC RDW Plt Count MPV Neutrophils % Lymphocytes % Monocytes % Eosinophils % Basophils % PT with INR 12.00 H INR 1.06 Sodium 141 Potassium 4.9 Chloride 115 H Carbon Dioxide 20 L Anion Gap 6 L BUN 54 H Creatinine 1.9 H Creat Clearance w eGFR 31.95 POC Glucometer Random Glucose 109 H Calcium 7.6 L Phosphorus 7.0 H Magnesium 2.0 Ferritin 85.598 Total Bilirubin < 0.1 L AST 16 ALT 26 Alkaline Phosphatase 125 H Total Protein 5.4 L Albumin 1.5 L Triglycerides Cholesterol Total LDL Cholesterol HDL Cholesterol Vitamin B12 Serum Folate 25 H TSH 1.21 Urine Protein Ur Random Sodium Ur Random Potassium Ur Random Chloride Ur Random Urea Nitrogn Urine Creatinine Urine HCG, Qual Blood Type Antibody Screen Crossmatch 08/01/17 08/01/17 09:30 10:45 WBC RBC Hgb Hct MCV MCH MCHC RDW Plt Count MPV Neutrophils % Lymphocytes % Monocytes % Eosinophils % Basophils % PT with INR INR Sodium Potassium Chloride Carbon Dioxide Anion Gap BUN Creatinine Creat Clearance w eGFR POC Glucometer 112 Random Glucose Calcium Phosphorus Magnesium Ferritin Total Bilirubin AST ALT Alkaline Phosphatase Total Protein Albumin Triglycerides Cholesterol Total LDL Cholesterol HDL Cholesterol Vitamin B12 841 Serum Folate TSH Urine Protein Ur Random Sodium Ur Random Potassium Ur Random Chloride Ur Random Urea Nitrogn Urine Creatinine Urine HCG, Qual Blood Type Antibody Screen Crossmatch ASSESSMENT/PLAN: 26 yr old female with history of IDDM, HTN, osteomyelitis, cocaine abuse, anemia , PTSD, and homelessness presented in the ED after being transferred from [facility] due to elevated potassium (6.3) and decreasing hemoglobin (7) and was found to have acute kidney injury. #Bilateral lower extremity edema- Most likely due to nephrotic syndrome from poorly controlled diabetes or hypertension. Patient has significant proteinuria with protein: creatinine ratio about 10. It is less likely due to liver or cardiac etiology. Liver appeared normal on u/s and no elevated LFTs. Echo was ordered for today. Also less likely due to autoimmune disease or hepatitis but will order EDU, complement, SPEP/UPEP, Hepatitis serology. -Lasix increased to 40 mg IV QD -Hold norvasc as can contribute to LE edema -Order lipid panel #Acute kidney injury -U/S demonstrated normal kidneys. -Creatinine 2.1 (baseline 1.5 in 2017) -Continue lasix 40 mg IV QD -Consider re-starting lisinopril tomorrow -Continue to monitor creatinine -Consulted nephrology #Chronic Kidney Disease -Patient's estimated GFR about 30 ml/min for at least 3 months -Consider renal biopsy #Hyperkalemia -Patient was given Kayexalate and duonebs at [facility], in ED received calcium gluconate and kayexalate, repeat potassium was 5.3 -EKG demonstrates sinus tachycardia without T-wave changes -Continue to monitor electrolytes; repeat BMP potassium 4.9 #Anemia-most likely secondary to renal failure but FOBT, iron studies to look for other causes. -Hemoglobin 6.4; will transfuse 1 unit of blood -Goal to maintain Hb >7 mg/dl #Type I diabetes mellitus-Patient states that it is difficult with her living situation to comply with insulin therapy. While she is at [facility] she has been compliant. -BGM QAC/HS -Decrease insulin dose due to am hypoglycemia to levemir 10 units qhs -Continue novolog sliding scale #HTN-currently controlled without medication -Hold Chlorthalidone, lisinopril, norvasc until renal function has improved. Continue clonidine 0.2 mg prn. Will re-evaluate if increase in blood pressure. #Depression -Continue home Seroquel 50 mg and Zoloft 100 mg #FEN -No IV fluids -Low sodium diet; encourage PO intake -DVT PPx- Heparin 5000u SQ TID
--- NOTE | 2017-08-01 13:54 | CONSULT ---
Consult Consult Specialty:: Nephrology Reason for Consultation:: GASPER - History of Present Illness Chief Complaint: sent in for hyperkalemia and GASPER History of Present Illness: Pt is a 26 year old female with pmhx of DM, CKD, HTN, osteomyelitis and cocaine use who was sent in from [facility] for abnormal labs. She was found to be hyperkalemic and in renal failure. I was called to evaluate they pt. She denies history of CKD however has abnormal creatinine values in the computer. She does have a strong family history of renal disease with most of her relatives on her mother's side on hemodialysis. She says the etiology is DM but she is not sure. Pt has had DM for about 15 years. Her sugars are poorly controlled. She also actively uses cocaine. She is in [facility] for rehab. She complains of lower extremity edema that has been getting worse. She also experiences shortness of breath at times.She denies dysuria or hematuria. - History Source History Provided By: Patient - Past Medical History Cardio/Vascular: Yes: HTN Renal/: Yes: Renal Inusuff ...LMP: 06/03/17 ...: No Infectious Disease: Yes: Other (osteo) Endocrine: Yes: Diabetes Mellitus - Alcohol/Substance Use Hx Alcohol Use: No - Smoking History Smoking history: Current some day smoker Have you smoked in the past 12 months: Yes Aproximately how many cigarettes per day: 7 If you are a former smoker, when did you quit?: 14 DAYS AGO Home Medications - Allergies Allergies/Adverse Reactions: Allergies Allergy/AdvReac Type Severity Reaction Status Date / Time peach Allergy Severe Hives Verified 07/22/17 17:52 vancomycin Allergy Severe Hives Verified 07/22/17 17:52 - Home Medications Home Medications: Ambulatory Orders Sertraline HCl [Zoloft -] 50 mg PO DAILY 09/21/16 Ranitidine [Zantac -] 150 mg PO DAILY #60 tab 10/15/16 Insulin (Levemir) [Levemir Vial] 25 units SQ HS 07/22/17 Insulin (Novolog) [Novolog -] 0 units SQ TID 07/22/17 Sodium Chloride [Nasal Cressona] 2 spray NS PRN PRN 07/22/17 Acetaminophen [Tylenol] 325 mg PO 07/31/17 Albuterol 0.083% Nebulizer Lashawn [Ventolin 0.083% Nebulizer Soln -] 1 amp NEB Amlodipine Besylate 10 mg PO DAILY 07/31/17 Chlorthalidone 25 mg PO DAILY 07/31/17 Clonidine HCl [Catapres] 0.2 mg PO 07/31/17 Docusate Sodium [Colace] 100 mg PO 07/31/17 Ferrous Sulfate 325 mg PO 07/31/17 Hydroxyzine Pamoate 25 mg PO 07/31/17 Lisinopril [Prinivil] 40 mg PO BID 07/31/17 Loperamide HCl [Loperamide] 2 mg PO 07/31/17 Magnesium Citrate [Citroma] 300 ml PO PRN 07/31/17 Melatonin 5 mg PO PRN 07/31/17 Nicotine Patch [Nicoderm Patch -] 7 mg PRN 07/31/17 Nicotine Polacrilex [Nicotine Gum] 2 mg BC PRN 07/31/17 Hypromellose 0.5% Opth Soln [Artificial Tears] 1 drop QID 08/01/17 Family Disease History - Family Disease History Family Disease History: Diabetes: Mother (), Heart Disease: Father ( ) Review of Systems - Review of Systems Constitutional: reports: Malaise Eyes: reports: No Symptoms HENT: reports: No Symptoms Neck: reports: No Symptoms Cardiovascular: reports: Edema, Shortness of Breath Respiratory: reports: Cough, SOB, SOB on Exertion Gastrointestinal: reports: No Symptoms Genitourinary: reports: No Symptoms Musculoskeletal: reports: Other (leg swelling) Neurological: reports: No Symptoms Endocrine: reports: No Symptoms Hematology/Lymphatic: reports: No Symptoms Psychiatric: reports: No Symptoms Physical Exam Vital Signs: Vital Signs Temperature 97.6 F 08/01/17 09:23 Pulse Rate 89 08/01/17 09:23 Respiratory Rate 18 08/01/17 13:34 Blood Pressure 120/73 08/01/17 09:23 O2 Sat by Pulse Oximetry (%) 98 08/01/17 13:34 Constitutional: Yes: Calm Eyes: Yes: Conjunctiva Clear HENT: Yes: Atraumatic Neck: Yes: Supple Cardiovascular: Yes: S1, S2 Respiratory: Yes: On Nasal O2, Rhonchi Gastrointestinal: Yes: Soft Renal/: Yes: Incontinence Musculoskeletal: Yes: Muscle Weakness Edema: Yes Edema: LLE: 2+, RLE: 2+ Integumentary: Yes: Tattoos Neurological: Yes: Oriented Psychiatric: Yes: Oriented Labs: CBC, BMP 08/01/17 09:30 08/01/17 09:30 Laboratory Tests 10/02/16 10/10/16 10/15/16 10:35 07:00 07:40 Hgb Plt Count Sodium Potassium Chloride Carbon Dioxide Anion Gap BUN Creatinine 1.2 H 1.3 H 1.4 H Iron TIBC Iron Saturation Urine Protein Urine Creatinine JORDI M-Abhijeet EDU Screen c-ANCA Proteinase 3 (PR3) p-ANCA Atypical p-ANCA Myeloperoxidase Ab Glomerular Base Memb Ab Hep Bs Antibody Hep B Core Total Ab Hep B Core Ab Interpret 07/27/17 07/28/17 07/30/17 09:30 07:30 08:35 Hgb Plt Count Sodium Potassium Chloride Carbon Dioxide Anion Gap BUN Creatinine 2.0 H 2.1 H 2.0 H Iron TIBC Iron Saturation Urine Protein Urine Creatinine JORDI M-Abhijeet EDU Screen c-ANCA Proteinase 3 (PR3) p-ANCA Atypical p-ANCA Myeloperoxidase Ab Glomerular Base Memb Ab Hep Bs Antibody Hep B Core Total Ab Hep B Core Ab Interpret 07/31/17 07/31/17 07/31/17 14:09 14:10 16:15 Hgb 7.1 L Plt Count 527 H Sodium 142 Potassium 5.3 H Chloride Carbon Dioxide 20 L Anion Gap BUN Creatinine 2.1 H Iron TIBC Iron Saturation Urine Protein 745 Urine Creatinine 76.0 JORDI M-Abhijeet EDU Screen c-ANCA Proteinase 3 (PR3) p-ANCA Atypical p-ANCA Myeloperoxidase Ab Glomerular Base Memb Ab Hep Bs Antibody Hep B Core Total Ab Hep B Core Ab Interpret 08/01/17 08/01/17 08/01/17 09:30 09:30 09:30 Hgb 6.4 L* Plt Count 461 H Sodium 141 Potassium 4.9 Chloride 115 H Carbon Dioxide 20 L Anion Gap 6 L BUN 54 H Creatinine 1.9 H Iron Pending TIBC Pending Iron Saturation Pending Urine Protein Urine Creatinine JORDI M-Abhijeet EDU Screen Pending c-ANCA Proteinase 3 (PR3) p-ANCA Atypical p-ANCA Myeloperoxidase Ab Glomerular Base Memb Ab Hep Bs Antibody Hep B Core Total Ab Hep B Core Ab Interpret 08/01/17 08/01/17 08/01/17 09:30 09:30 09:30 Hgb Plt Count Sodium Potassium Chloride Carbon Dioxide Anion Gap BUN Creatinine Iron TIBC Iron Saturation Urine Protein Urine Creatinine JORDI M-Abhijeet Pending EDU Screen c-ANCA Pending Proteinase 3 (PR3) Pending p-ANCA Pending Atypical p-ANCA Pending Myeloperoxidase Ab Pending Glomerular Base Memb Ab Pending Hep Bs Antibody Pending Hep B Core Total Ab Pending Hep B Core Ab Interpret Pending Imaging - Results Chest X-ray: Report Reviewed Ultrasound: Report Reviewed Problem List - Problems (1) Acute renal failure Code(s): N17.9 - ACUTE KIDNEY FAILURE, UNSPECIFIED (2) Hyperkalemia Code(s): E87.5 - HYPERKALEMIA (3) Renal insufficiency Code(s): N28.9 - DISORDER OF KIDNEY AND URETER, UNSPECIFIED (4) Cannabis dependence Code(s): F12.20 - CANNABIS DEPENDENCE, UNCOMPLICATED (5) Cocaine dependence Code(s): F14.20 - COCAINE DEPENDENCE, UNCOMPLICATED Qualifiers: Substance use status: uncomplicated Qualified Code(s): F14.20 - Cocaine dependence, uncomplicated (6) Diabetes type 2, uncontrolled Code(s): E11.65 - TYPE 2 DIABETES MELLITUS WITH HYPERGLYCEMIA Qualifiers: Diabetes mellitus senior care insulin use: with manager intermediate use Diabetes mellitus complication status: with circulatory complication Diabetes mellitus complication detail: with other circulatory complications Qualified Code(s): E11.59 - Type 2 diabetes mellitus with other circulatory complications; E11.65 - Type 2 diabetes mellitus with hyperglycemia; E11.65 - Type 2 diabetes mellitus with hyperglycemia; E11.65 - Type 2 diabetes mellitus with hyperglycemia; E11.65 - Type 2 diabetes mellitus with hyperglycemia; Z79.4 - exterminator termite (current) use of insulin; Z79.4 - exterminator termite (current) use of insulin; Z79.4 - jail (current) use of insulin; Z79.4 - exterminator termite (current) use of insulin Assessment/Plan Current Medications Generic Name Dose Route Start Last Admin Trade Name Freq PRN Reason Stop Dose Admin Acetaminophen 650 mg 08/01/17 01:13 08/01/17 02:08 Tylenol - PO 650 mg Q6H PRN Administration PAIN LEVEL 6-10 Furosemide 40 mg 08/02/17 10:00 Lasix Injection - IVPUSH DAILY JULIANNA Heparin Sodium (Porcine) 5,000 unit 08/01/17 06:00 08/01/17 06:42 Heparin - SQ 5,000 unit TID JULIANNA Administration Insulin Aspart 1 vial 07/31/17 22:00 08/01/17 11:12 Novolog Vial Sliding Scale - SQ Not Given ACHS [facility] Protocol Insulin Detemir 10 units 08/01/17 12:00 Levemir Vial SQ HS JULIANNA Melatonin 5 mg 07/31/17 20:30 Melatonin PO HS PRN INSOMNIA Nicotine 7 mg 07/31/17 20:45 08/01/17 09:21 Nicoderm Patch - TD 7 mg DAILY JULIANNA Administration Nicotine Polacrilex 2 mg 07/31/17 20:30 Nicorette Gum - BUC Q2H PRN NICOTINE REPLACEMENT RX Quetiapine Fumarate 50 mg 07/31/17 22:00 08/01/17 00:14 Seroquel - PO 50 mg HS JULIANNA Administration Sertraline HCl 100 mg 08/01/17 10:00 08/01/17 09:14 Zoloft - PO 100 mg DAILY JULIANNA Administration Impression 1. CKD 2. GASPER 3. hyperkalemia 4. nephrotic range proteinuria 5. non compliance 6. cocaine use 7. DM uncontrolled 8. htn 9. pleural effusions 10. dyspnea 11. fluid overload Plan - lasix 40 mg daily - serologic workup ordered - check c3 and c4 - check hiv, pt agrees - check hcv - will likely start alton tomorrow - renal diet - daily weights - check lipid panel - discussed kidney biopsy with pt at length, she will thing about it - check hg a1c Dr Campoverde
[2017-08-01] MEDS ORDERED: cloNIDine HCL 0.1 MG TABLET PO SCH (14:00)
[2017-08-01 16:31] LABS: COCAINE, UR NEGATIVE ng/ml (CUTOFF=300); METHADONE, UR NEGATIVE ng/ml (CUTOFF=300); OPIATES, URI NEGATIVE ng/ml (CUTOFF=300); PHENCYCLIDINE,URINE NEGATIVE ng/ml (CUTOFF=25); URINE AMPHETAMINES NEGATIVE ng/ml (CUTOFF=500); URINE BARBITURATES NEGATIVE ng/ml (CUTOFF=200); URINE BENZODIAZEPINES NEGATIVE ng/ml (CUTOFF=200)
--- NOTE | 2017-08-01 18:10 | CONSULT ---
Consult Detox [facility] Reason for Current Admission/Consult: substance use Referred by:: arcenio fields - History History of Present Illness: Vital Signs - 24 hr 08/01/17 08/01/17 08/02/17 19:37 19:55 02:41 Temperature 98.1 F 98.1 F Pulse Rate 90 90 Respiratory 18 20 Rate Blood Pressure 132/75 156/100 119/76 O2 Sat by Pulse 98 Oximetry (%) 08/02/17 08/02/17 08/02/17 06:17 09:00 14:30 Temperature 98 F 97.8 F 97.9 F Pulse Rate 82 100 H 106 H Respiratory 20 20 20 Rate Blood Pressure 115/80 164/99 162/99 O2 Sat by Pulse 100 Oximetry (%) 08/02/17 14:33 Temperature 97.9 F Pulse Rate 104 H Respiratory 20 Rate Blood Pressure 181/108 O2 Sat by Pulse Oximetry (%) Laboratory Tests 07/31/17 07/31/17 07/31/17 14:09 14:09 14:10 WBC 7.6 RBC 2.52 L Hgb 7.1 L Hct 21.5 L MCV 85.6 MCH 28.2 MCHC 33.0 RDW 16.3 H Plt Count 527 H MPV 7.5 Neutrophils % 62.8 Lymphocytes % 21.2 Monocytes % 6.7 Eosinophils % 7.9 H Basophils % 1.4 PT with INR INR Sodium 142 Potassium 5.3 H Chloride 115 H Carbon Dioxide 20 L Anion Gap 7 L BUN 56 H Creatinine 2.1 H Creat Clearance w eGFR 28.47 POC Glucometer Random Glucose 177 H Hemoglobin A1c % Calcium 7.6 L Phosphorus Magnesium Iron TIBC Iron Saturation Ferritin Total Bilirubin < 0.1 L AST 25 ALT 36 Alkaline Phosphatase 144 H Total Protein 6.2 L Albumin 1.8 L Triglycerides Cholesterol Total LDL Cholesterol HDL Cholesterol Vitamin B12 Serum Folate TSH Urine Color Urine Appearance Urine pH Ur Specific [place] Urine Protein Urine Glucose (UA) Urine Ketones Urine Blood Urine Nitrite Urine Bilirubin Urine Urobilinogen Ur Leukocyte Esterase Urine WBC (Auto) Urine RBC (Auto) Ur Epithelial Cells Urine Bacteria Hyaline Casts Urine Mucus U Random Total Protein Ur Random Sodium Ur Random Potassium Ur Random Chloride Ur Random Urea Nitrogn Urine Creatinine Protein/Creatinin Ratio Urine HCG, Qual Negative Opiates Screen Methadone Screen Barbiturate Screen Phencyclidine Screen Ur Amphetamines Screen MDMA (Ecstasy) Screen Benzodiazepines Screen Cocaine Screen U Marijuana (THC) Screen Hep Bs Antibody Hep B Core Total Ab HIV 1&2 Antibody Screen HIV P24 Antigen Blood Type Antibody Screen Crossmatch 07/31/17 07/31/17 07/31/17 14:15 16:15 16:15 WBC RBC Hgb Hct MCV MCH MCHC RDW Plt Count MPV Neutrophils % Lymphocytes % Monocytes % Eosinophils % Basophils % PT with INR INR Sodium Potassium Chloride Carbon Dioxide Anion Gap BUN Creatinine Creat Clearance w eGFR POC Glucometer Random Glucose Hemoglobin A1c % Calcium Phosphorus Magnesium Iron TIBC Iron Saturation Ferritin Total Bilirubin AST ALT Alkaline Phosphatase Total Protein Albumin Triglycerides 91 Cholesterol 228 H Total LDL Cholesterol 93 HDL Cholesterol 123 H Vitamin B12 Serum Folate TSH Urine Color Urine Appearance Urine pH Ur Specific [place] Urine Protein 745 Urine Glucose (UA) Urine Ketones Urine Blood Urine Nitrite Urine Bilirubin Urine Urobilinogen Ur Leukocyte Esterase Urine WBC (Auto) Urine RBC (Auto) Ur Epithelial Cells Urine Bacteria Hyaline Casts Urine Mucus U Random Total Protein Ur Random Sodium Ur Random Potassium Ur Random Chloride Ur Random Urea Nitrogn Urine Creatinine 76.0 Protein/Creatinin Ratio Urine HCG, Qual Opiates Screen Methadone Screen Barbiturate Screen Phencyclidine Screen Ur Amphetamines Screen MDMA (Ecstasy) Screen Benzodiazepines Screen Cocaine Screen U Marijuana (THC) Screen Hep Bs Antibody Hep B Core Total Ab HIV 1&2 Antibody Screen HIV P24 Antigen Blood Type O POSITIVE Antibody Screen Negative Crossmatch See Detail 07/31/17 07/31/17 08/01/17 21:29 21:29 00:00 WBC RBC Hgb Hct MCV MCH MCHC RDW Plt Count MPV Neutrophils % Lymphocytes % Monocytes % Eosinophils % Basophils % PT with INR INR Sodium Potassium Chloride Carbon Dioxide Anion Gap BUN Creatinine Creat Clearance w eGFR POC Glucometer [id number] Random Glucose Hemoglobin A1c % Calcium Phosphorus Magnesium Iron TIBC Iron Saturation Ferritin Total Bilirubin AST ALT Alkaline Phosphatase Total Protein Albumin Triglycerides Cholesterol Total LDL Cholesterol HDL Cholesterol Vitamin B12 Serum Folate TSH Urine Color Urine Appearance Urine pH Ur Specific [place] Urine Protein Urine Glucose (UA) Urine Ketones Urine Blood Urine Nitrite Urine Bilirubin Urine Urobilinogen Ur Leukocyte Esterase Urine WBC (Auto) Urine RBC (Auto) Ur Epithelial Cells Urine Bacteria Hyaline Casts Urine Mucus U Random Total Protein Ur Random Sodium 94 Ur Random Potassium 23.1 Ur Random Chloride 82 Ur Random Urea Nitrogn 497 Urine Creatinine Protein/Creatinin Ratio Urine HCG, Qual Opiates Screen Methadone Screen Barbiturate Screen Phencyclidine Screen Ur Amphetamines Screen MDMA (Ecstasy) Screen Benzodiazepines Screen Cocaine Screen U Marijuana (THC) Screen Hep Bs Antibody Hep B Core Total Ab HIV 1&2 Antibody Screen HIV P24 Antigen Blood Type Antibody Screen Crossmatch 08/01/17 08/01/17 08/01/17 05:39 06:22 09:30 WBC 6.5 RBC 2.25 L Hgb 6.4 L* Hct 19.1 L MCV 84.6 MCH 28.2 MCHC 33.3 RDW 16.2 H Plt Count 461 H MPV 7.7 Neutrophils % Lymphocytes % Monocytes % Eosinophils % Basophils % PT with INR INR Sodium Potassium Chloride Carbon Dioxide Anion Gap BUN Creatinine Creat Clearance w eGFR POC Glucometer 35 109 Random Glucose Hemoglobin A1c % Calcium Phosphorus Magnesium Iron TIBC Iron Saturation Ferritin Total Bilirubin AST ALT Alkaline Phosphatase Total Protein Albumin Triglycerides Cholesterol Total LDL Cholesterol HDL Cholesterol Vitamin B12 Serum Folate TSH Urine Color Urine Appearance Urine pH Ur Specific [place] Urine Protein Urine Glucose (UA) Urine Ketones Urine Blood Urine Nitrite Urine Bilirubin Urine Urobilinogen Ur Leukocyte Esterase Urine WBC (Auto) Urine RBC (Auto) Ur Epithelial Cells Urine Bacteria Hyaline Casts Urine Mucus U Random Total Protein Ur Random Sodium Ur Random Potassium Ur Random Chloride Ur Random Urea Nitrogn Urine Creatinine Protein/Creatinin Ratio Urine HCG, Qual Opiates Screen Methadone Screen Barbiturate Screen Phencyclidine Screen Ur Amphetamines Screen MDMA (Ecstasy) Screen Benzodiazepines Screen Cocaine Screen U Marijuana (THC) Screen Hep Bs Antibody Hep B Core Total Ab HIV 1&2 Antibody Screen HIV P24 Antigen Blood Type Antibody Screen Crossmatch 08/01/17 08/01/17 08/01/17 09:30 09:30 09:30 WBC RBC Hgb Hct MCV MCH MCHC RDW Plt Count MPV Neutrophils % Lymphocytes % Monocytes % Eosinophils % Basophils % PT with INR 12.00 H INR 1.06 Sodium 141 Potassium 4.9 Chloride 115 H Carbon Dioxide 20 L Anion Gap 6 L BUN 54 H Creatinine 1.9 H Creat Clearance w eGFR 31.95 POC Glucometer Random Glucose 109 H Hemoglobin A1c % Calcium 7.6 L Phosphorus 7.0 H Magnesium 2.0 Iron 17 L TIBC 249 L Iron Saturation 7 L Ferritin Total Bilirubin < 0.1 L AST 16 ALT 26 Alkaline Phosphatase 125 H Total Protein 5.4 L Albumin 1.5 L Triglycerides Cholesterol Total LDL Cholesterol HDL Cholesterol Vitamin B12 Serum Folate TSH Urine Color Urine Appearance Urine pH Ur Specific [place] Urine Protein Urine Glucose (UA) Urine Ketones Urine Blood Urine Nitrite Urine Bilirubin Urine Urobilinogen Ur Leukocyte Esterase Urine WBC (Auto) Urine RBC (Auto) Ur Epithelial Cells Urine Bacteria Hyaline Casts Urine Mucus U Random Total Protein Ur Random Sodium Ur Random Potassium Ur Random Chloride Ur Random Urea Nitrogn Urine Creatinine Protein/Creatinin Ratio Urine HCG, Qual Opiates Screen Methadone Screen Barbiturate Screen Phencyclidine Screen Ur Amphetamines Screen MDMA (Ecstasy) Screen Benzodiazepines Screen Cocaine Screen U Marijuana (THC) Screen Hep Bs Antibody Hep B Core Total Ab HIV 1&2 Antibody Screen HIV P24 Antigen Blood Type Antibody Screen Crossmatch 08/01/17 08/01/17 08/01/17 09:30 09:30 09:30 WBC RBC Hgb Hct MCV MCH MCHC RDW Plt Count MPV Neutrophils % Lymphocytes % Monocytes % Eosinophils % Basophils % PT with INR INR Sodium Potassium Chloride Carbon Dioxide Anion Gap BUN Creatinine Creat Clearance w eGFR POC Glucometer Random Glucose Hemoglobin A1c % Calcium Phosphorus Magnesium Iron TIBC Iron Saturation Ferritin 85.598 Total Bilirubin AST ALT Alkaline Phosphatase Total Protein Albumin Triglycerides Cholesterol Total LDL Cholesterol HDL Cholesterol Vitamin B12 841 Serum Folate 25 H TSH 1.21 Urine Color Urine Appearance Urine pH Ur Specific [place] Urine Protein Urine Glucose (UA) Urine Ketones Urine Blood Urine Nitrite Urine Bilirubin Urine Urobilinogen Ur Leukocyte Esterase Urine WBC (Auto) Urine RBC (Auto) Ur Epithelial Cells Urine Bacteria Hyaline Casts Urine Mucus U Random Total Protein Ur Random Sodium Ur Random Potassium Ur Random Chloride Ur Random Urea Nitrogn Urine Creatinine Protein/Creatinin Ratio Urine HCG, Qual Opiates Screen Methadone Screen Barbiturate Screen Phencyclidine Screen Ur Amphetamines Screen MDMA (Ecstasy) Screen Benzodiazepines Screen Cocaine Screen U Marijuana (THC) Screen Hep Bs Antibody Non reactive Hep B Core Total Ab Negative HIV 1&2 Antibody Screen HIV P24 Antigen Blood Type Antibody Screen Crossmatch 08/01/17 08/01/17 08/01/17 10:45 13:22 14:00 WBC RBC Hgb Hct MCV MCH MCHC RDW Plt Count MPV Neutrophils % Lymphocytes % Monocytes % Eosinophils % Basophils % PT with INR INR Sodium Potassium Chloride Carbon Dioxide Anion Gap BUN Creatinine Creat Clearance w eGFR POC Glucometer 112 Random Glucose Hemoglobin A1c % Calcium Phosphorus Magnesium Iron TIBC Iron Saturation Ferritin Total Bilirubin AST ALT Alkaline Phosphatase Total Protein Albumin Triglycerides Cholesterol Total LDL Cholesterol HDL Cholesterol Vitamin B12 Serum Folate TSH Urine Color Urine Appearance Urine pH Ur Specific [place] Urine Protein Urine Glucose (UA) Urine Ketones Urine Blood Urine Nitrite Urine Bilirubin Urine Urobilinogen Ur Leukocyte Esterase Urine WBC (Auto) Urine RBC (Auto) Ur Epithelial Cells Urine Bacteria Hyaline Casts Urine Mucus U Random Total Protein 391 H Ur Random Sodium Ur Random Potassium Ur Random Chloride Ur Random Urea Nitrogn Urine Creatinine 41.3 Protein/Creatinin Ratio 9.467 Urine HCG, Qual Opiates Screen Methadone Screen Barbiturate Screen Phencyclidine Screen Ur Amphetamines Screen MDMA (Ecstasy) Screen Benzodiazepines Screen Cocaine Screen U Marijuana (THC) Screen Hep Bs Antibody Hep B Core Total Ab HIV 1&2 Antibody Screen HIV P24 Antigen Blood Type O POSITIVE Antibody Screen Negative Crossmatch 08/01/17 08/01/17 08/01/17 15:30 16:35 20:30 WBC RBC Hgb Hct MCV MCH MCHC RDW Plt Count MPV Neutrophils % Lymphocytes % Monocytes % Eosinophils % Basophils % PT with INR INR Sodium Potassium Chloride Carbon Dioxide Anion Gap BUN Creatinine Creat Clearance w eGFR POC Glucometer 155 186 Random Glucose Hemoglobin A1c % Calcium Phosphorus Magnesium Iron TIBC Iron Saturation Ferritin Total Bilirubin AST ALT Alkaline Phosphatase Total Protein Albumin Triglycerides Cholesterol Total LDL Cholesterol HDL Cholesterol Vitamin B12 Serum Folate TSH Urine Color Urine Appearance Urine pH Ur Specific [place] Urine Protein Urine Glucose (UA) Urine Ketones Urine Blood Urine Nitrite Urine Bilirubin Urine Urobilinogen Ur Leukocyte Esterase Urine WBC (Auto) Urine RBC (Auto) Ur Epithelial Cells Urine Bacteria Hyaline Casts Urine Mucus U Random Total Protein Ur Random Sodium Ur Random Potassium Ur Random Chloride Ur Random Urea Nitrogn Urine Creatinine Protein/Creatinin Ratio Urine HCG, Qual Opiates Screen Negative Methadone Screen Negative Barbiturate Screen Negative Phencyclidine Screen Negative Ur Amphetamines Screen Negative MDMA (Ecstasy) Screen Negative Benzodiazepines Screen Negative Cocaine Screen Negative U Marijuana (THC) Screen Negative Hep Bs Antibody Hep B Core Total Ab HIV 1&2 Antibody Screen HIV P24 Antigen Blood Type Antibody Screen Crossmatch 08/02/17 08/02/17 08/02/17 05:44 08:00 08:00 WBC 6.1 RBC 2.75 L D Hgb 7.9 L D Hct 23.3 L D MCV 84.6 MCH 28.8 MCHC 34.1 RDW 15.2 Plt Count 505 H MPV 7.5 Neutrophils % 50.8 Lymphocytes % 28.4 D Monocytes % 7.3 Eosinophils % 12.1 H Basophils % 1.4 PT with INR INR Sodium Potassium Chloride Carbon Dioxide Anion Gap BUN Creatinine Creat Clearance w eGFR POC Glucometer 85 Random Glucose Hemoglobin A1c % 11.9 H Calcium Phosphorus Magnesium Iron TIBC Iron Saturation Ferritin Total Bilirubin AST ALT Alkaline Phosphatase Total Protein Albumin Triglycerides Cholesterol Total LDL Cholesterol HDL Cholesterol Vitamin B12 Serum Folate TSH Urine Color Urine Appearance Urine pH Ur Specific [place] Urine Protein Urine Glucose (UA) Urine Ketones Urine Blood Urine Nitrite Urine Bilirubin Urine Urobilinogen Ur Leukocyte Esterase Urine WBC (Auto) Urine RBC (Auto) Ur Epithelial Cells Urine Bacteria Hyaline Casts Urine Mucus U Random Total Protein Ur Random Sodium Ur Random Potassium Ur Random Chloride Ur Random Urea Nitrogn Urine Creatinine Protein/Creatinin Ratio Urine HCG, Qual Opiates Screen Methadone Screen Barbiturate Screen Phencyclidine Screen Ur Amphetamines Screen MDMA (Ecstasy) Screen Benzodiazepines Screen Cocaine Screen U Marijuana (THC) Screen Hep Bs Antibody Hep B Core Total Ab HIV 1&2 Antibody Screen HIV P24 Antigen Blood Type Antibody Screen Crossmatch 08/02/17 08/02/17 08/02/17 08:00 08:00 11:04 WBC RBC Hgb Hct MCV MCH MCHC RDW Plt Count MPV Neutrophils % Lymphocytes % Monocytes % Eosinophils % Basophils % PT with INR INR Sodium 143 Potassium 4.8 Chloride 116 H Carbon Dioxide 19 L Anion Gap 8 BUN 51 H Creatinine 1.9 H Creat Clearance w eGFR 31.95 POC Glucometer 152 Random Glucose 108 H Hemoglobin A1c % Calcium 7.9 L Phosphorus 6.8 H Magnesium 2.1 Iron TIBC Iron Saturation Ferritin Total Bilirubin < 0.1 L AST 24 ALT 29 Alkaline Phosphatase 122 H Total Protein 5.6 L Albumin 1.6 L Triglycerides Cholesterol Total LDL Cholesterol HDL Cholesterol Vitamin B12 Serum Folate TSH Urine Color Urine Appearance Urine pH Ur Specific [place] Urine Protein Urine Glucose (UA) Urine Ketones Urine Blood Urine Nitrite Urine Bilirubin Urine Urobilinogen Ur Leukocyte Esterase Urine WBC (Auto) Urine RBC (Auto) Ur Epithelial Cells Urine Bacteria Hyaline Casts Urine Mucus U Random Total Protein Ur Random Sodium Ur Random Potassium Ur Random Chloride Ur Random Urea Nitrogn Urine Creatinine Protein/Creatinin Ratio Urine HCG, Qual Opiates Screen Methadone Screen Barbiturate Screen Phencyclidine Screen Ur Amphetamines Screen MDMA (Ecstasy) Screen Benzodiazepines Screen Cocaine Screen U Marijuana (THC) Screen Hep Bs Antibody Hep B Core Total Ab HIV 1&2 Antibody Screen Negative HIV P24 Antigen Negative Blood Type Antibody Screen Crossmatch 08/02/17 08/02/17 11:15 13:30 WBC RBC Hgb Hct MCV MCH MCHC RDW Plt Count MPV Neutrophils % Lymphocytes % Monocytes % Eosinophils % Basophils % PT with INR INR Sodium Potassium Chloride Carbon Dioxide Anion Gap BUN Creatinine Creat Clearance w eGFR POC Glucometer Random Glucose Hemoglobin A1c % Calcium Phosphorus Magnesium Iron TIBC Iron Saturation Ferritin Total Bilirubin AST ALT Alkaline Phosphatase Total Protein Albumin Triglycerides Cholesterol Total LDL Cholesterol HDL Cholesterol Vitamin B12 Serum Folate TSH Urine Color Straw Straw Urine Appearance Clear Clear Urine pH 6.0 5.0 Ur Specific [place] 1.012 1.011 Urine Protein 3+ H 3+ H Urine Glucose (UA) 2+ H 1+ H Urine Ketones Negative Negative Urine Blood Negative Negative Urine Nitrite Negative Negative Urine Bilirubin Negative Negative Urine Urobilinogen Negative Negative Ur Leukocyte Esterase Negative Negative Urine WBC (Auto) 2 1 Urine RBC (Auto) 2 4 Ur Epithelial Cells Rare Rare Urine Bacteria Rare Hyaline Casts 1 Urine Mucus Rare U Random Total Protein Ur Random Sodium Ur Random Potassium Ur Random Chloride Ur Random Urea Nitrogn Urine Creatinine Protein/Creatinin Ratio Urine HCG, Qual Opiates Screen Methadone Screen Barbiturate Screen Phencyclidine Screen Ur Amphetamines Screen MDMA (Ecstasy) Screen Benzodiazepines Screen Cocaine Screen U Marijuana (THC) Screen Hep Bs Antibody Hep B Core Total Ab HIV 1&2 Antibody Screen HIV P24 Antigen Blood Type Antibody Screen Crossmatch - Alcohol/Substance Use Hx Alcohol Use: No - Past Medical History Cardio/Vascular: Yes: HTN Renal/: Yes: Renal Inusuff ...LMP: 06/03/17 ...: No Infectious Disease: Yes: Other (osteo) Endocrine: Yes: Diabetes Mellitus Assessment Plan - Medication Detox Regimen/Protocol: Not Applicable
[2017-08-01] MEDS ORDERED: amLODIPine BESYLATE 5 MG TABLET (FP) PO ONE (19:45)
[2017-08-01] MEDS: THIAMINE HCL 100 MG TABLET (FP) PO SCH (21:15)
[2017-08-01] MEDS: INSULIN DETEMIR 100 UNITS/ML MDV SQ SCH (21:16)
[2017-08-02] MEDS: HEPARIN NA (PORCINE) 5,000 UNITS/ML 1ML VIAL SQ SCH ×3 (05:30→21:42)
[2017-08-02 06:07] LABS: SERUM IRON SATURATION 7 % (15-55); TOTAL IRON BINDING CAPACITY 249 ug/dL (250-450); UIBC 232 ug/dL (131-425)
[2017-08-02] MEDS: INSULIN SLIDING SCALE (NOVOLOG) 1 VIAL SQ SCH ×4 (06:16→21:44)
--- NOTE | 2017-08-02 06:32 | PN ---
Physical Exam: SUBJECTIVE: Patient seen and examined - Hypertensive after 1 unit prbcs; received norvasc 5mg with good effect; no other events; VSS, afebrile; AM BG borderline low at 85; utox negative - Denies f/c/n/v/d, no cp, sob, cough, ab pain, back pain, neuro symptoms, dysuria/hematuria; Endorses copious urination; states swelling in legs much improved; wants to go back to [facility]; counseled on need to remain in hospital for further work-up of renal dz OBJECTIVE: Vital Signs Intake & Output 07/30/17 07/31/17 08/01/17 08/02/17 23:59 23:59 23:59 23:59 Intake Total 720 Output Total 1600 Balance -880 Weight 69.4 kg 73.482 kg Period Temp Pulse Resp BP Sys/Garcia Pulse Ox Last 24 Hr 97.6 F-98.3 F 82-92 18-20 115-156/73-100 98-98 GENERAL: Young woman, NAD, alert HEAD: Normal with no signs of trauma. ENT: Ears normal, nares patent, oropharynx clear without exudates, moist mucous membranes. NECK: Trachea midline, supple. LUNGS: Breath sounds equal, clear to auscultation bilaterally, no wheezes, no crackles, no accessory muscle use. HEART: Regular rate and rhythm, S1, S2 without murmur, rub or gallop. ABDOMEN: Globular. Soft, nontender, normoactive bowel sounds, no guarding, no rebound, no hepatosplenomegaly, no masses. No CVA tenderness noted. EXTREMITIES: Diminished pulses, BL, 2+ edema to midshank Chronic venous changes/ lymphedema with BL toe amputations. NEUROLOGICAL: Cranial nerves II through XII grossly intact. Normal speech, gait not observed. PSYCH: Normal mood, normal affect. Laboratory Results - last 24 hr CBC, BMP 08/02/17 08:00 08/02/17 08:00 08/01/17 09:30 08/01/17 09:30 07/31/17 08/01/17 08/01/17 14:15 00:00 05:39 WBC RBC Hgb Hct MCV MCH MCHC RDW Plt Count MPV PT with INR INR Sodium Potassium Chloride Carbon Dioxide Anion Gap BUN Creatinine Creat Clearance w eGFR POC Glucometer [phone] 35 Random Glucose Calcium Phosphorus Magnesium Iron TIBC Iron Saturation Ferritin Total Bilirubin AST ALT Alkaline Phosphatase Total Protein Albumin Vitamin B12 Serum Folate TSH Opiates Screen Methadone Screen Barbiturate Screen Phencyclidine Screen Ur Amphetamines Screen MDMA (Ecstasy) Screen Benzodiazepines Screen Cocaine Screen U Marijuana (THC) Screen Hep Bs Antibody Hep B Core Total Ab Blood Type O POSITIVE Antibody Screen Negative Crossmatch See Detail 08/01/17 08/01/17 08/01/17 06:22 09:30 09:30 WBC 6.5 RBC 2.25 L Hgb 6.4 L* Hct 19.1 L MCV 84.6 MCH 28.2 MCHC 33.3 RDW 16.2 H Plt Count 461 H MPV 7.7 PT with INR 12.00 H INR 1.06 Sodium Potassium Chloride Carbon Dioxide Anion Gap BUN Creatinine Creat Clearance w eGFR POC Glucometer 109 Random Glucose Calcium Phosphorus Magnesium Iron TIBC Iron Saturation Ferritin Total Bilirubin AST ALT Alkaline Phosphatase Total Protein Albumin Vitamin B12 Serum Folate TSH Opiates Screen Methadone Screen Barbiturate Screen Phencyclidine Screen Ur Amphetamines Screen MDMA (Ecstasy) Screen Benzodiazepines Screen Cocaine Screen U Marijuana (THC) Screen Hep Bs Antibody Hep B Core Total Ab Blood Type Antibody Screen Crossmatch 08/01/17 08/01/17 08/01/17 09:30 09:30 09:30 WBC RBC Hgb Hct MCV MCH MCHC RDW Plt Count MPV PT with INR INR Sodium 141 Potassium 4.9 Chloride 115 H Carbon Dioxide 20 L Anion Gap 6 L BUN 54 H Creatinine 1.9 H Creat Clearance w eGFR 31.95 POC Glucometer Random Glucose 109 H Calcium 7.6 L Phosphorus 7.0 H Magnesium 2.0 Iron 17 L TIBC 249 L Iron Saturation 7 L Ferritin 85.598 Total Bilirubin < 0.1 L AST 16 ALT 26 Alkaline Phosphatase 125 H Total Protein 5.4 L Albumin 1.5 L Vitamin B12 Serum Folate 25 H TSH 1.21 Opiates Screen Methadone Screen Barbiturate Screen Phencyclidine Screen Ur Amphetamines Screen MDMA (Ecstasy) Screen Benzodiazepines Screen Cocaine Screen U Marijuana (THC) Screen Hep Bs Antibody Hep B Core Total Ab Blood Type Antibody Screen Crossmatch 08/01/17 08/01/17 08/01/17 09:30 09:30 10:45 WBC RBC Hgb Hct MCV MCH MCHC RDW Plt Count MPV PT with INR INR Sodium Potassium Chloride Carbon Dioxide Anion Gap BUN Creatinine Creat Clearance w eGFR POC Glucometer 112 Random Glucose Calcium Phosphorus Magnesium Iron TIBC Iron Saturation Ferritin Total Bilirubin AST ALT Alkaline Phosphatase Total Protein Albumin Vitamin B12 841 Serum Folate TSH Opiates Screen Methadone Screen Barbiturate Screen Phencyclidine Screen Ur Amphetamines Screen MDMA (Ecstasy) Screen Benzodiazepines Screen Cocaine Screen U Marijuana (THC) Screen Hep Bs Antibody Non reactive Hep B Core Total Ab Negative Blood Type Antibody Screen Crossmatch 08/01/17 08/01/17 08/01/17 13:22 15:30 16:35 WBC RBC Hgb Hct MCV MCH MCHC RDW Plt Count MPV PT with INR INR Sodium Potassium Chloride Carbon Dioxide Anion Gap BUN Creatinine Creat Clearance w eGFR POC Glucometer 155 Random Glucose Calcium Phosphorus Magnesium Iron TIBC Iron Saturation Ferritin Total Bilirubin AST ALT Alkaline Phosphatase Total Protein Albumin Vitamin B12 Serum Folate TSH Opiates Screen Negative Methadone Screen Negative Barbiturate Screen Negative Phencyclidine Screen Negative Ur Amphetamines Screen Negative MDMA (Ecstasy) Screen Negative Benzodiazepines Screen Negative Cocaine Screen Negative U Marijuana (THC) Screen Negative Hep Bs Antibody Hep B Core Total Ab Blood Type O POSITIVE Antibody Screen Negative Crossmatch 08/01/17 08/02/17 20:30 05:44 WBC RBC Hgb Hct MCV MCH MCHC RDW Plt Count MPV PT with INR INR Sodium Potassium Chloride Carbon Dioxide Anion Gap BUN Creatinine Creat Clearance w eGFR POC Glucometer 186 85 Random Glucose Calcium Phosphorus Magnesium Iron TIBC Iron Saturation Ferritin Total Bilirubin AST ALT Alkaline Phosphatase Total Protein Albumin Vitamin B12 Serum Folate TSH Opiates Screen Methadone Screen Barbiturate Screen Phencyclidine Screen Ur Amphetamines Screen MDMA (Ecstasy) Screen Benzodiazepines Screen Cocaine Screen U Marijuana (THC) Screen Hep Bs Antibody Hep B Core Total Ab Blood Type Antibody Screen Crossmatch Active Medications Generic Name Dose Route Start Last Admin Trade Name Freq PRN Reason Stop Dose Admin Acetaminophen 650 mg 08/01/17 01:13 08/01/17 02:08 Tylenol - PO 650 mg Q6H PRN Administration PAIN LEVEL 6-10 Furosemide 40 mg 08/02/17 10:00 Lasix Injection - IVPUSH DAILY JULIANNA Heparin Sodium (Porcine) 5,000 unit 08/01/17 06:00 08/02/17 05:30 Heparin - SQ 5,000 unit TID JULIANNA Administration Insulin Aspart 1 vial 07/31/17 22:00 08/02/17 06:16 Novolog Vial Sliding Scale - SQ Not Given ACHS [facility] Protocol Insulin Detemir 10 units 08/01/17 12:00 08/01/17 21:16 Levemir Vial SQ 10 units HS JULIANNA Administration Melatonin 5 mg 07/31/17 20:30 Melatonin PO HS PRN INSOMNIA Nicotine 7 mg 07/31/17 20:45 08/01/17 09:21 Nicoderm Patch - TD 7 mg DAILY JULIANNA Administration Nicotine Polacrilex 2 mg 07/31/17 20:30 Nicorette Gum - BUC Q2H PRN NICOTINE REPLACEMENT RX Multivit/Folic Acid/Iron 1 tab 08/02/17 10:00 Vitamins (Sjr) - PO DAILY JULIANNA Quetiapine Fumarate 50 mg 07/31/17 22:00 08/01/17 21:15 Seroquel - PO 50 mg HS JULIANNA Administration Sertraline HCl 100 mg 08/01/17 10:00 08/01/17 09:14 Zoloft - PO 100 mg DAILY JULIANNA Administration Thiamine HCl 100 mg 08/01/17 22:00 08/01/17 21:15 Vitamin B1 - PO 100 mg HS JULIANNA Administration No micro LE duplex 07/31: IMPRESSION: No evidence of deep venous thrombosis. CXR 07/31 - Interstitial changes suspicious for early interstitial edema. Renal U/S 07/31 - IMPRESSION: 1. Morphologically normal kidneys with no evidence of renal atrophy, hydronephrosis or acute pathology. 2. Left pleural effusion. Please see above discussion. Abdominal U/S 07/31 - 1. Right pleural effusion with no evidence of ascites. 2. No sonographic evidence of hepatic pathology or acute abnormalities. Please see above discussion. Echo 08/01 - EF 72%, moderate LVH, normal LV function, normal RV size and function, mild TR, mild MR ASSESSMENT/PLAN: 26yo F with IDDM, difficult to control HTN, and Cocaine abuse presented from [facility] w/ hyperkalemia to 6.3, found to be in acute renal failure. Pt with improvement in hyperK to 4.9, still with 3+ BL edema in LEs. Renal consulted, recs appreciated. #Acute Renal Failure - likely intrinsic renal dz (FeNa 1.8%); Cr 1.9 today; baseline 1.4-1.5 on prior admission; likely secondary to DM or HTN, however will rule/out other causes; Renal U/S normal - EDU, dsDNA, SPEP/UPEP pending - Lisinopril 10mg daily - HIV negative - Hepatitis panel pending - complement levels pending - Will likely require renal bx (inpt vs. outpt?) - will defer to renal recs - Renal consulted, recs appreciated - Utox negative - Na restricted diet - Strict Is and Os # Hyperkalemia - resolved 4.8 today - trend; repeat in AM - If elevated again, repeat EKG and novolog/d50/Cagluc/BA #3+ LE edema - duplex negative; Echo normal; hold norvasc and CCB; Liver U/S unremarkable - Likely secondary to nephrotic syndrome - c/w Lasix 40mg IV # Normocytic Anemia - 7.9 this AM; likely secondary to renal dz; TSH, b12, folate all normal - responded well to 1unit prbcs yesterday; transfuse at <7 - Trend CBC - Consider EPO for chronic anemia - No evidence of active blood loss - FOBT ordered #HTN - Currently on four meds (amlodipine, lisinopril, clonidine, chlorthalidone ) at home; will consolidate -restart ACEi today; received one dose of norvasc 5mg overnight due to hypertensive episode, responded well - d/c clonidine; likely withdrawal medication - Vitals q4h #DM - BG 85 this AM; no symptoms; A1C 11.9 - ISS, BGM q4h - Levemir 10 units qHS - Monitor for further episodes of hypoglycemia in AM #PSA - monitor for withdrawal symptoms - detox consult - will return to [facility] for continuation of detox and eventual discharge to [facility] # Bipolar Disorder/MDD -Continue Seroquel, Zoloft #Insomnia - melatonin #nicotine abuse - Nicoderm patch - baby counselor on cessation #FEN PO hydration Daily lytes, monitor for hyperK Na controlled/diabetic diet PPX HSQ (increased risk of clot with nephrotic syndrome) EAM # Dispo MS Plan discussed with attending, Dr. Minda Allred, PGY1 Visit type - Emergency Visit Emergency Visit: Yes ED Registration Date: 07/31/17 Care time: The patient presented to the Emergency Department on the above date and was hospitalized for further evaluation of their emergent condition. - New Patient This patient is new to me today: No - Critical Care Critical Care patient: No
[2017-08-02 08:19] LABS: BASO % 1.4 % (0-2.0); EOS % 12.1 % (0-4.5); HEMATOCRIT 23.3 % (32.4-45.2); HEMOGLOBIN 7.9 GM/dL (10.7-15.3); LYMPH % 28.4 % (8-40); MCH 28.8 pg (25.7-33.7); MCHC 34.1 g/dl (32.0-36.0); MEAN CELL VOLUME 84.6 fl (80-96); MEAN PLT VOLUME 7.5 fl (7.5-11.1); MONO % 7.3 % (3.8-10.2); NEUT % 50.8 % (42.8-82.8); PLATELET COUNT 505 K/MM3 (134-434); RBC 2.75 M/mm3 (3.60-5.2); RDW 15.2 % (11.6-15.6); WHITE BLOOD COUNT 6.1 K/mm3 (4.0-10.0)
[2017-08-02 08:42] LABS: ALBUMIN 1.6 g/dl (3.4-5.0); ALK PHOS 122 U/L (45-117); ANION GAP 8 (8-16); BLOOD UREA NITROGEN 51 mg/dL (7-18); CALCIUM 7.9 mg/dL (8.5-10.1); CHLORIDE 116 mmol/L (98-107); CO2 19 mmol/L (21-32); CREATININE 1.9 mg/dL (0.55-1.02); GLUCOSE,RANDOM 108 mg/dL (74-106); MAGNESIUM 2.1 mg/dL (1.8-2.4); PHOSPHOROUS 6.8 mg/dL (2.5-4.9); POTASSIUM 4.8 mmol/L (3.5-5.1); SGOT/AST 24 U/L (15-37); SGPT/ALT 29 U/L (12-78); SODIUM 143 mmol/L (136-145); TOT PROT 5.6 g/dl (6.4-8.2)
[2017-08-02 08:47] LABS: BILIRUBIN,TOTAL < 0.1 mg/dL (0.2-1.0)
--- NOTE | 2017-08-02 08:57 | MSN ---
Progress Note (short form) - Note Progress Note: SUBJECTIVE: Patient seen and examined this morning. Patient on hospital day 2. Overnight, patient hypertensive (156/100) after receiving one unit of PRBC. Norvasc 5 mg was given and repeat vitals within normal limits (115/80). Patient reports feeling better this morning but is anxious to return to [facility]. She was counseled on the necessity of remaining in the hospital to evaluate her renal disease. She admits to increased urination and some diarrhea. She denies pain in her legs, difficultly with ambulation, SOB, abdominal pain, fevers or chills. OBJECTIVE: Vital Signs Period Temp Pulse Resp BP Sys/Garcia Pulse Ox Last 24 Hr 98 F-98.3 F 82-92 18-20 115-156/75-100 98-98 GENERAL: Pale young woman resting comfortably HEAD: Normal without evidence of trauma EYES: Sclera pallor, EOMI MOUTH/PHARYNX: Moist mucous membranes, no erythema or tosilar exudates NECK: Supple, no lymphadenopathy, no thyromegaly, trachea mid-line CARDIOVASCULAR EXAM: Regular at 85 bpm S1/S2; no murmurs, rubs, or gallops LUNGS: Scattered rhonchi b/l, breath sounds equal ABDOMEN: Normoactive bowel sounds, soft, non-tender, non-distended, no rebound or guarding EXTREMITIES: RUE-2nd phalanx amputation, LLE-1st phalanx amputation, RLE-1st and 2nd phalanx amputation; B/L LE 2+ pitting edema, LLE worse edema than right NEURO: CN II-XII grossly intact, normal speech, gait not observed Laboratory Results - last 24 hr 07/31/17 08/01/17 08/01/17 14:15 09:30 09:30 WBC 6.5 RBC 2.25 L Hgb 6.4 L* Hct 19.1 L MCV 84.6 MCH 28.2 MCHC 33.3 RDW 16.2 H Plt Count 461 H MPV 7.7 Neutrophils % Lymphocytes % Monocytes % Eosinophils % Basophils % PT with INR 12.00 H INR 1.06 Sodium Potassium Chloride Carbon Dioxide Anion Gap BUN Creatinine Creat Clearance w eGFR POC Glucometer Random Glucose Hemoglobin A1c % Calcium Phosphorus Magnesium Iron TIBC Iron Saturation Ferritin Total Bilirubin AST ALT Alkaline Phosphatase Total Protein Albumin Vitamin B12 Serum Folate TSH Opiates Screen Methadone Screen Barbiturate Screen Phencyclidine Screen Ur Amphetamines Screen MDMA (Ecstasy) Screen Benzodiazepines Screen Cocaine Screen U Marijuana (THC) Screen Hep Bs Antibody Hep B Core Total Ab HIV 1&2 Antibody Screen HIV P24 Antigen Blood Type O POSITIVE Antibody Screen Negative Crossmatch See Detail 08/01/17 08/01/17 08/01/17 09:30 09:30 09:30 WBC RBC Hgb Hct MCV MCH MCHC RDW Plt Count MPV Neutrophils % Lymphocytes % Monocytes % Eosinophils % Basophils % PT with INR INR Sodium 141 Potassium 4.9 Chloride 115 H Carbon Dioxide 20 L Anion Gap 6 L BUN 54 H Creatinine 1.9 H Creat Clearance w eGFR 31.95 POC Glucometer Random Glucose 109 H Hemoglobin A1c % Calcium 7.6 L Phosphorus 7.0 H Magnesium 2.0 Iron 17 L TIBC 249 L Iron Saturation 7 L Ferritin 85.598 Total Bilirubin < 0.1 L AST 16 ALT 26 Alkaline Phosphatase 125 H Total Protein 5.4 L Albumin 1.5 L Vitamin B12 Serum Folate 25 H TSH 1.21 Opiates Screen Methadone Screen Barbiturate Screen Phencyclidine Screen Ur Amphetamines Screen MDMA (Ecstasy) Screen Benzodiazepines Screen Cocaine Screen U Marijuana (THC) Screen Hep Bs Antibody Hep B Core Total Ab HIV 1&2 Antibody Screen HIV P24 Antigen Blood Type Antibody Screen Crossmatch 08/01/17 08/01/17 08/01/17 09:30 09:30 10:45 WBC RBC Hgb Hct MCV MCH MCHC RDW Plt Count MPV Neutrophils % Lymphocytes % Monocytes % Eosinophils % Basophils % PT with INR INR Sodium Potassium Chloride Carbon Dioxide Anion Gap BUN Creatinine Creat Clearance w eGFR POC Glucometer 112 Random Glucose Hemoglobin A1c % Calcium Phosphorus Magnesium Iron TIBC Iron Saturation Ferritin Total Bilirubin AST ALT Alkaline Phosphatase Total Protein Albumin Vitamin B12 841 Serum Folate TSH Opiates Screen Methadone Screen Barbiturate Screen Phencyclidine Screen Ur Amphetamines Screen MDMA (Ecstasy) Screen Benzodiazepines Screen Cocaine Screen U Marijuana (THC) Screen Hep Bs Antibody Non reactive Hep B Core Total Ab Negative HIV 1&2 Antibody Screen HIV P24 Antigen Blood Type Antibody Screen Crossmatch 08/01/17 08/01/17 08/01/17 13:22 15:30 16:35 WBC RBC Hgb Hct MCV MCH MCHC RDW Plt Count MPV Neutrophils % Lymphocytes % Monocytes % Eosinophils % Basophils % PT with INR INR Sodium Potassium Chloride Carbon Dioxide Anion Gap BUN Creatinine Creat Clearance w eGFR POC Glucometer 155 Random Glucose Hemoglobin A1c % Calcium Phosphorus Magnesium Iron TIBC Iron Saturation Ferritin Total Bilirubin AST ALT Alkaline Phosphatase Total Protein Albumin Vitamin B12 Serum Folate TSH Opiates Screen Negative Methadone Screen Negative Barbiturate Screen Negative Phencyclidine Screen Negative Ur Amphetamines Screen Negative MDMA (Ecstasy) Screen Negative Benzodiazepines Screen Negative Cocaine Screen Negative U Marijuana (THC) Screen Negative Hep Bs Antibody Hep B Core Total Ab HIV 1&2 Antibody Screen HIV P24 Antigen Blood Type O POSITIVE Antibody Screen Negative Crossmatch 08/01/17 08/02/17 08/02/17 20:30 05:44 08:00 WBC RBC Hgb Hct MCV MCH MCHC RDW Plt Count MPV Neutrophils % Lymphocytes % Monocytes % Eosinophils % Basophils % PT with INR INR Sodium Potassium Chloride Carbon Dioxide Anion Gap BUN Creatinine Creat Clearance w eGFR POC Glucometer 186 85 Random Glucose Hemoglobin A1c % 11.9 H Calcium Phosphorus Magnesium Iron TIBC Iron Saturation Ferritin Total Bilirubin AST ALT Alkaline Phosphatase Total Protein Albumin Vitamin B12 Serum Folate TSH Opiates Screen Methadone Screen Barbiturate Screen Phencyclidine Screen Ur Amphetamines Screen MDMA (Ecstasy) Screen Benzodiazepines Screen Cocaine Screen U Marijuana (THC) Screen Hep Bs Antibody Hep B Core Total Ab HIV 1&2 Antibody Screen HIV P24 Antigen Blood Type Antibody Screen Crossmatch 08/02/17 08/02/17 08/02/17 08:00 08:00 08:00 WBC 6.1 RBC 2.75 L D Hgb 7.9 L D Hct 23.3 L D MCV 84.6 MCH 28.8 MCHC 34.1 RDW 15.2 Plt Count 505 H MPV 7.5 Neutrophils % 50.8 Lymphocytes % 28.4 D Monocytes % 7.3 Eosinophils % 12.1 H Basophils % 1.4 PT with INR INR Sodium 143 Potassium 4.8 Chloride 116 H Carbon Dioxide 19 L Anion Gap 8 BUN 51 H Creatinine 1.9 H Creat Clearance w eGFR 31.95 POC Glucometer Random Glucose 108 H Hemoglobin A1c % Calcium 7.9 L Phosphorus 6.8 H Magnesium 2.1 Iron TIBC Iron Saturation Ferritin Total Bilirubin < 0.1 L AST 24 ALT 29 Alkaline Phosphatase 122 H Total Protein 5.6 L Albumin 1.6 L Vitamin B12 Serum Folate TSH Opiates Screen Methadone Screen Barbiturate Screen Phencyclidine Screen Ur Amphetamines Screen MDMA (Ecstasy) Screen Benzodiazepines Screen Cocaine Screen U Marijuana (THC) Screen Hep Bs Antibody Hep B Core Total Ab HIV 1&2 Antibody Screen Negative HIV P24 Antigen Negative Blood Type Antibody Screen Crossmatch IMAGING: Echocardiogram- EF within normal limits; Mild left ventricle hypertrophy ASSESSMENT/PLANS: 26 yr old female on hospital day 2 with history of HTN, IDDM, cocaine abuse, CKD , osteomyelitis and homelessness presented to ED from [facility] after routine labs demonstrated increasing potassium and creatinine and declining hemoglobin and was found to have proteinuria. #Leg edema- secondary to nephrotic syndrome likely due to unmanaged diabetes mellitus. Unlikely cardiac or liver etiology. Echo was within normal limits and liver was normal on u/s and normal LTFs. -Doppler u/s negative for DVT -Resolving; patient is -900 mls; continue Lasix 40 mg IV QD -F/up on EDU, complement, SPEP/UPEP results #GASPER superimposed on CKD -Creatinine stable at 1.9; on admission Cr at 2.1 and baseline Cr is 1.5 ( 2017) -Estamined GFR<30 for 3 months -Restart lisinopril 10 mg QD as hyperkalemia has resolved (K+ 4.8) -Continue to assess need for in-patient renal biopsy #Normocytic Anemia-likely secondary to chronic disease and renal failure -Patient transfused 1 unit of PRBC yesterday with appropriate response in hemoglobin (6.4 increased to -Iron studies demonstrate anemia of chronic disease with component of iron deficiency -Replete iron with ferrous sulfate 325 mg BID -Monitor H and H #HTN-Adequately controlled -Discontinue clonidine as TID schedule would be difficult for patient to manage at home -Stop chlorthalidone -Start lisinopril 10 mg qd as kidney function has stabilized -Hold norvasc 5 mg unless patient hypertensive #Diabetes Mellitus -HbA1c- 11.9%; patient has difficultly storing insulin in current living situation; [employer] patient on importance of maintaining tighter glycemic control -BGM QAC/HS -Levemir dose reduced to 10 units QHS; BG in the am was 85; patient asymptomatic; maintain current dose -Novolog SS #Depression -Continue home medication-seroquel 50 mg qhs and zoloft 100 mg QD #DVT ppx -Heparin 5000u SQ TID #Dispo-Patient would like to finish rehab at [facility] with home of eventually moving to [facility]
[2017-08-02] MEDS: PRENATAL VITAMINS W/ FOLIC ACID TABLET (FP) PO SCH (09:48)
[2017-08-02] MEDS: SERTRALINE HCL 50 MG TABLET (FP) PO SCH (09:48)
[2017-08-02] MEDS: NICOTINE 7 MG/24 HOURS TOPICAL PATCH TD SCH (09:48)
[2017-08-02] MEDS: FUROSEMIDE 40 MG/4 ML INJECTABLE VIAL IVPUSH SCH (09:48)
[2017-08-02] MEDS ORDERED: FUROSEMIDE 40 MG/4 ML INJECTABLE VIAL IVPUSH SCH (10:00)
[2017-08-02] MEDS ORDERED: LISINOPRIL 10 MG TABLET (FP) PO SCH (10:45)
[2017-08-02] MEDS ORDERED: INSULIN (NOVOLOG) ASPART 100 UNITS/ML 10ML VIAL ONE (11:07)
[2017-08-02 12:10] LABS: URINE APPEARANCE CLEAR; URINE BILIRUBIN NEGATIVE (<2.0 mg/dL); URINE BLOOD NEGATIVE (NEGATIVE); URINE COLOR STRAW; URINE GLUCOSE (UA) 2+ (NEGATIVE); URINE KETONE NEGATIVE (NEGATIVE); URINE LEUK ESTERASE NEGATIVE (NEGATIVE); URINE NITRITE NEGATIVE (NEGATIVE); URINE UROBILINOGEN NEGATIVE mg/dL (0.2-1.0)
[2017-08-02 12:12] LABS: URINE PROTEIN 3+ (NEGATIVE)
[2017-08-02 12:19] LABS: EPI CELLS RARE /HPF (FEW); URINE BACTERIA RARE /hpf (NONE SEEN); URINE HYALINE CAST 1 /lpf
--- NOTE | 2017-08-02 13:36 | PN ---
Teaching Attending Note Name of Resident: Huseyin Allred ATTENDING PHYSICIAN STATEMENT I saw and evaluated the patient. I reviewed the resident's note and discussed the case with the resident. I agree with the resident's findings and plan as documented. SUBJECTIVE:states she feels much better. appetite has improved. no symptoms during low sugar reading this AM. denies Cp, SOB, fever, chills, N/v/C/D OBJECTIVE: Last Vital Signs Temp Pulse Resp BP Pulse Ox 97.8 F 100 H 20 164/99 100 08/02/17 09:00 08/02/17 09:00 08/02/17 09:00 08/02/17 09:00 08/02/17 09:00 Intake & Output 07/30/17 07/31/17 08/01/17 08/02/17 23:59 23:59 23:59 23:59 Intake Total 720 Output Total 1600 Balance -880 Weight 153 lb 162 lb 158 lb General NAD Extremities 2+ pitting edema. chronic venous changes. multiple toe amputations. ASSESSMENT AND PLAN: 26yo F with PMH DM, HTN, anemia, bipolar, CKD, OM and continuous polysubstance abuse was sent to the ER from [facility] due to persistent hyperkalemia 1. Hyperkalemia- s/p insulin/d50/kayeyxlate in the ER. likely due to ARF. now resolved 2. GASPER with nephrotic range proteinuria- FeNa 1.8. possible due to DM however can not r/o other causes. renal function stabilizing. good response to lasix. will cont for now. start lisinopril 10mg. pt is refusing renal bx at this time. nephrology on board. strict I&O, daily weights. low salt diet 3. Normocytic anemia-s/p 1 unit PRBC with good response. +iron deficiency. start iron supplements. monitor Hgb. normal txn threshold 4. Hypoglycemia- no repeat episodes. low reading this AM (84) which is better than yesterday. no symptoms with it. states her appetite has improved and expecting to have less hypoglycemic events. A1c 11.9. will need insulin on d/c. 5. HTN- controlled. received norvasc x1 yesterday. starting ACEI. will titrate to optimize control. 6. stage II sacral ulcer- not visualized by me. frequent turning 7. bipolar- cont home medications 8. continuous polysubstance use- currently at inpatient rehab program at [facility]. no signs of withdrawal. plan to go to [facility] once completed 9. DVT ppx- hep sq (increase risk of thrombosis in nephrotic syndrome therefore should be on anticoagulation despite anemia) 10. plans to return to [facility] when medically optimized to complete inpatient rehab.
[2017-08-02] MEDS ORDERED: amLODIPine BESYLATE 5 MG TABLET (FP) PO ONE (13:42)
[2017-08-02 14:48] LABS: RATIO URIN PROTEIN/URIN CREAT 9.467 MG/DL; URINE CREATININE 41.3 mg/dL (20-320)
[2017-08-02 15:08] LABS: URINE APPEARANCE CLEAR; URINE BILIRUBIN NEGATIVE (<2.0 mg/dL); URINE BLOOD NEGATIVE (NEGATIVE); URINE COLOR STRAW; URINE GLUCOSE (UA) 1+ (NEGATIVE); URINE KETONE NEGATIVE (NEGATIVE); URINE LEUK ESTERASE NEGATIVE (NEGATIVE); URINE NITRITE NEGATIVE (NEGATIVE); URINE UROBILINOGEN NEGATIVE mg/dL (0.2-1.0)
[2017-08-02 15:09] LABS: EPI CELLS RARE /HPF (FEW); URINE MUCUS RARE; URINE PROTEIN 3+ (NEGATIVE)
--- NOTE | 2017-08-02 16:42 | PN ---
Progress Note, Physician History of Present Illness: Pt seen and examined at bedside. She feels that her edema is improving. - Current Medication List Current Medications: Active Medications Acetaminophen (Tylenol -) 650 mg PO Q6H PRN PRN Reason: PAIN LEVEL 6-10 Last Admin: 08/01/17 02:08 Dose: 650 mg Ferrous Sulfate (Feosol -) 325 mg PO DAILY [facility] Furosemide (Lasix Injection -) 40 mg IVPUSH DAILY [facility] Last Admin: 08/02/17 09:48 Dose: 40 mg Heparin Sodium (Porcine) (Heparin -) 5,000 unit SQ TID JULIANNA Last Admin: 08/02/17 13:08 Dose: Not Given Insulin Aspart (Novolog Vial Sliding Scale -) 1 vial SQ ACHS JUL[facility] PRN Reason: Protocol Last Admin: 08/02/17 11:07 Dose: 2 units Insulin Detemir (Levemir Vial) 10 units SQ HS [facility] Last Admin: 08/01/17 21:16 Dose: 10 units Lisinopril (Prinivil) 10 mg PO DAILY [facility] Last Admin: 08/02/17 11:02 Dose: 10 mg Melatonin (Melatonin) 5 mg PO HS PRN PRN Reason: INSOMNIA Nicotine (Nicoderm Patch -) 7 mg TD DAILY [facility] Last Admin: 08/02/17 09:48 Dose: 7 mg Nicotine Polacrilex (Nicorette Gum -) 2 mg BUC Q2H PRN PRN Reason: NICOTINE REPLACEMENT RX Multivit/Folic Acid/Iron ( Vitamins (Sjr) -) 1 tab PO DAILY [facility] Last Admin: 08/02/17 09:48 Dose: 1 tab Quetiapine Fumarate (Seroquel -) 50 mg PO HS [facility] Last Admin: 08/01/17 21:15 Dose: 50 mg Sertraline HCl (Zoloft -) 100 mg PO DAILY [facility] Last Admin: 08/02/17 09:48 Dose: 100 mg Thiamine HCl (Vitamin B1 -) 100 mg PO HS [facility] Last Admin: 08/01/17 21:15 Dose: 100 mg - Objective Vital Signs: Vital Signs Temperature 97.9 F 08/02/17 14:33 Pulse Rate 104 H 08/02/17 14:33 Respiratory Rate 20 08/02/17 14:33 Blood Pressure 181/108 08/02/17 14:33 O2 Sat by Pulse Oximetry (%) 100 08/02/17 09:00 Constitutional: Yes: Calm Eyes: Yes: Conjunctiva Clear HENT: Yes: Atraumatic Cardiovascular: Yes: S1, S2 Respiratory: Yes: CTA Bilaterally Gastrointestinal: Yes: Normal Bowel Sounds, Soft Genitourinary: Yes: WNL Musculoskeletal: Yes: WNL Edema: Yes Edema: LLE: 2+, RLE: 2+ Neurological: Yes: Oriented Psychiatric: Yes: Oriented Labs: CBC, BMP 08/02/17 08:00 08/02/17 08:00 INR, PTT INR 1.06 (0.82-1.09) 08/01/17 09:30 Problem List - Problems (1) Acute renal failure Code(s): N17.9 - ACUTE KIDNEY FAILURE, UNSPECIFIED (2) Hyperkalemia Code(s): E87.5 - HYPERKALEMIA (3) Renal insufficiency Code(s): N28.9 - DISORDER OF KIDNEY AND URETER, UNSPECIFIED (4) Cannabis dependence Code(s): F12.20 - CANNABIS DEPENDENCE, UNCOMPLICATED (5) Cocaine dependence Code(s): F14.20 - COCAINE DEPENDENCE, UNCOMPLICATED Qualifiers: Substance use status: uncomplicated Qualified Code(s): F14.20 - Cocaine dependence, uncomplicated (6) Diabetes type 2, uncontrolled Code(s): E11.65 - TYPE 2 DIABETES MELLITUS WITH HYPERGLYCEMIA Qualifiers: Diabetes mellitus termite control technician insulin use: with termite control technician use Diabetes mellitus complication status: with circulatory complication Diabetes mellitus complication detail: with other circulatory complications Qualified Code(s): E11.59 - Type 2 diabetes mellitus with other circulatory complications; E11.65 - Type 2 diabetes mellitus with hyperglycemia; E11.65 - Type 2 diabetes mellitus with hyperglycemia; E11.65 - Type 2 diabetes mellitus with hyperglycemia; E11.65 - Type 2 diabetes mellitus with hyperglycemia; Z79.4 - long term acute care registered nurse (current) use of insulin; Z79.4 - long-term (current) use of insulin; Z79.4 - long term acute care registered nurse (current) use of insulin; Z79.4 - long-term (current) use of insulin Assessment/Plan Current Medications Generic Name Dose Route Start Last Admin Trade Name Freq PRN Reason Stop Dose Admin Acetaminophen 650 mg 08/01/17 01:13 08/01/17 02:08 Tylenol - PO 650 mg Q6H PRN Administration PAIN LEVEL 6-10 Ferrous Sulfate 325 mg 08/03/17 10:00 Feosol - PO DAILY JULIANNA Furosemide 40 mg 08/02/17 10:00 08/02/17 09:48 Lasix Injection - IVPUSH 40 mg DAILY JULIANNA Administration Heparin Sodium (Porcine) 5,000 unit 08/01/17 06:00 08/02/17 13:08 Heparin - SQ Not Given TID JULIANNA Insulin Aspart 1 vial 07/31/17 22:00 08/02/17 11:07 Novolog Vial Sliding Scale - SQ 2 units ACHS JULIANNA Administration Protocol Insulin Detemir 10 units 08/01/17 12:00 08/01/17 21:16 Levemir Vial SQ 10 units HS JULIANNA Administration Lisinopril 10 mg 08/02/17 10:45 08/02/17 11:02 Prinivil PO 10 mg DAILY JULIANNA Administration Melatonin 5 mg 07/31/17 20:30 Melatonin PO HS PRN INSOMNIA Nicotine 7 mg 07/31/17 20:45 08/02/17 09:48 Nicoderm Patch - TD 7 mg DAILY JULIANNA Administration Nicotine Polacrilex 2 mg 07/31/17 20:30 Nicorette Gum - BUC Q2H PRN NICOTINE REPLACEMENT RX Multivit/Folic Acid/Iron 1 tab 08/02/17 10:00 08/02/17 09:48 Vitamins (Sjr) - PO 1 tab DAILY [facility] Administration Quetiapine Fumarate 50 mg 07/31/17 22:00 08/01/17 21:15 Seroquel - PO 50 mg HS JULIANNA Administration Sertraline HCl 100 mg 08/01/17 10:00 08/02/17 09:48 Zoloft - PO 100 mg DAILY J[facility] Administration Thiamine HCl 100 mg 08/01/17 22:00 08/01/17 21:15 Vitamin B1 - PO 100 mg HS JULIANNA Administration Laboratory Tests 08/01/17 08/01/17 08/01/17 09:30 09:30 09:30 JORDI M-Abhijeet Pending EDU Screen Pending c-ANCA Pending Proteinase 3 (PR3) Pending p-ANCA Pending Atypical p-ANCA Pending Myeloperoxidase Ab Pending Glomerular Base Memb Ab Pending Hep Bs Antibody Hep B Core Total Ab Hep B Core Ab Interpret HIV 1&2 Antibody Screen HIV P24 Antigen 08/01/17 08/02/17 09:30 08:00 JORDI M-Abhijeet EDU Screen c-ANCA Proteinase 3 (PR3) p-ANCA Atypical p-ANCA Myeloperoxidase Ab Glomerular Base Memb Ab Hep Bs Antibody Non reactive Hep B Core Total Ab Negative Hep B Core Ab Interpret Pending HIV 1&2 Antibody Screen Negative HIV P24 Antigen Negative Impression 1. CKD 2. GASPER 3. hyperkalemia 4. nephrotic range proteinuria 5. non compliance 6. cocaine use 7. DM uncontrolled 8. htn 9. pleural effusions 10. dyspnea 11. fluid overload Plan - cont with lasix - cont with lisinopril, increase to 20 mg tomorrow and cont to titrate up the dose - renal workup in progress - pt is refusing kidney biopsy, spoke to her at length - renal diet - check hg a1c Dr Campoverde
[2017-08-02] MEDS ORDERED: hydrALAZINE HCL 10 MG TABLET PO ONE (17:20)
[2017-08-02] MEDS ORDERED: QUEtiapine FUMARATE 25 MG TABLET (FP) ONE (21:04)
[2017-08-02] MEDS: INSULIN DETEMIR 100 UNITS/ML MDV SQ SCH (21:44)
[2017-08-02] MEDS: THIAMINE HCL 100 MG TABLET (FP) PO SCH (21:45)
[2017-08-02] MEDS: QUEtiapine FUMARATE 50 MG TABLET PO SCH (21:45)
[2017-08-02] MEDS: ACETAMINOPHEN 325 MG TABLET (FP) PO PRN (21:46)
[2017-08-02] MEDS ORDERED: LISINOPRIL 5 MG TABLET (FP) PO ONE (22:36)
[2017-08-02 23:20] LABS: URINE PROTEIN 412 mg/dl; URINE TOTAL VOLUME 4000 mL
[2017-08-03] MEDS: HEPARIN NA (PORCINE) 5,000 UNITS/ML 1ML VIAL SQ SCH ×3 (06:01→21:23)
[2017-08-03] MEDS: INSULIN SLIDING SCALE (NOVOLOG) 1 VIAL SQ SCH ×4 (06:02→21:29)
[2017-08-03 07:15] LABS: BASO % 2.2 % (0-2.0); HEMATOCRIT 24.3 % (32.4-45.2); HEMOGLOBIN 8.3 GM/dL (10.7-15.3); LYMPH % 33.7 % (8-40); MCH 28.7 pg (25.7-33.7); MCHC 34.1 g/dl (32.0-36.0); MEAN CELL VOLUME 84.2 fl (80-96); MEAN PLT VOLUME 7.5 fl (7.5-11.1); MONO % 7.5 % (3.8-10.2); NEUT % 44.6 % (42.8-82.8); PLATELET COUNT 503 K/MM3 (134-434); RBC 2.89 M/mm3 (3.60-5.2); RDW 15.6 % (11.6-15.6); WHITE BLOOD COUNT 6.1 K/mm3 (4.0-10.0)
[2017-08-03 07:58] LABS: ANION GAP 7 (8-16); BLOOD UREA NITROGEN 50 mg/dL (7-18); CALCIUM 7.6 mg/dL (8.5-10.1); CHLORIDE 114 mmol/L (98-107); CO2 21 mmol/L (21-32); CREATININE 1.9 mg/dL (0.55-1.02); GLUCOSE,RANDOM 106 mg/dL (74-106); MAGNESIUM 1.9 mg/dL (1.8-2.4); PHOSPHOROUS 6.7 mg/dL (2.5-4.9); POTASSIUM 4.9 mmol/L (3.5-5.1); SODIUM 142 mmol/L (136-145)
--- NOTE | 2017-08-03 08:21 | PN ---
Progress Note (short form) - Note Progress Note: states leg pain has improved. denies CP, SOB, fever, chills, N/V/C/D Current Medications Generic Name Dose Route Start Last Admin Trade Name Freq PRN Reason Stop Dose Admin Acetaminophen 650 mg 08/01/17 01:13 08/02/17 21:46 Tylenol - PO 650 mg Q6H PRN Administration PAIN LEVEL 6-10 Ferrous Sulfate 325 mg 08/03/17 10:00 Feosol - PO DAILY JULIANNA Furosemide 40 mg 08/02/17 10:00 08/02/17 09:48 Lasix Injection - IVPUSH 40 mg DAILY JULIANNA Administration Heparin Sodium (Porcine) 5,000 unit 08/01/17 06:00 08/03/17 06:01 Heparin - SQ 5,000 unit TID JULIANNA Administration Insulin Aspart 1 vial 07/31/17 22:00 08/03/17 06:02 Novolog Vial Sliding Scale - SQ Not Given ACHS [facility] Protocol Insulin Detemir 10 units 08/01/17 12:00 08/02/17 21:44 Levemir Vial SQ 10 units HS JULIANNA Administration Lisinopril 10 mg 08/02/17 10:45 08/02/17 11:02 Prinivil PO 10 mg DAILY JULIANNA Administration Melatonin 5 mg 07/31/17 20:30 Melatonin PO HS PRN INSOMNIA Nicotine 7 mg 07/31/17 20:45 08/02/17 09:48 Nicoderm Patch - TD 7 mg DAILY J[facility]NA Administration Nicotine Polacrilex 2 mg 07/31/17 20:30 Nicorette Gum - BUC Q2H PRN NICOTINE REPLACEMENT RX Multivit/Folic Acid/Iron 1 tab 08/02/17 10:00 08/02/17 09:48 Vitamins (Sjr) - PO 1 tab DAILY [facility] Administration Quetiapine Fumarate 50 mg 07/31/17 22:00 08/02/17 21:45 Seroquel - PO 50 mg HS JULIANNA Administration Sertraline HCl 100 mg 08/01/17 10:00 08/02/17 09:48 Zoloft - PO 100 mg DAILY JULIANNA Administration Thiamine HCl 100 mg 08/01/17 22:00 08/02/17 21:45 Vitamin B1 - PO 100 mg HS JULIANNA Administration Last Vital Signs Temp Pulse Resp BP Pulse Ox 98.0 F 102 H 20 148/93 98 08/03/17 05:00 08/03/17 05:00 08/03/17 05:00 08/03/17 05:00 08/02/17 20:01 Intake & Output 07/31/17 08/01/17 08/02/17 08/03/17 23:59 23:59 23:59 23:59 Intake Total 720 450 250 Output Total 1600 Balance -880 450 250 Weight 153 lb 162 lb 158 lb 155 lb 9 oz General NAD CV s1 S2 RRR no murmur/rub/gallop Lungs CTA B/L no wheezing/crackles Abdomen soft NT/ND Extremities 2+ pitting edema. chronic venous changes. multiple toe amputations. CBCD WBC 6.1 K/mm3 (4.0-10.0) 08/03/17 06:00 RBC 2.89 M/mm3 (3.60-5.2) L 08/03/17 06:00 Hgb 8.3 GM/dL (10.7-15.3) L 08/03/17 06:00 Hct 24.3 % (32.4-45.2) L 08/03/17 06:00 MCV 84.2 fl (80-96) 08/03/17 06:00 MCHC 34.1 g/dl (32.0-36.0) 08/03/17 06:00 RDW 15.6 % (11.6-15.6) 08/03/17 06:00 Plt Count 503 K/MM3 (134-434) H 08/03/17 06:00 MPV 7.5 fl (7.5-11.1) 08/03/17 06:00 CMP Sodium 142 mmol/L (136-145) 08/03/17 06:00 Potassium 4.9 mmol/L (3.5-5.1) 08/03/17 06:00 Chloride 114 mmol/L (98-107) H 08/03/17 06:00 Carbon Dioxide 21 mmol/L (21-32) 08/03/17 06:00 Anion Gap 7 (8-16) L 08/03/17 06:00 BUN 50 mg/dL (7-18) H 08/03/17 06:00 Creatinine 1.9 mg/dL (0.55-1.02) H 08/03/17 06:00 Creat Clearance w eGFR 31.95 (>60) 08/02/17 08:00 Calcium 7.6 mg/dL (8.5-10.1) L 08/03/17 06:00 Total Bilirubin < 0.1 mg/dL (0.2-1.0) L 08/02/17 08:00 AST 24 U/L (15-37) 08/02/17 08:00 ALT 29 U/L (12-78) 08/02/17 08:00 Alkaline Phosphatase 122 U/L (45-117) H 08/02/17 08:00 Total Protein 5.6 g/dl (6.4-8.2) L 08/02/17 08:00 Albumin 1.6 g/dl (3.4-5.0) L 08/02/17 08:00 ASSESSMENT AND PLAN: 26yo F with PMH DM, HTN, anemia, bipolar, CKD, OM and continuous polysubstance abuse was sent to the ER from [facility] due to persistent hyperkalemia 1. Hyperkalemia- s/p insulin/d50/kayeyxlate in the ER. likely due to ARF. now resolved 2. GASPER with nephrotic range proteinuria- FeNa 1.8. possible due to DM however can not r/o other causes. renal function stabilizing. good response to lasix. will cont for now. increase lisinopril 20mg. pt is refusing renal bx at this time. nephrology on board. strict I&O, daily weights. low salt diet 3. Normocytic anemia-s/p 1 unit PRBC with good response. +iron deficiency. started on iron supplements. monitor Hgb. normal txn threshold 4. Hypoglycemia- no repeat episodes. now controlled. cont current management. 5. HTN- uncontrolled. received norvasc x1 yesterday. will increase to 10mg. will titrate to optimize control. 6. stage II sacral ulcer- not visualized by me. frequent turning 7. bipolar- cont home medications 8. continuous polysubstance use- currently at inpatient rehab program at [facility]. no signs of withdrawal. plan to go to [facility] once completed 9. DVT ppx- hep sq 10. plans to return to [facility] when medically optimized to complete inpatient rehab. Visit type - Emergency Visit Emergency Visit: Yes ED Registration Date: 07/31/17 Care time: The patient presented to the Emergency Department on the above date and was hospitalized for further evaluation of their emergent condition. - New Patient This patient is new to me today: No - Critical Care Critical Care patient: No - Discharge Referral Referred to [facility] No
[2017-08-03] MEDS ORDERED: LISINOPRIL 10 MG TABLET (FP) PO SCH (08:22)
[2017-08-03] MEDS: amLODIPine BESYLATE 10 MG TABLET (FP) PO SCH (09:51)
[2017-08-03] MEDS: SERTRALINE HCL 50 MG TABLET (FP) PO SCH (09:51)
[2017-08-03] MEDS: FUROSEMIDE 40 MG/4 ML INJECTABLE VIAL IVPUSH SCH (09:51)
[2017-08-03] MEDS: PRENATAL VITAMINS W/ FOLIC ACID TABLET (FP) PO SCH (09:51)
[2017-08-03] MEDS: FERROUS SO4 325 MG TABLET (FP) PO SCH (09:52)
[2017-08-03] MEDS: NICOTINE 7 MG/24 HOURS TOPICAL PATCH TD SCH ×2 (09:52→10:07)
[2017-08-03] MEDS: LOPERAMIDE HCL 2 MG CAPSULE PO PRN (10:11)
[2017-08-03] MEDS ORDERED: INSULIN (NOVOLOG) ASPART 100 UNITS/ML 10ML VIAL ONE ×2 (11:14→21:13)
[2017-08-03 13:23] LABS: PROTEINASE-3 ANTIBODY <3.5
--- NOTE | 2017-08-03 14:42 | PN ---
Progress Note, Physician History of Present Illness: Pt seen and examined at bedside. She feels that her lower ext edema is starting to improve. - Current Medication List Current Medications: Active Medications Acetaminophen (Tylenol -) 650 mg PO Q6H PRN PRN Reason: PAIN LEVEL 6-10 Last Admin: 08/02/17 21:46 Dose: 650 mg Amlodipine Besylate (Norvasc -) 10 mg PO DAILY [facility] Last Admin: 08/03/17 09:51 Dose: 10 mg Ferrous Sulfate (Feosol -) 325 mg PO DAILY [facility] Last Admin: 08/03/17 09:52 Dose: 325 mg Furosemide (Lasix Injection -) 40 mg IVPUSH DAILY [facility] Last Admin: 08/03/17 09:51 Dose: 40 mg Heparin Sodium (Porcine) (Heparin -) 5,000 unit SQ TID [facility] Last Admin: 08/03/17 13:00 Dose: Not Given Insulin Aspart (Novolog Vial Sliding Scale -) 1 vial SQ ACHS [facility] PRN Reason: Protocol Last Admin: 08/03/17 11:16 Dose: 2 units Insulin Detemir (Levemir Vial) 10 units SQ HS [facility] Last Admin: 08/02/17 21:44 Dose: 10 units Lisinopril (Prinivil) 20 mg PO DAILY [facility] Last Admin: 08/03/17 09:52 Dose: 20 mg Loperamide HCl (Imodium -) 2 mg PO Q8H PRN PRN Reason: DIARRHEA Last Admin: 08/03/17 10:11 Dose: 2 mg Melatonin (Melatonin) 5 mg PO HS PRN PRN Reason: INSOMNIA Nicotine (Nicoderm Patch -) 7 mg TD DAILY [facility] Last Admin: 08/03/17 10:07 Dose: Not Given Nicotine Polacrilex (Nicorette Gum -) 2 mg BUC Q2H PRN PRN Reason: NICOTINE REPLACEMENT RX Multivit/Folic Acid/Iron ( Vitamins (Sjr) -) 1 tab PO DAILY [facility] Last Admin: 08/03/17 09:51 Dose: 1 tab Quetiapine Fumarate (Seroquel -) 50 mg PO HS [facility] Last Admin: 08/02/17 21:45 Dose: 50 mg Sertraline HCl (Zoloft -) 100 mg PO DAILY [facility] Last Admin: 08/03/17 09:51 Dose: 100 mg Thiamine HCl (Vitamin B1 -) 100 mg PO HS [facility] Last Admin: 04/20/18 21:45 Dose: 100 mg - Objective Vital Signs: Vital Signs Temperature 98.0 F 08/03/17 09:00 Pulse Rate 104 H 08/03/17 09:00 Respiratory Rate 20 08/03/17 09:00 Blood Pressure 153/108 08/03/17 09:00 O2 Sat by Pulse Oximetry (%) 96 08/03/17 09:00 Constitutional: Yes: Calm Eyes: Yes: Conjunctiva Clear HENT: Yes: Atraumatic Neck: Yes: Supple Cardiovascular: Yes: S1, S2 Respiratory: Yes: CTA Bilaterally Gastrointestinal: Yes: Soft Genitourinary: Yes: WNL Edema: Yes Edema: LLE: 2+, RLE: 2+ Neurological: Yes: Oriented Psychiatric: Yes: Oriented Labs: CBC, BMP 08/03/17 06:00 08/03/17 06:00 INR, PTT INR 1.06 (0.82-1.09) 08/01/17 09:30 Problem List - Problems (1) Acute renal failure Code(s): N17.9 - ACUTE KIDNEY FAILURE, UNSPECIFIED (2) Hyperkalemia Code(s): E87.5 - HYPERKALEMIA (3) Renal insufficiency Code(s): N28.9 - DISORDER OF KIDNEY AND URETER, UNSPECIFIED (4) Cannabis dependence Code(s): F12.20 - CANNABIS DEPENDENCE, UNCOMPLICATED (5) Cocaine dependence Code(s): F14.20 - COCAINE DEPENDENCE, UNCOMPLICATED Qualifiers: Substance use status: uncomplicated Qualified Code(s): F14.20 - Cocaine dependence, uncomplicated (6) Diabetes type 2, uncontrolled Code(s): E11.65 - TYPE 2 DIABETES MELLITUS WITH HYPERGLYCEMIA Qualifiers: Diabetes mellitus knuckle bender insulin use: with fci use Diabetes mellitus complication status: with circulatory complication Diabetes mellitus complication detail: with other circulatory complications Qualified Code(s): E11.59 - Type 2 diabetes mellitus with other circulatory complications; E11.65 - Type 2 diabetes mellitus with hyperglycemia; E11.65 - Type 2 diabetes mellitus with hyperglycemia; E11.65 - Type 2 diabetes mellitus with hyperglycemia; E11.65 - Type 2 diabetes mellitus with hyperglycemia; Z79.4 - associate artistic director (current) use of insulin; Z79.4 - senior care (current) use of insulin; Z79.4 - associate artistic director (current) use of insulin; Z79.4 - associate artistic director (current) use of insulin Assessment/Plan Current Medications Generic Name Dose Route Start Last Admin Trade Name Freq PRN Reason Stop Dose Admin Acetaminophen 650 mg 08/01/17 01:13 08/02/17 21:46 Tylenol - PO 650 mg Q6H PRN Administration PAIN LEVEL 6-10 Amlodipine Besylate 10 mg 08/03/17 10:00 08/03/17 09:51 Norvasc - PO 10 mg DAILY JULIANNA Administration Ferrous Sulfate 325 mg 08/03/17 10:00 08/03/17 09:52 Feosol - PO 325 mg DAILY JULIANNA Administration Furosemide 40 mg 08/02/17 10:00 08/03/17 09:51 Lasix Injection - IVPUSH 40 mg DAILY [facility] Administration Heparin Sodium (Porcine) 5,000 unit 08/01/17 06:00 08/03/17 13:00 Heparin - SQ Not Given TID JULIANNA Insulin Aspart 1 vial 07/31/17 22:00 08/03/17 11:16 Novolog Vial Sliding Scale - SQ 2 units ACHS [facility] Administration Protocol Insulin Detemir 10 units 08/01/17 12:00 08/02/17 21:44 Levemir Vial SQ 10 units HS [facility] Administration Lisinopril 20 mg 08/03/17 08:22 08/03/17 09:52 Prinivil PO 20 mg DAILY JULIANNA Administration Loperamide HCl 2 mg 08/03/17 09:58 08/03/17 10:11 Imodium - PO 2 mg Q8H PRN Administration DIARRHEA Melatonin 5 mg 07/31/17 20:30 Melatonin PO HS PRN INSOMNIA Nicotine 7 mg 07/31/17 20:45 08/03/17 10:07 Nicoderm Patch - TD Not Given DAILY [facility] Nicotine Polacrilex 2 mg 07/31/17 20:30 Nicorette Gum - BUC Q2H PRN NICOTINE REPLACEMENT RX Multivit/Folic Acid/Iron 1 tab 08/02/17 10:00 08/03/17 09:51 Vitamins (Sjr) - PO 1 tab DAILY [facility] Administration Quetiapine Fumarate 50 mg 07/31/17 22:00 08/02/17 21:45 Seroquel - PO 50 mg HS [facility]NA Administration Sertraline HCl 100 mg 08/01/17 10:00 08/03/17 09:51 Zoloft - PO 100 mg DAILY [facility] Administration Thiamine HCl 100 mg 08/01/17 22:00 08/02/17 21:45 Vitamin B1 - PO 100 mg HS JULIANNA Administration Laboratory Tests 08/01/17 08/01/17 08/02/17 09:30 09:30 20:30 U Random JORDI M-Abhijeet % Pending EDU Screen Negative c-ANCA Pending Proteinase 3 (PR3) <3.5 p-ANCA Pending Atypical p-ANCA Pending Myeloperoxidase Ab <9 Glomerular Base Memb Ab Pending Impression 1. CKD 2. GASPER 3. hyperkalemia 4. nephrotic range proteinuria 5. non compliance 6. cocaine use 7. DM uncontrolled 8. htn 9. pleural effusions 10. dyspnea 11. fluid overload Plan - cont IV lasix - lisinopril at 20, will increase to 40 if she tolerated - pt does not want a biopsy - renal workup in progress - renal diet - check hg a1c Dr Campoverde
[2017-08-03] MEDS ORDERED: QUEtiapine FUMARATE 25 MG TABLET (FP) ONE (21:13)
[2017-08-03] MEDS: THIAMINE HCL 100 MG TABLET (FP) PO SCH (21:23)
[2017-08-03] MEDS: QUEtiapine FUMARATE 50 MG TABLET PO SCH (21:23)
[2017-08-03] MEDS: INSULIN DETEMIR 100 UNITS/ML MDV SQ SCH (21:26)
[2017-08-03] MEDS ORDERED: LISINOPRIL 20 MG TABLET (FP) PO ONE (21:35)
[2017-08-04] MEDS ORDERED: PT OWN MED DRAWER 7, Y5N ONE ×4 (02:18→23:30)
[2017-08-04] MEDS: MELATONIN 5 MG TABLETS PO PRN ×2 (02:27→22:48)
[2017-08-04] MEDS: INSULIN SLIDING SCALE (NOVOLOG) 1 VIAL SQ SCH ×4 (06:04→22:53)
[2017-08-04] MEDS: HEPARIN NA (PORCINE) 5,000 UNITS/ML 1ML VIAL SQ SCH ×3 (06:06→22:49)
[2017-08-04 07:25] LABS: HEMATOCRIT 25.7 % (32.4-45.2); HEMOGLOBIN 8.6 GM/dL (10.7-15.3); MCH 28.6 pg (25.7-33.7); MCHC 33.7 g/dl (32.0-36.0); MEAN CELL VOLUME 85.1 fl (80-96); MEAN PLT VOLUME 7.7 fl (7.5-11.1); PLATELET COUNT 480 K/MM3 (134-434); RBC 3.02 M/mm3 (3.60-5.2); RDW 15.4 % (11.6-15.6); WHITE BLOOD COUNT 5.1 K/mm3 (4.0-10.0)
[2017-08-04 07:59] LABS: ANION GAP 8 (8-16); BLOOD UREA NITROGEN 47 mg/dL (7-18); CALCIUM 7.8 mg/dL (8.5-10.1); CHLORIDE 113 mmol/L (98-107); CO2 20 mmol/L (21-32); CREATININE 2.2 mg/dL (0.55-1.02); GLUCOSE,RANDOM 248 mg/dL (74-106); POTASSIUM 4.7 mmol/L (3.5-5.1); SODIUM 141 mmol/L (136-145)
--- NOTE | 2017-08-04 08:06 | PN ---
Teaching Attending Note Name of Resident: Zuleima Javed ATTENDING PHYSICIAN STATEMENT I saw and evaluated the patient. I reviewed the resident's note and discussed the case with the resident. I agree with the resident's findings and plan as documented. SUBJECTIVE:had 3 loose BM yesterday, no assoc abdominal pain or cramping. states her leg pain has improved. denies Cp, SOB, fever, chills, N/V OBJECTIVE: Last Vital Signs Temp Pulse Resp BP Pulse Ox 97.3 F L 102 H 18 141/87 98 08/04/17 05:00 08/04/17 05:00 08/04/17 05:00 08/04/17 05:00 08/03/17 21:00 Intake & Output 08/01/17 08/02/17 08/03/17 08/04/17 23:59 23:59 23:59 23:59 Intake Total 720 450 810 240 Output Total 1600 Balance -880 450 810 240 Weight 162 lb 158 lb 155 lb 9 oz 154 lb 8 oz General NAD Lungs S1 S2 RRR no murmur/rub/gallop Abdomen soft NT/ND Extremities 1+ pitting edema B/L chronic skin changse ASSESSMENT AND PLAN: 26yo F with PMH DM, HTN, anemia, bipolar, CKD, OM and continuous polysubstance abuse was sent to the ER from [facility] due to persistent hyperkalemia 1. Hyperkalemia- s/p insulin/d50/kayeyxlate in the ER. likely due to ARF. now resolved 2. GASPER with nephrotic range proteinuria- FeNa 1.8. possible due to DM however can not r/o other causes. renal function stabilizing. good response to lasix. will cont for now. increase lisinopril to 40mg. pt is refusing renal bx at this time. nephrology on board. strict I&O, daily weights. low salt diet 3. Normocytic anemia-s/p 1 unit PRBC with good response. +iron deficiency. started on iron supplements. monitor Hgb. normal txn threshold 4. Hypoglycemia- no repeat episodes. now controlled. cont current management. 5. HTN- above goal but improved. increase lisinopril to 40mg. on norvasc. 6. stage II sacral ulcer- not visualized by me. frequent turning 7. bipolar- cont home medications 8. continuous polysubstance use- currently at inpatient rehab program at [facility]. no signs of withdrawal. plan to go to [facility] once completed 9. DVT ppx- hep sq 10. plans to return to [facility] when medically optimized to complete inpatient rehab.
[2017-08-04] MEDS: FERROUS SO4 325 MG TABLET (FP) PO SCH (09:28)
[2017-08-04] MEDS: SERTRALINE HCL 50 MG TABLET (FP) PO SCH (09:28)
[2017-08-04] MEDS: LISINOPRIL 20 MG TABLET (FP) PO SCH (09:28)
[2017-08-04] MEDS: amLODIPine BESYLATE 10 MG TABLET (FP) PO SCH (09:28)
[2017-08-04] MEDS: NICOTINE 7 MG/24 HOURS TOPICAL PATCH TD SCH (09:28)
[2017-08-04] MEDS: PRENATAL VITAMINS W/ FOLIC ACID TABLET (FP) PO SCH (09:28)
[2017-08-04] MEDS: NICOTINE POLACRILEX 2 MG GUM BUC PRN (09:32)
[2017-08-04] MEDS ORDERED: FUROSEMIDE 40 MG TABLET (FP) PO SCH (10:00)
--- NOTE | 2017-08-04 14:33 | PN ---
Physical Exam: SUBJECTIVE: Patient seen and examined patient resting in bed NAD. no acute events. slightly hypertensive 140's. slight tachycardia 105. urinating adequately. no complaints at this time. still hesitant about renal biopsy due to bleeding concern. OBJECTIVE: Vital Signs Period Temp Pulse Resp BP Sys/Garcia Pulse Ox Last 24 Hr 97.3 F-98.1 F 101-109 17-20 138-153/87-102 98-98 GENERAL: The patient is awake, alert, and fully oriented, in no acute distress. HEAD: Normal with no signs of trauma. EYES: PERRL, extraocular movements intact, sclera anicteric, conjunctiva clear. No ptosis. ENT: moist mucous membranes. NECK: supple. LUNGS: Breath sounds equal, clear to auscultation bilaterally HEART: Regular rate and rhythm, S1, S2 ABDOMEN: Soft, nontender, nondistended, normoactive bowel sounds, no guarding, no rebound, no masses. Lower EXTREMITIES: 1+ DP pulses, warm, well-perfused, 2+ edema, b/l great toe amputations, no calf tenderness NEUROLOGICAL: Cranial nerves II through XII grossly intact. Normal speech, gait not observed. PSYCH: Normal mood, normal affect. SKIN: Warm, dry Laboratory Results - last 24 hr 08/02/17 08/03/17 08/03/17 08:00 16:27 21:21 WBC RBC Hgb Hct MCV MCH MCHC RDW Plt Count MPV Sodium Potassium Chloride Carbon Dioxide Anion Gap BUN Creatinine POC Glucometer 163 272 Random Glucose Calcium Hepatitis A IgM Ab Negative Hep Bs Antigen Negative Hep B Core IgM Ab Negative Hep C Ab Diagnostic <0.1 08/04/17 08/04/17 08/04/17 06:00 06:00 11:11 WBC 5.1 RBC 3.02 L Hgb 8.6 L Hct 25.7 L MCV 85.1 MCH 28.6 MCHC 33.7 RDW 15.4 Plt Count 480 H MPV 7.7 Sodium 141 Potassium 4.7 Chloride 113 H Carbon Dioxide 20 L Anion Gap 8 BUN 47 H Creatinine 2.2 H POC Glucometer 141 Random Glucose 248 H Calcium 7.8 L Hepatitis A IgM Ab Hep Bs Antigen Hep B Core IgM Ab Hep C Ab Diagnostic Active Medications Generic Name Dose Route Start Last Admin Trade Name Freq PRN Reason Stop Dose Admin Acetaminophen 650 mg 08/01/17 01:13 08/02/17 21:46 Tylenol - PO 650 mg Q6H PRN Administration PAIN LEVEL 6-10 Amlodipine Besylate 10 mg 08/03/17 10:00 08/04/17 09:28 Norvasc - PO 10 mg DAILY [facility] Administration Ferrous Sulfate 325 mg 08/03/17 10:00 08/04/17 09:28 Feosol - PO 325 mg DAILY [facility] Administration Furosemide 40 mg 08/04/17 10:00 08/04/17 09:28 Lasix - PO 40 mg DAILY [facility] Administration Heparin Sodium (Porcine) 5,000 unit 08/01/17 06:00 08/04/17 14:00 Heparin - SQ Not Given TID [facility] Insulin Aspart 1 vial 07/31/17 22:00 08/04/17 11:31 Novolog Vial Sliding Scale - SQ Not Given ACHS [facility] Protocol Insulin Detemir 10 units 08/01/17 12:00 08/03/17 21:26 Levemir Vial SQ 10 units HS [facility] Administration Lisinopril 40 mg 08/04/17 08:03 08/04/17 09:28 Prinivil PO 40 mg DAILY [facility] Administration Loperamide HCl 2 mg 08/03/17 09:58 08/03/17 10:11 Imodium - PO 2 mg Q8H PRN Administration DIARRHEA Melatonin 5 mg 07/31/17 20:30 08/04/17 02:27 Melatonin PO 5 mg HS PRN Administration INSOMNIA Nicotine 7 mg 07/31/17 20:45 08/04/17 09:28 Nicoderm Patch - TD Not Given DAILY [facility] Nicotine Polacrilex 2 mg 07/31/17 20:30 08/04/17 09:32 Nicorette Gum - BUC 2 mg Q2H PRN Administration NICOTINE REPLACEMENT RX Multivit/Folic Acid/Iron 1 tab 08/02/17 10:00 08/04/17 09:28 Vitamins (Sjr) - PO 1 tab DAILY [facility] Administration Quetiapine Fumarate 50 mg 07/31/17 22:00 08/03/17 21:23 Seroquel - PO 50 mg HS [facility] Administration Sertraline HCl 100 mg 08/01/17 10:00 08/04/17 09:28 Zoloft - PO 100 mg DAILY [facility] Administration Thiamine HCl 100 mg 08/01/17 22:00 08/03/17 21:23 Vitamin B1 - PO 100 mg HS [facility] Administration ASSESSMENT/PLAN: LE duplex 07/31: IMPRESSION: No evidence of deep venous thrombosis. CXR 07/31 - Interstitial changes suspicious for early interstitial edema. Renal U/S 07/31 - IMPRESSION: 1. Morphologically normal kidneys with no evidence of renal atrophy, hydronephrosis or acute pathology. 2. Left pleural effusion. Please see above discussion. Abdominal U/S 07/31 - 1. Right pleural effusion with no evidence of ascites. 2. No sonographic evidence of hepatic pathology or acute abnormalities. Please see above discussion. Echo 08/01 - EF 72%, moderate LVH, normal LV function, normal RV size and function, mild TR, mild MR 26yo F with IDDM, difficult to control HTN, and Cocaine abuse presented from [facility] w/ hyperkalemia to 6.3, found to be in acute renal failure. 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 -EDU, dsDNA, SPEP/UPEP, complement levels pd -Lisinopril 40mg daily -HIV, hepatitis negative -refuses renal biopsy -Renal consult appreciated 3+ LE edema -Likely secondary to nephrotic syndrome -improving with diuresis -duplex negative Normocytic Anemia -likely secondary to renal disease -s/p 1 u pRBC this admission -Hgb 8.6 stable -Consider EPO for chronic anemia -No evidence of active blood loss HTN -continue norvasc 10 d, lisinoprol 40 d, lasix 40 po d IDDM -poorly controlled; A1C 11.9 -ISS, BGM, requiring 4/6 u daily -Levemir 10 units qHS -outpatient opthalmology, podiatry f/u PSA -monitor for withdrawal symptoms -detox consult -will return to [facility] for detox and eventual discharge to [facility] Bipolar Disorder/MDD -Seroquel, Zoloft Insomnia -melatonin nicotine abuse -Nicoderm gum -cessation counseling FEN PO hydration Daily lytes Na controlled/diabetic diet HSQ (increased risk of clot with nephrotic syndrome) m/s; likely dc tomorrow Problem List - Problems (1) Acute renal failure Code(s): N17.9 - ACUTE KIDNEY FAILURE, UNSPECIFIED (2) Alcohol dependence Code(s): F10.20 - ALCOHOL DEPENDENCE, UNCOMPLICATED (3) Depressive disorder Code(s): F32.9 - MAJOR DEPRESSIVE DISORDER, SINGLE EPISODE, UNSPECIFIED (4) Insomnia Code(s): G47.00 - INSOMNIA, UNSPECIFIED (5) Renal insufficiency Code(s): N28.9 - DISORDER OF KIDNEY AND URETER, UNSPECIFIED (6) Bipolar disorder Code(s): F31.9 - BIPOLAR DISORDER, UNSPECIFIED Qualifiers: Active/Remission status: remission status unspecified Qualified Code(s): F31.9 - Bipolar disorder, unspecified (7) Cannabis dependence Code(s): F12.20 - CANNABIS DEPENDENCE, UNCOMPLICATED (8) Cocaine dependence Code(s): F14.20 - COCAINE DEPENDENCE, UNCOMPLICATED Qualifiers: Substance use status: uncomplicated Qualified Code(s): F14.20 - Cocaine dependence, uncomplicated (9) Diabetes type 2, uncontrolled Code(s): E11.65 - TYPE 2 DIABETES MELLITUS WITH HYPERGLYCEMIA Qualifiers: Diabetes mellitus terminal worker insulin use: with alf use Diabetes mellitus complication status: with circulatory complication Diabetes mellitus complication detail: with other circulatory complications Qualified Code(s): E11.59 - Type 2 diabetes mellitus with other circulatory complications; E11.65 - Type 2 diabetes mellitus with hyperglycemia; E11.65 - Type 2 diabetes mellitus with hyperglycemia; E11.65 - Type 2 diabetes mellitus with hyperglycemia; E11.65 - Type 2 diabetes mellitus with hyperglycemia; Z79.4 - group home (current) use of insulin; Z79.4 - terminal worker (current) use of insulin; Z79.4 - terminal worker (current) use of insulin; Z79.4 - group home (current) use of insulin (10) H/O amputation Code(s): Z89.9 - ACQUIRED ABSENCE OF LIMB, UNSPECIFIED (11) HTN (hypertension) Code(s): I10 - ESSENTIAL (PRIMARY) HYPERTENSION Qualifiers: Hypertension type: unspecified Qualified Code(s): I10 - Essential (primary ) hypertension (12) Nicotine dependence Code(s): F17.200 - NICOTINE DEPENDENCE, UNSPECIFIED, UNCOMPLICATED Qualifiers: Nicotine product type: cigarettes Substance use status: uncomplicated Qualified Code(s): F17.210 - Nicotine dependence, cigarettes, uncomplicated (13) Swelling of lower extremity Code(s): M79.89 - OTHER SPECIFIED SOFT TISSUE DISORDERS Visit type - Emergency Visit Emergency Visit: Yes ED Registration Date: 07/31/17 Care time: The patient presented to the Emergency Department on the above date and was hospitalized for further evaluation of their emergent condition. - New Patient This patient is new to me today: No - Critical Care Critical Care patient: No - Discharge Referral Referred to [facility] Med P.C.: No
[2017-08-04] MEDS ORDERED: FUROSEMIDE 40 MG/4 ML INJECTABLE VIAL IVPUSH ONE (16:35)
--- NOTE | 2017-08-04 16:35 | PN ---
Progress Note, Physician History of Present Illness: Pt seen and examined at bedside. She is awake and alert. She complains of edema. - Current Medication List Current Medications: Active Medications Acetaminophen (Tylenol -) 650 mg PO Q6H PRN PRN Reason: PAIN LEVEL 6-10 Last Admin: 08/02/17 21:46 Dose: 650 mg Amlodipine Besylate (Norvasc -) 10 mg PO DAILY [facility] Last Admin: 08/04/17 09:28 Dose: 10 mg Ferrous Sulfate (Feosol -) 325 mg PO DAILY [facility] Last Admin: 08/04/17 09:28 Dose: 325 mg Furosemide (Lasix -) 40 mg PO DAILY [facility] Last Admin: 08/04/17 09:28 Dose: 40 mg Heparin Sodium (Porcine) (Heparin -) 5,000 unit SQ TID [facility] Last Admin: 08/04/17 14:00 Dose: Not Given Insulin Aspart (Novolog Vial Sliding Scale -) 1 vial SQ ACHS [facility] PRN Reason: Protocol Last Admin: 08/04/17 11:31 Dose: Not Given Insulin Detemir (Levemir Vial) 10 units SQ HS [facility] Last Admin: 08/03/17 21:26 Dose: 10 units Lisinopril (Prinivil) 40 mg PO DAILY [facility] Last Admin: 08/04/17 09:28 Dose: 40 mg Loperamide HCl (Imodium -) 2 mg PO Q8H PRN PRN Reason: DIARRHEA Last Admin: 08/03/17 10:11 Dose: 2 mg Melatonin (Melatonin) 5 mg PO HS PRN PRN Reason: INSOMNIA Last Admin: 08/04/17 02:27 Dose: 5 mg Nicotine (Nicoderm Patch -) 7 mg TD DAILY [facility] Last Admin: 08/04/17 09:28 Dose: Not Given Nicotine Polacrilex (Nicorette Gum -) 2 mg BUC Q2H PRN PRN Reason: NICOTINE REPLACEMENT RX Last Admin: 08/04/17 09:32 Dose: 2 mg Multivit/Folic Acid/Iron ( Vitamins (Sjr) -) 1 tab PO DAILY [facility] Last Admin: 08/04/17 09:28 Dose: 1 tab Quetiapine Fumarate (Seroquel -) 50 mg PO HS [facility] Last Admin: 08/03/17 21:23 Dose: 50 mg Sertraline HCl (Zoloft -) 100 mg PO DAILY [facility] Last Admin: 08/04/17 09:28 Dose: 100 mg Thiamine HCl (Vitamin B1 -) 100 mg PO HS [facility] Last Admin: 08/03/17 21:23 Dose: 100 mg - Objective Vital Signs: Vital Signs Temperature 98.0 F 08/04/17 09:27 Pulse Rate 109 H 08/04/17 09:27 Respiratory Rate 17 08/04/17 09:27 Blood Pressure 147/95 08/04/17 09:27 O2 Sat by Pulse Oximetry (%) 98 08/04/17 09:28 Constitutional: Yes: Calm Eyes: Yes: Conjunctiva Clear HENT: Yes: Atraumatic Neck: Yes: Supple Cardiovascular: Yes: S1, S2 Respiratory: Yes: CTA Bilaterally Gastrointestinal: Yes: Normal Bowel Sounds, Soft Genitourinary: Yes: WNL Edema: Yes Edema: LLE: 2+, RLE: 2+ Neurological: Yes: Oriented Psychiatric: Yes: Oriented Labs: CBC, BMP 08/04/17 06:00 08/04/17 06:00 INR, PTT INR 1.06 (0.82-1.09) 08/01/17 09:30 Problem List - Problems (1) Acute renal failure Code(s): N17.9 - ACUTE KIDNEY FAILURE, UNSPECIFIED (2) Hyperkalemia Code(s): E87.5 - HYPERKALEMIA (3) Renal insufficiency Code(s): N28.9 - DISORDER OF KIDNEY AND URETER, UNSPECIFIED (4) Cannabis dependence Code(s): F12.20 - CANNABIS DEPENDENCE, UNCOMPLICATED (5) Cocaine dependence Code(s): F14.20 - COCAINE DEPENDENCE, UNCOMPLICATED Qualifiers: Substance use status: uncomplicated Qualified Code(s): F14.20 - Cocaine dependence, uncomplicated (6) Diabetes type 2, uncontrolled Code(s): E11.65 - TYPE 2 DIABETES MELLITUS WITH HYPERGLYCEMIA Qualifiers: Diabetes mellitus terminal carman insulin use: with terminal carman use Diabetes mellitus complication status: with circulatory complication Diabetes mellitus complication detail: with other circulatory complications Qualified Code(s): E11.59 - Type 2 diabetes mellitus with other circulatory complications; E11.65 - Type 2 diabetes mellitus with hyperglycemia; E11.65 - Type 2 diabetes mellitus with hyperglycemia; E11.65 - Type 2 diabetes mellitus with hyperglycemia; E11.65 - Type 2 diabetes mellitus with hyperglycemia; Z79.4 - intermediate frame tender (current) use of insulin; Z79.4 - jail (current) use of insulin; Z79.4 - jail (current) use of insulin; Z79.4 - intermediate frame tender (current) use of insulin Assessment/Plan Current Medications Generic Name Dose Route Start Last Admin Trade Name Freq PRN Reason Stop Dose Admin Acetaminophen 650 mg 08/01/17 01:13 08/02/17 21:46 Tylenol - PO 650 mg Q6H PRN Administration PAIN LEVEL 6-10 Amlodipine Besylate 10 mg 08/03/17 10:00 08/04/17 09:28 Norvasc - PO 10 mg DAILY [facility] Administration Ferrous Sulfate 325 mg 08/03/17 10:00 08/04/17 09:28 Feosol - PO 325 mg DAILY [facility] Administration Furosemide 40 mg 08/04/17 10:00 08/04/17 09:28 Lasix - PO 40 mg DAILY [facility] Administration Heparin Sodium (Porcine) 5,000 unit 08/01/17 06:00 08/04/17 14:00 Heparin - SQ Not Given TID [facility] Insulin Aspart 1 vial 07/31/17 22:00 08/04/17 11:31 Novolog Vial Sliding Scale - SQ Not Given ACHS [facility] Protocol Insulin Detemir 10 units 08/01/17 12:00 08/03/17 21:26 Levemir Vial SQ 10 units HS [facility] Administration Lisinopril 40 mg 08/04/17 08:03 08/04/17 09:28 Prinivil PO 40 mg DAILY [facility] Administration Loperamide HCl 2 mg 08/03/17 09:58 08/03/17 10:11 Imodium - PO 2 mg Q8H PRN Administration DIARRHEA Melatonin 5 mg 07/31/17 20:30 08/04/17 02:27 Melatonin PO 5 mg HS PRN Administration INSOMNIA Nicotine 7 mg 07/31/17 20:45 08/04/17 09:28 Nicoderm Patch - TD Not Given DAILY [facility] Nicotine Polacrilex 2 mg 07/31/17 20:30 08/04/17 09:32 Nicorette Gum - BUC 2 mg Q2H PRN Administration NICOTINE REPLACEMENT RX Multivit/Folic Acid/Iron 1 tab 08/02/17 10:00 08/04/17 09:28 Vitamins (Sjr) - PO 1 tab DAILY [facility] Administration Quetiapine Fumarate 50 mg 07/31/17 22:00 08/03/17 21:23 Seroquel - PO 50 mg HS [facility] Administration Sertraline HCl 100 mg 08/01/17 10:00 08/04/17 09:28 Zoloft - PO 100 mg DAILY [facility] Administration Thiamine HCl 100 mg 08/01/17 22:00 08/03/17 21:23 Vitamin B1 - PO 100 mg HS [facility] Administration Laboratory Tests 08/02/17 08:00 Hemoglobin A1c % 11.9 H Impression 1. CKD 2. GASPER 3. hyperkalemia 4. nephrotic range proteinuria 5. non compliance 6. cocaine use 7. DM uncontrolled 8. htn 9. pleural effusions 10. dyspnea 11. fluid overload Plan - will give another dose of lasix - repeat labs in am - cont alton at 40 mg and monitor renal function - pt refusing kidney biopsy - serologic workup in progress - hg a1c is elevated Dr Campoverde
[2017-08-04] MEDS ORDERED: QUEtiapine FUMARATE 25 MG TABLET (FP) ONE (21:09)
[2017-08-04] MEDS: QUEtiapine FUMARATE 50 MG TABLET PO SCH (22:48)
[2017-08-04] MEDS: THIAMINE HCL 100 MG TABLET (FP) PO SCH (22:50)
[2017-08-04] MEDS: INSULIN DETEMIR 100 UNITS/ML MDV SQ SCH (22:52)
[2017-08-05] MEDS: LOPERAMIDE HCL 2 MG CAPSULE PO PRN (04:34)
[2017-08-05 05:50] VITALS: TEMP 98
[2017-08-05] MEDS: HEPARIN NA (PORCINE) 5,000 UNITS/ML 1ML VIAL SQ SCH ×2 (06:18→13:16)
[2017-08-05] MEDS: INSULIN SLIDING SCALE (NOVOLOG) 1 VIAL SQ SCH ×2 (06:27→12:07)
[2017-08-05] MEDS: FUROSEMIDE 40 MG TABLET (FP) PO SCH ×2 (06:27→13:15)
--- NOTE | 2017-08-05 06:31 | PN ---
Physical Exam: SUBJECTIVE: Patient seen and examined No major overnight events; Hypertensive to 170s systolic overnight; Tachy to 111 ; afebrile; OOB; No complaints, denies everything; anxious to be discharged OBJECTIVE: Vital Signs Intake & Output 08/02/17 08/03/17 08/04/17 08/05/17 23:59 23:59 23:59 23:59 Intake Total 450 810 830 Balance 450 810 830 Weight 71.668 kg 70.562 kg 70.08 kg Period Temp Pulse Resp BP Sys/Garcia Pulse Ox Last 24 Hr 97.9 F-98.3 F 98-111 17-18 121-173/80-95 98-99 GENERAL: Young woman, NAD, alert HEAD: Normal with no signs of trauma. ENT: Ears normal, nares patent, oropharynx clear without exudates, moist mucous membranes. NECK: Trachea midline, supple. LUNGS: Breath sounds equal, clear to auscultation bilaterally, no wheezes, no crackles, no accessory muscle use. HEART: Regular rate and rhythm, S1, S2 without murmur, rub or gallop. ABDOMEN: Globular. Soft, nontender, normoactive bowel sounds, no guarding, no rebound, no hepatosplenomegaly, no masses. No CVA tenderness noted. EXTREMITIES: Diminished pulses, BL, 2+ edema to midshank. Chronic venous changes /lymphedema with BL toe amputations. NEUROLOGICAL: Cranial nerves II through XII grossly intact. Normal speech, gait not observed. PSYCH: Normal mood, normal affect. Laboratory Results - last 24 hr CBC, BMP 08/05/17 06:40 08/04/17 06:00 08/04/17 06:00 07/31/17 08/02/17 08/04/17 14:15 08:00 06:00 WBC 5.1 RBC 3.02 L Hgb 8.6 L Hct 25.7 L MCV 85.1 MCH 28.6 MCHC 33.7 RDW 15.4 Plt Count 480 H MPV 7.7 Sodium Potassium Chloride Carbon Dioxide Anion Gap BUN Creatinine POC Glucometer Random Glucose Calcium Hep C Ab Diagnostic <0.1 Blood Type O POSITIVE Antibody Screen Negative Crossmatch See Detail 08/04/17 08/04/17 08/04/17 06:00 11:11 16:31 WBC RBC Hgb Hct MCV MCH MCHC RDW Plt Count MPV Sodium 141 Potassium 4.7 Chloride 113 H Carbon Dioxide 20 L Anion Gap 8 BUN 47 H Creatinine 2.2 H POC Glucometer 141 199 Random Glucose 248 H Calcium 7.8 L Hep C Ab Diagnostic Blood Type Antibody Screen Crossmatch 08/04/17 22:45 WBC RBC Hgb Hct MCV MCH MCHC RDW Plt Count MPV Sodium Potassium Chloride Carbon Dioxide Anion Gap BUN Creatinine POC Glucometer 246 Random Glucose Calcium Hep C Ab Diagnostic Blood Type Antibody Screen Crossmatch Active Medications Generic Name Dose Route Start Last Admin Trade Name Freq PRN Reason Stop Dose Admin Acetaminophen 650 mg 08/01/17 01:13 08/02/17 21:46 Tylenol - PO 650 mg Q6H PRN Administration PAIN LEVEL 6-10 Amlodipine Besylate 10 mg 08/03/17 10:00 08/04/17 09:28 Norvasc - PO 10 mg DAILY [facility] Administration Ferrous Sulfate 325 mg 08/03/17 10:00 08/04/17 09:28 Feosol - PO 325 mg DAILY [facility] Administration Furosemide 40 mg 08/05/17 06:00 Lasix - PO BID@0600,1400 [facility] Heparin Sodium (Porcine) 5,000 unit 08/01/17 06:00 08/05/17 06:18 Heparin - SQ Not Given TID [facility] Insulin Aspart 1 vial 07/31/17 22:00 08/04/17 22:53 Novolog Vial Sliding Scale - SQ 4 units ACHS [facility] Administration Protocol Insulin Detemir 10 units 08/01/17 12:00 08/04/17 22:52 Levemir Vial SQ 10 units HS [facility] Administration Lisinopril 40 mg 08/04/17 08:03 08/04/17 09:28 Prinivil PO 40 mg DAILY [facility] Administration Loperamide HCl 2 mg 08/03/17 09:58 08/05/17 04:34 Imodium - PO 2 mg Q8H PRN Administration DIARRHEA Melatonin 5 mg 07/31/17 20:30 08/04/17 22:48 Melatonin PO 5 mg HS PRN Administration INSOMNIA Nicotine 7 mg 07/31/17 20:45 08/04/17 09:28 Nicoderm Patch - TD Not Given DAILY [facility] Nicotine Polacrilex 2 mg 07/31/17 20:30 08/04/17 09:32 Nicorette Gum - BUC 2 mg Q2H PRN Administration NICOTINE REPLACEMENT RX Multivit/Folic Acid/Iron 1 tab 08/02/17 10:00 08/04/17 09:28 Vitamins (Sjr) - PO 1 tab DAILY [facility] Administration Quetiapine Fumarate 50 mg 07/31/17 22:00 08/04/17 22:48 Seroquel - PO 50 mg HS [facility] Administration Sertraline HCl 100 mg 08/01/17 10:00 08/04/17 09:28 Zoloft - PO 100 mg DAILY [facility] Administration Thiamine HCl 100 mg 08/01/17 22:00 08/04/17 22:50 Vitamin B1 - PO 100 mg HS [facility] Administration LE duplex 07/31: IMPRESSION: No evidence of deep venous thrombosis. CXR 07/31 - Interstitial changes suspicious for early interstitial edema. Renal U/S 07/31 - IMPRESSION: 1. Morphologically normal kidneys with no evidence of renal atrophy, hydronephrosis or acute pathology. 2. Left pleural effusion. Please see above discussion. Abdominal U/S 07/31 - 1. Right pleural effusion with no evidence of ascites. 2. No sonographic evidence of hepatic pathology or acute abnormalities. Please see above discussion. Echo 08/01 - EF 72%, moderate LVH, normal LV function, normal RV size and function, mild TR, mild MR ASSESSMENT/PLAN: 26yo F with IDDM, difficult to control HTN, and Cocaine abuse presented from [facility] w/ hyperkalemia to 6.3, found to be in acute renal failure. 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 -EDU, dsDNA, SPEP/UPEP, complement levels pd -Lisinopril 40mg daily -HIV, hepatitis negative -refuses renal biopsy -Renal consult appreciated 3+ LE edema -Likely secondary to nephrotic syndrome -improving with diuresis -duplex negative Normocytic Anemia -likely secondary to renal disease -s/p 1 u pRBC this admission -Hgb 8.6 stable -Consider EPO for chronic anemia -No evidence of active blood loss HTN -continue norvasc 10 d, lisinoprol 40 d, lasix 40 po d IDDM -poorly controlled; A1C 11.9 -ISS, BGM, requiring 4/6 u daily -Levemir 10 units qHS -outpatient opthalmology, podiatry f/u PSA -monitor for withdrawal symptoms -detox consult -will return to [facility] for detox and eventual discharge to [facility] Bipolar Disorder/MDD -Seroquel, Zoloft Insomnia -melatonin nicotine abuse -Nicoderm gum -cessation counseling FEN PO hydration Daily lytes Na controlled/diabetic diet HSQ (increased risk of clot with nephrotic syndrome) m/s; likely dc tomorrow
[2017-08-05] MEDS ORDERED: INSULIN (NOVOLOG) ASPART 100 UNITS/ML 10ML VIAL ONE (07:06)
[2017-08-05] MEDS ORDERED: PT OWN MED DRAWER 7, Y5N ONE (07:06)
[2017-08-05 08:14] LABS: ALBUMIN 1.7 g/dl (3.4-5.0); ALK PHOS 118 U/L (45-117); ANION GAP 8 (8-16); BLOOD UREA NITROGEN 51 mg/dL (7-18); CALCIUM 7.6 mg/dL (8.5-10.1); CHLORIDE 118 mmol/L (98-107); CO2 18 mmol/L (21-32); CREATININE 2.2 mg/dL (0.55-1.02); GLUCOSE,RANDOM 149 mg/dL (74-106); MAGNESIUM 1.9 mg/dL (1.8-2.4); PHOSPHOROUS 6.6 mg/dL (2.5-4.9); SGOT/AST 29 U/L (15-37); SGPT/ALT 30 U/L (12-78); SODIUM 144 mmol/L (136-145); TOT PROT 5.6 g/dl (6.4-8.2)
[2017-08-05 08:17] LABS: BILIRUBIN,TOTAL < 0.1 mg/dL (0.2-1.0)
--- NOTE | 2017-08-05 08:52 | MSN ---
Progress Note (short form) - Note Progress Note: SUBJECTIVE: Patient seen and examined this morning. Overnight, patient hypertensive (173/85) and tachycardic (111). Patient was asymptomatic. She received lisinopril 20 mg. This morning she is normotensive and vital signs stable. She has no new complaints this morning but admits to prior headache which resolved by removing the nicotine patch and switching to nicotine gum and admits to several episodes of non-bloody diarrhea yesterday. She also states that her lower extremity edema is much improved. She has no difficultly ambulating and her legs are not painful. Today, she denies diarrhea, nausea/vomiting, changes in vision, dizziness, or abdominal pain. She maintains that she does not want a renal biopsy and has been refusing heparin DVT prophylaxis. She is still anxious to return to [facility] to finish her inpatient detox treatment. OBJECTIVE: Vital Signs Period Temp Pulse Resp BP Sys/Garcia Pulse Ox Last 24 Hr 97.9 F-98.3 F 98-111 18-18 121-173/80-96 99-100 PHYSICAL EXAM GENERAL: Pale young woman awake and alert x 3 resting comfortably HEAD: Normal without evidence of trauma EYES: Scleral pallor, EOMI MOUTH: Moist mucous membranes, no lesions or ulcerations NECK: Supple, no lymphadenopathy, no thyromegaly, trachea midline CARDIOVASCULAR: No JVD, regular at about 100 bpm S1/S2 without murmur, rubs, or gallops LUNGS: Clear to auscultation b/l, breath sounds equal, no wheezes or crackles ABDOMEN: Normoactive bowel sounds, non-tender, non-distended, soft, no masses or organomegaly, no rebound or guarding EXTREMITIES: RUE-2 nd phalanx amputation, LLE- 1 st phalanx amputation, RLE-1st/ 2nd phalanx amputation; B/L LE 2+ pitting edema, LLE with increased pedal edema compared to RLE NEURO: CN II -XII grossly intact, normal speech, gait not observed Laboratory Results - last 24 hr 07/31/17 08/01/17 08/04/17 14:15 09:30 16:31 WBC RBC Hgb Hct MCV MCH MCHC RDW Plt Count MPV Sodium Potassium Chloride Carbon Dioxide Anion Gap BUN Creatinine Creat Clearance w eGFR POC Glucometer 199 Random Glucose Calcium Phosphorus Magnesium Total Bilirubin AST ALT Alkaline Phosphatase Total Protein Albumin Hep B Core Ab Interpret Negative Blood Type O POSITIVE Antibody Screen Negative Crossmatch See Detail 08/04/17 08/05/17 08/05/17 22:45 06:14 06:40 WBC 4.8 RBC 2.74 L Hgb 7.8 L Hct 23.4 L MCV 85.6 MCH 28.5 MCHC 33.4 RDW 15.5 Plt Count 453 H MPV 7.8 Sodium Potassium Chloride Carbon Dioxide Anion Gap BUN Creatinine Creat Clearance w eGFR POC Glucometer 246 172 Random Glucose Calcium Phosphorus Magnesium Total Bilirubin AST ALT Alkaline Phosphatase Total Protein Albumin Hep B Core Ab Interpret Blood Type Antibody Screen Crossmatch 08/05/17 08/05/17 06:40 11:58 WBC RBC Hgb Hct MCV MCH MCHC RDW Plt Count MPV Sodium 144 Potassium 5.0 Chloride 118 H Carbon Dioxide 18 L Anion Gap 8 BUN 51 H Creatinine 2.2 H Creat Clearance w eGFR 26.98 POC Glucometer 140 Random Glucose 149 H Calcium 7.6 L Phosphorus 6.6 H Magnesium 1.9 Total Bilirubin < 0.1 L AST 29 ALT 30 Alkaline Phosphatase 118 H Total Protein 5.6 L Albumin 1.7 L Hep B Core Ab Interpret Blood Type Antibody Screen Crossmatch IMAGING: Doppler U/S LE- negative for DVT ECHO- Slight left ventricle hypertrophy, EF >40%, within normal limits ABD U/S- Liver and kidneys normal ASSESSMENT/PLAN: 26 yr old female on hospital day 5 with history of HTN, IDDM, polysubstance abuse, osteomyelitis, CKD and bipolar disorder presented to the ED from [facility] after routine labs demonstrated persistently elevated potassium and creatinine. She was found to have nephrotic range proteiunuria and significant anemia. #Leg edema- secondary to nephrotic syndrome likely due to unmanaged diabetes mellitus -Clinically resolving; edema decreasing -LE doppler U/S negative for DVT; Echo wnl; liver normal on U/s and no elevation of LFTs -Transition from IV lasix to lasix 40 mg PO BID for discharge -Patient is negative 6.5 lbs. #Acute on chronic kidney disease -Creatinine increased slightly from 1.9 to 2.2 (level at admission); slight increase may be due to restarting lisinopril 40 mg PO QD -Reduce to lisinopril 20 mg QD; continue to monitor K+ -Patient refuses renal biopsy; will need to continue follow-up as outpatient with ms sql developer -Complete renal workup still pending -Continue to maintain tighter glucose control -Renal/diabetic diet #Diabetes Mellitus-Patient has difficultly managing and storing insulin as her living situation is often in flux. Once finished with in-patient detox she plans to go to [facility] where she will be longer term and have more access to care and appropriate medication storage. -Hb A1C- 11.9%; patient understands importance of controlling diabetes but has been non-complaint with medications prior to admission to [facility] -Continue Levemir 10 units SQ QHS; Since decreasing dose she has not had another hypoglycemic event -Continue Novolog sliding scale #HTN-Patient hypertensive on several occasions and blood pressure has been difficult to manage likely secondary to CKD -Continue lasix 40 mg PO BID -Continue Norvasc 10 mg PO QD -Reduce to lisinopril 20 mg PO QD and monitor for increase in K+ and creatinine -Add additional HTN medications as outpatient as necessary to control blood pressure, follow-up with PCP #Normocytic anemia likely secondary to renal disease and iron deficiency -Received 1 unit of PRBC -Hemoglobin dropped slightly from 8.6 to 7.8 today; will need to monitor closely -FOBT +; consider outpatient GI workup -Continue ferrous sulfate 325 mg BID on discharge #Polysubstance abuse-Continue inpatient management at [facility] -No evidence of withdrawal #Depression -Continue home medication -Seroquel 50 mg PO QHS and Zoloft 100 mg PO QD #Dispo-Patient to be discharged this afternoon to [facility] to finish inpatient detox and from there she plans to go to [facility]; she will need close follow-up with ms sql developer and will need continued monitoring of labs (H and H ; BMP)
[2017-08-05 09:05] LABS: HEMATOCRIT 23.4 % (32.4-45.2); HEMOGLOBIN 7.8 GM/dL (10.7-15.3); MCH 28.5 pg (25.7-33.7); MCHC 33.4 g/dl (32.0-36.0); MEAN CELL VOLUME 85.6 fl (80-96); MEAN PLT VOLUME 7.8 fl (7.5-11.1); PLATELET COUNT 453 K/MM3 (134-434); RBC 2.74 M/mm3 (3.60-5.2); RDW 15.5 % (11.6-15.6); WHITE BLOOD COUNT 4.8 K/mm3 (4.0-10.0)
[2017-08-05 09:32] LABS: HEPATITIS B CORE ANTIBODY NEGATIVE
[2017-08-05] MEDS ORDERED: SODIUM BICARBONATE 325 MG TABLET PO SCH (10:00)
[2017-08-05] MEDS: SERTRALINE HCL 50 MG TABLET (FP) PO SCH (10:11)
[2017-08-05] MEDS: LISINOPRIL 20 MG TABLET (FP) PO SCH (10:12)
[2017-08-05] MEDS: PRENATAL VITAMINS W/ FOLIC ACID TABLET (FP) PO SCH (10:20)
[2017-08-05] MEDS: NICOTINE 7 MG/24 HOURS TOPICAL PATCH TD SCH (10:20)
[2017-08-05] MEDS: FERROUS SO4 325 MG TABLET (FP) PO SCH (10:20)
[2017-08-05] MEDS: amLODIPine BESYLATE 10 MG TABLET (FP) PO SCH (10:20)
[2017-08-05] MEDS: NICOTINE POLACRILEX 2 MG GUM BUC PRN ×2 (10:29→16:11)
--- NOTE | 2017-08-05 12:49 | PN ---
Progress Note, Physician History of Present Illness: Pt seen and examined at bedside. She is awake and alert. She is asking to go back to [facility]. We discussed kidney biopsy again today and she does not want to have the procedure. She understands that she has renal disease. - Current Medication List Current Medications: Active Medications Acetaminophen (Tylenol -) 650 mg PO Q6H PRN PRN Reason: PAIN LEVEL 6-10 Last Admin: 08/02/17 21:46 Dose: 650 mg Amlodipine Besylate (Norvasc -) 10 mg PO DAILY [facility] Last Admin: 08/05/17 10:20 Dose: 10 mg Ferrous Sulfate (Feosol -) 325 mg PO DAILY [facility] Last Admin: 08/05/17 10:20 Dose: 325 mg Furosemide (Lasix -) 40 mg PO BID@0600,1400 [facility] Last Admin: 08/05/17 06:27 Dose: 40 mg Heparin Sodium (Porcine) (Heparin -) 5,000 unit SQ TID [facility] Last Admin: 08/05/17 06:18 Dose: Not Given Insulin Aspart (Novolog Vial Sliding Scale -) 1 vial SQ ACHS [facility] PRN Reason: Protocol Last Admin: 08/05/17 12:07 Dose: Not Given Insulin Detemir (Levemir Vial) 10 units SQ HS [facility] Last Admin: 08/04/17 22:52 Dose: 10 units Lisinopril (Prinivil) 40 mg PO DAILY [facility] Last Admin: 08/05/17 10:12 Dose: 40 mg Loperamide HCl (Imodium -) 2 mg PO Q8H PRN PRN Reason: DIARRHEA Last Admin: 08/05/17 04:34 Dose: 2 mg Melatonin (Melatonin) 5 mg PO HS PRN PRN Reason: INSOMNIA Last Admin: 08/04/17 22:48 Dose: 5 mg Nicotine (Nicoderm Patch -) 7 mg TD DAILY [facility] Last Admin: 08/05/17 10:20 Dose: Not Given Nicotine Polacrilex (Nicorette Gum -) 2 mg BUC Q2H PRN PRN Reason: NICOTINE REPLACEMENT RX Last Admin: 08/05/17 10:29 Dose: 2 mg Multivit/Folic Acid/Iron ( Vitamins (Sjr) -) 1 tab PO DAILY JULIANNA Last Admin: 08/05/17 10:20 Dose: 1 tab Quetiapine Fumarate (Seroquel -) 50 mg PO HS [facility] Last Admin: 08/04/17 22:48 Dose: 50 mg Sertraline HCl (Zoloft -) 100 mg PO DAILY [facility] Last Admin: 08/05/17 10:11 Dose: 100 mg Sodium Bicarbonate (Sodium Bicarbonate -) 325 mg PO BID [facility] Last Admin: 08/05/17 10:46 Dose: 325 mg Thiamine HCl (Vitamin B1 -) 100 mg PO [facility] Last Admin: 08/04/17 22:50 Dose: 100 mg - Objective Vital Signs: Vital Signs Temperature 98 F 08/05/17 05:49 Pulse Rate 98 H 08/05/17 05:49 Respiratory Rate 18 08/05/17 05:49 Blood Pressure 131/82 08/05/17 05:49 O2 Sat by Pulse Oximetry (%) 100 08/05/17 09:00 Constitutional: Yes: Calm Eyes: Yes: Conjunctiva Clear HENT: Yes: Atraumatic Cardiovascular: Yes: S1, S2 Respiratory: Yes: CTA Bilaterally Gastrointestinal: Yes: Soft Genitourinary: Yes: WNL Musculoskeletal: Yes: WNL Edema: Yes Edema: LLE: 2+, RLE: 2+ Neurological: Yes: Oriented Psychiatric: Yes: Oriented Labs: CBC, BMP 08/05/17 06:40 08/05/17 06:40 INR, PTT INR 1.06 (0.82-1.09) 08/01/17 09:30 Problem List - Problems (1) Acute renal failure Code(s): N17.9 - ACUTE KIDNEY FAILURE, UNSPECIFIED (2) Hyperkalemia Code(s): E87.5 - HYPERKALEMIA (3) Renal insufficiency Code(s): N28.9 - DISORDER OF KIDNEY AND URETER, UNSPECIFIED (4) Cannabis dependence Code(s): F12.20 - CANNABIS DEPENDENCE, UNCOMPLICATED (5) Cocaine dependence Code(s): F14.20 - COCAINE DEPENDENCE, UNCOMPLICATED Qualifiers: Substance use status: uncomplicated Qualified Code(s): F14.20 - Cocaine dependence, uncomplicated (6) Diabetes type 2, uncontrolled Code(s): E11.65 - TYPE 2 DIABETES MELLITUS WITH HYPERGLYCEMIA Qualifiers: Diabetes mellitus terminal system operator insulin use: with half-way use Diabetes mellitus complication status: with circulatory complication Diabetes mellitus complication detail: with other circulatory complications Qualified Code(s): E11.59 - Type 2 diabetes mellitus with other circulatory complications; E11.65 - Type 2 diabetes mellitus with hyperglycemia; E11.65 - Type 2 diabetes mellitus with hyperglycemia; E11.65 - Type 2 diabetes mellitus with hyperglycemia; E11.65 - Type 2 diabetes mellitus with hyperglycemia; Z79.4 - half-way (current) use of insulin; Z79.4 - half-way (current) use of insulin; Z79.4 - terminal carman (current) use of insulin; Z79.4 - terminal carman (current) use of insulin Assessment/Plan Current Medications Generic Name Dose Route Start Last Admin Trade Name Freq PRN Reason Stop Dose Admin Acetaminophen 650 mg 08/01/17 01:13 08/02/17 21:46 Tylenol - PO 650 mg Q6H PRN Administration PAIN LEVEL 6-10 Amlodipine Besylate 10 mg 08/03/17 10:00 08/05/17 10:20 Norvasc - PO 10 mg DAILY JULIANNA Administration Ferrous Sulfate 325 mg 08/03/17 10:00 08/05/17 10:20 Feosol - PO 325 mg DAILY JULIANNA Administration Furosemide 40 mg 08/05/17 06:00 08/05/17 06:27 Lasix - PO 40 mg BID@0600,1400 JULIANNA Administration Heparin Sodium (Porcine) 5,000 unit 08/01/17 06:00 08/05/17 06:18 Heparin - SQ Not Given TID [facility] Insulin Aspart 1 vial 07/31/17 22:00 08/05/17 12:07 Novolog Vial Sliding Scale - SQ Not Given ACHS [facility] Protocol Insulin Detemir 10 units 08/01/17 12:00 08/04/17 22:52 Levemir Vial SQ 10 units HS JULIANNA Administration Lisinopril 40 mg 08/04/17 08:03 08/05/17 10:12 Prinivil PO 40 mg DAILY JULIANNA Administration Loperamide HCl 2 mg 08/03/17 09:58 08/05/17 04:34 Imodium - PO 2 mg Q8H PRN Administration DIARRHEA Melatonin 5 mg 07/31/17 20:30 08/04/17 22:48 Melatonin PO 5 mg HS PRN Administration INSOMNIA Nicotine 7 mg 07/31/17 20:45 08/05/17 10:20 Nicoderm Patch - TD Not Given DAILY [facility] Nicotine Polacrilex 2 mg 07/31/17 20:30 04/23/18 10:29 Nicorette Gum - BUC 2 mg Q2H PRN Administration NICOTINE REPLACEMENT RX Multivit/Folic Acid/Iron 1 tab 08/02/17 10:00 08/05/17 10:20 Vitamins (Sjr) - PO 1 tab DAILY JULIANNA Administration Quetiapine Fumarate 50 mg 07/31/17 22:00 08/04/17 22:48 Seroquel - PO 50 mg HS JULIANNA Administration Sertraline HCl 100 mg 08/01/17 10:00 08/05/17 10:11 Zoloft - PO 100 mg DAILY JULIANNA Administration Sodium Bicarbonate 325 mg 08/05/17 10:00 08/05/17 10:46 Sodium Bicarbonate - PO 325 mg BID JULIANNA Administration Thiamine HCl 100 mg 08/01/17 22:00 08/04/17 22:50 Vitamin B1 - PO 100 mg HS JULIANNA Administration Laboratory Tests 08/01/17 08/01/17 08/01/17 09:30 09:30 09:30 JORDI M-Abhijeet Not observed EDU Screen Negative c-ANCA Pending Proteinase 3 (PR3) <3.5 p-ANCA Pending Atypical p-ANCA Pending Myeloperoxidase Ab <9 Glomerular Base Memb Ab Pending Hepatitis A IgM Ab Hep Bs Antigen Hep Bs Antibody Hep B Core Total Ab Hep B Core IgM Ab Hep B Core Ab Interpret Hep C Ab Diagnostic HIV 1&2 Antibody Screen HIV P24 Antigen 08/01/17 08/02/17 08/02/17 09:30 08:00 08:00 JORDI M-Abhijeet EDU Screen c-ANCA Proteinase 3 (PR3) p-ANCA Atypical p-ANCA Myeloperoxidase Ab Glomerular Base Memb Ab Hepatitis A IgM Ab Negative Hep Bs Antigen Negative Hep Bs Antibody Non reactive Hep B Core Total Ab Negative Hep B Core IgM Ab Negative Hep B Core Ab Interpret Negative Hep C Ab Diagnostic <0.1 HIV 1&2 Antibody Screen Negative HIV P24 Antigen Negative Impression 1. CKD 2. GASPER 3. hyperkalemia 4. nephrotic range proteinuria 5. non compliance 6. cocaine use 7. DM uncontrolled 8. htn 9. pleural effusions 10. dyspnea 11. fluid overload Plan - cont with lasix - low potassium diet - low sodium diet - discussed biopsy again with pt and she is refusing - will need outpt follow up - renal workup in progress - will need better glucose control Dr Campoverde
[2017-08-05 13:24] VITALS: BP 150/96; PULSE 111
--- NOTE | 2017-08-05 13:49 | PN ---
Teaching Attending Note Name of Resident: Huseyin Allred ATTENDING PHYSICIAN STATEMENT I saw and evaluated the patient. I reviewed the resident's note and discussed the case with the resident. I agree with the resident's findings and plan as documented. SUBJECTIVE:asymptomatic. really wants to return to [facility]. denies Cp, SOB, fever, chills, N/V/C/D OBJECTIVE: Last Vital Signs Temp Pulse Resp BP Pulse Ox 98 F 111 H 18 150/96 100 08/05/17 05:49 08/05/17 13:22 08/05/17 13:22 08/05/17 13:22 08/05/17 09:00 Intake & Output 08/02/17 08/03/17 08/04/17 08/05/17 23:59 23:59 23:59 23:59 Intake Total 450 810 830 240 Balance 450 810 830 240 Weight 158 lb 155 lb 9 oz 154 lb 8 oz 155 lb 8 oz General NAD Lungs S1 S2 RRR no murmur/rub/gallop Abdomen soft NT/ND Extremities 1+ pitting edema B/L chronic skin change ASSESSMENT AND PLAN: 26yo F with PMH DM, HTN, anemia, bipolar, CKD, OM and continuous polysubstance abuse was sent to the ER from [facility] due to persistent hyperkalemia 1. Hyperkalemia- s/p insulin/d50/kayeyxlate in the ER. likely due to ARF. now resolved. slowly trending back up. will reduce ACEI. will need to repeat in a few days. low potassium diet 2. GASPER with nephrotic range proteinuria- FeNa 1.8. possible due to DM however can not r/o other causes. slight uptrend of Cr. likely due to medications. will reduce ACEI, switch lasix iv to 40mg po BID, started on bicarb. will need close monitoring of renal function. should have lab repeat in a few days. still does not want renal bx. expressed importance of renal f/u. low salt diet 3. Normocytic anemia-s/p 1 unit PRBC with good response. +iron deficiency. started on iron supplements. monitor Hgb. normal txn threshold 4. Hypoglycemia- no repeat episodes. now controlled. cont current management. 5. HTN- above goal but improved. may need further adjustment with reduced acei. on norvasc. 6. stage II sacral ulcer- not visualized by me. frequent turning 7. bipolar- cont home medications 8. continuous polysubstance use- currently at inpatient rehab program at [facility]. no signs of withdrawal. plan to go to [facility] once completed 9. DVT ppx- hep sq 10. medically optimized. should have repeat labs in a few days to check Hgb, K and renal function. d/c to [facility]
--- NOTE | 2017-08-05 16:46 | DS ---
Physical Exam: SUBJECTIVE: Patient seen and examined -No major overnight events; Hypertensive to 170s systolic overnight; Tachy to 111; afebrile; OOB; No complaints, denies everything; anxious to be discharged OBJECTIVE: Vital Signs Intake & Output 08/02/17 08/03/17 08/04/17 08/05/17 23:59 23:59 23:59 23:59 Intake Total 450 810 830 240 Balance 450 810 830 240 Weight 71.668 kg 70.562 kg 70.08 kg 70.534 kg Period Temp Pulse Resp BP Sys/Garcia Pulse Ox Last 24 Hr 97.9 F-98.3 F 98-111 -18 121-173/80-96 99-100 PHYSICAL EXAM GENERAL: Young woman, NAD, alert HEAD: Normal with no signs of trauma. ENT: Ears normal, nares patent, oropharynx clear without exudates, moist mucous membranes. NECK: Trachea midline, supple. LUNGS: Breath sounds equal, clear to auscultation bilaterally, no wheezes, no crackles, no accessory muscle use. HEART: Regular rate and rhythm, S1, S2 without murmur, rub or gallop. ABDOMEN: Globular. Soft, nontender, normoactive bowel sounds, no guarding, no rebound, no hepatosplenomegaly, no masses. No CVA tenderness noted. EXTREMITIES: Diminished pulses, BL, 2+ edema to midshank. Chronic venous changes /lymphedema with BL toe amputations. NEUROLOGICAL: Cranial nerves II through XII grossly intact. Normal speech, gait not observed. PSYCH: Normal mood, normal affect. LABS Laboratory Results - last 24 hr CBC, BMP 08/05/17 06:40 08/05/17 06:40 08/01/17 08/04/17 08/04/17 09:30 16:31 22:45 WBC RBC Hgb Hct MCV MCH MCHC RDW Plt Count MPV Sodium Potassium Chloride Carbon Dioxide Anion Gap BUN Creatinine Creat Clearance w eGFR POC Glucometer 199 246 Random Glucose Calcium Phosphorus Magnesium Total Bilirubin AST ALT Alkaline Phosphatase Total Protein Albumin Hep B Core Ab Interpret Negative 08/05/17 08/05/17 08/05/17 06:14 06:40 06:40 WBC 4.8 RBC 2.74 L Hgb 7.8 L Hct 23.4 L MCV 85.6 MCH 28.5 MCHC 33.4 RDW 15.5 Plt Count 453 H MPV 7.8 Sodium 144 Potassium 5.0 Chloride 118 H Carbon Dioxide 18 L Anion Gap 8 BUN 51 H Creatinine 2.2 H Creat Clearance w eGFR 26.98 POC Glucometer 172 Random Glucose 149 H Calcium 7.6 L Phosphorus 6.6 H Magnesium 1.9 Total Bilirubin < 0.1 L AST 29 ALT 30 Alkaline Phosphatase 118 H Total Protein 5.6 L Albumin 1.7 L Hep B Core Ab Interpret 08/05/17 11:58 WBC RBC Hgb Hct MCV MCH MCHC RDW Plt Count MPV Sodium Potassium Chloride Carbon Dioxide Anion Gap BUN Creatinine Creat Clearance w eGFR POC Glucometer 140 Random Glucose Calcium Phosphorus Magnesium Total Bilirubin AST ALT Alkaline Phosphatase Total Protein Albumin Hep B Core Ab Interpret No micro LE duplex 07/31: IMPRESSION: No evidence of deep venous thrombosis. CXR 07/31 - Interstitial changes suspicious for early interstitial edema. Renal U/S 07/31 - IMPRESSION: 1. Morphologically normal kidneys with no evidence of renal atrophy, hydronephrosis or acute pathology. 2. Left pleural effusion. Please see above discussion. Abdominal U/S 07/31 - 1. Right pleural effusion with no evidence of ascites. 2. No sonographic evidence of hepatic pathology or acute abnormalities. Please see above discussion. Echo 08/01 - EF 72%, moderate LVH, normal LV function, normal RV size and function, mild TR, mild MR Consult: Renal - Seen by Dr. Campoverde Detox - Seen by Dr. Urban HOSPITAL COURSE: Prehospital: 26yo F with IDDM, difficult to control HTN, and Cocaine abuse presented from [facility] w/ hyperkalemia to 6.3. Also found to have gradually progressive renal failure and proteinuria at [facility] labs. She never was told she had kidney problems, no family hx. No change in urine quantity or color. Has had gradually progressive bilateral LE edema and abdominal distension for about 1 month, not improving w/ diuretics. Has had difficult to control HTN, now on 4 blood pressure meds. Is also noncompliant diabetic, s/p osteo and multiple amputations. Denies CP, orthopnea. Had mild SOB before arrival, relieved w/ duoneb In the ER, vitals were stable. Repeat K+ was 5.3, likely from the duoneb. EKG revealed sinus tach some peaked T waves. Cr noted to be 2.1, elevated from baseline 1.5. U/S shows normal kidneys, mod L pleural effusion, and no ascites. Duplex was negative. CXR shows residual changes from recently treated interstitial pneumonia. Hospital course by problem: #Acute Renal Failure -w/u notable for nephrotic range proteinuria, 16.5 g urine prot 24 hr -determined to likely be due to intrinsic renal disease FENa <2; likely secondary to DM2 -renal US unremarkable during admission -creat fluctuated in range of 1.9-2.2 during admission. -EDU, dsDNA, SPEP/UPEP, complement levels pending on discharge -Lisinopril started, increased to 40mg daily on discharge due to difficult BP management -HIV, hepatitis panel negative during admission -refuses renal biopsy; will likely require renal bx as outpt -provided referral for outpt Logistics Analyst with Dr. Campoverde #3+ LE edema -Determined to likely be secondary to nephrotic syndrome -improved with Lasix IV diuresis -duplex negative #Normocytic Anemia -likely secondary to renal disease -s/p 1 u pRBC this admission -Hgb 8.6 stable on discharge -Consider EPO for chronic anemia as outpt - TSH, b12, folate all normal -No evidence of active blood loss during admission #HTN - difficult to control during admission; BP routinely in 170-180s systolic -discharge regimen finalized to norvasc 10 qdaily, lisinoprol 40 qdaily, lasix 40 po d; clondine, chlorthalidone d/c'ed on admission #IDDM -poorly controlled on admission; A1C 11.9 -Levemir on admission 25u, decreased to Levemir 10 units qHS -will require outpatient opthalmology, podiatry f/u #PSA -will return to [facility] for detox and eventual discharge to [facility] Date of Admission:07/31/17 Date of Discharge: 08/05/17 Pt is medically cleared for discharge back to [facility] with outpt f/u with Dr. Campoverde for renal care. Minutes to complete discharge: 35 Discharge Summary Reason For Visit: ACUTE RENAL FAILURE Condition: Fair - Instructions Diet, Activity, Other Instructions: During your stay at [facility], you were treated for acute kidney injury and elevated potassium in your blood, a condition that can be fatal, as it can trigger a deadly heart arrhythmia. You were treated for these conditions and are being discharged back to [facility] for completion of your detox program. Medications: The following medications were started during your stay at [facility]. Please take them as directed below: Feosol 325mg, take one pill by mouth once a day. This medication can commonly cause constipation and black/dark stools. If you experience these side effects, it is likely due to this medication. Sodium Bicarbonate 325mg, take one pill by mouth twice a day. Lasix 40mg, take one pill by mouth, twice a day Lisinopril, take two pills by mouth, once a day Please take imodium as needed for any diarrheal symptoms. The following changes were made to your home medications: Levemir was decreased from 25 units at bedtime to 10 units Please stop taking the following medications: Chlorthalidone Please continue to take all other medications as previously prescribed. Follow-ups: You indicated during this admission that you do not currently have a primary care doctor. You have been provided a referral to the resident clinic for establishment of a primary care physician. Contact information has been provided in this packet. Please call the number provided to schedule an appointment. Please follow-up with our assistant field hockey coach, Dr. Campoverde, in one week for further management of your renal care. Please call his office to schedule an appointment within one week. Diet/exercise: Please abide by the approved diet included in this packet. You have no restrictions for exercise routine. Follow a low potassium, diabetic diet Please return to the hospital if you experience any of the following symptoms: - Worsening, persistent diarrhea for >4 days - Prolonged fevers/chills - Significant amounts of stuart blood in your stools - Any new or concerning symptoms Referrals: Tom Cody MD [Staff Physician] - 1 Week Derrick Campoverde MD [Staff Physician] - 1 Week Disposition: I.P. ALCOHOL/SUBS ABUSE REHAB - Home Medications Comprehensive Discharge Medication List: Ambulatory Orders Sertraline HCl [Zoloft -] 50 mg PO DAILY 09/21/16 Ranitidine [Zantac -] 150 mg PO DAILY #60 tab 10/15/16 Insulin (Novolog) [Novolog -] 0 units SQ TID 07/22/17 Sodium Chloride [Nasal Raeford] 2 spray NS PRN PRN 07/22/17 Amlodipine Besylate 10 mg PO DAILY 07/31/17 Magnesium Citrate [Citroma -] 300 ml PO PRN 07/31/17 Melatonin 5 mg PO PRN 07/31/17 Nicotine Patch [Nicoderm Patch -] 7 mg PRN 07/31/17 Nicotine Polacrilex [Nicotine Gum] 2 mg BC PRN 07/31/17 Hypromellose 0.5% Opth Soln [Artificial Tears] 1 drop QID 08/01/17 Ferrous Sulfate [Feosol] 325 mg PO DAILY #30 ud 08/05/17 Furosemide [Lasix -] 40 mg PO BID@0600,1400 #60 tablet 08/05/17 Insulin (Levemir) [Levemir Vial] 10 units SQ HS ml 08/05/17 Lisinopril [Prinivil] 20 mg PO DAILY #60 tablet 08/05/17 Sodium Bicarbonate - 325 mg PO BID #60 tablet 08/05/17 This patient is new to me today: No Emergency Visit: Yes ED Registration Date: 07/31/17 Care time: The patient presented to the Emergency Department on the above date and was hospitalized for further evaluation of their emergent condition. Critical Care patient: No - Discharge Referral Referred to [facility] No
[2017-08-06 00:10] LABS: ATYPICAL pANCA <1:20 titer (Neg:<1:20); C-ANCA <1:20 titer (Neg:<1:20); P-ANCA <1:20 titer (Neg:<1:20)
[2017-08-06 14:22] LABS: ANTIGLOMERULAR BASEMENT MEN.AB 3 units (0-20)
[2017-08-07 14:22] LABS: ALBUMIN % 60.7 % (.); ALPHA-1 FOR UPE 4.9 % (.); TOTAL PROTEIN, URINE 490.5 mg/dL (Not Estab.)
== END 2017-08-05 16:29 | disposition other institution (70) | DRG 460 ==
LOC: JER 13:01 → JERBED 18:51 → J7W 08-01 00:35
PROVIDERS: ADMIT Internal Medicine; ATTEND Internal Medicine
PROC: 30233N1 Transfusion of Nonautologous Red Blood Cells into Peripheral Vein, Percutaneous Approach (ICD-10-PCS; principal; 2017-08-01)
DX: N17.9 Acute kidney failure, unspecified (principal); I12.9 Hypertensive chronic kidney disease with stage 1 through stage 4 chronic kidney disease, or unspecified chronic kidney disease; E10.22 Type 1 diabetes mellitus with diabetic chronic kidney disease; E10.65 Type 1 diabetes mellitus with hyperglycemia; N18.3 Chronic kidney disease, stage 3 (moderate); Z79.4 Long term (current) use of insulin; F32.9 Major depressive disorder, single episode, unspecified; Z72.0 Tobacco use; F14.10 Cocaine abuse, uncomplicated; F12.10 Cannabis abuse, uncomplicated; G47.00 Insomnia, unspecified; E87.5 Hyperkalemia; D50.9 Iron deficiency anemia, unspecified; L89.152 Pressure ulcer of sacral region, stage 2; Z91.14 Patient's other noncompliance with medication regimen; J90 Pleural effusion, not elsewhere classified; E87.70 Fluid overload, unspecified; D63.1 Anemia in chronic kidney disease; F31.9 Bipolar disorder, unspecified; F10.10 Alcohol abuse, uncomplicated; L40.9 Psoriasis, unspecified; R80.9 Proteinuria, unspecified; Z89.9 Acquired absence of limb, unspecified
CPT/HCPCS: 36415; 36430; 71046-TC-FY; 76705-TC; 76775-TC; 80048; 80053; 80061; 80074; 80307; 81003; 81015; 82272; 82436; 82570; 82607; 82728; 82746; 82962; 83036; 83516; 83520; 83540; 83550; 83721; 83735; 84100; 84133; 84155; 84156; 84165; 84166; 84300; 84443; 84540; 84703; 85025; 85027; 85610; 86038; 86225; 86256; 86704; 86850; 86900; 86901; 86922; 87389; 87522; 93005; 93010; 93306-TC; 93970-TC; 97116-GP; 97161-GP; 99285-25; J0735; J1644; P9038; P9058

== ENCOUNTER 2017-08-05 18:48 | Inpatient (IN) | payer OTHER ==
[2017-08-05 19:25] VITALS: BMI 27.8
--- NOTE | 2017-08-05 20:24 | HP ---
[facility] Chief Complaint: rehab for alcohol, THC, and cocaine Allergies/Adverse Reactions: Allergies Allergy/AdvReac Type Severity Reaction Status Date / Time peach Allergy Severe Hives Verified 08/05/17 19:34 vancomycin Allergy Severe Hives Verified 08/05/17 19:34 History of Present Illness: 26 yo female presents today for continuation of rehab treatment. Patient was initially admitted to rehab on 07/22/17 at [facility]. Patient was later transfer to [facility] on 07/31/17 - 08/05/17 for hyperkalemia, acute renal failure, SOB and uncontrolled BP. Exam Limitations: No Limitations - Ebola screening Have you traveled outside of the country in the last 21 days: No (N) Have you had contact with anyone from an Ebola affected area: No Have you been sick,other than usual withdrawal symptoms: No Do you have a fever: No - Review of Systems Constitutional: No Symptoms Reported EENT: reports: No Symptoms Reported Respiratory: reports: No Symptoms reported Cardiac: reports: Edema (both lower extremities) GI: reports: No Symptoms Reported : reports: No Symptoms Reported Musculoskeletal: reports: No Symptoms Reported Integumentary: reports: No Symptoms Reported Neuro: reports: No Symptoms reported Hematology: reports: See HPI, Anemia Psychiatric: reports: Orientated x3, Depressed Other Systems: Reviewed and Negative Patient History - Patient Medical History Hx Anemia: Yes Hx Asthma: No Hx Chronic Obstructive Pulmonary Disease (COPD): No Hx Cancer: No Hx Cardiac Disorders: No Hx Congestive Heart Failure: No Hx Hypertension: Yes Hx Hypercholesterolemia: No Hx Pacemaker: No HX Cerebrovascular Accident: No Hx Seizures: No Hx Dementia: No Hx Diabetes: Yes (IDDM) Hx Gastrointestinal Disorders: Yes (acid reflux) Hx Liver Disease: No Hx Genitourinary Disorders: No Hx Sexually Transmitted Disorders: No Hx Renal Disease (ESRD): Yes (Acute renal failure ) Hx Thyroid Disease: No Hx Human Immunodeficiency Virus (HIV): No (negative) Hx Hepatitis C: No (negatiave) Hx Depression: Yes Hx Suicide Attempt: No Hx Bipolar Disorder: Yes Hx Schizophrenia: No - Patient Surgical History Past Surgical History: Yes Hx Neurologic Surgery: No Hx Cataract Extraction: No Hx Cardiac Surgery: No Hx Lung Surgery: No Hx Breast Surgery: No Hx Breast Biopsy: No Hx Abdominal Surgery: No Hx Appendectomy: No Hx Cholecystectomy: No Hx Genitourinary Surgery: No Hx Section: Yes (x1) Hx Orthopedic Surgery: Yes (amputation x4) Other Surgical History: 2013- 1st and 2nd toes on left foot/ 2nd toe of rt ft. 2014- lft ankle oste Anesthesia Reaction: No - PPD History Documented Results: Negative w/proof Date: 09/23/16 Results: 0 mm PPD to be Administered?: No - Reproductive History Patient is a Female of Child Bearing Age (11 -55 yrs old): Yes Last Menstrual Period: 06/03/17 Patient : No - Smoking Cessation Smoking history: Current some day smoker Have you smoked in the past 12 months: Yes Aproximately how many cigarettes per day: 7 If you are a former smoker, when did you quit?: 14 DAYS AGO Hx Chewing Tobacco Use: No Initiated information on smoking cessation: Yes 'Breaking Loose' booklet given: 08/05/17 Family Disease History - Family Disease History Family Disease History: Diabetes: Mother (), Heart Disease: Father ( ) Admission Physical Exam S - Vital Signs Vital Signs: Vital Signs - 24 hr 08/05/17 19:20 Temperature 96.8 F L Pulse Rate 113 H Respiratory 22 Rate Blood Pressure 155/11 - Physical General Appearance: Yes: Nourished, Appropriately Dressed, Anxious HEENTM: Yes: EOMI, Hearing grossly Normal, Normal ENT Inspection, Normocephalic , Normal Voice, Pharynx Normal, Tm's normal Respiratory: Yes: Chest Non-Tender, Lungs Clear, Normal Breath Sounds, No Respiratory Distress, No Accessory Muscle Use Neck: Yes: No masses,lesions,Nodules, Trachea in good position Breast: Yes: Breast Exam Deferred Cardiology: Yes: Regular Rhythm, Regular Rate Abdominal: Yes: Normal Bowel Sounds, Non Tender, Flat, Soft Genitourinary: Yes: Within Normal Limits Back: Yes: Within Normal Limits Musculoskeletal: Yes: Within Normal Limits Extremities: Yes: Normal Capillary Refill, Normal Range of Motion, Non-Tender, Swelling (both lower extremites) Neurological: Yes: credit product analyst II-XII NML intact, Fully Oriented, Alert, Motor Strength 5/5, Normal Mood/Affect Integumentary: Yes: Normal Color, Warm, Moist, Pitting Edema (b/t lower extremities) Lymphatic: Yes: Within Normal Limits - Addiitonal Findings: Patient reports has follow up visit with cementer machine Dr. Wallace at [facility]. - Diagnostic (1) Swelling of lower extremity Current Visit: Yes Status: Chronic (2) Alcohol dependence Current Visit: Yes Status: Chronic Qualifiers: Substance use status: uncomplicated Qualified Code(s): F10.20 - Alcohol dependence, uncomplicated (3) Bipolar disorder Current Visit: Yes Status: Chronic Qualifiers: Active/Remission status: remission status unspecified Qualified Code(s): F31.9 - Bipolar disorder, unspecified (4) Cannabis dependence Current Visit: Yes Status: Chronic (5) Diabetes type 2, uncontrolled Current Visit: Yes Status: Chronic Qualifiers: Diabetes mellitus meterman insulin use: with senior care use Diabetes mellitus complication status: with circulatory complication Diabetes mellitus complication detail: with other circulatory complications Qualified Code(s): E11.59 - Type 2 diabetes mellitus with other circulatory complications; E11.65 - Type 2 diabetes mellitus with hyperglycemia; E11.65 - Type 2 diabetes mellitus with hyperglycemia; E11.65 - Type 2 diabetes mellitus with hyperglycemia; E11.65 - Type 2 diabetes mellitus with hyperglycemia; Z79.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 of insulin; Z79.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 of insulin; Z79.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 of insulin; Z79.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 of insulin (6) HTN (hypertension) Current Visit: Yes Status: Chronic Qualifiers: Hypertension type: unspecified Qualified Code(s): I10 - Essential (primary ) hypertension (7) Insomnia Current Visit: Yes Status: Chronic Qualifiers: Insomnia type: unspecified Qualified Code(s): G47.00 - Insomnia, unspecified (8) Nicotine dependence Current Visit: Yes Status: Chronic Qualifiers: Nicotine product type: cigarettes Substance use status: uncomplicated Qualified Code(s): F17.210 - Nicotine dependence, cigarettes, uncomplicated (9) Psoriasis Current Visit: Yes Status: Chronic (10) Depressive disorder Current Visit: Yes Status: Chronic [facility] Breath Alcohol Content Breath Alcohol Content: 0 Urine Pregancy Test - Result Urine Test Results: Negative- NO Line Present Urine Drug Screen - Results Drug Screen Negative: Yes Inpatient Rehab Admission - Initial Determination Are CD services needed?: Yes Free of communicable disease: Yes Not in need of hospitalization: Yes - Rehab Admission Criteria Previous failed treatment: Yes Poor recovery environment: Yes Comorbidities: Yes Lacks judgement: Yes Patient is meeting Inpatient Rehab admission criteria:: Yes
[2017-08-05] MEDS ORDERED: MENTHOL/PHENOL 1 EACH UD MM PRN (20:26)
[2017-08-05] MEDS ORDERED: MAGNESIUM HYDROX 2400MG/30ML ORAL SUSPENSION 30 ML CUP PO PRN (20:26)
[2017-08-05] MEDS ORDERED: MAGNESIUM CITRATE 300 ML BOTTLE PO PRN (20:26)
[2017-08-05] MEDS ORDERED: P-EPHED 60MG/TRIPROLIDI 2.5MG TABLET PO PRN (20:26)
[2017-08-05] MEDS ORDERED: MAG HYDROX/AL HYDROX/SIMETH 30 ML UNIT-DOSE CUP PO PRN (20:26)
[2017-08-05] MEDS ORDERED: guaiFENesin/D-METHORPHAN HB 10 ML UNIT-DOSE CUPS PO PRN (20:26)
[2017-08-05] MEDS ORDERED: ACETAMINOPHEN 325 MG TABLET (FP) PO PRN (20:26)
[2017-08-05] MEDS ORDERED: IBUPROFEN 400 MG TABLET (FP) PO PRN (20:26)
[2017-08-05] MEDS ORDERED: NICOTINE 14 MG/24 HOURS TOPICAL PATCH TD PRN (20:30)
[2017-08-05] MEDS ORDERED: SODIUM CHLORIDE NASAL SPRAY 44 ML BOTTLE NS PRN (20:55)
[2017-08-05] MEDS ORDERED: NICOTINE 7 MG/24 HOURS TOPICAL PATCH TD PRN (21:24)
--- NOTE | 2017-08-05 22:22 | PN ---
S Progress Note Note: Psychiatric nurse practitioner sap payroll consultant note: Call received by RN requesting patient's medications. Chart reviewed. Zoloft 50mg PO daily ordered.
[2017-08-05] MEDS: MELATONIN 5 MG TABLETS PO PRN (23:16)
[2017-08-05] MEDS: INSULIN (LEVEMIR) 100 UNITS/ML UNITS SQ SCH (23:17)
[2017-08-05] MEDS: hydrOXYzine PAMOATE 50 MG CAPSULE (FP) PO PRN (23:18)
[2017-08-05] MEDS: THIAMINE HCL 100 MG TABLET (FP) PO SCH (23:19)
[2017-08-06] MEDS ORDERED: cloNIDine HCL 0.1 MG TABLET PO ONE (00:09)
--- NOTE | 2017-08-06 00:13 | PN ---
[facility] Progress Note Note: Patient's blood pressure is B/P 162/102. Patient is asymptomatic. Clonidine 0.1mg tablet oral ordered.
[2017-08-06 03:50] LABS: URINE APPEARANCE CLOUDY; URINE BILIRUBIN NEGATIVE (<2.0 mg/dL); URINE COLOR LTYELLOW; URINE GLUCOSE (UA) 3+ (NEGATIVE); URINE KETONE NEGATIVE (NEGATIVE); URINE LEUK ESTERASE NEGATIVE (NEGATIVE); URINE NITRITE NEGATIVE (NEGATIVE); URINE UROBILINOGEN NEGATIVE mg/dL (0.2-1.0)
[2017-08-06 03:51] LABS: URINE PROTEIN 3+ (NEGATIVE)
[2017-08-06 04:01] LABS: EPI CELLS MANY /HPF (FEW); URINE BACTERIA RARE /hpf (NONE SEEN); URINE HYALINE CAST 3 /lpf; YEAST RARE
[2017-08-06] MEDS: FUROSEMIDE 40 MG TABLET (FP) PO SCH ×2 (06:52→13:21)
[2017-08-06] MEDS: INSULIN SLIDING SCALE (NOVOLOG) 1 VIAL SQ SCH ×3 (06:56→16:49)
[2017-08-06] MEDS ORDERED: PT OWN MED DRAWER 7, Y5N ONE ×3 (08:41→23:45)
[2017-08-06] MEDS ORDERED: SERTRALINE HCL 50 MG TABLET (FP) PO SCH ×2 (10:00→10:12)
[2017-08-06] MEDS: FERROUS SO4 325 MG TABLET (FP) PO SCH (10:22)
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
[2017-08-06] MEDS: RANITIDINE HCL 150 MG TABLET (FP) PO SCH (10:23)
[2017-08-06] MEDS: PRENATAL VITAMINS W/ FOLIC ACID TABLET (FP) PO SCH (10:23)
[2017-08-06] MEDS: amLODIPine BESYLATE 10 MG TABLET (FP) PO SCH (10:23)
--- NOTE | 2017-08-06 10:24 | EKG ---
Test Reason : Blood Pressure : / mmHG Vent. Rate : 106 BPM Atrial Rate : 106 BPM P-R Int : 182 ms QRS Dur : 082 ms QT Int : 350 ms P-R-T Axes : 047 070 054 degrees QTc Int : 464 ms SINUS TACHYCARDIA OTHERWISE NORMAL ECG WHEN COMPARED WITH ECG OF 31-JUL-2017 13:42, NO SIGNIFICANT CHANGE WAS FOUND Confirmed by MD RODGER, JAMA ([id number]) on 08/06/2017 10:24:19 AM Referred By: Confirmed By:JAMA SOARES MD
[2017-08-06] MEDS: NICOTINE POLACRILEX 2 MG GUM BUC PRN ×2 (10:25→19:40)
[2017-08-06] MEDS: SERTRALINE HCL 50 MG TABLET (FP) PO SCH (10:29)
[2017-08-06] MEDS ORDERED: INSULIN (NOVOLOG) ASPART 100 UNITS/ML 10ML VIAL ONE (11:45)
[2017-08-06] MEDS: LOPERAMIDE HCL 2 MG CAPSULE PO PRN ×2 (13:21→19:40)
[2017-08-06] MEDS: hydrOXYzine PAMOATE 50 MG CAPSULE (FP) PO PRN (13:22)
[2017-08-06 14:33] LABS: HEMATOCRIT 27.5 % (32.4-45.2); HEMOGLOBIN 8.9 GM/dL (10.7-15.3); MCH 27.9 pg (25.7-33.7); MCHC 32.5 g/dl (32.0-36.0); MEAN CELL VOLUME 85.9 fl (80-96); MEAN PLT VOLUME 7.5 fl (7.5-11.1); PLATELET COUNT 524 K/MM3 (134-434); WHITE BLOOD COUNT 5.6 K/mm3 (4.0-10.0)
[2017-08-06 14:50] LABS: ALBUMIN 2.3 g/dl (3.4-5.0); ANION GAP 9 (8-16); BILIRUBIN,TOTAL 0.1 mg/dL (0.2-1.0); BLOOD UREA NITROGEN 54 mg/dL (7-18); CALCIUM 8.3 mg/dL (8.5-10.1); CHLORIDE 114 mmol/L (98-107); CO2 19 mmol/L (21-32); CREATININE 2.1 mg/dL (0.55-1.02); GLUCOSE,RANDOM 103 mg/dL (74-106); POTASSIUM 4.8 mmol/L (3.5-5.1); SGOT/AST 38 U/L (15-37); SGPT/ALT 45 U/L (12-78); SODIUM 142 mmol/L (136-145); TOT PROT 6.8 g/dl (6.4-8.2)
[2017-08-06 14:51] LABS: ALK PHOS 132 U/L (45-117)
[2017-08-06] MEDS: SODIUM BICARBONATE 325 MG TABLET PO SCH ×2 (15:36→21:16)
[2017-08-06] MEDS: INSULIN (LEVEMIR) 100 UNITS/ML UNITS SQ SCH (21:15)
[2017-08-06] MEDS: THIAMINE HCL 100 MG TABLET (FP) PO SCH (21:16)
[2017-08-06] MEDS: QUEtiapine FUMARATE 50 MG TABLET PO SCH (21:16)
[2017-08-07] MEDS: LOPERAMIDE HCL 2 MG CAPSULE PO PRN ×2 (01:41→21:37)
--- NOTE | 2017-08-07 06:41 | PN ---
[facility] Progress Note Note: Patient is on insulin therapy. BGM ordered.
[2017-08-07] MEDS: FUROSEMIDE 40 MG TABLET (FP) PO SCH ×2 (06:52→13:05)
[2017-08-07] MEDS: INSULIN SLIDING SCALE (NOVOLOG) 1 VIAL SQ SCH ×3 (06:52→17:10)
[2017-08-07] MEDS ORDERED: PT OWN MED DRAWER 7, Y5N ONE ×2 (06:54→21:37)
--- NOTE | 2017-08-07 09:14 | PN ---
[facility] Progress Note Note: Psychiatric nurse practitioner note: Patient presents awake, alert, and fully oriented. Patient reports poor sleep last night. Reports awakening several times throughout the night. Pt. suggesting a change or increase in medication. Pt. was recently transferred to [facility] for acute renal failure. Pt. with a PMH of DM, HTN, Anemia, and CKD. As per nursing staff patient's weight increased from 152 to 155 over 24 hours. At this time psychotrophic medications will remain at its current dose. Pt. agreeable with plan. Patient has an appointment scheduled for tomorrow to see a kidney specialist.Will continue to monitor.
[2017-08-07] MEDS: PRENATAL VITAMINS W/ FOLIC ACID TABLET (FP) PO SCH (10:25)
[2017-08-07] MEDS: RANITIDINE HCL 150 MG TABLET (FP) PO SCH (10:25)
[2017-08-07] MEDS: SERTRALINE HCL 50 MG TABLET (FP) PO SCH (10:25)
[2017-08-07] MEDS: FERROUS SO4 325 MG TABLET (FP) PO SCH (10:25)
[2017-08-07] MEDS: SODIUM BICARBONATE 325 MG TABLET PO SCH ×2 (10:26→23:49)
[2017-08-07] MEDS: amLODIPine BESYLATE 10 MG TABLET (FP) PO SCH (10:27)
[2017-08-07] MEDS: hydrOXYzine PAMOATE 50 MG CAPSULE (FP) PO PRN (10:28)
[2017-08-07] MEDS: NICOTINE POLACRILEX 2 MG GUM BUC PRN ×3 (10:29→18:10)
[2017-08-07] MEDS ORDERED: INSULIN (NOVOLOG) ASPART 100 UNITS/ML 10ML VIAL ONE ×2 (11:48→17:04)
--- NOTE | 2017-08-07 14:10 | PN ---
[facility] Progress Note Note: Patient present with open area to sacral area due to a fall she sustained at [facility] last month. Pt was treated in ER at that time. Vital Signs Temperature 98.0 F 08/07/17 07:01 Pulse Rate 111 H 08/07/17 13:03 Respiratory Rate 18 08/07/17 07:01 Blood Pressure 146/91 08/07/17 13:03 O2 Sat by Pulse Oximetry (%) Laboratory Tests 08/05/17 08/05/17 08/06/17 22:48 23:17 06:52 WBC RBC Hgb Hct MCV MCH MCHC RDW Plt Count MPV Sodium Potassium Chloride Carbon Dioxide Anion Gap BUN Creatinine Creat Clearance w eGFR POC Glucometer 283 108 Random Glucose Calcium Total Bilirubin AST ALT Alkaline Phosphatase Total Protein Albumin Urine Color Ltyellow Urine Appearance Cloudy Urine pH 5.0 Ur Specific [place] 1.013 Urine Protein 3+ H Urine Glucose (UA) 3+ H D Urine Ketones Negative Urine Blood Negative Urine Nitrite Negative Urine Bilirubin Negative Urine Urobilinogen Negative Ur Leukocyte Esterase Negative Urine WBC (Auto) 18 Urine RBC (Auto) 15 Ur Epithelial Cells Many Urine Bacteria Rare Hyaline Casts 3 Urine Yeast Rare RPR Titer 08/06/17 08/06/17 08/06/17 08:30 08:30 08:30 WBC 5.6 RBC 3.20 L Hgb 8.9 L D Hct 27.5 L D MCV 85.9 MCH 27.9 MCHC 32.5 RDW 16.0 H Plt Count 524 H MPV 7.5 Sodium 142 Potassium 4.8 Chloride 114 H Carbon Dioxide 19 L Anion Gap 9 BUN 54 H Creatinine 2.1 H Creat Clearance w eGFR 28.47 POC Glucometer Random Glucose 103 Calcium 8.3 L Total Bilirubin 0.1 L AST 38 H ALT 45 Alkaline Phosphatase 132 H Total Protein 6.8 Albumin 2.3 L Urine Color Urine Appearance Urine pH Ur Specific [place] Urine Protein Urine Glucose (UA) Urine Ketones Urine Blood Urine Nitrite Urine Bilirubin Urine Urobilinogen Ur Leukocyte Esterase Urine WBC (Auto) Urine RBC (Auto) Ur Epithelial Cells Urine Bacteria Hyaline Casts Urine Yeast RPR Titer Nonreactive 08/06/17 08/06/17 08/06/17 11:42 16:49 21:13 WBC RBC Hgb Hct MCV MCH MCHC RDW Plt Count MPV Sodium Potassium Chloride Carbon Dioxide Anion Gap BUN Creatinine Creat Clearance w eGFR POC Glucometer 208 309 169 Random Glucose Calcium Total Bilirubin AST ALT Alkaline Phosphatase Total Protein Albumin Urine Color Urine Appearance Urine pH Ur Specific [place] Urine Protein Urine Glucose (UA) Urine Ketones Urine Blood Urine Nitrite Urine Bilirubin Urine Urobilinogen Ur Leukocyte Esterase Urine WBC (Auto) Urine RBC (Auto) Ur Epithelial Cells Urine Bacteria Hyaline Casts Urine Yeast RPR Titer 08/07/17 08/07/17 06:51 11:45 WBC RBC Hgb Hct MCV MCH MCHC RDW Plt Count MPV Sodium Potassium Chloride Carbon Dioxide Anion Gap BUN Creatinine Creat Clearance w eGFR POC Glucometer 101 196 Random Glucose Calcium Total Bilirubin AST ALT Alkaline Phosphatase Total Protein Albumin Urine Color Urine Appearance Urine pH Ur Specific [place] Urine Protein Urine Glucose (UA) Urine Ketones Urine Blood Urine Nitrite Urine Bilirubin Urine Urobilinogen Ur Leukocyte Esterase Urine WBC (Auto) Urine RBC (Auto) Ur Epithelial Cells Urine Bacteria Hyaline Casts Urine Yeast RPR Titer Subj: patient states area feels sore but denies severe pain, fever and discharge. Obj: Skin: coccyx area noted with healing open area. No surrounding redness, swelling or discharge present. A/P: Healing wound to coccyx Will treat with Bactoban ointment BID continue to monitor clinically
[2017-08-07] MEDS: THIAMINE HCL 100 MG TABLET (FP) PO SCH (21:31)
[2017-08-07] MEDS: MELATONIN 5 MG TABLETS PO PRN (21:31)
[2017-08-07] MEDS: QUEtiapine FUMARATE 50 MG TABLET PO SCH (21:31)
[2017-08-07] MEDS: MUPIROCIN 2% TOPICAL OINTMENT 22 GM TUBE TP SCH (21:33)
[2017-08-07] MEDS: INSULIN (LEVEMIR) 100 UNITS/ML UNITS SQ SCH (21:35)
[2017-08-08] MEDS: FUROSEMIDE 40 MG TABLET (FP) PO SCH ×2 (06:37→13:16)
[2017-08-08] MEDS: LOPERAMIDE HCL 2 MG CAPSULE PO PRN (06:38)
[2017-08-08] MEDS: INSULIN SLIDING SCALE (NOVOLOG) 1 VIAL SQ SCH ×3 (06:39→17:06)
[2017-08-08] MEDS ORDERED: PT OWN MED DRAWER 7, Y5N ONE (08:21)
[2017-08-08] MEDS: SODIUM BICARBONATE 325 MG TABLET PO SCH ×2 (10:15→21:32)
[2017-08-08] MEDS: amLODIPine BESYLATE 10 MG TABLET (FP) PO SCH (10:15)
[2017-08-08] MEDS: SERTRALINE HCL 50 MG TABLET (FP) PO SCH (10:15)
[2017-08-08] MEDS: FERROUS SO4 325 MG TABLET (FP) PO SCH (10:15)
[2017-08-08] MEDS: MUPIROCIN 2% TOPICAL OINTMENT 22 GM TUBE TP SCH ×2 (10:15→21:31)
[2017-08-08] MEDS: PRENATAL VITAMINS W/ FOLIC ACID TABLET (FP) PO SCH (10:15)
[2017-08-08] MEDS: RANITIDINE HCL 150 MG TABLET (FP) PO SCH (10:15)
[2017-08-08] MEDS: NICOTINE POLACRILEX 2 MG GUM BUC PRN (10:17)
[2017-08-08] MEDS ORDERED: INSULIN (NOVOLOG) ASPART 100 UNITS/ML 10ML VIAL ONE (16:51)
[2017-08-08] MEDS: THIAMINE HCL 100 MG TABLET (FP) PO SCH (21:28)
[2017-08-08] MEDS: MELATONIN 5 MG TABLETS PO PRN (21:30)
[2017-08-08] MEDS: QUEtiapine FUMARATE 50 MG TABLET PO SCH (21:30)
[2017-08-08] MEDS: INSULIN (LEVEMIR) 100 UNITS/ML UNITS SQ SCH (21:31)
[2017-08-09] MEDS: FUROSEMIDE 40 MG TABLET (FP) PO SCH ×2 (06:32→13:30)
[2017-08-09] MEDS: INSULIN SLIDING SCALE (NOVOLOG) 1 VIAL SQ SCH ×3 (06:32→16:53)
[2017-08-09] MEDS ORDERED: PT OWN MED DRAWER 7, Y5N ONE ×2 (09:02→21:46)
[2017-08-09] MEDS: amLODIPine BESYLATE 10 MG TABLET (FP) PO SCH (10:33)
[2017-08-09] MEDS: RANITIDINE HCL 150 MG TABLET (FP) PO SCH (10:33)
[2017-08-09] MEDS: MUPIROCIN 2% TOPICAL OINTMENT 22 GM TUBE TP SCH ×2 (10:33→21:27)
[2017-08-09] MEDS: PRENATAL VITAMINS W/ FOLIC ACID TABLET (FP) PO SCH (10:33)
[2017-08-09] MEDS: SODIUM BICARBONATE 325 MG TABLET PO SCH ×2 (10:34→21:25)
[2017-08-09] MEDS: FERROUS SO4 325 MG TABLET (FP) PO SCH (10:34)
[2017-08-09] MEDS: hydrOXYzine PAMOATE 50 MG CAPSULE (FP) PO PRN (10:36)
[2017-08-09] MEDS: SERTRALINE HCL 50 MG TABLET (FP) PO SCH (10:36)
[2017-08-09] MEDS: NICOTINE POLACRILEX 2 MG GUM BUC PRN ×3 (10:37→18:50)
[2017-08-09] MEDS ORDERED: INSULIN (NOVOLOG) ASPART 100 UNITS/ML 10ML VIAL ONE (16:39)
[2017-08-09] MEDS: THIAMINE HCL 100 MG TABLET (FP) PO SCH (21:24)
[2017-08-09] MEDS: QUEtiapine FUMARATE 50 MG TABLET PO SCH (21:24)
[2017-08-09] MEDS: INSULIN (LEVEMIR) 100 UNITS/ML UNITS SQ SCH (21:27)
[2017-08-09] MEDS: MELATONIN 5 MG TABLETS PO PRN (21:27)
[2017-08-10] MEDS: FUROSEMIDE 40 MG TABLET (FP) PO SCH ×2 (06:35→13:31)
[2017-08-10] MEDS: LOPERAMIDE HCL 2 MG CAPSULE PO PRN (06:35)
[2017-08-10] MEDS: INSULIN SLIDING SCALE (NOVOLOG) 1 VIAL SQ SCH ×3 (06:36→17:08)
[2017-08-10] MEDS ORDERED: PT OWN MED DRAWER 7, Y5N ONE ×2 (08:59→12:18)
[2017-08-10] MEDS: FERROUS SO4 325 MG TABLET (FP) PO SCH (10:00)
[2017-08-10] MEDS: MUPIROCIN 2% TOPICAL OINTMENT 22 GM TUBE TP SCH ×2 (10:00→21:27)
[2017-08-10] MEDS: SERTRALINE HCL 50 MG TABLET (FP) PO SCH (10:01)
[2017-08-10] MEDS: SODIUM BICARBONATE 325 MG TABLET PO SCH ×2 (10:01→21:25)
[2017-08-10] MEDS: amLODIPine BESYLATE 10 MG TABLET (FP) PO SCH (10:01)
[2017-08-10] MEDS: RANITIDINE HCL 150 MG TABLET (FP) PO SCH (10:01)
[2017-08-10] MEDS: NICOTINE POLACRILEX 2 MG GUM BUC PRN ×2 (10:01→13:32)
[2017-08-10] MEDS: PRENATAL VITAMINS W/ FOLIC ACID TABLET (FP) PO SCH (10:01)
[2017-08-10] MEDS ORDERED: INSULIN (NOVOLOG) ASPART 100 UNITS/ML 10ML VIAL ONE ×2 (12:13→16:31)
[2017-08-10] MEDS: hydrOXYzine PAMOATE 50 MG CAPSULE (FP) PO PRN (13:31)
[2017-08-10] MEDS: THIAMINE HCL 100 MG TABLET (FP) PO SCH (21:23)
[2017-08-10] MEDS: QUEtiapine FUMARATE 50 MG TABLET PO SCH (21:26)
[2017-08-10] MEDS: INSULIN (LEVEMIR) 100 UNITS/ML UNITS SQ SCH (21:27)
[2017-08-11] MEDS: FUROSEMIDE 40 MG TABLET (FP) PO SCH ×2 (06:28→13:47)
[2017-08-11] MEDS: INSULIN SLIDING SCALE (NOVOLOG) 1 VIAL SQ SCH ×3 (06:28→17:05)
[2017-08-11] MEDS ORDERED: PT OWN MED DRAWER 7, Y5N ONE ×2 (08:49→21:11)
[2017-08-11] MEDS: MUPIROCIN 2% TOPICAL OINTMENT 22 GM TUBE TP SCH ×2 (09:53→21:16)
[2017-08-11] MEDS: FERROUS SO4 325 MG TABLET (FP) PO SCH (09:54)
[2017-08-11] MEDS: PRENATAL VITAMINS W/ FOLIC ACID TABLET (FP) PO SCH (09:54)
[2017-08-11] MEDS: SODIUM BICARBONATE 325 MG TABLET PO SCH ×2 (09:54→21:16)
[2017-08-11] MEDS: SERTRALINE HCL 50 MG TABLET (FP) PO SCH (09:54)
[2017-08-11] MEDS: RANITIDINE HCL 150 MG TABLET (FP) PO SCH (09:54)
[2017-08-11] MEDS: amLODIPine BESYLATE 10 MG TABLET (FP) PO SCH (09:54)
[2017-08-11] MEDS: hydrOXYzine PAMOATE 50 MG CAPSULE (FP) PO PRN (09:57)
[2017-08-11] MEDS: NICOTINE POLACRILEX 2 MG GUM BUC PRN (09:57)
[2017-08-11] MEDS ORDERED: INSULIN (NOVOLOG) ASPART 100 UNITS/ML 10ML VIAL ONE (16:45)
[2017-08-11] MEDS: THIAMINE HCL 100 MG TABLET (FP) PO SCH (21:13)
[2017-08-11] MEDS: QUEtiapine FUMARATE 50 MG TABLET PO SCH (21:13)
[2017-08-11] MEDS: INSULIN (LEVEMIR) 100 UNITS/ML UNITS SQ SCH (21:14)
[2017-08-11] MEDS: MELATONIN 5 MG TABLETS PO PRN (21:14)
[2017-08-11] MEDS: LOPERAMIDE HCL 2 MG CAPSULE PO PRN (21:15)
[2017-08-12] MEDS: FUROSEMIDE 40 MG TABLET (FP) PO SCH ×2 (06:50→13:30)
[2017-08-12] MEDS: INSULIN SLIDING SCALE (NOVOLOG) 1 VIAL SQ SCH ×3 (06:51→16:37)
[2017-08-12] MEDS ORDERED: PT OWN MED DRAWER 7, Y5N ONE ×3 (08:56→22:38)
[2017-08-12] MEDS: PRENATAL VITAMINS W/ FOLIC ACID TABLET (FP) PO SCH (10:13)
[2017-08-12] MEDS: MUPIROCIN 2% TOPICAL OINTMENT 22 GM TUBE TP SCH ×2 (10:13→21:30)
[2017-08-12] MEDS: SERTRALINE HCL 50 MG TABLET (FP) PO SCH (10:13)
[2017-08-12] MEDS: RANITIDINE HCL 150 MG TABLET (FP) PO SCH (10:13)
[2017-08-12] MEDS: amLODIPine BESYLATE 10 MG TABLET (FP) PO SCH (10:13)
[2017-08-12] MEDS: SODIUM BICARBONATE 325 MG TABLET PO SCH ×2 (10:13→21:30)
[2017-08-12] MEDS: FERROUS SO4 325 MG TABLET (FP) PO SCH (10:13)
[2017-08-12] MEDS: NICOTINE POLACRILEX 2 MG GUM BUC PRN ×3 (10:14→21:30)
[2017-08-12] MEDS: hydrOXYzine PAMOATE 50 MG CAPSULE (FP) PO PRN ×2 (10:16→21:29)
[2017-08-12] MEDS ORDERED: INSULIN (NOVOLOG) ASPART 100 UNITS/ML 10ML VIAL ONE (11:47)
[2017-08-12] MEDS ORDERED: COLLOIDAL OATMEAL 1 BAR EACH TP PRN (12:03)
[2017-08-12] MEDS: COLLOIDAL OATMEAL 1 BAR EACH TP PRN (16:37)
--- NOTE | 2017-08-12 17:23 | PN ---
[facility] Progress Note Note: Patient is still complaining of having insomnia,ongoing sleeping difficulties including interrupted sleep pattern and inability to fall asleep.according to her Seroquel used to work for her in a higher dosages.Seroquel 100 mg po hs will be adjusted to 150 mg po hs.
[2017-08-12] MEDS: QUEtiapine FUMARATE 100 MG TABLET (FP) PO SCH (21:26)
[2017-08-12] MEDS: THIAMINE HCL 100 MG TABLET (FP) PO SCH (21:26)
[2017-08-12] MEDS: MELATONIN 5 MG TABLETS PO PRN (21:29)
[2017-08-12] MEDS: INSULIN (LEVEMIR) 100 UNITS/ML UNITS SQ SCH (21:30)
[2017-08-13] MEDS: INSULIN SLIDING SCALE (NOVOLOG) 1 VIAL SQ SCH ×3 (06:41→17:13)
[2017-08-13] MEDS: LOPERAMIDE HCL 2 MG CAPSULE PO PRN (06:41)
[2017-08-13] MEDS: FUROSEMIDE 40 MG TABLET (FP) PO SCH ×2 (06:41→13:06)
[2017-08-13] MEDS ORDERED: PT OWN MED DRAWER 7, Y5N ONE ×6 (08:53→22:49)
[2017-08-13] MEDS: amLODIPine BESYLATE 10 MG TABLET (FP) PO SCH (10:19)
[2017-08-13] MEDS: PRENATAL VITAMINS W/ FOLIC ACID TABLET (FP) PO SCH (10:19)
[2017-08-13] MEDS: SERTRALINE HCL 50 MG TABLET (FP) PO SCH (10:19)
[2017-08-13] MEDS: RANITIDINE HCL 150 MG TABLET (FP) PO SCH (10:19)
[2017-08-13] MEDS: MUPIROCIN 2% TOPICAL OINTMENT 22 GM TUBE TP SCH ×2 (10:20→21:24)
[2017-08-13] MEDS: FERROUS SO4 325 MG TABLET (FP) PO SCH (10:20)
[2017-08-13] MEDS: hydrOXYzine PAMOATE 50 MG CAPSULE (FP) PO PRN ×2 (10:21→21:25)
[2017-08-13] MEDS: SODIUM BICARBONATE 325 MG TABLET PO SCH ×2 (10:22→21:24)
[2017-08-13] MEDS: NICOTINE POLACRILEX 2 MG GUM BUC PRN (10:24)
[2017-08-13] MEDS ORDERED: INSULIN (NOVOLOG) ASPART 100 UNITS/ML 10ML VIAL ONE (11:42)
[2017-08-13] MEDS: QUEtiapine FUMARATE 100 MG TABLET (FP) PO SCH (21:23)
[2017-08-13] MEDS: THIAMINE HCL 100 MG TABLET (FP) PO SCH (21:23)
[2017-08-13] MEDS: MELATONIN 5 MG TABLETS PO PRN (21:24)
[2017-08-13] MEDS: INSULIN (LEVEMIR) 100 UNITS/ML UNITS SQ SCH (22:43)
[2017-08-14] MEDS: FUROSEMIDE 40 MG TABLET (FP) PO SCH ×2 (06:37→13:08)
[2017-08-14] MEDS ORDERED: INSULIN (NOVOLOG) ASPART 100 UNITS/ML 10ML VIAL ONE ×2 (06:40→16:54)
[2017-08-14] MEDS: INSULIN SLIDING SCALE (NOVOLOG) 1 VIAL SQ SCH ×3 (07:42→16:53)
[2017-08-14] MEDS ORDERED: PT OWN MED DRAWER 7, Y5N ONE ×3 (08:40→23:38)
[2017-08-14] MEDS: PRENATAL VITAMINS W/ FOLIC ACID TABLET (FP) PO SCH (11:00)
[2017-08-14] MEDS: RANITIDINE HCL 150 MG TABLET (FP) PO SCH (11:00)
[2017-08-14] MEDS: SODIUM BICARBONATE 325 MG TABLET PO SCH ×2 (11:00→21:25)
[2017-08-14] MEDS: MUPIROCIN 2% TOPICAL OINTMENT 22 GM TUBE TP SCH ×2 (11:00→21:29)
[2017-08-14] MEDS: FERROUS SO4 325 MG TABLET (FP) PO SCH (11:00)
[2017-08-14] MEDS: amLODIPine BESYLATE 10 MG TABLET (FP) PO SCH (11:00)
[2017-08-14] MEDS: SERTRALINE HCL 50 MG TABLET (FP) PO SCH (11:00)
--- NOTE | 2017-08-14 11:07 | PN ---
[facility] Progress Note Note: ALERT,HAS EPISODE OF HYPOGLYCEMIA EARLIER 49,43,48 EARLIER RESPONDED TO ORAL APPLE JUICE,LAST BGM IS 132, CLOSE MONITORING
[2017-08-14] MEDS: NICOTINE POLACRILEX 2 MG GUM BUC PRN (11:28)
[2017-08-14] MEDS: hydrOXYzine PAMOATE 50 MG CAPSULE (FP) PO PRN ×2 (18:23→21:26)
[2017-08-14] MEDS: LOPERAMIDE HCL 2 MG CAPSULE PO PRN (18:23)
[2017-08-14] MEDS: THIAMINE HCL 100 MG TABLET (FP) PO SCH (21:24)
[2017-08-14] MEDS: QUEtiapine FUMARATE 100 MG TABLET (FP) PO SCH (21:24)
[2017-08-14] MEDS: MELATONIN 5 MG TABLETS PO PRN (21:25)
[2017-08-14] MEDS: INSULIN (LEVEMIR) 100 UNITS/ML UNITS SQ SCH (21:28)
[2017-08-15] MEDS: LOPERAMIDE HCL 2 MG CAPSULE PO PRN ×2 (00:49→23:58)
[2017-08-15] MEDS: FUROSEMIDE 40 MG TABLET (FP) PO SCH ×2 (06:27→13:00)
[2017-08-15] MEDS: INSULIN SLIDING SCALE (NOVOLOG) 1 VIAL SQ SCH ×3 (07:27→16:56)
[2017-08-15] MEDS ORDERED: INSULIN (NOVOLOG) ASPART 100 UNITS/ML 10ML VIAL ONE ×2 (07:28→16:57)
[2017-08-15] MEDS: NICOTINE POLACRILEX 2 MG GUM BUC PRN ×2 (07:29→21:30)
[2017-08-15] MEDS: MUPIROCIN 2% TOPICAL OINTMENT 22 GM TUBE TP SCH ×2 (10:16→21:29)
[2017-08-15] MEDS: SERTRALINE HCL 50 MG TABLET (FP) PO SCH (10:17)
[2017-08-15] MEDS: PRENATAL VITAMINS W/ FOLIC ACID TABLET (FP) PO SCH (10:17)
[2017-08-15] MEDS: RANITIDINE HCL 150 MG TABLET (FP) PO SCH (10:17)
[2017-08-15] MEDS: FERROUS SO4 325 MG TABLET (FP) PO SCH (10:17)
[2017-08-15] MEDS: amLODIPine BESYLATE 10 MG TABLET (FP) PO SCH (10:17)
[2017-08-15] MEDS: SODIUM BICARBONATE 325 MG TABLET PO SCH ×2 (10:18→21:28)
[2017-08-15] MEDS: hydrOXYzine PAMOATE 50 MG CAPSULE (FP) PO PRN ×2 (11:32→21:27)
[2017-08-15] MEDS ORDERED: PT OWN MED DRAWER 7, Y5N ONE (21:09)
[2017-08-15] MEDS: THIAMINE HCL 100 MG TABLET (FP) PO SCH (21:27)
[2017-08-15] MEDS: QUEtiapine FUMARATE 100 MG TABLET (FP) PO SCH (21:27)
[2017-08-15] MEDS: INSULIN (LEVEMIR) 100 UNITS/ML UNITS SQ SCH (21:29)
[2017-08-16] MEDS: FUROSEMIDE 40 MG TABLET (FP) PO SCH ×2 (06:29→14:49)
[2017-08-16] MEDS ORDERED: INSULIN (NOVOLOG) ASPART 100 UNITS/ML 10ML VIAL ONE ×3 (06:44→16:48)
[2017-08-16] MEDS: INSULIN SLIDING SCALE (NOVOLOG) 1 VIAL SQ SCH ×3 (08:31→16:52)
[2017-08-16] MEDS: PRENATAL VITAMINS W/ FOLIC ACID TABLET (FP) PO SCH (10:45)
[2017-08-16] MEDS: SERTRALINE HCL 50 MG TABLET (FP) PO SCH (10:45)
[2017-08-16] MEDS: FERROUS SO4 325 MG TABLET (FP) PO SCH (10:45)
[2017-08-16] MEDS: hydrOXYzine PAMOATE 50 MG CAPSULE (FP) PO PRN ×2 (10:45→21:36)
[2017-08-16] MEDS: amLODIPine BESYLATE 10 MG TABLET (FP) PO SCH (10:46)
[2017-08-16] MEDS: RANITIDINE HCL 150 MG TABLET (FP) PO SCH (10:46)
[2017-08-16] MEDS: MUPIROCIN 2% TOPICAL OINTMENT 22 GM TUBE TP SCH ×2 (10:47→21:37)
[2017-08-16] MEDS: NICOTINE POLACRILEX 2 MG GUM BUC PRN ×3 (10:48→21:37)
[2017-08-16] MEDS: SODIUM BICARBONATE 325 MG TABLET PO SCH ×2 (11:13→21:36)
[2017-08-16] MEDS ORDERED: PT OWN MED DRAWER 7, Y5N ONE (21:11)
[2017-08-16] MEDS: QUEtiapine FUMARATE 100 MG TABLET (FP) PO SCH (21:36)
[2017-08-16] MEDS: THIAMINE HCL 100 MG TABLET (FP) PO SCH (21:36)
[2017-08-16] MEDS: INSULIN (LEVEMIR) 100 UNITS/ML UNITS SQ SCH (21:37)
[2017-08-17] MEDS: LOPERAMIDE HCL 2 MG CAPSULE PO PRN (00:17)
[2017-08-17] MEDS: FUROSEMIDE 40 MG TABLET (FP) PO SCH ×2 (06:56→13:04)
[2017-08-17] MEDS ORDERED: INSULIN (NOVOLOG) ASPART 100 UNITS/ML 10ML VIAL ONE ×3 (07:44→21:47)
[2017-08-17] MEDS: INSULIN SLIDING SCALE (NOVOLOG) 1 VIAL SQ SCH ×3 (07:45→16:44)
[2017-08-17] MEDS ORDERED: PT OWN MED DRAWER 7, Y5N ONE ×4 (08:30→21:43)
[2017-08-17] MEDS: amLODIPine BESYLATE 10 MG TABLET (FP) PO SCH (10:23)
[2017-08-17] MEDS: SERTRALINE HCL 50 MG TABLET (FP) PO SCH (10:23)
[2017-08-17] MEDS: MUPIROCIN 2% TOPICAL OINTMENT 22 GM TUBE TP SCH ×2 (10:23→21:31)
[2017-08-17] MEDS: PRENATAL VITAMINS W/ FOLIC ACID TABLET (FP) PO SCH (10:23)
[2017-08-17] MEDS: FERROUS SO4 325 MG TABLET (FP) PO SCH (10:23)
[2017-08-17] MEDS: RANITIDINE HCL 150 MG TABLET (FP) PO SCH (10:23)
[2017-08-17] MEDS: SODIUM BICARBONATE 325 MG TABLET PO SCH ×2 (10:24→21:27)
[2017-08-17] MEDS: NICOTINE POLACRILEX 2 MG GUM BUC PRN ×2 (10:25→13:05)
[2017-08-17] MEDS: hydrOXYzine PAMOATE 50 MG CAPSULE (FP) PO PRN ×2 (10:25→21:28)
[2017-08-17] MEDS: QUEtiapine FUMARATE 100 MG TABLET (FP) PO SCH (21:27)
[2017-08-17] MEDS: THIAMINE HCL 100 MG TABLET (FP) PO SCH (21:27)
[2017-08-17] MEDS: MELATONIN 5 MG TABLETS PO PRN (21:28)
[2017-08-17] MEDS: INSULIN (LEVEMIR) 100 UNITS/ML UNITS SQ SCH (21:32)
[2017-08-18] MEDS: FUROSEMIDE 40 MG TABLET (FP) PO SCH ×2 (06:31→13:05)
[2017-08-18] MEDS: INSULIN SLIDING SCALE (NOVOLOG) 1 VIAL SQ SCH ×3 (08:03→17:03)
[2017-08-18] MEDS: MUPIROCIN 2% TOPICAL OINTMENT 22 GM TUBE TP SCH ×2 (10:23→21:28)
[2017-08-18] MEDS: SERTRALINE HCL 50 MG TABLET (FP) PO SCH (10:23)
[2017-08-18] MEDS: FERROUS SO4 325 MG TABLET (FP) PO SCH (10:23)
[2017-08-18] MEDS: RANITIDINE HCL 150 MG TABLET (FP) PO SCH (10:23)
[2017-08-18] MEDS: amLODIPine BESYLATE 10 MG TABLET (FP) PO SCH (10:23)
[2017-08-18] MEDS: PRENATAL VITAMINS W/ FOLIC ACID TABLET (FP) PO SCH (10:23)
[2017-08-18] MEDS: SODIUM BICARBONATE 325 MG TABLET PO SCH ×2 (10:24→21:27)
[2017-08-18] MEDS: NICOTINE POLACRILEX 2 MG GUM BUC PRN (10:25)
[2017-08-18] MEDS: hydrOXYzine PAMOATE 50 MG CAPSULE (FP) PO PRN ×2 (10:25→21:26)
[2017-08-18] MEDS ORDERED: INSULIN (NOVOLOG) ASPART 100 UNITS/ML 10ML VIAL ONE (11:46)
[2017-08-18] MEDS ORDERED: PT OWN MED DRAWER 7, Y5N ONE (20:33)
[2017-08-18] MEDS: MELATONIN 5 MG TABLETS PO PRN (21:26)
[2017-08-18] MEDS: THIAMINE HCL 100 MG TABLET (FP) PO SCH (21:26)
[2017-08-18] MEDS: QUEtiapine FUMARATE 100 MG TABLET (FP) PO SCH (21:27)
[2017-08-18] MEDS: INSULIN (LEVEMIR) 100 UNITS/ML UNITS SQ SCH (21:28)
[2017-08-19] MEDS: FUROSEMIDE 40 MG TABLET (FP) PO SCH ×2 (06:55→13:37)
[2017-08-19] MEDS: INSULIN SLIDING SCALE (NOVOLOG) 1 VIAL SQ SCH ×3 (06:56→17:09)
[2017-08-19] MEDS: MUPIROCIN 2% TOPICAL OINTMENT 22 GM TUBE TP SCH ×2 (10:17→21:45)
[2017-08-19] MEDS: RANITIDINE HCL 150 MG TABLET (FP) PO SCH (10:17)
[2017-08-19] MEDS: amLODIPine BESYLATE 10 MG TABLET (FP) PO SCH (10:17)
[2017-08-19] MEDS: PRENATAL VITAMINS W/ FOLIC ACID TABLET (FP) PO SCH (10:17)
[2017-08-19] MEDS: SERTRALINE HCL 50 MG TABLET (FP) PO SCH (10:17)
[2017-08-19] MEDS: SODIUM BICARBONATE 325 MG TABLET PO SCH ×2 (10:17→21:43)
[2017-08-19] MEDS: FERROUS SO4 325 MG TABLET (FP) PO SCH (10:17)
[2017-08-19] MEDS ORDERED: PT OWN MED DRAWER 7, Y5N ONE ×2 (10:21→23:53)
--- NOTE | 2017-08-19 10:39 | PN ---
[facility] Progress Note Note: Notified by RN, patient reports having nausea and body aches. Laboratory Tests 08/05/17 08/05/17 08/06/17 22:48 23:17 06:52 WBC RBC Hgb Hct MCV MCH MCHC RDW Plt Count MPV Sodium Potassium Chloride Carbon Dioxide Anion Gap BUN Creatinine Creat Clearance w eGFR POC Glucometer 283 108 Random Glucose Calcium Total Bilirubin AST ALT Alkaline Phosphatase Total Protein Albumin Urine Color Ltyellow Urine Appearance Cloudy Urine pH 5.0 Ur Specific [place] 1.013 Urine Protein 3+ H Urine Glucose (UA) 3+ H D Urine Ketones Negative Urine Blood Negative Urine Nitrite Negative Urine Bilirubin Negative Urine Urobilinogen Negative Ur Leukocyte Esterase Negative Urine WBC (Auto) 18 Urine RBC (Auto) 15 Ur Epithelial Cells Many Urine Bacteria Rare Hyaline Casts 3 Urine Yeast Rare RPR Titer 08/06/17 08/06/17 08/06/17 08:30 08:30 08:30 WBC 5.6 RBC 3.20 L Hgb 8.9 L D Hct 27.5 L D MCV 85.9 MCH 27.9 MCHC 32.5 RDW 16.0 H Plt Count 524 H MPV 7.5 Sodium 142 Potassium 4.8 Chloride 114 H Carbon Dioxide 19 L Anion Gap 9 BUN 54 H Creatinine 2.1 H Creat Clearance w eGFR 28.47 POC Glucometer Random Glucose 103 Calcium 8.3 L Total Bilirubin 0.1 L AST 38 H ALT 45 Alkaline Phosphatase 132 H Total Protein 6.8 Albumin 2.3 L Urine Color Urine Appearance Urine pH Ur Specific [place] Urine Protein Urine Glucose (UA) Urine Ketones Urine Blood Urine Nitrite Urine Bilirubin Urine Urobilinogen Ur Leukocyte Esterase Urine WBC (Auto) Urine RBC (Auto) Ur Epithelial Cells Urine Bacteria Hyaline Casts Urine Yeast RPR Titer Nonreactive 08/06/17 08/06/17 08/06/17 11:42 16:49 21:13 WBC RBC Hgb Hct MCV MCH MCHC RDW Plt Count MPV Sodium Potassium Chloride Carbon Dioxide Anion Gap BUN Creatinine Creat Clearance w eGFR POC Glucometer 208 309 169 Random Glucose Calcium Total Bilirubin AST ALT Alkaline Phosphatase Total Protein Albumin Urine Color Urine Appearance Urine pH Ur Specific [place] Urine Protein Urine Glucose (UA) Urine Ketones Urine Blood Urine Nitrite Urine Bilirubin Urine Urobilinogen Ur Leukocyte Esterase Urine WBC (Auto) Urine RBC (Auto) Ur Epithelial Cells Urine Bacteria Hyaline Casts Urine Yeast RPR Titer 08/07/17 08/07/17 08/07/17 06:51 11:45 17:09 WBC RBC Hgb Hct MCV MCH MCHC RDW Plt Count MPV Sodium Potassium Chloride Carbon Dioxide Anion Gap BUN Creatinine Creat Clearance w eGFR POC Glucometer 101 196 226 Random Glucose Calcium Total Bilirubin AST ALT Alkaline Phosphatase Total Protein Albumin Urine Color Urine Appearance Urine pH Ur Specific [place] Urine Protein Urine Glucose (UA) Urine Ketones Urine Blood Urine Nitrite Urine Bilirubin Urine Urobilinogen Ur Leukocyte Esterase Urine WBC (Auto) Urine RBC (Auto) Ur Epithelial Cells Urine Bacteria Hyaline Casts Urine Yeast RPR Titer 08/07/17 08/08/17 08/08/17 21:33 06:01 07:38 WBC RBC Hgb Hct MCV MCH MCHC RDW Plt Count MPV Sodium Potassium Chloride Carbon Dioxide Anion Gap BUN Creatinine Creat Clearance w eGFR POC Glucometer 192 57 135 Random Glucose Calcium Total Bilirubin AST ALT Alkaline Phosphatase Total Protein Albumin Urine Color Urine Appearance Urine pH Ur Specific [place] Urine Protein Urine Glucose (UA) Urine Ketones Urine Blood Urine Nitrite Urine Bilirubin Urine Urobilinogen Ur Leukocyte Esterase Urine WBC (Auto) Urine RBC (Auto) Ur Epithelial Cells Urine Bacteria Hyaline Casts Urine Yeast RPR Titer 08/08/17 08/08/17 08/08/17 11:46 17:06 21:31 WBC RBC Hgb Hct MCV MCH MCHC RDW Plt Count MPV Sodium Potassium Chloride Carbon Dioxide Anion Gap BUN Creatinine Creat Clearance w eGFR POC Glucometer 118 137 177 Random Glucose Calcium Total Bilirubin AST ALT Alkaline Phosphatase Total Protein Albumin Urine Color Urine Appearance Urine pH Ur Specific [place] Urine Protein Urine Glucose (UA) Urine Ketones Urine Blood Urine Nitrite Urine Bilirubin Urine Urobilinogen Ur Leukocyte Esterase Urine WBC (Auto) Urine RBC (Auto) Ur Epithelial Cells Urine Bacteria Hyaline Casts Urine Yeast RPR Titer 08/09/17 08/09/17 08/09/17 06:31 11:49 16:52 WBC RBC Hgb Hct MCV MCH MCHC RDW Plt Count MPV Sodium Potassium Chloride Carbon Dioxide Anion Gap BUN Creatinine Creat Clearance w eGFR POC Glucometer 66 103 183 Random Glucose Calcium Total Bilirubin AST ALT Alkaline Phosphatase Total Protein Albumin Urine Color Urine Appearance Urine pH Ur Specific [place] Urine Protein Urine Glucose (UA) Urine Ketones Urine Blood Urine Nitrite Urine Bilirubin Urine Urobilinogen Ur Leukocyte Esterase Urine WBC (Auto) Urine RBC (Auto) Ur Epithelial Cells Urine Bacteria Hyaline Casts Urine Yeast RPR Titer 08/09/17 08/10/17 08/10/17 21:24 06:35 12:11 WBC RBC Hgb Hct MCV MCH MCHC RDW Plt Count MPV Sodium Potassium Chloride Carbon Dioxide Anion Gap BUN Creatinine Creat Clearance w eGFR POC Glucometer 125 127 227 Random Glucose Calcium Total Bilirubin AST ALT Alkaline Phosphatase Total Protein Albumin Urine Color Urine Appearance Urine pH Ur Specific [place] Urine Protein Urine Glucose (UA) Urine Ketones Urine Blood Urine Nitrite Urine Bilirubin Urine Urobilinogen Ur Leukocyte Esterase Urine WBC (Auto) Urine RBC (Auto) Ur Epithelial Cells Urine Bacteria Hyaline Casts Urine Yeast RPR Titer 08/10/17 08/10/17 08/11/17 17:08 21:27 06:28 WBC RBC Hgb Hct MCV MCH MCHC RDW Plt Count MPV Sodium Potassium Chloride Carbon Dioxide Anion Gap BUN Creatinine Creat Clearance w eGFR POC Glucometer 143 182 150 Random Glucose Calcium Total Bilirubin AST ALT Alkaline Phosphatase Total Protein Albumin Urine Color Urine Appearance Urine pH Ur Specific [place] Urine Protein Urine Glucose (UA) Urine Ketones Urine Blood Urine Nitrite Urine Bilirubin Urine Urobilinogen Ur Leukocyte Esterase Urine WBC (Auto) Urine RBC (Auto) Ur Epithelial Cells Urine Bacteria Hyaline Casts Urine Yeast RPR Titer 08/11/17 08/11/17 08/11/17 11:34 17:04 18:55 WBC RBC Hgb Hct MCV MCH MCHC RDW Plt Count MPV Sodium Potassium Chloride Carbon Dioxide Anion Gap BUN Creatinine Creat Clearance w eGFR POC Glucometer 131 244 52 Random Glucose Calcium Total Bilirubin AST ALT Alkaline Phosphatase Total Protein Albumin Urine Color Urine Appearance Urine pH Ur Specific [place] Urine Protein Urine Glucose (UA) Urine Ketones Urine Blood Urine Nitrite Urine Bilirubin Urine Urobilinogen Ur Leukocyte Esterase Urine WBC (Auto) Urine RBC (Auto) Ur Epithelial Cells Urine Bacteria Hyaline Casts Urine Yeast RPR Titer 08/11/17 08/12/17 08/12/17 21:13 06:49 11:44 WBC RBC Hgb Hct MCV MCH MCHC RDW Plt Count MPV Sodium Potassium Chloride Carbon Dioxide Anion Gap BUN Creatinine Creat Clearance w eGFR POC Glucometer 66 171 208 Random Glucose Calcium Total Bilirubin AST ALT Alkaline Phosphatase Total Protein Albumin Urine Color Urine Appearance Urine pH Ur Specific [place] Urine Protein Urine Glucose (UA) Urine Ketones Urine Blood Urine Nitrite Urine Bilirubin Urine Urobilinogen Ur Leukocyte Esterase Urine WBC (Auto) Urine RBC (Auto) Ur Epithelial Cells Urine Bacteria Hyaline Casts Urine Yeast RPR Titer 08/12/17 08/12/17 08/13/17 16:37 21:26 06:40 WBC RBC Hgb Hct MCV MCH MCHC RDW Plt Count MPV Sodium Potassium Chloride Carbon Dioxide Anion Gap BUN Creatinine Creat Clearance w eGFR POC Glucometer 137 251 88 Random Glucose Calcium Total Bilirubin AST ALT Alkaline Phosphatase Total Protein Albumin Urine Color Urine Appearance Urine pH Ur Specific [place] Urine Protein Urine Glucose (UA) Urine Ketones Urine Blood Urine Nitrite Urine Bilirubin Urine Urobilinogen Ur Leukocyte Esterase Urine WBC (Auto) Urine RBC (Auto) Ur Epithelial Cells Urine Bacteria Hyaline Casts Urine Yeast RPR Titer 08/13/17 08/13/17 08/13/17 11:40 17:12 21:22 WBC RBC Hgb Hct MCV MCH MCHC RDW Plt Count MPV Sodium Potassium Chloride Carbon Dioxide Anion Gap BUN Creatinine Creat Clearance w eGFR POC Glucometer 204 154 102 Random Glucose Calcium Total Bilirubin AST ALT Alkaline Phosphatase Total Protein Albumin Urine Color Urine Appearance Urine pH Ur Specific [place] Urine Protein Urine Glucose (UA) Urine Ketones Urine Blood Urine Nitrite Urine Bilirubin Urine Urobilinogen Ur Leukocyte Esterase Urine WBC (Auto) Urine RBC (Auto) Ur Epithelial Cells Urine Bacteria Hyaline Casts Urine Yeast RPR Titer 08/14/17 08/14/17 08/14/17 06:36 09:30 09:35 WBC RBC Hgb Hct MCV MCH MCHC RDW Plt Count MPV Sodium Potassium Chloride Carbon Dioxide Anion Gap BUN Creatinine Creat Clearance w eGFR POC Glucometer 167 49 43 Random Glucose Calcium Total Bilirubin AST ALT Alkaline Phosphatase Total Protein Albumin Urine Color Urine Appearance Urine pH Ur Specific [place] Urine Protein Urine Glucose (UA) Urine Ketones Urine Blood Urine Nitrite Urine Bilirubin Urine Urobilinogen Ur Leukocyte Esterase Urine WBC (Auto) Urine RBC (Auto) Ur Epithelial Cells Urine Bacteria Hyaline Casts Urine Yeast RPR Titer 08/14/17 08/14/17 08/14/17 09:44 10:33 11:26 WBC RBC Hgb Hct MCV MCH MCHC RDW Plt Count MPV Sodium Potassium Chloride Carbon Dioxide Anion Gap BUN Creatinine Creat Clearance w eGFR POC Glucometer 48 132 129 Random Glucose Calcium Total Bilirubin AST ALT Alkaline Phosphatase Total Protein Albumin Urine Color Urine Appearance Urine pH Ur Specific [place] Urine Protein Urine Glucose (UA) Urine Ketones Urine Blood Urine Nitrite Urine Bilirubin Urine Urobilinogen Ur Leukocyte Esterase Urine WBC (Auto) Urine RBC (Auto) Ur Epithelial Cells Urine Bacteria Hyaline Casts Urine Yeast RPR Titer 08/14/17 08/14/17 08/15/17 16:53 21:28 06:27 WBC RBC Hgb Hct MCV MCH MCHC RDW Plt Count MPV Sodium Potassium Chloride Carbon Dioxide Anion Gap BUN Creatinine Creat Clearance w eGFR POC Glucometer 199 146 219 Random Glucose Calcium Total Bilirubin AST ALT Alkaline Phosphatase Total Protein Albumin Urine Color Urine Appearance Urine pH Ur Specific [place] Urine Protein Urine Glucose (UA) Urine Ketones Urine Blood Urine Nitrite Urine Bilirubin Urine Urobilinogen Ur Leukocyte Esterase Urine WBC (Auto) Urine RBC (Auto) Ur Epithelial Cells Urine Bacteria Hyaline Casts Urine Yeast RPR Titer 08/15/17 08/15/17 08/15/17 11:30 16:56 21:27 WBC RBC Hgb Hct MCV MCH MCHC RDW Plt Count MPV Sodium Potassium Chloride Carbon Dioxide Anion Gap BUN Creatinine Creat Clearance w eGFR POC Glucometer 123 220 287 Random Glucose Calcium Total Bilirubin AST ALT Alkaline Phosphatase Total Protein Albumin Urine Color Urine Appearance Urine pH Ur Specific [place] Urine Protein Urine Glucose (UA) Urine Ketones Urine Blood Urine Nitrite Urine Bilirubin Urine Urobilinogen Ur Leukocyte Esterase Urine WBC (Auto) Urine RBC (Auto) Ur Epithelial Cells Urine Bacteria Hyaline Casts Urine Yeast RPR Titer 08/16/17 08/16/17 08/16/17 06:24 11:26 16:52 WBC RBC Hgb Hct MCV MCH MCHC RDW Plt Count MPV Sodium Potassium Chloride Carbon Dioxide Anion Gap BUN Creatinine Creat Clearance w eGFR POC Glucometer 176 160 256 Random Glucose Calcium Total Bilirubin AST ALT Alkaline Phosphatase Total Protein Albumin Urine Color Urine Appearance Urine pH Ur Specific [place] Urine Protein Urine Glucose (UA) Urine Ketones Urine Blood Urine Nitrite Urine Bilirubin Urine Urobilinogen Ur Leukocyte Esterase Urine WBC (Auto) Urine RBC (Auto) Ur Epithelial Cells Urine Bacteria Hyaline Casts Urine Yeast RPR Titer 08/16/17 08/16/17 08/17/17 19:08 21:36 06:55 WBC RBC Hgb Hct MCV MCH MCHC RDW Plt Count MPV Sodium Potassium Chloride Carbon Dioxide Anion Gap BUN Creatinine Creat Clearance w eGFR POC Glucometer 48 116 211 Random Glucose Calcium Total Bilirubin AST ALT Alkaline Phosphatase Total Protein Albumin Urine Color Urine Appearance Urine pH Ur Specific [place] Urine Protein Urine Glucose (UA) Urine Ketones Urine Blood Urine Nitrite Urine Bilirubin Urine Urobilinogen Ur Leukocyte Esterase Urine WBC (Auto) Urine RBC (Auto) Ur Epithelial Cells Urine Bacteria Hyaline Casts Urine Yeast RPR Titer 08/17/17 08/17/17 08/17/17 11:38 16:42 21:29 WBC RBC Hgb Hct MCV MCH MCHC RDW Plt Count MPV Sodium Potassium Chloride Carbon Dioxide Anion Gap BUN Creatinine Creat Clearance w eGFR POC Glucometer 205 189 170 Random Glucose Calcium Total Bilirubin AST ALT Alkaline Phosphatase Total Protein Albumin Urine Color Urine Appearance Urine pH Ur Specific [place] Urine Protein Urine Glucose (UA) Urine Ketones Urine Blood Urine Nitrite Urine Bilirubin Urine Urobilinogen Ur Leukocyte Esterase Urine WBC (Auto) Urine RBC (Auto) Ur Epithelial Cells Urine Bacteria Hyaline Casts Urine Yeast RPR Titer 08/18/17 08/18/17 08/18/17 06:31 11:43 17:02 WBC RBC Hgb Hct MCV MCH MCHC RDW Plt Count MPV Sodium Potassium Chloride Carbon Dioxide Anion Gap BUN Creatinine Creat Clearance w eGFR POC Glucometer 168 184 130 Random Glucose Calcium Total Bilirubin AST ALT Alkaline Phosphatase Total Protein Albumin Urine Color Urine Appearance Urine pH Ur Specific [place] Urine Protein Urine Glucose (UA) Urine Ketones Urine Blood Urine Nitrite Urine Bilirubin Urine Urobilinogen Ur Leukocyte Esterase Urine WBC (Auto) Urine RBC (Auto) Ur Epithelial Cells Urine Bacteria Hyaline Casts Urine Yeast RPR Titer 08/18/17 08/19/17 08/19/17 21:24 06:55 10:15 WBC RBC Hgb Hct MCV MCH MCHC RDW Plt Count MPV Sodium Potassium Chloride Carbon Dioxide Anion Gap BUN Creatinine Creat Clearance w eGFR POC Glucometer 258 133 152 Random Glucose Calcium Total Bilirubin AST ALT Alkaline Phosphatase Total Protein Albumin Urine Color Urine Appearance Urine pH Ur Specific [place] Urine Protein Urine Glucose (UA) Urine Ketones Urine Blood Urine Nitrite Urine Bilirubin Urine Urobilinogen Ur Leukocyte Esterase Urine WBC (Auto) Urine RBC (Auto) Ur Epithelial Cells Urine Bacteria Hyaline Casts Urine Yeast RPR Titer Vital Signs Temperature 98.3 F 08/19/17 07:20 Pulse Rate 106 H 08/19/17 10:13 Respiratory Rate 18 08/19/17 07:20 Blood Pressure 152/88 08/19/17 10:13 O2 Sat by Pulse Oximetry (%) Subj: Patient evaluated in bed. States she feels sick. Complain of nausea, body aches and feeling tired. Obj: Skin: warm and dry. Afebrile Car: S1S2. RRR. no murmurs or gallops Resp: CTA BL GI: soft, BS+, NT. Last BM 08/18/17. Ext: BLE edematous. Blood sugar 133 A/P: Nausea Lethargy Will check CBC, CMP and UA Continue oral fluids and rest Continue to monitor clinically
[2017-08-19] MEDS: hydrOXYzine PAMOATE 50 MG CAPSULE (FP) PO PRN ×2 (13:37→21:42)
[2017-08-19] MEDS: NICOTINE POLACRILEX 2 MG GUM BUC PRN (13:38)
[2017-08-19] MEDS: QUEtiapine FUMARATE 100 MG TABLET (FP) PO SCH (21:42)
[2017-08-19] MEDS: THIAMINE HCL 100 MG TABLET (FP) PO SCH (21:42)
[2017-08-19] MEDS: MELATONIN 5 MG TABLETS PO PRN (21:43)
[2017-08-19] MEDS: INSULIN (LEVEMIR) 100 UNITS/ML UNITS SQ SCH (21:44)
[2017-08-20] MEDS: FUROSEMIDE 40 MG TABLET (FP) PO SCH ×2 (06:42→13:18)
[2017-08-20] MEDS: INSULIN SLIDING SCALE (NOVOLOG) 1 VIAL SQ SCH ×3 (08:03→18:10)
[2017-08-20 09:59] LABS: BASO % 0.7 % (0-2.0); EOS % 2.3 % (0-4.5); HEMOGLOBIN 8.2 GM/dL (10.7-15.3); LYMPH % 30.2 % (8-40); MCH 28.8 pg (25.7-33.7); MEAN CELL VOLUME 84.9 fl (80-96); MEAN PLT VOLUME 8.2 fl (7.5-11.1); MONO % 9.2 % (3.8-10.2); NEUT % 57.6 % (42.8-82.8); PLATELET COUNT 295 K/MM3 (134-434); RBC 2.83 M/mm3 (3.60-5.2); RDW 15.5 % (11.6-15.6); WHITE BLOOD COUNT 6.1 K/mm3 (4.0-10.0)
[2017-08-20 10:00] LABS: CHLORIDE 114 mmol/L (98-107); POTASSIUM 5.5 mmol/L (3.5-5.1); SODIUM 141 mmol/L (136-145)
[2017-08-20] MEDS: MUPIROCIN 2% TOPICAL OINTMENT 22 GM TUBE TP SCH ×2 (10:09→21:44)
[2017-08-20] MEDS: FERROUS SO4 325 MG TABLET (FP) PO SCH (10:09)
[2017-08-20] MEDS: SERTRALINE HCL 50 MG TABLET (FP) PO SCH (10:09)
[2017-08-20] MEDS: SODIUM BICARBONATE 325 MG TABLET PO SCH ×2 (10:10→21:43)
[2017-08-20] MEDS: PRENATAL VITAMINS W/ FOLIC ACID TABLET (FP) PO SCH (10:10)
[2017-08-20] MEDS: amLODIPine BESYLATE 10 MG TABLET (FP) PO SCH (10:10)
[2017-08-20] MEDS: RANITIDINE HCL 150 MG TABLET (FP) PO SCH (10:10)
[2017-08-20] MEDS: hydrOXYzine PAMOATE 50 MG CAPSULE (FP) PO PRN ×2 (10:10→21:44)
[2017-08-20] MEDS: NICOTINE POLACRILEX 2 MG GUM BUC PRN ×3 (10:11→18:51)
[2017-08-20 10:18] LABS: ALK PHOS 105 U/L (45-117); ANION GAP 9 (8-16); BILIRUBIN,TOTAL 0.2 mg/dL (0.2-1.0); BLOOD UREA NITROGEN 73 mg/dL (7-18); CO2 18 mmol/L (21-32); CREATININE 2.3 mg/dL (0.55-1.02); GLUCOSE,RANDOM 151 mg/dL (74-106); SGOT/AST 15 U/L (15-37); SGPT/ALT 22 U/L (12-78); TOT PROT 5.9 g/dl (6.4-8.2)
[2017-08-20] MEDS ORDERED: PT OWN MED DRAWER 7, Y5N ONE (11:45)
[2017-08-20] MEDS ORDERED: INSULIN (NOVOLOG) ASPART 100 UNITS/ML 10ML VIAL ONE (11:45)
[2017-08-20 15:02] LABS: URINE APPEARANCE CLEAR; URINE BILIRUBIN NEGATIVE (<2.0 mg/dL); URINE COLOR STRAW; URINE GLUCOSE (UA) 2+ (NEGATIVE); URINE KETONE NEGATIVE (NEGATIVE); URINE LEUK ESTERASE NEGATIVE (NEGATIVE); URINE NITRITE NEGATIVE (NEGATIVE); URINE UROBILINOGEN NEGATIVE mg/dL (0.2-1.0)
[2017-08-20 15:04] LABS: URINE PROTEIN 2+ (NEGATIVE)
[2017-08-20 15:07] LABS: EPI CELLS RARE /HPF (FEW)
[2017-08-20] MEDS: LOPERAMIDE HCL 2 MG CAPSULE PO PRN (18:51)
[2017-08-20] MEDS: MELATONIN 5 MG TABLETS PO PRN (21:42)
[2017-08-20] MEDS: QUEtiapine FUMARATE 100 MG TABLET (FP) PO SCH (21:42)
[2017-08-20] MEDS: THIAMINE HCL 100 MG TABLET (FP) PO SCH (21:43)
[2017-08-20] MEDS: INSULIN (LEVEMIR) 100 UNITS/ML UNITS SQ SCH (21:44)
[2017-08-21] MEDS: INSULIN SLIDING SCALE (NOVOLOG) 1 VIAL SQ SCH ×3 (07:50→17:05)
[2017-08-21] MEDS: FUROSEMIDE 40 MG TABLET (FP) PO SCH ×2 (07:50→13:24)
[2017-08-21] MEDS ORDERED: PT OWN MED DRAWER 7, Y5N ONE ×3 (08:48→21:54)
[2017-08-21] MEDS: FERROUS SO4 325 MG TABLET (FP) PO SCH (10:15)
[2017-08-21] MEDS: amLODIPine BESYLATE 10 MG TABLET (FP) PO SCH (10:15)
[2017-08-21] MEDS: RANITIDINE HCL 150 MG TABLET (FP) PO SCH (10:15)
[2017-08-21] MEDS: MUPIROCIN 2% TOPICAL OINTMENT 22 GM TUBE TP SCH ×2 (10:15→21:34)
[2017-08-21] MEDS: SERTRALINE HCL 50 MG TABLET (FP) PO SCH (10:15)
[2017-08-21] MEDS: PRENATAL VITAMINS W/ FOLIC ACID TABLET (FP) PO SCH (10:15)
[2017-08-21] MEDS: SODIUM BICARBONATE 325 MG TABLET PO SCH ×2 (10:16→21:32)
[2017-08-21] MEDS: hydrOXYzine PAMOATE 50 MG CAPSULE (FP) PO PRN ×2 (10:17→21:32)
[2017-08-21] MEDS: NICOTINE POLACRILEX 2 MG GUM BUC PRN (10:18)
[2017-08-21] MEDS ORDERED: INSULIN (NOVOLOG) ASPART 100 UNITS/ML 10ML VIAL ONE ×2 (11:48→17:03)
--- NOTE | 2017-08-21 13:06 | PN ---
[facility] Progress Note Note: Patient presents for follow up labs. States she feels much better. Denies fever , chills, body aches, chest pain and SOB. Laboratory Tests 08/05/17 08/05/17 08/06/17 22:48 23:17 06:52 WBC RBC Hgb Hct MCV MCH MCHC RDW Plt Count MPV Neutrophils % Lymphocytes % Monocytes % Eosinophils % Basophils % Sodium Potassium Chloride Carbon Dioxide Anion Gap BUN Creatinine Creat Clearance w eGFR POC Glucometer 283 108 Random Glucose Calcium Total Bilirubin AST ALT Alkaline Phosphatase Total Protein Albumin Urine Color Ltyellow Urine Appearance Cloudy Urine pH 5.0 Ur Specific [place] 1.013 Urine Protein 3+ H Urine Glucose (UA) 3+ H D Urine Ketones Negative Urine Blood Negative Urine Nitrite Negative Urine Bilirubin Negative Urine Urobilinogen Negative Ur Leukocyte Esterase Negative Urine WBC (Auto) 18 Urine RBC (Auto) 15 Ur Epithelial Cells Many Urine Bacteria Rare Hyaline Casts 3 Urine Yeast Rare RPR Titer 08/06/17 08/06/17 08/06/17 08:30 08:30 08:30 WBC 5.6 RBC 3.20 L Hgb 8.9 L D Hct 27.5 L D MCV 85.9 MCH 27.9 MCHC 32.5 RDW 16.0 H Plt Count 524 H MPV 7.5 Neutrophils % Lymphocytes % Monocytes % Eosinophils % Basophils % Sodium 142 Potassium 4.8 Chloride 114 H Carbon Dioxide 19 L Anion Gap 9 BUN 54 H Creatinine 2.1 H Creat Clearance w eGFR 28.47 POC Glucometer Random Glucose 103 Calcium 8.3 L Total Bilirubin 0.1 L AST 38 H ALT 45 Alkaline Phosphatase 132 H Total Protein 6.8 Albumin 2.3 L Urine Color Urine Appearance Urine pH Ur Specific [place] Urine Protein Urine Glucose (UA) Urine Ketones Urine Blood Urine Nitrite Urine Bilirubin Urine Urobilinogen Ur Leukocyte Esterase Urine WBC (Auto) Urine RBC (Auto) Ur Epithelial Cells Urine Bacteria Hyaline Casts Urine Yeast RPR Titer Nonreactive 08/06/17 08/06/17 08/06/17 11:42 16:49 21:13 WBC RBC Hgb Hct MCV MCH MCHC RDW Plt Count MPV Neutrophils % Lymphocytes % Monocytes % Eosinophils % Basophils % Sodium Potassium Chloride Carbon Dioxide Anion Gap BUN Creatinine Creat Clearance w eGFR POC Glucometer 208 309 169 Random Glucose Calcium Total Bilirubin AST ALT Alkaline Phosphatase Total Protein Albumin Urine Color Urine Appearance Urine pH Ur Specific [place] Urine Protein Urine Glucose (UA) Urine Ketones Urine Blood Urine Nitrite Urine Bilirubin Urine Urobilinogen Ur Leukocyte Esterase Urine WBC (Auto) Urine RBC (Auto) Ur Epithelial Cells Urine Bacteria Hyaline Casts Urine Yeast RPR Titer 08/07/17 08/07/17 08/07/17 06:51 11:45 17:09 WBC RBC Hgb Hct MCV MCH MCHC RDW Plt Count MPV Neutrophils % Lymphocytes % Monocytes % Eosinophils % Basophils % Sodium Potassium Chloride Carbon Dioxide Anion Gap BUN Creatinine Creat Clearance w eGFR POC Glucometer 101 196 226 Random Glucose Calcium Total Bilirubin AST ALT Alkaline Phosphatase Total Protein Albumin Urine Color Urine Appearance Urine pH Ur Specific [place] Urine Protein Urine Glucose (UA) Urine Ketones Urine Blood Urine Nitrite Urine Bilirubin Urine Urobilinogen Ur Leukocyte Esterase Urine WBC (Auto) Urine RBC (Auto) Ur Epithelial Cells Urine Bacteria Hyaline Casts Urine Yeast RPR Titer 08/07/17 08/08/17 08/08/17 21:33 06:01 07:38 WBC RBC Hgb Hct MCV MCH MCHC RDW Plt Count MPV Neutrophils % Lymphocytes % Monocytes % Eosinophils % Basophils % Sodium Potassium Chloride Carbon Dioxide Anion Gap BUN Creatinine Creat Clearance w eGFR POC Glucometer 192 57 135 Random Glucose Calcium Total Bilirubin AST ALT Alkaline Phosphatase Total Protein Albumin Urine Color Urine Appearance Urine pH Ur Specific [place] Urine Protein Urine Glucose (UA) Urine Ketones Urine Blood Urine Nitrite Urine Bilirubin Urine Urobilinogen Ur Leukocyte Esterase Urine WBC (Auto) Urine RBC (Auto) Ur Epithelial Cells Urine Bacteria Hyaline Casts Urine Yeast RPR Titer 08/08/17 08/08/17 08/08/17 11:46 17:06 21:31 WBC RBC Hgb Hct MCV MCH MCHC RDW Plt Count MPV Neutrophils % Lymphocytes % Monocytes % Eosinophils % Basophils % Sodium Potassium Chloride Carbon Dioxide Anion Gap BUN Creatinine Creat Clearance w eGFR POC Glucometer 118 137 177 Random Glucose Calcium Total Bilirubin AST ALT Alkaline Phosphatase Total Protein Albumin Urine Color Urine Appearance Urine pH Ur Specific [place] Urine Protein Urine Glucose (UA) Urine Ketones Urine Blood Urine Nitrite Urine Bilirubin Urine Urobilinogen Ur Leukocyte Esterase Urine WBC (Auto) Urine RBC (Auto) Ur Epithelial Cells Urine Bacteria Hyaline Casts Urine Yeast RPR Titer 08/09/17 08/09/17 08/09/17 06:31 11:49 16:52 WBC RBC Hgb Hct MCV MCH MCHC RDW Plt Count MPV Neutrophils % Lymphocytes % Monocytes % Eosinophils % Basophils % Sodium Potassium Chloride Carbon Dioxide Anion Gap BUN Creatinine Creat Clearance w eGFR POC Glucometer 66 103 183 Random Glucose Calcium Total Bilirubin AST ALT Alkaline Phosphatase Total Protein Albumin Urine Color Urine Appearance Urine pH Ur Specific [place] Urine Protein Urine Glucose (UA) Urine Ketones Urine Blood Urine Nitrite Urine Bilirubin Urine Urobilinogen Ur Leukocyte Esterase Urine WBC (Auto) Urine RBC (Auto) Ur Epithelial Cells Urine Bacteria Hyaline Casts Urine Yeast RPR Titer 08/09/17 08/10/17 08/10/17 21:24 06:35 12:11 WBC RBC Hgb Hct MCV MCH MCHC RDW Plt Count MPV Neutrophils % Lymphocytes % Monocytes % Eosinophils % Basophils % Sodium Potassium Chloride Carbon Dioxide Anion Gap BUN Creatinine Creat Clearance w eGFR POC Glucometer 125 127 227 Random Glucose Calcium Total Bilirubin AST ALT Alkaline Phosphatase Total Protein Albumin Urine Color Urine Appearance Urine pH Ur Specific [place] Urine Protein Urine Glucose (UA) Urine Ketones Urine Blood Urine Nitrite Urine Bilirubin Urine Urobilinogen Ur Leukocyte Esterase Urine WBC (Auto) Urine RBC (Auto) Ur Epithelial Cells Urine Bacteria Hyaline Casts Urine Yeast RPR Titer 08/10/17 08/10/17 08/11/17 17:08 21:27 06:28 WBC RBC Hgb Hct MCV MCH MCHC RDW Plt Count MPV Neutrophils % Lymphocytes % Monocytes % Eosinophils % Basophils % Sodium Potassium Chloride Carbon Dioxide Anion Gap BUN Creatinine Creat Clearance w eGFR POC Glucometer 143 182 150 Random Glucose Calcium Total Bilirubin AST ALT Alkaline Phosphatase Total Protein Albumin Urine Color Urine Appearance Urine pH Ur Specific [place] Urine Protein Urine Glucose (UA) Urine Ketones Urine Blood Urine Nitrite Urine Bilirubin Urine Urobilinogen Ur Leukocyte Esterase Urine WBC (Auto) Urine RBC (Auto) Ur Epithelial Cells Urine Bacteria Hyaline Casts Urine Yeast RPR Titer 08/11/17 08/11/17 08/11/17 11:34 17:04 18:55 WBC RBC Hgb Hct MCV MCH MCHC RDW Plt Count MPV Neutrophils % Lymphocytes % Monocytes % Eosinophils % Basophils % Sodium Potassium Chloride Carbon Dioxide Anion Gap BUN Creatinine Creat Clearance w eGFR POC Glucometer 131 244 52 Random Glucose Calcium Total Bilirubin AST ALT Alkaline Phosphatase Total Protein Albumin Urine Color Urine Appearance Urine pH Ur Specific [place] Urine Protein Urine Glucose (UA) Urine Ketones Urine Blood Urine Nitrite Urine Bilirubin Urine Urobilinogen Ur Leukocyte Esterase Urine WBC (Auto) Urine RBC (Auto) Ur Epithelial Cells Urine Bacteria Hyaline Casts Urine Yeast RPR Titer 08/11/17 08/12/17 08/12/17 21:13 06:49 11:44 WBC RBC Hgb Hct MCV MCH MCHC RDW Plt Count MPV Neutrophils % Lymphocytes % Monocytes % Eosinophils % Basophils % Sodium Potassium Chloride Carbon Dioxide Anion Gap BUN Creatinine Creat Clearance w eGFR POC Glucometer 66 171 208 Random Glucose Calcium Total Bilirubin AST ALT Alkaline Phosphatase Total Protein Albumin Urine Color Urine Appearance Urine pH Ur Specific [place] Urine Protein Urine Glucose (UA) Urine Ketones Urine Blood Urine Nitrite Urine Bilirubin Urine Urobilinogen Ur Leukocyte Esterase Urine WBC (Auto) Urine RBC (Auto) Ur Epithelial Cells Urine Bacteria Hyaline Casts Urine Yeast RPR Titer 08/12/17 08/12/17 08/13/17 16:37 21:26 06:40 WBC RBC Hgb Hct MCV MCH MCHC RDW Plt Count MPV Neutrophils % Lymphocytes % Monocytes % Eosinophils % Basophils % Sodium Potassium Chloride Carbon Dioxide Anion Gap BUN Creatinine Creat Clearance w eGFR POC Glucometer 137 251 88 Random Glucose Calcium Total Bilirubin AST ALT Alkaline Phosphatase Total Protein Albumin Urine Color Urine Appearance Urine pH Ur Specific [place] Urine Protein Urine Glucose (UA) Urine Ketones Urine Blood Urine Nitrite Urine Bilirubin Urine Urobilinogen Ur Leukocyte Esterase Urine WBC (Auto) Urine RBC (Auto) Ur Epithelial Cells Urine Bacteria Hyaline Casts Urine Yeast RPR Titer 08/13/17 08/13/17 08/13/17 11:40 17:12 21:22 WBC RBC Hgb Hct MCV MCH MCHC RDW Plt Count MPV Neutrophils % Lymphocytes % Monocytes % Eosinophils % Basophils % Sodium Potassium Chloride Carbon Dioxide Anion Gap BUN Creatinine Creat Clearance w eGFR POC Glucometer 204 154 102 Random Glucose Calcium Total Bilirubin AST ALT Alkaline Phosphatase Total Protein Albumin Urine Color Urine Appearance Urine pH Ur Specific [place] Urine Protein Urine Glucose (UA) Urine Ketones Urine Blood Urine Nitrite Urine Bilirubin Urine Urobilinogen Ur Leukocyte Esterase Urine WBC (Auto) Urine RBC (Auto) Ur Epithelial Cells Urine Bacteria Hyaline Casts Urine Yeast RPR Titer 08/14/17 08/14/17 08/14/17 06:36 09:30 09:35 WBC RBC Hgb Hct MCV MCH MCHC RDW Plt Count MPV Neutrophils % Lymphocytes % Monocytes % Eosinophils % Basophils % Sodium Potassium Chloride Carbon Dioxide Anion Gap BUN Creatinine Creat Clearance w eGFR POC Glucometer 167 49 43 Random Glucose Calcium Total Bilirubin AST ALT Alkaline Phosphatase Total Protein Albumin Urine Color Urine Appearance Urine pH Ur Specific [place] Urine Protein Urine Glucose (UA) Urine Ketones Urine Blood Urine Nitrite Urine Bilirubin Urine Urobilinogen Ur Leukocyte Esterase Urine WBC (Auto) Urine RBC (Auto) Ur Epithelial Cells Urine Bacteria Hyaline Casts Urine Yeast RPR Titer 08/14/17 08/14/17 08/14/17 09:44 10:33 11:26 WBC RBC Hgb Hct MCV MCH MCHC RDW Plt Count MPV Neutrophils % Lymphocytes % Monocytes % Eosinophils % Basophils % Sodium Potassium Chloride Carbon Dioxide Anion Gap BUN Creatinine Creat Clearance w eGFR POC Glucometer 48 132 129 Random Glucose Calcium Total Bilirubin AST ALT Alkaline Phosphatase Total Protein Albumin Urine Color Urine Appearance Urine pH Ur Specific [place] Urine Protein Urine Glucose (UA) Urine Ketones Urine Blood Urine Nitrite Urine Bilirubin Urine Urobilinogen Ur Leukocyte Esterase Urine WBC (Auto) Urine RBC (Auto) Ur Epithelial Cells Urine Bacteria Hyaline Casts Urine Yeast RPR Titer 08/14/17 08/14/17 08/15/17 16:53 21:28 06:27 WBC RBC Hgb Hct MCV MCH MCHC RDW Plt Count MPV Neutrophils % Lymphocytes % Monocytes % Eosinophils % Basophils % Sodium Potassium Chloride Carbon Dioxide Anion Gap BUN Creatinine Creat Clearance w eGFR POC Glucometer 199 146 219 Random Glucose Calcium Total Bilirubin AST ALT Alkaline Phosphatase Total Protein Albumin Urine Color Urine Appearance Urine pH Ur Specific [place] Urine Protein Urine Glucose (UA) Urine Ketones Urine Blood Urine Nitrite Urine Bilirubin Urine Urobilinogen Ur Leukocyte Esterase Urine WBC (Auto) Urine RBC (Auto) Ur Epithelial Cells Urine Bacteria Hyaline Casts Urine Yeast RPR Titer 08/15/17 08/15/17 08/15/17 11:30 16:56 21:27 WBC RBC Hgb Hct MCV MCH MCHC RDW Plt Count MPV Neutrophils % Lymphocytes % Monocytes % Eosinophils % Basophils % Sodium Potassium Chloride Carbon Dioxide Anion Gap BUN Creatinine Creat Clearance w eGFR POC Glucometer 123 220 287 Random Glucose Calcium Total Bilirubin AST ALT Alkaline Phosphatase Total Protein Albumin Urine Color Urine Appearance Urine pH Ur Specific [place] Urine Protein Urine Glucose (UA) Urine Ketones Urine Blood Urine Nitrite Urine Bilirubin Urine Urobilinogen Ur Leukocyte Esterase Urine WBC (Auto) Urine RBC (Auto) Ur Epithelial Cells Urine Bacteria Hyaline Casts Urine Yeast RPR Titer 08/16/17 08/16/17 08/16/17 06:24 11:26 16:52 WBC RBC Hgb Hct MCV MCH MCHC RDW Plt Count MPV Neutrophils % Lymphocytes % Monocytes % Eosinophils % Basophils % Sodium Potassium Chloride Carbon Dioxide Anion Gap BUN Creatinine Creat Clearance w eGFR POC Glucometer 176 160 256 Random Glucose Calcium Total Bilirubin AST ALT Alkaline Phosphatase Total Protein Albumin Urine Color Urine Appearance Urine pH Ur Specific [place] Urine Protein Urine Glucose (UA) Urine Ketones Urine Blood Urine Nitrite Urine Bilirubin Urine Urobilinogen Ur Leukocyte Esterase Urine WBC (Auto) Urine RBC (Auto) Ur Epithelial Cells Urine Bacteria Hyaline Casts Urine Yeast RPR Titer 08/16/17 08/16/17 08/17/17 19:08 21:36 06:55 WBC RBC Hgb Hct MCV MCH MCHC RDW Plt Count MPV Neutrophils % Lymphocytes % Monocytes % Eosinophils % Basophils % Sodium Potassium Chloride Carbon Dioxide Anion Gap BUN Creatinine Creat Clearance w eGFR POC Glucometer 48 116 211 Random Glucose Calcium Total Bilirubin AST ALT Alkaline Phosphatase Total Protein Albumin Urine Color Urine Appearance Urine pH Ur Specific [place] Urine Protein Urine Glucose (UA) Urine Ketones Urine Blood Urine Nitrite Urine Bilirubin Urine Urobilinogen Ur Leukocyte Esterase Urine WBC (Auto) Urine RBC (Auto) Ur Epithelial Cells Urine Bacteria Hyaline Casts Urine Yeast RPR Titer 08/17/17 08/17/17 08/17/17 11:38 16:42 21:29 WBC RBC Hgb Hct MCV MCH MCHC RDW Plt Count MPV Neutrophils % Lymphocytes % Monocytes % Eosinophils % Basophils % Sodium Potassium Chloride Carbon Dioxide Anion Gap BUN Creatinine Creat Clearance w eGFR POC Glucometer 205 189 170 Random Glucose Calcium Total Bilirubin AST ALT Alkaline Phosphatase Total Protein Albumin Urine Color Urine Appearance Urine pH Ur Specific [place] Urine Protein Urine Glucose (UA) Urine Ketones Urine Blood Urine Nitrite Urine Bilirubin Urine Urobilinogen Ur Leukocyte Esterase Urine WBC (Auto) Urine RBC (Auto) Ur Epithelial Cells Urine Bacteria Hyaline Casts Urine Yeast RPR Titer 08/18/17 08/18/17 08/18/17 06:31 11:43 17:02 WBC RBC Hgb Hct MCV MCH MCHC RDW Plt Count MPV Neutrophils % Lymphocytes % Monocytes % Eosinophils % Basophils % Sodium Potassium Chloride Carbon Dioxide Anion Gap BUN Creatinine Creat Clearance w eGFR POC Glucometer 168 184 130 Random Glucose Calcium Total Bilirubin AST ALT Alkaline Phosphatase Total Protein Albumin Urine Color Urine Appearance Urine pH Ur Specific [place] Urine Protein Urine Glucose (UA) Urine Ketones Urine Blood Urine Nitrite Urine Bilirubin Urine Urobilinogen Ur Leukocyte Esterase Urine WBC (Auto) Urine RBC (Auto) Ur Epithelial Cells Urine Bacteria Hyaline Casts Urine Yeast RPR Titer 08/18/17 08/19/17 08/19/17 21:24 06:55 10:15 WBC RBC Hgb Hct MCV MCH MCHC RDW Plt Count MPV Neutrophils % Lymphocytes % Monocytes % Eosinophils % Basophils % Sodium Potassium Chloride Carbon Dioxide Anion Gap BUN Creatinine Creat Clearance w eGFR POC Glucometer 258 133 152 Random Glucose Calcium Total Bilirubin AST ALT Alkaline Phosphatase Total Protein Albumin Urine Color Urine Appearance Urine pH Ur Specific [place] Urine Protein Urine Glucose (UA) Urine Ketones Urine Blood Urine Nitrite Urine Bilirubin Urine Urobilinogen Ur Leukocyte Esterase Urine WBC (Auto) Urine RBC (Auto) Ur Epithelial Cells Urine Bacteria Hyaline Casts Urine Yeast RPR Titer 08/19/17 08/19/17 08/19/17 11:38 17:08 21:42 WBC RBC Hgb Hct MCV MCH MCHC RDW Plt Count MPV Neutrophils % Lymphocytes % Monocytes % Eosinophils % Basophils % Sodium Potassium Chloride Carbon Dioxide Anion Gap BUN Creatinine Creat Clearance w eGFR POC Glucometer 155 267 220 Random Glucose Calcium Total Bilirubin AST ALT Alkaline Phosphatase Total Protein Albumin Urine Color Urine Appearance Urine pH Ur Specific [place] Urine Protein Urine Glucose (UA) Urine Ketones Urine Blood Urine Nitrite Urine Bilirubin Urine Urobilinogen Ur Leukocyte Esterase Urine WBC (Auto) Urine RBC (Auto) Ur Epithelial Cells Urine Bacteria Hyaline Casts Urine Yeast RPR Titer 08/20/17 08/20/17 08/20/17 06:41 07:30 07:30 WBC 6.1 RBC 2.83 L Hgb 8.2 L Hct 24.0 L MCV 84.9 MCH 28.8 MCHC 34.0 RDW 15.5 Plt Count 295 D MPV 8.2 Neutrophils % 57.6 D Lymphocytes % 30.2 Monocytes % 9.2 Eosinophils % 2.3 D Basophils % 0.7 Sodium 141 Potassium 5.5 H Chloride 114 H Carbon Dioxide 18 L Anion Gap 9 BUN 73 H Creatinine 2.3 H Creat Clearance w eGFR 25.63 POC Glucometer 177 Random Glucose 151 H Calcium 8.0 L Total Bilirubin 0.2 D AST 15 ALT 22 Alkaline Phosphatase 105 Total Protein 5.9 L Albumin 2.0 L Urine Color Urine Appearance Urine pH Ur Specific [place] Urine Protein Urine Glucose (UA) Urine Ketones Urine Blood Urine Nitrite Urine Bilirubin Urine Urobilinogen Ur Leukocyte Esterase Urine WBC (Auto) Urine RBC (Auto) Ur Epithelial Cells Urine Bacteria Hyaline Casts Urine Yeast RPR Titer 08/20/17 08/20/17 08/20/17 10:30 11:42 21:43 WBC RBC Hgb Hct MCV MCH MCHC RDW Plt Count MPV Neutrophils % Lymphocytes % Monocytes % Eosinophils % Basophils % Sodium Potassium Chloride Carbon Dioxide Anion Gap BUN Creatinine Creat Clearance w eGFR POC Glucometer 214 324 Random Glucose Calcium Total Bilirubin AST ALT Alkaline Phosphatase Total Protein Albumin Urine Color Straw Urine Appearance Clear Urine pH 6.0 Ur Specific [place] 1.012 Urine Protein 2+ H Urine Glucose (UA) 2+ H Urine Ketones Negative Urine Blood 1+ H Urine Nitrite Negative Urine Bilirubin Negative Urine Urobilinogen Negative Ur Leukocyte Esterase Negative Urine WBC (Auto) <1 Urine RBC (Auto) 15 Ur Epithelial Cells Rare Urine Bacteria Hyaline Casts Urine Yeast RPR Titer 08/21/17 08/21/17 07:49 11:46 WBC RBC Hgb Hct MCV MCH MCHC RDW Plt Count MPV Neutrophils % Lymphocytes % Monocytes % Eosinophils % Basophils % Sodium Potassium Chloride Carbon Dioxide Anion Gap BUN Creatinine Creat Clearance w eGFR POC Glucometer 144 178 Random Glucose Calcium Total Bilirubin AST ALT Alkaline Phosphatase Total Protein Albumin Urine Color Urine Appearance Urine pH Ur Specific [place] Urine Protein Urine Glucose (UA) Urine Ketones Urine Blood Urine Nitrite Urine Bilirubin Urine Urobilinogen Ur Leukocyte Esterase Urine WBC (Auto) Urine RBC (Auto) Ur Epithelial Cells Urine Bacteria Hyaline Casts Urine Yeast RPR Titer Obj: General: alert and oriented x 3. In no acute distress. Ambulating within unit freely. Menstrual cycle started yesterday. Skin: Warm and dry. Car: S1S2. RRR. Resp: CTA BL A/P: Hyperkalemia K+ 5.5 Will order Kayexalate 30gm po x one dose Repeat BMP in am Continue to monitor clinically
[2017-08-21] MEDS ORDERED: SODIUM POLYSTYRENE SULFONATE 15 GM/60 ML BOTTLE PO ONE (13:45)
[2017-08-21] MEDS: QUEtiapine FUMARATE 100 MG TABLET (FP) PO SCH (21:32)
[2017-08-21] MEDS: MELATONIN 5 MG TABLETS PO PRN (21:32)
[2017-08-21] MEDS: THIAMINE HCL 100 MG TABLET (FP) PO SCH (21:32)
[2017-08-21] MEDS: INSULIN (LEVEMIR) 100 UNITS/ML UNITS SQ SCH (21:34)
[2017-08-22] MEDS: FUROSEMIDE 40 MG TABLET (FP) PO SCH ×2 (07:07→13:02)
[2017-08-22] MEDS: INSULIN SLIDING SCALE (NOVOLOG) 1 VIAL SQ SCH ×3 (07:08→17:24)
[2017-08-22] MEDS ORDERED: INSULIN (NOVOLOG) ASPART 100 UNITS/ML 10ML VIAL ONE (07:09)
--- NOTE | 2017-08-22 07:19 | PN ---
[facility] Progress Note Note: Pt. assessed in her room, lying in bed. Pt. had a witnessed fall in front of the medication dispensing window. She states she became dizzy, lost her balance and fell on her knees. She did not hit her her head. Pt. is alert and oriented x 3. She denies tenderness to her knees. No bruising noted. Fall precautions 2 reinforced. Post- Lasix held. With continue monitor.
[2017-08-22] MEDS: RANITIDINE HCL 150 MG TABLET (FP) PO SCH (10:21)
[2017-08-22] MEDS: SERTRALINE HCL 50 MG TABLET (FP) PO SCH (10:21)
[2017-08-22] MEDS: FERROUS SO4 325 MG TABLET (FP) PO SCH (10:22)
[2017-08-22] MEDS: PRENATAL VITAMINS W/ FOLIC ACID TABLET (FP) PO SCH (10:22)
[2017-08-22] MEDS: MUPIROCIN 2% TOPICAL OINTMENT 22 GM TUBE TP SCH ×2 (10:22→21:57)
[2017-08-22] MEDS: amLODIPine BESYLATE 10 MG TABLET (FP) PO SCH (10:22)
[2017-08-22] MEDS: SODIUM BICARBONATE 325 MG TABLET PO SCH ×2 (10:22→21:59)
[2017-08-22] MEDS: NICOTINE POLACRILEX 2 MG GUM BUC PRN ×3 (10:23→19:04)
--- NOTE | 2017-08-22 13:43 | PN ---
S Progress Note Note: patient s/p fall this AM. Patient denies pain or vertigo. Patient ambulating in the unit. Vital Signs Temperature 98.2 F 08/22/17 13:00 Pulse Rate 108 H 08/22/17 13:00 Respiratory Rate 16 08/22/17 13:00 Blood Pressure 121/77 08/22/17 13:00 O2 Sat by Pulse Oximetry (%) Laboratory Last Values WBC 6.1 K/mm3 (4.0-10.0) 08/20/17 07:30 RBC 2.83 M/mm3 (3.60-5.2) L 08/20/17 07:30 Hgb 8.2 GM/dL (10.7-15.3) L 08/20/17 07:30 Hct 24.0 % (32.4-45.2) L 08/20/17 07:30 MCV 84.9 fl (80-96) 08/20/17 07:30 MCH 28.8 pg (25.7-33.7) 08/20/17 07:30 MCHC 34.0 g/dl (32.0-36.0) 08/20/17 07:30 RDW 15.5 % (11.6-15.6) 08/20/17 07:30 Plt Count 295 K/MM3 (134-434) D 08/20/17 07:30 MPV 8.2 fl (7.5-11.1) 08/20/17 07:30 Neutrophils % 57.6 % (42.8-82.8) D 08/20/17 07:30 Lymphocytes % 30.2 % (8-40) 08/20/17 07:30 Monocytes % 9.2 % (3.8-10.2) 08/20/17 07:30 Eosinophils % 2.3 % (0-4.5) D 08/20/17 07:30 Basophils % 0.7 % (0-2.0) 08/20/17 07:30 Sodium 141 mmol/L (136-145) 08/20/17 07:30 Potassium 5.5 mmol/L (3.5-5.1) H 08/20/17 07:30 Chloride 114 mmol/L (98-107) H 08/20/17 07:30 Carbon Dioxide 18 mmol/L (21-32) L 08/20/17 07:30 Anion Gap 9 (8-16) 08/20/17 07:30 BUN 73 mg/dL (7-18) H 08/20/17 07:30 Creatinine 2.3 mg/dL (0.55-1.02) H 08/20/17 07:30 Creat Clearance w eGFR 25.63 (>60) 08/20/17 07:30 POC Glucometer 107 UNITS (80-120) 08/22/17 11:43 Random Glucose 151 mg/dL (74-106) H 08/20/17 07:30 Calcium 8.0 mg/dL (8.5-10.1) L 08/20/17 07:30 Total Bilirubin 0.2 mg/dL (0.2-1.0) D 08/20/17 07:30 AST 15 U/L (15-37) 08/20/17 07:30 ALT 22 U/L (12-78) 08/20/17 07:30 Alkaline Phosphatase 105 U/L (45-117) 08/20/17 07:30 Total Protein 5.9 g/dl (6.4-8.2) L 08/20/17 07:30 Albumin 2.0 g/dl (3.4-5.0) L 08/20/17 07:30 Urine Color Straw 08/20/17 10:30 Urine Appearance Clear 08/20/17 10:30 Urine pH 6.0 (5.0-8.0) 08/20/17 10:30 Ur Specific [place] 1.012 (1.001-1.035) 08/20/17 10:30 Urine Protein 2+ (NEGATIVE) H 08/20/17 10:30 Urine Glucose (UA) 2+ (NEGATIVE) H 08/20/17 10:30 Urine Ketones Negative (NEGATIVE) 08/20/17 10:30 Urine Blood 1+ (NEGATIVE) H 08/20/17 10:30 Urine Nitrite Negative (NEGATIVE) 08/20/17 10:30 Urine Bilirubin Negative (<2.0 mg/dL) 08/20/17 10:30 Urine Urobilinogen Negative mg/dL (0.2-1.0) 08/20/17 10:30 Ur Leukocyte Esterase Negative (NEGATIVE) 08/20/17 10:30 Urine WBC (Auto) <1 /hpf (3-5) 08/20/17 10:30 Urine RBC (Auto) 15 /hpf (0-3) 08/20/17 10:30 Ur Epithelial Cells Rare /HPF (FEW) 08/20/17 10:30 Urine Bacteria Rare /hpf (NONE SEEN) 08/05/17 22:48 Hyaline Casts 3 /lpf 08/05/17 22:48 Urine Yeast Rare 08/05/17 22:48 RPR Titer Nonreactive (NONREACTIVE) 08/06/17 08:30 - Increase fluids - Repeat labs pending - Continue to monitor
[2017-08-22 14:57] LABS: CHLORIDE 114 mmol/L (98-107); POTASSIUM 4.5 mmol/L (3.5-5.1); SODIUM 143 mmol/L (136-145)
[2017-08-22 15:02] LABS: ANION GAP 9 (8-16); BLOOD UREA NITROGEN 65 mg/dL (7-18); CO2 20 mmol/L (21-32); CREATININE 2.2 mg/dL (0.55-1.02); GLUCOSE,RANDOM 65 mg/dL (74-106)
[2017-08-22] MEDS: hydrOXYzine PAMOATE 50 MG CAPSULE (FP) PO PRN (19:04)
[2017-08-22] MEDS: QUEtiapine FUMARATE 100 MG TABLET (FP) PO SCH (21:58)
[2017-08-22] MEDS: MELATONIN 5 MG TABLETS PO PRN (21:58)
[2017-08-22] MEDS: THIAMINE HCL 100 MG TABLET (FP) PO SCH (21:58)
[2017-08-22] MEDS: INSULIN (LEVEMIR) 100 UNITS/ML UNITS SQ SCH (22:00)
[2017-08-23] MEDS: INSULIN SLIDING SCALE (NOVOLOG) 1 VIAL SQ SCH ×3 (07:01→17:49)
[2017-08-23] MEDS ORDERED: INSULIN (NOVOLOG) ASPART 100 UNITS/ML 10ML VIAL ONE ×2 (07:02→12:04)
[2017-08-23] MEDS: FUROSEMIDE 40 MG TABLET (FP) PO SCH ×2 (07:03→13:29)
[2017-08-23] MEDS ORDERED: DEXTROSE 50%-WATER 25 GM/50 ML DISP.SYRIN IVPUSH ONE (09:10)
[2017-08-23] MEDS: FERROUS SO4 325 MG TABLET (FP) PO SCH (10:29)
[2017-08-23] MEDS: amLODIPine BESYLATE 10 MG TABLET (FP) PO SCH (10:29)
[2017-08-23] MEDS: SERTRALINE HCL 50 MG TABLET (FP) PO SCH (10:29)
[2017-08-23] MEDS: PRENATAL VITAMINS W/ FOLIC ACID TABLET (FP) PO SCH (10:29)
[2017-08-23] MEDS: RANITIDINE HCL 150 MG TABLET (FP) PO SCH (10:29)
[2017-08-23] MEDS: SODIUM BICARBONATE 325 MG TABLET PO SCH ×2 (10:30→22:06)
--- NOTE | 2017-08-23 10:52 | PN ---
[facility] Progress Note Note: responded to rapid response patient found with alter mental status ,bgm is 38 Vital Signs Temperature 98 F 08/23/17 07:05 Pulse Rate 105 H 08/23/17 07:05 Respiratory Rate 16 08/23/17 07:05 Blood Pressure 142/86 08/23/17 07:05 O2 Sat by Pulse Oximetry (%) saline lock in right cubital fossa 50% glucose 50 cc iv push 911 called,medics arrived repeat bgm 152 at 9.34 am patient is alert,oriented x3 initial arrangement for patient to to go [facility] er for evaluation patient refused,stated she is feeling well,no need for her to go to er patient with multiple medical problem,hypertension,iddm,anemia,renal insufficiency treatment close monitoring of bgm,encourage diet intake properly,
[2017-08-23] MEDS: LOPERAMIDE HCL 2 MG CAPSULE PO PRN (11:16)
[2017-08-23] MEDS: MUPIROCIN 2% TOPICAL OINTMENT 22 GM TUBE TP SCH ×2 (11:21→22:23)
--- NOTE | 2017-08-23 12:25 | PN ---
[facility] Progress Note Note: PATIENT HAD EPISODE OF HYPOGLYCEMIA AND DECREASED RESPONSIVENESS EARLY THIS MORNING. BLOOD SUGAR WAS TAKEN AND RESULT 35. RAPID RESPONSE CALLED AND IVP 50% DEXTROSE IVP GIVEN BY STATEMENT DISTRIBUTION CLERK. PATIENT BECAME MORE ALERT AND RESPONSIVE AFTER ADMINISTRATION OF DEXTROSE. 911 CALLED AND WHEN THEY ARRIVED PATIENT REFUSED TO GO TO ER. REPEAT SUGAR AT 937AM WAS 152 AND AT 11:32AM 267. PATIENT OBSERVED AMBULATING ON UNIT, ALERT AND ORIENTED AND IN NO ACUTE DISTRESS. Laboratory Results - last 24 hr 08/22/17 08/22/17 08/23/17 08:30 22:00 07:00 Sodium 143 Potassium 4.5 Chloride 114 H Carbon Dioxide 20 L Anion Gap 9 BUN 65 H Creatinine 2.2 H POC Glucometer 293 202 Random Glucose 65 L Calcium 8.0 L 08/23/17 08/23/17 08/23/17 09:10 09:16 09:34 Sodium Potassium Chloride Carbon Dioxide Anion Gap BUN Creatinine POC Glucometer 36 35 152 Random Glucose Calcium 08/23/17 11:18 Sodium Potassium Chloride Carbon Dioxide Anion Gap BUN Creatinine POC Glucometer 269 Random Glucose Calcium Vital Signs Temperature 98 F 08/23/17 07:05 Pulse Rate 105 H 08/23/17 07:05 Respiratory Rate 16 08/23/17 07:05 Blood Pressure 142/86 08/23/17 07:05 O2 Sat by Pulse Oximetry (%) OBJ: GENERAL: ALERT AND ORIENTED X 3. IN NO ACUTE DISTRESS SKIN: WARM AND DRY AND INTACT CAR: S1S2, RRR. RESP: CTA BL EXT: +1 EDEMA BLE A/P: HYPOGLYCEMIA: NOW RESOLVED WILL CONTINUE BGM ORDERED DECREASE LEVEMIR TO 6 UNITS HS CONTINUE TO MONITOR CLINICALLY
[2017-08-23] MEDS: NICOTINE POLACRILEX 2 MG GUM BUC PRN ×2 (13:30→17:50)
[2017-08-23] MEDS ORDERED: PT OWN MED DRAWER 7, Y5N ONE ×3 (13:32→22:44)
[2017-08-23] MEDS ORDERED: INSULIN (LEVEMIR) 100 UNITS/ML UNITS SQ ONE (19:47)
[2017-08-23] MEDS: hydrOXYzine PAMOATE 50 MG CAPSULE (FP) PO PRN (22:04)
[2017-08-23] MEDS: QUEtiapine FUMARATE 100 MG TABLET (FP) PO SCH (22:04)
[2017-08-23] MEDS: INSULIN (LEVEMIR) 100 UNITS/ML UNITS SQ SCH (22:04)
[2017-08-23] MEDS: MELATONIN 5 MG TABLETS PO PRN (22:04)
[2017-08-23] MEDS: THIAMINE HCL 100 MG TABLET (FP) PO SCH (22:23)
[2017-08-24] MEDS: FUROSEMIDE 40 MG TABLET (FP) PO SCH ×2 (07:20→15:00)
[2017-08-24] MEDS: INSULIN SLIDING SCALE (NOVOLOG) 1 VIAL SQ SCH ×3 (08:59→18:08)
[2017-08-24] MEDS: PRENATAL VITAMINS W/ FOLIC ACID TABLET (FP) PO SCH (10:27)
[2017-08-24] MEDS: amLODIPine BESYLATE 10 MG TABLET (FP) PO SCH (10:27)
[2017-08-24] MEDS: FERROUS SO4 325 MG TABLET (FP) PO SCH (10:27)
[2017-08-24] MEDS: SERTRALINE HCL 50 MG TABLET (FP) PO SCH (10:28)
[2017-08-24] MEDS: SODIUM BICARBONATE 325 MG TABLET PO SCH ×2 (10:28→22:00)
[2017-08-24] MEDS: RANITIDINE HCL 150 MG TABLET (FP) PO SCH (10:28)
[2017-08-24] MEDS: hydrOXYzine PAMOATE 50 MG CAPSULE (FP) PO PRN ×2 (10:29→21:59)
[2017-08-24] MEDS: NICOTINE POLACRILEX 2 MG GUM BUC PRN ×2 (10:30→15:48)
[2017-08-24] MEDS: MUPIROCIN 2% TOPICAL OINTMENT 22 GM TUBE TP SCH ×2 (10:40→22:04)
[2017-08-24] MEDS ORDERED: INSULIN (NOVOLOG) ASPART 100 UNITS/ML 10ML VIAL ONE ×2 (14:36→16:23)
[2017-08-24] MEDS: THIAMINE HCL 100 MG TABLET (FP) PO SCH (21:59)
[2017-08-24] MEDS: MELATONIN 5 MG TABLETS PO PRN (22:00)
[2017-08-24] MEDS: QUEtiapine FUMARATE 100 MG TABLET (FP) PO SCH (22:01)
[2017-08-24] MEDS: INSULIN (LEVEMIR) 100 UNITS/ML UNITS SQ SCH (22:03)
[2017-08-24] MEDS ORDERED: PT OWN MED DRAWER 7, Y5N ONE (23:51)
[2017-08-25] MEDS: FUROSEMIDE 40 MG TABLET (FP) PO SCH ×2 (06:53→13:07)
[2017-08-25] MEDS ORDERED: PT OWN MED DRAWER 7, Y5N ONE ×4 (06:57→23:25)
[2017-08-25] MEDS: INSULIN SLIDING SCALE (NOVOLOG) 1 VIAL SQ SCH ×3 (08:42→17:34)
[2017-08-25] MEDS: MUPIROCIN 2% TOPICAL OINTMENT 22 GM TUBE TP SCH ×2 (10:25→21:44)
[2017-08-25] MEDS: RANITIDINE HCL 150 MG TABLET (FP) PO SCH (10:26)
[2017-08-25] MEDS: SODIUM BICARBONATE 325 MG TABLET PO SCH ×2 (10:26→21:49)
[2017-08-25] MEDS: amLODIPine BESYLATE 10 MG TABLET (FP) PO SCH (10:26)
[2017-08-25] MEDS: FERROUS SO4 325 MG TABLET (FP) PO SCH (10:26)
[2017-08-25] MEDS: PRENATAL VITAMINS W/ FOLIC ACID TABLET (FP) PO SCH (10:26)
[2017-08-25] MEDS: SERTRALINE HCL 50 MG TABLET (FP) PO SCH (10:26)
[2017-08-25] MEDS: hydrOXYzine PAMOATE 50 MG CAPSULE (FP) PO PRN ×3 (10:27→21:49)
[2017-08-25] MEDS: NICOTINE POLACRILEX 2 MG GUM BUC PRN (10:30)
[2017-08-25] MEDS ORDERED: INSULIN (NOVOLOG) ASPART 100 UNITS/ML 10ML VIAL ONE (16:55)
[2017-08-25] MEDS: LOPERAMIDE HCL 2 MG CAPSULE PO PRN (18:47)
[2017-08-25] MEDS: THIAMINE HCL 100 MG TABLET (FP) PO SCH (21:45)
[2017-08-25] MEDS: QUEtiapine FUMARATE 100 MG TABLET (FP) PO SCH (21:46)
[2017-08-25] MEDS: MELATONIN 5 MG TABLETS PO PRN (21:48)
[2017-08-25] MEDS: INSULIN (LEVEMIR) 100 UNITS/ML UNITS SQ SCH (21:50)
[2017-08-26] MEDS: FUROSEMIDE 40 MG TABLET (FP) PO SCH ×2 (06:53→13:00)
[2017-08-26] MEDS: INSULIN SLIDING SCALE (NOVOLOG) 1 VIAL SQ SCH ×3 (08:38→17:07)
[2017-08-26] MEDS ORDERED: PT OWN MED DRAWER 7, Y5N ONE ×3 (09:07→20:46)
[2017-08-26] MEDS: FERROUS SO4 325 MG TABLET (FP) PO SCH (10:21)
[2017-08-26] MEDS: amLODIPine BESYLATE 10 MG TABLET (FP) PO SCH (10:21)
[2017-08-26] MEDS: SERTRALINE HCL 50 MG TABLET (FP) PO SCH (10:21)
[2017-08-26] MEDS: RANITIDINE HCL 150 MG TABLET (FP) PO SCH (10:21)
[2017-08-26] MEDS: PRENATAL VITAMINS W/ FOLIC ACID TABLET (FP) PO SCH (10:21)
[2017-08-26] MEDS: hydrOXYzine PAMOATE 50 MG CAPSULE (FP) PO PRN ×2 (10:23→21:43)
[2017-08-26] MEDS ORDERED: NICOTINE POLACRILEX 4 MG GUM BUC ONE (10:42)
[2017-08-26] MEDS: MUPIROCIN 2% TOPICAL OINTMENT 22 GM TUBE TP SCH ×2 (10:56→21:42)
[2017-08-26] MEDS: SODIUM BICARBONATE 325 MG TABLET PO SCH ×2 (10:57→21:42)
[2017-08-26] MEDS ORDERED: INSULIN (NOVOLOG) ASPART 100 UNITS/ML 10ML VIAL ONE (11:39)
[2017-08-26] MEDS: NICOTINE POLACRILEX 2 MG GUM BUC PRN ×2 (12:38→18:02)
[2017-08-26] MEDS: QUEtiapine FUMARATE 100 MG TABLET (FP) PO SCH (21:41)
[2017-08-26] MEDS: THIAMINE HCL 100 MG TABLET (FP) PO SCH (21:42)
[2017-08-26] MEDS: INSULIN (LEVEMIR) 100 UNITS/ML UNITS SQ SCH (21:43)
[2017-08-26] MEDS: MELATONIN 5 MG TABLETS PO PRN (21:43)
[2017-08-27] MEDS: FUROSEMIDE 40 MG TABLET (FP) PO SCH ×2 (06:34→13:00)
[2017-08-27] MEDS ORDERED: INSULIN (NOVOLOG) ASPART 100 UNITS/ML 10ML VIAL ONE ×2 (07:59→12:21)
[2017-08-27] MEDS: INSULIN SLIDING SCALE (NOVOLOG) 1 VIAL SQ SCH ×3 (08:16→17:00)
[2017-08-27] MEDS ORDERED: PT OWN MED DRAWER 7, Y5N ONE ×2 (09:03→15:25)
[2017-08-27] MEDS: amLODIPine BESYLATE 10 MG TABLET (FP) PO SCH (09:35)
[2017-08-27] MEDS: SODIUM BICARBONATE 325 MG TABLET PO SCH ×2 (09:35→21:35)
[2017-08-27] MEDS: RANITIDINE HCL 150 MG TABLET (FP) PO SCH (09:35)
[2017-08-27] MEDS: FERROUS SO4 325 MG TABLET (FP) PO SCH (09:35)
[2017-08-27] MEDS: PRENATAL VITAMINS W/ FOLIC ACID TABLET (FP) PO SCH (09:35)
[2017-08-27] MEDS: SERTRALINE HCL 50 MG TABLET (FP) PO SCH (09:36)
[2017-08-27] MEDS: MUPIROCIN 2% TOPICAL OINTMENT 22 GM TUBE TP SCH ×2 (09:37→21:38)
[2017-08-27] MEDS: hydrOXYzine PAMOATE 50 MG CAPSULE (FP) PO PRN ×2 (09:37→21:36)
[2017-08-27] MEDS: NICOTINE POLACRILEX 2 MG GUM BUC PRN ×3 (09:37→18:02)
[2017-08-27] MEDS: QUEtiapine FUMARATE 100 MG TABLET (FP) PO SCH (21:35)
[2017-08-27] MEDS: MELATONIN 5 MG TABLETS PO PRN (21:35)
[2017-08-27] MEDS: THIAMINE HCL 100 MG TABLET (FP) PO SCH (21:35)
[2017-08-27] MEDS: INSULIN (LEVEMIR) 100 UNITS/ML UNITS SQ SCH (21:38)
[2017-08-28] MEDS: FUROSEMIDE 40 MG TABLET (FP) PO SCH ×2 (06:19→13:24)
[2017-08-28] MEDS: INSULIN SLIDING SCALE (NOVOLOG) 1 VIAL SQ SCH ×3 (08:00→17:16)
[2017-08-28] MEDS: PRENATAL VITAMINS W/ FOLIC ACID TABLET (FP) PO SCH (09:21)
[2017-08-28] MEDS: RANITIDINE HCL 150 MG TABLET (FP) PO SCH (09:21)
[2017-08-28] MEDS: SERTRALINE HCL 50 MG TABLET (FP) PO SCH (09:22)
[2017-08-28] MEDS: amLODIPine BESYLATE 10 MG TABLET (FP) PO SCH (09:22)
[2017-08-28] MEDS: FERROUS SO4 325 MG TABLET (FP) PO SCH (09:22)
[2017-08-28] MEDS: SODIUM BICARBONATE 325 MG TABLET PO SCH ×2 (09:22→21:46)
[2017-08-28] MEDS: hydrOXYzine PAMOATE 50 MG CAPSULE (FP) PO PRN ×2 (09:23→21:45)
[2017-08-28] MEDS: MUPIROCIN 2% TOPICAL OINTMENT 22 GM TUBE TP SCH ×2 (10:10→21:43)
[2017-08-28] MEDS ORDERED: INSULIN (NOVOLOG) ASPART 100 UNITS/ML 10ML VIAL ONE ×3 (11:54→22:54)
[2017-08-28] MEDS ORDERED: PT OWN MED DRAWER 7, Y5N ONE (12:01)
[2017-08-28] MEDS: NICOTINE POLACRILEX 2 MG GUM BUC PRN (12:29)
[2017-08-28] MEDS: THIAMINE HCL 100 MG TABLET (FP) PO SCH (21:43)
[2017-08-28] MEDS: QUEtiapine FUMARATE 100 MG TABLET (FP) PO SCH (21:43)
[2017-08-28] MEDS: INSULIN (LEVEMIR) 100 UNITS/ML UNITS SQ SCH (21:47)
[2017-08-28] MEDS ORDERED: INSULIN (LEVEMIR) 100 UNITS/ML UNITS SQ ONE (22:54)
[2017-08-29] MEDS: FUROSEMIDE 40 MG TABLET (FP) PO SCH ×2 (06:54→13:08)
[2017-08-29] MEDS: INSULIN SLIDING SCALE (NOVOLOG) 1 VIAL SQ SCH ×3 (08:23→16:55)
[2017-08-29] MEDS ORDERED: PT OWN MED DRAWER 7, Y5N ONE ×3 (08:55→23:34)
[2017-08-29] MEDS: LOPERAMIDE HCL 2 MG CAPSULE PO PRN (09:08)
[2017-08-29] MEDS: SODIUM BICARBONATE 325 MG TABLET PO SCH ×2 (10:23→21:41)
[2017-08-29] MEDS: PRENATAL VITAMINS W/ FOLIC ACID TABLET (FP) PO SCH (10:23)
[2017-08-29] MEDS: FERROUS SO4 325 MG TABLET (FP) PO SCH (10:23)
[2017-08-29] MEDS: amLODIPine BESYLATE 10 MG TABLET (FP) PO SCH (10:23)
[2017-08-29] MEDS: MUPIROCIN 2% TOPICAL OINTMENT 22 GM TUBE TP SCH ×2 (10:23→21:38)
[2017-08-29] MEDS: RANITIDINE HCL 150 MG TABLET (FP) PO SCH (10:23)
[2017-08-29] MEDS: SERTRALINE HCL 50 MG TABLET (FP) PO SCH (10:23)
[2017-08-29] MEDS: hydrOXYzine PAMOATE 50 MG CAPSULE (FP) PO PRN ×2 (10:24→21:42)
[2017-08-29] MEDS: NICOTINE POLACRILEX 2 MG GUM BUC PRN ×2 (10:25→13:10)
[2017-08-29] MEDS ORDERED: INSULIN (NOVOLOG) ASPART 100 UNITS/ML 10ML VIAL ONE ×3 (12:04→23:42)
[2017-08-29] MEDS: MELATONIN 5 MG TABLETS PO PRN (21:39)
[2017-08-29] MEDS: THIAMINE HCL 100 MG TABLET (FP) PO SCH (21:39)
[2017-08-29] MEDS: QUEtiapine FUMARATE 100 MG TABLET (FP) PO SCH (21:42)
[2017-08-29] MEDS: INSULIN (LEVEMIR) 100 UNITS/ML UNITS SQ SCH (21:43)
[2017-08-30] MEDS: FUROSEMIDE 40 MG TABLET (FP) PO SCH ×2 (06:51→13:29)
[2017-08-30] MEDS: INSULIN SLIDING SCALE (NOVOLOG) 1 VIAL SQ SCH ×3 (08:20→16:47)
[2017-08-30] MEDS ORDERED: PT OWN MED DRAWER 7, Y5N ONE ×3 (08:56→23:32)
[2017-08-30] MEDS: SODIUM BICARBONATE 325 MG TABLET PO SCH ×2 (10:38→21:58)
[2017-08-30] MEDS: SERTRALINE HCL 50 MG TABLET (FP) PO SCH (10:39)
[2017-08-30] MEDS: FERROUS SO4 325 MG TABLET (FP) PO SCH (10:39)
[2017-08-30] MEDS: PRENATAL VITAMINS W/ FOLIC ACID TABLET (FP) PO SCH (10:39)
[2017-08-30] MEDS: amLODIPine BESYLATE 10 MG TABLET (FP) PO SCH (10:39)
[2017-08-30] MEDS: MUPIROCIN 2% TOPICAL OINTMENT 22 GM TUBE TP SCH ×2 (10:39→21:59)
[2017-08-30] MEDS: RANITIDINE HCL 150 MG TABLET (FP) PO SCH (10:39)
[2017-08-30] MEDS: NICOTINE POLACRILEX 2 MG GUM BUC PRN ×2 (10:41→13:02)
[2017-08-30] MEDS: hydrOXYzine PAMOATE 50 MG CAPSULE (FP) PO PRN ×2 (10:41→21:57)
--- NOTE | 2017-08-30 11:27 | PN ---
S Progress Note Note: Notified by RN that patient refused insulin. Patient reports that she does not have appetite in the morning and doesn't eat breakfast at times. She refused insulin due to skipping breakfast. Patient denies N/V/D. Last weight 144. Patient educated on importance of nutrition and meal consumption due to her DM status. Medically stable at this time. Will continue BGM and current plan of care. Continue to monitor clinically.
[2017-08-30] MEDS ORDERED: INSULIN (NOVOLOG) ASPART 100 UNITS/ML 10ML VIAL ONE ×2 (13:00→16:54)
[2017-08-30] MEDS: QUEtiapine FUMARATE 100 MG TABLET (FP) PO SCH (21:57)
[2017-08-30] MEDS: MELATONIN 5 MG TABLETS PO PRN (21:57)
[2017-08-30] MEDS: THIAMINE HCL 100 MG TABLET (FP) PO SCH (21:57)
[2017-08-30] MEDS: INSULIN (LEVEMIR) 100 UNITS/ML UNITS SQ SCH (21:59)
[2017-08-31] MEDS: FUROSEMIDE 40 MG TABLET (FP) PO SCH ×2 (06:54→13:01)
[2017-08-31] MEDS: INSULIN SLIDING SCALE (NOVOLOG) 1 VIAL SQ SCH ×3 (06:55→16:51)
[2017-08-31] MEDS ORDERED: PT OWN MED DRAWER 7, Y5N ONE ×3 (08:34→22:13)
[2017-08-31] MEDS: FERROUS SO4 325 MG TABLET (FP) PO SCH (09:14)
[2017-08-31] MEDS: SODIUM BICARBONATE 325 MG TABLET PO SCH ×2 (09:14→21:59)
[2017-08-31] MEDS: PRENATAL VITAMINS W/ FOLIC ACID TABLET (FP) PO SCH (09:14)
[2017-08-31] MEDS: RANITIDINE HCL 150 MG TABLET (FP) PO SCH (09:15)
[2017-08-31] MEDS: MUPIROCIN 2% TOPICAL OINTMENT 22 GM TUBE TP SCH ×2 (09:15→21:58)
[2017-08-31] MEDS: amLODIPine BESYLATE 10 MG TABLET (FP) PO SCH (09:15)
[2017-08-31] MEDS: SERTRALINE HCL 50 MG TABLET (FP) PO SCH (09:15)
[2017-08-31] MEDS: NICOTINE POLACRILEX 2 MG GUM BUC PRN ×2 (09:16→13:02)
[2017-08-31] MEDS: hydrOXYzine PAMOATE 50 MG CAPSULE (FP) PO PRN ×2 (09:16→21:59)
[2017-08-31] MEDS ORDERED: INSULIN (NOVOLOG) ASPART 100 UNITS/ML 10ML VIAL ONE ×2 (11:52→16:51)
[2017-08-31] MEDS: QUEtiapine FUMARATE 100 MG TABLET (FP) PO SCH (21:59)
[2017-08-31] MEDS: MELATONIN 5 MG TABLETS PO PRN (21:59)
[2017-08-31] MEDS: THIAMINE HCL 100 MG TABLET (FP) PO SCH (21:59)
[2017-08-31] MEDS: INSULIN (LEVEMIR) 100 UNITS/ML UNITS SQ SCH (22:01)
[2017-08-31] MEDS: COLLOIDAL OATMEAL 1 BAR EACH TP PRN (22:19)
[2017-09-01] MEDS: INSULIN SLIDING SCALE (NOVOLOG) 1 VIAL SQ SCH ×3 (07:05→17:01)
[2017-09-01] MEDS: FUROSEMIDE 40 MG TABLET (FP) PO SCH ×2 (07:06→13:59)
[2017-09-01] MEDS ORDERED: PT OWN MED DRAWER 7, Y5N ONE ×4 (09:35→22:00)
[2017-09-01] MEDS: PRENATAL VITAMINS W/ FOLIC ACID TABLET (FP) PO SCH (09:39)
[2017-09-01] MEDS: RANITIDINE HCL 150 MG TABLET (FP) PO SCH (09:39)
[2017-09-01] MEDS: MUPIROCIN 2% TOPICAL OINTMENT 22 GM TUBE TP SCH ×2 (09:40→21:48)
[2017-09-01] MEDS: SERTRALINE HCL 50 MG TABLET (FP) PO SCH (09:40)
[2017-09-01] MEDS: FERROUS SO4 325 MG TABLET (FP) PO SCH (09:40)
[2017-09-01] MEDS: amLODIPine BESYLATE 10 MG TABLET (FP) PO SCH (09:40)
[2017-09-01] MEDS: SODIUM BICARBONATE 325 MG TABLET PO SCH ×2 (09:41→21:49)
[2017-09-01] MEDS: NICOTINE POLACRILEX 2 MG GUM BUC PRN ×3 (11:56→21:48)
[2017-09-01] MEDS ORDERED: INSULIN (NOVOLOG) ASPART 100 UNITS/ML 10ML VIAL ONE (17:01)
[2017-09-01] MEDS: THIAMINE HCL 100 MG TABLET (FP) PO SCH (21:46)
[2017-09-01] MEDS: MELATONIN 5 MG TABLETS PO PRN (21:46)
[2017-09-01] MEDS: QUEtiapine FUMARATE 100 MG TABLET (FP) PO SCH (21:47)
[2017-09-01] MEDS: hydrOXYzine PAMOATE 50 MG CAPSULE (FP) PO PRN (21:47)
[2017-09-01] MEDS: INSULIN (LEVEMIR) 100 UNITS/ML UNITS SQ SCH (21:48)
[2017-09-01] MEDS: COLLOIDAL OATMEAL 1 BAR EACH TP PRN (23:39)
[2017-09-02] MEDS: FUROSEMIDE 40 MG TABLET (FP) PO SCH ×2 (06:32→13:37)
[2017-09-02] MEDS ORDERED: INSULIN (NOVOLOG) ASPART 100 UNITS/ML 10ML VIAL ONE ×2 (06:37→22:04)
[2017-09-02] MEDS: INSULIN SLIDING SCALE (NOVOLOG) 1 VIAL SQ SCH ×3 (07:24→17:53)
[2017-09-02] MEDS ORDERED: PT OWN MED DRAWER 7, Y5N ONE ×3 (09:22→19:52)
[2017-09-02] MEDS: MUPIROCIN 2% TOPICAL OINTMENT 22 GM TUBE TP SCH ×2 (11:02→21:41)
[2017-09-02] MEDS: FERROUS SO4 325 MG TABLET (FP) PO SCH (11:02)
[2017-09-02] MEDS: PRENATAL VITAMINS W/ FOLIC ACID TABLET (FP) PO SCH (11:02)
[2017-09-02] MEDS: RANITIDINE HCL 150 MG TABLET (FP) PO SCH (11:02)
[2017-09-02] MEDS: SERTRALINE HCL 50 MG TABLET (FP) PO SCH (11:02)
[2017-09-02] MEDS: amLODIPine BESYLATE 10 MG TABLET (FP) PO SCH (11:03)
[2017-09-02] MEDS: SODIUM BICARBONATE 325 MG TABLET PO SCH ×2 (11:04→21:41)
[2017-09-02] MEDS: NICOTINE POLACRILEX 2 MG GUM BUC PRN ×3 (11:06→21:42)
[2017-09-02] MEDS: THIAMINE HCL 100 MG TABLET (FP) PO SCH (21:40)
[2017-09-02] MEDS: QUEtiapine FUMARATE 100 MG TABLET (FP) PO SCH (21:40)
[2017-09-02] MEDS: hydrOXYzine PAMOATE 50 MG CAPSULE (FP) PO PRN (21:41)
[2017-09-02] MEDS: INSULIN (LEVEMIR) 100 UNITS/ML UNITS SQ SCH (21:42)
[2017-09-03] MEDS: LOPERAMIDE HCL 2 MG CAPSULE PO PRN (04:48)
[2017-09-03] MEDS: FUROSEMIDE 40 MG TABLET (FP) PO SCH ×2 (06:54→13:04)
[2017-09-03] MEDS: INSULIN SLIDING SCALE (NOVOLOG) 1 VIAL SQ SCH ×3 (08:30→17:00)
[2017-09-03] MEDS ORDERED: PT OWN MED DRAWER 7, Y5N ONE ×5 (09:01→23:42)
[2017-09-03] MEDS: MUPIROCIN 2% TOPICAL OINTMENT 22 GM TUBE TP SCH ×2 (09:40→21:34)
[2017-09-03] MEDS: PRENATAL VITAMINS W/ FOLIC ACID TABLET (FP) PO SCH (09:40)
[2017-09-03] MEDS: RANITIDINE HCL 150 MG TABLET (FP) PO SCH (09:40)
[2017-09-03] MEDS: SERTRALINE HCL 50 MG TABLET (FP) PO SCH (09:40)
[2017-09-03] MEDS: FERROUS SO4 325 MG TABLET (FP) PO SCH (09:40)
[2017-09-03] MEDS: SODIUM BICARBONATE 325 MG TABLET PO SCH ×2 (09:41→21:31)
[2017-09-03] MEDS: amLODIPine BESYLATE 10 MG TABLET (FP) PO SCH (10:20)
[2017-09-03] MEDS ORDERED: INSULIN (NOVOLOG) ASPART 100 UNITS/ML 10ML VIAL ONE ×2 (12:28→17:13)
[2017-09-03] MEDS: NICOTINE POLACRILEX 2 MG GUM BUC PRN (12:29)
[2017-09-03] MEDS: hydrOXYzine PAMOATE 50 MG CAPSULE (FP) PO PRN (18:54)
[2017-09-03] MEDS: THIAMINE HCL 100 MG TABLET (FP) PO SCH (21:31)
[2017-09-03] MEDS: QUEtiapine FUMARATE 100 MG TABLET (FP) PO SCH (21:31)
[2017-09-03] MEDS: MELATONIN 5 MG TABLETS PO PRN (21:31)
[2017-09-03] MEDS: INSULIN (LEVEMIR) 100 UNITS/ML UNITS SQ SCH (21:32)
[2017-09-04] MEDS: FUROSEMIDE 40 MG TABLET (FP) PO SCH ×2 (06:55→14:07)
[2017-09-04] MEDS ORDERED: INSULIN (NOVOLOG) ASPART 100 UNITS/ML 10ML VIAL ONE (07:59)
[2017-09-04] MEDS: INSULIN SLIDING SCALE (NOVOLOG) 1 VIAL SQ SCH ×3 (08:06→16:39)
[2017-09-04] MEDS: SODIUM BICARBONATE 325 MG TABLET PO SCH ×2 (09:50→22:08)
[2017-09-04] MEDS: PRENATAL VITAMINS W/ FOLIC ACID TABLET (FP) PO SCH (09:50)
[2017-09-04] MEDS: FERROUS SO4 325 MG TABLET (FP) PO SCH (09:50)
[2017-09-04] MEDS: amLODIPine BESYLATE 10 MG TABLET (FP) PO SCH (09:50)
[2017-09-04] MEDS: SERTRALINE HCL 50 MG TABLET (FP) PO SCH (09:50)
[2017-09-04] MEDS: RANITIDINE HCL 150 MG TABLET (FP) PO SCH (09:50)
[2017-09-04] MEDS: MUPIROCIN 2% TOPICAL OINTMENT 22 GM TUBE TP SCH (09:51)
[2017-09-04] MEDS: LOPERAMIDE HCL 2 MG CAPSULE PO PRN (14:03)
[2017-09-04] MEDS: NICOTINE POLACRILEX 2 MG GUM BUC PRN ×2 (14:04→19:04)
[2017-09-04] MEDS: MELATONIN 5 MG TABLETS PO PRN (21:59)
[2017-09-04] MEDS: hydrOXYzine PAMOATE 50 MG CAPSULE (FP) PO PRN (21:59)
[2017-09-04] MEDS: QUEtiapine FUMARATE 100 MG TABLET (FP) PO SCH (21:59)
[2017-09-04] MEDS: THIAMINE HCL 100 MG TABLET (FP) PO SCH (21:59)
[2017-09-04] MEDS: INSULIN (LEVEMIR) 100 UNITS/ML UNITS SQ SCH (22:00)
[2017-09-04] MEDS ORDERED: PT OWN MED DRAWER 7, Y5N ONE (22:36)
[2017-09-05] MEDS: FUROSEMIDE 40 MG TABLET (FP) PO SCH ×2 (06:41→13:14)
[2017-09-05] MEDS ORDERED: INSULIN (NOVOLOG) ASPART 100 UNITS/ML 10ML VIAL ONE ×2 (08:19→17:00)
[2017-09-05] MEDS: INSULIN SLIDING SCALE (NOVOLOG) 1 VIAL SQ SCH ×3 (08:27→17:02)
[2017-09-05] MEDS: amLODIPine BESYLATE 10 MG TABLET (FP) PO SCH (09:50)
[2017-09-05] MEDS: SERTRALINE HCL 50 MG TABLET (FP) PO SCH (09:50)
[2017-09-05] MEDS: RANITIDINE HCL 150 MG TABLET (FP) PO SCH (09:50)
[2017-09-05] MEDS: SODIUM BICARBONATE 325 MG TABLET PO SCH ×2 (09:50→21:03)
[2017-09-05] MEDS: FERROUS SO4 325 MG TABLET (FP) PO SCH (09:50)
[2017-09-05] MEDS: PRENATAL VITAMINS W/ FOLIC ACID TABLET (FP) PO SCH (09:50)
[2017-09-05] MEDS: NICOTINE POLACRILEX 2 MG GUM BUC PRN ×3 (09:52→21:05)
[2017-09-05] MEDS: hydrOXYzine PAMOATE 50 MG CAPSULE (FP) PO PRN ×2 (09:52→21:01)
[2017-09-05] MEDS: LOPERAMIDE HCL 2 MG CAPSULE PO PRN (21:00)
[2017-09-05] MEDS: MELATONIN 5 MG TABLETS PO PRN (21:01)
[2017-09-05] MEDS: THIAMINE HCL 100 MG TABLET (FP) PO SCH (21:01)
[2017-09-05] MEDS: QUEtiapine FUMARATE 100 MG TABLET (FP) PO SCH (21:02)
[2017-09-05] MEDS: INSULIN (LEVEMIR) 100 UNITS/ML UNITS SQ SCH (21:04)
[2017-09-05] MEDS ORDERED: PT OWN MED DRAWER 7, Y5N ONE (21:58)
[2017-09-06] MEDS: FUROSEMIDE 40 MG TABLET (FP) PO SCH ×2 (06:49→13:16)
[2017-09-06] MEDS: INSULIN SLIDING SCALE (NOVOLOG) 1 VIAL SQ SCH ×3 (06:50→18:09)
[2017-09-06] MEDS: LOPERAMIDE HCL 2 MG CAPSULE PO PRN (06:50)
[2017-09-06] MEDS ORDERED: PT OWN MED DRAWER 7, Y5N ONE ×5 (08:42→23:02)
[2017-09-06] MEDS: amLODIPine BESYLATE 10 MG TABLET (FP) PO SCH (10:16)
[2017-09-06] MEDS: SERTRALINE HCL 50 MG TABLET (FP) PO SCH (10:16)
[2017-09-06] MEDS: SODIUM BICARBONATE 325 MG TABLET PO SCH ×2 (10:16→22:05)
[2017-09-06] MEDS: RANITIDINE HCL 150 MG TABLET (FP) PO SCH (10:16)
[2017-09-06] MEDS: FERROUS SO4 325 MG TABLET (FP) PO SCH (10:16)
[2017-09-06] MEDS: PRENATAL VITAMINS W/ FOLIC ACID TABLET (FP) PO SCH (10:16)
[2017-09-06] MEDS: NICOTINE POLACRILEX 2 MG GUM BUC PRN ×2 (11:51→18:12)
[2017-09-06] MEDS: hydrOXYzine PAMOATE 50 MG CAPSULE (FP) PO PRN ×2 (16:29→22:06)
[2017-09-06] MEDS ORDERED: INSULIN (NOVOLOG) ASPART 100 UNITS/ML 10ML VIAL ONE (17:27)
--- NOTE | 2017-09-06 17:44 | PN ---
[facility] Progress Note Note: Notified by RN patient did not eat all of dinner. Patient insulin dose adjusted to 4 units x one dose to prevent hypoglycemia. Continue to monitor BGM as ordered.
[2017-09-06] MEDS ORDERED: INSULIN (NOVOLOG) ASPART 100 UNITS/ML 10ML VIAL SQ ONE (18:00)
[2017-09-06] MEDS: THIAMINE HCL 100 MG TABLET (FP) PO SCH (22:05)
[2017-09-06] MEDS: QUEtiapine FUMARATE 100 MG TABLET (FP) PO SCH (22:05)
[2017-09-06] MEDS: MELATONIN 5 MG TABLETS PO PRN (22:06)
[2017-09-06] MEDS: INSULIN (LEVEMIR) 100 UNITS/ML UNITS SQ SCH (22:06)
[2017-09-07] MEDS: FUROSEMIDE 40 MG TABLET (FP) PO SCH ×2 (06:51→13:03)
[2017-09-07] MEDS: INSULIN SLIDING SCALE (NOVOLOG) 1 VIAL SQ SCH ×3 (08:41→17:00)
[2017-09-07] MEDS: RANITIDINE HCL 150 MG TABLET (FP) PO SCH (10:23)
[2017-09-07] MEDS: PRENATAL VITAMINS W/ FOLIC ACID TABLET (FP) PO SCH (10:23)
[2017-09-07] MEDS: FERROUS SO4 325 MG TABLET (FP) PO SCH (10:23)
[2017-09-07] MEDS: amLODIPine BESYLATE 10 MG TABLET (FP) PO SCH (10:23)
[2017-09-07] MEDS: SODIUM BICARBONATE 325 MG TABLET PO SCH ×2 (10:23→22:10)
[2017-09-07] MEDS: NICOTINE POLACRILEX 2 MG GUM BUC PRN (10:24)
[2017-09-07] MEDS: SERTRALINE HCL 50 MG TABLET (FP) PO SCH (10:24)
[2017-09-07] MEDS: INSULIN (LEVEMIR) 100 UNITS/ML UNITS SQ SCH (22:09)
[2017-09-07] MEDS: THIAMINE HCL 100 MG TABLET (FP) PO SCH (22:10)
[2017-09-07] MEDS: QUEtiapine FUMARATE 100 MG TABLET (FP) PO SCH (22:10)
[2017-09-07] MEDS: MELATONIN 5 MG TABLETS PO PRN (22:11)
[2017-09-07] MEDS: hydrOXYzine PAMOATE 50 MG CAPSULE (FP) PO PRN (22:12)
[2017-09-08] MEDS: FUROSEMIDE 40 MG TABLET (FP) PO SCH ×2 (06:54→13:28)
[2017-09-08] MEDS: INSULIN SLIDING SCALE (NOVOLOG) 1 VIAL SQ SCH ×3 (08:24→17:39)
[2017-09-08] MEDS: SERTRALINE HCL 50 MG TABLET (FP) PO SCH (10:26)
[2017-09-08] MEDS: FERROUS SO4 325 MG TABLET (FP) PO SCH (10:26)
[2017-09-08] MEDS: PRENATAL VITAMINS W/ FOLIC ACID TABLET (FP) PO SCH (10:26)
[2017-09-08] MEDS: SODIUM BICARBONATE 325 MG TABLET PO SCH ×2 (10:26→21:50)
[2017-09-08] MEDS: amLODIPine BESYLATE 10 MG TABLET (FP) PO SCH (10:26)
[2017-09-08] MEDS: hydrOXYzine PAMOATE 50 MG CAPSULE (FP) PO PRN ×2 (10:26→21:49)
[2017-09-08] MEDS: RANITIDINE HCL 150 MG TABLET (FP) PO SCH (10:26)
[2017-09-08] MEDS: NICOTINE POLACRILEX 2 MG GUM BUC PRN ×2 (10:27→21:51)
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
[2017-09-08] MEDS ORDERED: BACITRACIN 15 GM TUBE TOPICAL OINTMENT TP SCH (13:15)
[2017-09-08] MEDS: BACITRACIN 0.9 GM PACKET TP SCH (14:12)
[2017-09-08] MEDS ORDERED: INSULIN (NOVOLOG) ASPART 100 UNITS/ML 10ML VIAL ONE (17:26)
[2017-09-08] MEDS: INSULIN (LEVEMIR) 100 UNITS/ML UNITS SQ SCH (21:46)
[2017-09-08] MEDS: QUEtiapine FUMARATE 100 MG TABLET (FP) PO SCH (21:49)
[2017-09-08] MEDS: MELATONIN 5 MG TABLETS PO PRN (21:49)
[2017-09-08] MEDS: THIAMINE HCL 100 MG TABLET (FP) PO SCH (21:49)
[2017-09-08] MEDS: LOPERAMIDE HCL 2 MG CAPSULE PO PRN (23:57)
[2017-09-09] MEDS ORDERED: INSULIN (LEVEMIR) 100 UNITS/ML UNITS SQ SCH
[2017-09-09] MEDS ORDERED: SODIUM BICARBONATE 325 MG TABLET PO SCH
[2017-09-09] MEDS ORDERED: RANITIDINE HCL 150 MG TABLET (FP) PO SCH
[2017-09-09] MEDS ORDERED: NICOTINE POLACRILEX 2 MG GUM BUC SCH
[2017-09-09] MEDS ORDERED: SERTRALINE HCL 50 MG TABLET (FP) PO SCH
[2017-09-09] MEDS ORDERED: amLODIPine BESYLATE 10 MG TABLET (FP) PO SCH
[2017-09-09] MEDS ORDERED: INSULIN SLIDING SCALE (NOVOLOG) 1 VIAL SQ SCH
[2017-09-09] MEDS ORDERED: FUROSEMIDE 40 MG TABLET (FP) PO SCH
[2017-09-09] MEDS ORDERED: FERROUS SO4 325 MG TABLET (FP) PO SCH
[2017-09-09] MEDS ORDERED: QUEtiapine FUMARATE 100 MG TABLET (FP) PO SCH
[2017-09-09] MEDS: FUROSEMIDE 40 MG TABLET (FP) PO SCH ×2 (06:44→13:00)
[2017-09-09] MEDS: INSULIN SLIDING SCALE (NOVOLOG) 1 VIAL SQ SCH ×3 (06:44→17:00)
[2017-09-09] MEDS: LOPERAMIDE HCL 2 MG CAPSULE PO PRN (08:52)
[2017-09-09] MEDS: FERROUS SO4 325 MG TABLET (FP) PO SCH (11:00)
[2017-09-09] MEDS: PRENATAL VITAMINS W/ FOLIC ACID TABLET (FP) PO SCH (11:00)
[2017-09-09] MEDS: SERTRALINE HCL 50 MG TABLET (FP) PO SCH (11:00)
[2017-09-09] MEDS: SODIUM BICARBONATE 325 MG TABLET PO SCH ×2 (11:00→21:49)
[2017-09-09] MEDS: amLODIPine BESYLATE 10 MG TABLET (FP) PO SCH (11:00)
[2017-09-09] MEDS: RANITIDINE HCL 150 MG TABLET (FP) PO SCH (11:00)
[2017-09-09] MEDS: BACITRACIN 0.9 GM PACKET TP SCH (11:00)
[2017-09-09] MEDS: NICOTINE POLACRILEX 2 MG GUM BUC PRN (12:59)
--- NOTE | 2017-09-09 14:09 | PN ---
Psychiatric Progress Note Vital Signs: Vital Signs Period Temp Pulse Resp BP Sys/Garcia Pulse Ox Last 24 Hr 98.4 F-98.6 F 98-116 -18 109-121/69-79 Date of Session: 09/09/17 Chief Complaint:: discharge visit HPI: patient is addressing alcohol, cannabis dependence comrorbid PTSD and Bipolar d/o. ROS: DM,Psoriasis,H/O amputation of R finger,H/O Ostheomyelitis Current Medications: Active Medications Generic Name Dose Route Start Last Admin Trade Name Freq PRN Reason Stop Dose Admin Acetaminophen 650 mg 08/05/17 20:26 Tylenol - PO Q4H PRN FEVER Amlodipine Besylate 10 mg 08/06/17 10:00 09/09/17 11:00 Norvasc - PO 10 mg DAILY JULIANNA Administration Bacitracin 0.9 gm 09/08/17 14:00 09/09/17 11:00 Bacitracin - TP 0.9 gm DAILY JULIANNA Administration Colloidal Oatmeal 1 applic 08/12/17 16:00 09/01/17 23:39 Aveeno Soap - TP 1 bar DAILY PRN Administration HYGEINE Eucalyptus/Menthol/Phenol/Sorbitol 1 each 08/05/17 20:26 Cepastat Lozenge - MM Q4H PRN SORE THROAT Ferrous Sulfate 325 mg 08/06/17 10:00 09/09/17 11:00 Feosol - PO 325 mg DAILY JULIANNA Administration Furosemide 40 mg 08/06/17 06:00 09/09/17 13:00 Lasix - PO 40 mg BID@0600,1400 JULIANNA Administration Guaifenesin 10 ml 08/05/17 20:26 Robitussin Dm - PO Q6H PRN COUGH Hydroxyzine Pamoate 50 mg 08/05/17 20:26 09/08/17 21:49 Vistaril - PO 50 mg Q4H PRN Administration AGITATION Insulin Aspart 1 vial 08/06/17 07:00 09/09/17 11:35 Novolog Vial Sliding Scale - SQ Not Given TIDAC [facility] Protocol Insulin Detemir 6 units 08/23/17 22:00 09/08/17 21:46 Levemir Vial SQ 6 units HS JULIANNA Administration Loperamide HCl 4 mg 08/05/17 20:26 09/09/17 08:52 Imodium - PO 4 mg Q6H PRN Administration DIARRHEA Melatonin 10 mg 09/04/17 16:28 09/08/17 21:49 Melatonin PO 10 mg HS PRN Administration INSOMNIA Nicotine 7 mg 08/05/17 21:24 Nicoderm Patch - TD DAILY PRN NICOTINE WITHDRAWAL Nicotine Polacrilex 2 mg 08/05/17 20:30 09/09/17 12:59 Nicorette Gum - BUC 2 mg Q2H PRN Administration NICOTINE REPLACEMENT RX Multivit/Folic Acid/Iron 1 tab 08/06/17 10:00 09/09/17 11:00 Vitamins ([facility]) - PO 1 tab DAILY JULIANNA Administration Pseudoephedrine/Triprolidine 1 combo 08/05/17 20:26 Actifed - PO TID PRN NASAL CONGESTION Quetiapine Fumarate 100 mg 08/12/17 22:00 09/08/17 21:49 Seroquel - PO 100 mg HS JULIANNA Administration Ranitidine HCl 150 mg 08/06/17 10:00 09/09/17 11:00 Zantac - PO 150 mg DAILY JULIANNA Administration Sertraline HCl 100 mg 08/06/17 10:00 09/09/17 11:00 Zoloft - PO 100 mg DAILY JULIANNA Administration Sodium Bicarbonate 325 mg 08/06/17 10:00 09/09/17 11:00 Sodium Bicarbonate - PO 325 mg BID JULIANNA Administration Sodium Chloride 2 spray 08/05/17 20:55 [place]al [place] - NS Q4H PRN NASAL CONGESTION Thiamine HCl 100 mg 08/05/17 22:00 09/08/17 21:49 Vitamin B1 - PO 100 mg HS JULIANNA Administration Current Side Effect: No Lab tests ordered: No Lab tests reviewed: Yes Provider note:: patient will complete her treatment and meet her goals on , will continue to address he issues at [facility]. She gained insights into importance for changing behavoir and utilize all suports avaible to prevent relapses. Seroquel and Trazodone well tolerated, scropts provided for 30 days, stable for discharge on 09/10/17. Total face to face time:: 15 Mental Status Exam - Mental Status Exam Alert and Oriented to: Time, Place, Person Cognitive Function: Good Patient Appearance: Well Groomed Mood: Hopeful Affect: Appropriate, Mood Congruent Patient Behavior: Appropriate, Cooperative Speech Pattern: Clear, Appropriate Voice Loudness: Normal Thought Process: Intact, Goal Oriented Thought Disorder: Not Present Hallucinations: Denies Suicidal Ideation: Denies Homicidal Ideation: Denies Insight/Judgement: Fair Sleep: Fair Appetite: Fair Muscle strength/Tone: Normal Gait/Station: Normal Psychiatric Treatment Plan - Problem List (1) PTSD (post-traumatic stress disorder) Current Visit: Yes (2) Alcohol dependence Current Visit: Yes Qualifiers: Substance use status: uncomplicated Qualified Code(s): F10.20 - Alcohol dependence, uncomplicated (3) Bipolar disorder Current Visit: Yes Qualifiers: Active/Remission status: remission status unspecified Qualified Code(s): F31.9 - Bipolar disorder, unspecified (4) Cannabis dependence Current Visit: Yes (5) Diabetes type 2, uncontrolled Current Visit: Yes Qualifiers: Diabetes mellitus computer terminal operator insulin use: with computer terminal operator use Diabetes mellitus complication status: with circulatory complication Diabetes mellitus complication detail: with other circulatory complications Qualified Code(s): E11.59 - Type 2 diabetes mellitus with other circulatory complications; E11.65 - Type 2 diabetes mellitus with hyperglycemia; E11.65 - Type 2 diabetes mellitus with hyperglycemia; E11.65 - Type 2 diabetes mellitus with hyperglycemia; E11.65 - Type 2 diabetes mellitus with hyperglycemia; Z79.4 - technician terminal and repeater (current) use of insulin; Z79.4 - technician terminal and repeater (current) use of insulin; Z79.4 - technician terminal and repeater (current) use of insulin; Z79.4 - technician terminal and repeater (current) use of insulin (6) HTN (hypertension) Current Visit: Yes Qualifiers: Hypertension type: unspecified Qualified Code(s): I10 - Essential (primary ) hypertension (7) Insomnia Current Visit: Yes Qualifiers: Insomnia type: unspecified Qualified Code(s): G47.00 - Insomnia, unspecified (8) Nicotine dependence Current Visit: Yes Qualifiers: Nicotine product type: cigarettes Substance use status: uncomplicated Qualified Code(s): F17.210 - Nicotine dependence, cigarettes, uncomplicated (9) Psoriasis Current Visit: Yes (10) Cocaine dependence Current Visit: No Qualifiers: Substance use status: uncomplicated Qualified Code(s): F14.20 - Cocaine dependence, uncomplicated
[2017-09-09] MEDS ORDERED: INSULIN (NOVOLOG) ASPART 100 UNITS/ML 10ML VIAL ONE (17:25)
[2017-09-09] MEDS ORDERED: PT OWN MED DRAWER 7, Y5N ONE (20:01)
[2017-09-09] MEDS: hydrOXYzine PAMOATE 50 MG CAPSULE (FP) PO PRN (20:25)
[2017-09-09] MEDS: THIAMINE HCL 100 MG TABLET (FP) PO SCH (21:48)
[2017-09-09] MEDS: MELATONIN 5 MG TABLETS PO PRN (21:48)
[2017-09-09] MEDS: QUEtiapine FUMARATE 100 MG TABLET (FP) PO SCH (21:49)
[2017-09-09] MEDS: INSULIN (LEVEMIR) 100 UNITS/ML UNITS SQ SCH (21:52)
[2017-09-10] MEDS: FUROSEMIDE 40 MG TABLET (FP) PO SCH (06:33)
[2017-09-10 06:58] VITALS: TEMP 98.5
[2017-09-10] MEDS: INSULIN SLIDING SCALE (NOVOLOG) 1 VIAL SQ SCH (08:21)
[2017-09-10] MEDS: BACITRACIN 0.9 GM PACKET TP SCH (09:00)
[2017-09-10] MEDS: amLODIPine BESYLATE 10 MG TABLET (FP) PO SCH (09:00)
[2017-09-10] MEDS: FERROUS SO4 325 MG TABLET (FP) PO SCH (09:00)
[2017-09-10] MEDS: PRENATAL VITAMINS W/ FOLIC ACID TABLET (FP) PO SCH (09:00)
[2017-09-10] MEDS: RANITIDINE HCL 150 MG TABLET (FP) PO SCH (09:00)
[2017-09-10] MEDS: SERTRALINE HCL 50 MG TABLET (FP) PO SCH (09:01)
[2017-09-10] MEDS: SODIUM BICARBONATE 325 MG TABLET PO SCH (09:02)
[2017-09-10] MEDS ORDERED: PT OWN MED DRAWER 7, Y5N ONE (09:02)
[2017-09-10] MEDS: NICOTINE POLACRILEX 2 MG GUM BUC PRN (09:03)
[2017-09-10 09:20] VITALS: BP 130/78; PULSE 112
== END 2017-09-10 09:04 | disposition home or self-care (01) | DRG 772 ==
LOC: YASAS 18:48 → Y3E 19:59
PROVIDERS: ADMIT Psychiatry & Neurology Psychiatry; ATTEND Psychiatry & Neurology Psychiatry
PROC: HZ42ZZZ Group Counseling for Substance Abuse Treatment, Cognitive-Behavioral (ICD-10-PCS; principal; 2017-08-05)
DX: F10.20 Alcohol dependence, uncomplicated (principal); F14.20 Cocaine dependence, uncomplicated; F12.20 Cannabis dependence, uncomplicated; F17.210 Nicotine dependence, cigarettes, uncomplicated; F31.9 Bipolar disorder, unspecified; F43.10 Post-traumatic stress disorder, unspecified; G47.00 Insomnia, unspecified; I10 Essential (primary) hypertension; E11.65 Type 2 diabetes mellitus with hyperglycemia; Z79.4 Long term (current) use of insulin; L40.9 Psoriasis, unspecified; R63.0 Anorexia; E87.5 Hyperkalemia; Z91.5 Personal history of self-harm; Z59.0 Homelessness
CPT/HCPCS: 36415; 80048; 80053; 81003; 81015; 82962; 85025; 85027; 86593; 93005; 93010